=== PATIENT | female | born 1995 | race Caucasian/White ===

== ENCOUNTER 2022-06-20 19:06 | Inpatient (IN) | payer OTHER, SELFPAY ==
[2022-06-20 19:09] VITALS: BP 160/82; PULSE 91; RESP 18; TEMP 36.6; O2SAT 97; BMI 37.8
[2022-06-20 19:35] LABS: Hematocrit 39.9 % (37.0-47.0); Hemoglobin 13.8 g/dl (12.0-16.0); Mean Corpuscular HGB Conc 34.6 g/dl (31.0-35.0); Mean Corpuscular Hemoglobin 31.7 pg (27.0-33.0); Mean Corpuscular Volume 91.5 fL (80.0-98.0); Mean Platelet Volume 9.9 fL (9.4-12.3); Platelet Count 248 X10*3/uL (160-400); Red Blood Count 4.36 X10*6/uL (4.20-5.50); White Blood Count 6.2 X10*3/uL (4.8-10.8)
[2022-06-20 19:57] LABS: Anion Gap 12 (12-20); Blood Urea Nitrogen 12 mg/dL (9-16); Carbon Dioxide 26 mmol/L (22-29); Chloride 107 mmol/L (96-108); Creatinine Clr Calc Pharmacy 117.6; Estimated Glomerular Filt Rate > 60; Glucose Random 98 mg/dL (60-115); Sodium 141 mmol/L (135-145)
[2022-06-20 20:01] LABS: COVID-19 Test Negative (Negative)
[2022-06-20 20:45] LABS: Appearance Urine Turbid; Color Urine Dark Yellow; Glucose Urine UA Negative (Negative); Leukocyte Esterase Urine Moderate (2+) (Negative); Nitrite Urine Negative (Negative); PH 5.5 (5.0-9.0); Specific Gravity - Urine 1.025 (1.005-1.025); UMIC TRIGGER UA YES; Urine Blood Negative (Negative); Urine Ketones Trace mg/dL (Negative); Urine Protein Trace mg/dL (Neg-Trace)
[2022-06-20 20:55] LABS: UPreg QC Valid YES; Urine Pregnancy NEGATIVE (NEGATIVE)
[2022-06-20 20:57] LABS: Amphetamine Screen Urine Not Detected (Not Detect); Barbiturates, Urine Not Detected (Not Detect); Benzodiazepines Screen Urine Not Detected (Not Detect); Cannabinoid Screen Urine POSITIVE (Not Detect); Cocaine Screen Urine Not Detected (Not Detect); Fentanyl, urine Not Detected (Not Detect); Opiate Screen Urine Not Detected (Not Detect); Phencyclidine Screen Urine Not Detected (Not Detect)
[2022-06-20 21:18] LABS: MANUAL DIFF FLAG NO
[2022-06-20 21:19] LABS: Basophils Percent Auto 0.3 % (0-2); Eosinophils Absolute Auto 0.1 X10*3/uL (0.0-0.4); Eosinophils Percent Auto 1.7 % (0-4); Hematocrit 36.9 % (37.0-47.0); Hemoglobin 12.7 g/dl (12.0-16.0); Imm Gran Abs Auto 0.02 X10*3/uL (0.00-0.03); Imm Gran Pct Auto 0.3 % (0.0-0.4); Lymphocytes Absolute Auto 1.8 X10*3/uL (1.2-4.9); Lymphocytes Percent Auto 30.1 % (20-40); Mean Corpuscular HGB Conc 34.4 g/dl (31.0-35.0); Mean Corpuscular Hemoglobin 30.9 pg (27.0-33.0); Mean Corpuscular Volume 89.8 fL (80.0-98.0); Mean Platelet Volume 9.8 fL (9.4-12.3); Monocytes Absolute Auto 0.5 X10*3/uL (0.1-1.2); Monocytes Percent Auto 8.5 % (2-11); Neutrophils Absolute Auto 3.5 x10*3/uL (2.0-8.3); Neutrophils Percent Auto 59.1 % (45-73); Platelet Count 219 X10*3/uL (160-400); Red Blood Count 4.11 X10*6/uL (4.20-5.50); White Blood Count 5.9 X10*3/uL (4.8-10.8)
[2022-06-20 21:26] LABS: Bacteria Urine 4+ (None Seen); Hyaline Casts Urine 0-2 /LPF (0-2); RBC Urine 0-2 /HPF (0-2); Squamous Epithelial Cell Urine >20 /HPF (0-2)
[2022-06-20 21:43] LABS: Acetaminophen LAB < 17 mcg/mL (<30); Alanine Aminotransferase 8 U/L (0-31); Albumin Level 3.9 g/dL (3.5-5.0); Alkaline Phosphatase 73 U/L (39-117); Anion Gap 10 (12-20); Aspartate Amino Transferase 8 U/L (5-31); Bilirubin Total 0.3 mg/dL (0.0-1.0); Blood Urea Nitrogen 12 mg/dL (9-16); Calcium 8.5 mg/dL (8.4-10.2); Carbon Dioxide 25 mmol/L (22-29); Chloride 106 mmol/L (96-108); Creatinine Clr Calc Pharmacy 117.6; Estimated Glomerular Filt Rate > 60; Glucose Random 137 mg/dL (60-115); Potassium 3.7 mmol/L (3.3-5.1); Salicylate < 5.0 mg/dL (15-30); Sodium 137 mmol/L (135-145); Total Protein 5.7 g/dL (6.5-8.0)
--- NOTE | 2022-06-20 21:46 | ED_ITS ---
HPI - Psych General Chief Complaint: Psychiatric Symptoms Stated Complaint: Crisis Time Seen by Provider: 06/20/22 20:33 Source: patient Mode of arrival: ambulatory Limitations: no limitations History of Present Illness HPI Narrative: 26-year-old female with a history of bipolar disorder and depression presents for suicidal ideations and states she is feeling like ? is losing it ?. Patient states she has been hospitalized 5x in the past for suicidal ideations, the last time being 5 years ago. Patient states that she had a child 10 months ago and her symptoms have been getting increasingly worse since then. Patient sees a therapist once a week who told her issues most likely suffering from psychosis. Patient states that she has been hearing voices in her mind. denies tactile and visual hallucinations. Patient takes medical marijuana for fibromyalgia pain. Denies any other drug use. Denies tobacco use. Denies alcohol use. Patient is taking Abilify and Seroquel. Patient states that her is her support system at home. Patient tells me that her child is safe with its grandmother in denies any thoughts of hurting her child. Patient denies SOB, nausea, chest pain, vomiting, diarrhea. Related Data Home Medications Medication Instructions Recorded Confirmed aripiprazole 2 mg tablet 1.5 tab PO BEDTIME 06/20/22 06/20/22 carbamazepine 100 mg 1 cap PO Q12H 06/20/22 06/20/22 capsule,extended release [id number] cholecalciferol (vitamin D3) 125 1 cap PO DAILY 06/20/22 06/20/22 mcg (5,000 unit) capsule quetiapine 50 mg tablet 1 - 2 tab PO BEDTIME 06/20/22 06/20/22 Allergies Allergy/AdvReac Type Severity Reaction Status Date / Time Sulfa (Sulfonamide Allergy Intermediate DIARRHEA Verified 06/20/22 19:14 Antibiotics) [SULFA (SULFONAMIDE ANTIBIOTICS)] topiramate [From Topamax] Allergy Anaphylaxis Verified 06/20/22 19:14 trazodone [TRAZODONE] AdvReac Mild UNKNOWN Verified 06/20/22 19:14 CHICK PEAS Allergy Severe ANAPHYLAXIS Uncoded 01/15/20 19:35 Review of Systems Review of Systems: Constitutional : No Weight loss, No Fever, No Chills, No Fatigue, No Malaise ENT/Mouth : No sore throat, No Rhinorrhea Eyes: No Eye Pain, No Swelling, No Redness Cardiovascular : No Chest Pain, No SOB, No Dyspnea on Exertion, No Orthopnea, No Edema, No Palpitations Respiratory : No Cough, No Sputum, No Wheezing Gastrointestinal : No Nausea, No Vomiting, No Diarrhea, No Constipation, No abdominal Pain, No Hematochezia, No Melena Genitourinary : No Dysuria, No Urinary Frequency, No Hematuria, Musculoskeletal : No joint pain, No Myalgias, No Joint Swelling Skin : No Skin Lesions, No rash Neuro : No Weakness, No Numbness, No Dizziness, No Headache Psych : No Anxiety/Panic, + Depression, + SI, No HI All other systems reviewed and are negative Yes all other systems are reviewed and are negative [facility] Past Medical History Attestation statement: The following information was validated with the patient. Source: old records reviewed and nursing notes reviewed Social History Social History Advance Directives: No Advance Directives Information Provided: No Physical Exam Vital Signs: Vital Signs: Last Vital Signs Temp 97.9 F 06/20/22 19:09 Pulse 91 06/20/22 19:09 Resp 18 06/20/22 19:09 BP 160/82 H 06/20/22 19:09 Pulse Ox 97 06/20/22 19:09 O2 Del Method 06/20/22 19:09 BMI result Body Mass Index 37.8 vss Appearance: Alert.? Oriented X3.? No acute distress.? Head: Normocephalic, atraumatic, no step-offs or deformities Eyes: Pupils equal, round and reactive to light.? Neck: Normal inspection.? Neck supple.? CVS: Normal heart rate and rhythm.? Pulses normal.? Respiratory: No respiratory distress.? Breath sounds normal.? Abdomen: Soft and nontender.? Skin: Skin warm and dry.? Normal skin color.? Normal skin turgor.? Extremities: No lower extremity edema.? No calf ttp. 5/5 strength to bilateral upper and lower extremities Neuro: Oriented X 3.? No motor deficit.? No sensory deficit. CN 2-12 intact Course Reevaluation(s) Reevaluation #1: CBC within normal limits. No electrolyte abnormalities. Urinalysis with leukocyte esterases and bacteria however I suspected secondary to contamination, patient without UTI symptoms will not treat for UTI. Urine is positive for marijuana salicylates, acetaminophen negative. COVID negative. At this time patient will be placed in observation to allow more time to be evaluated by the behavioral health team. At time observation was started patient common cooperative no acute distress will continue to monitor. Time: 21:57 Medical Decision Making Medical Decision Making [facility] Narrative: [age]-year-old female presents with depression status post having an child 10 months ago, progressively worsening intermittent suicidal ideation no particular plan Physical exam benign patient tearful however. Likely depression or depression. Unlikely metabolic disturbances. Plan medical clearance evaluation by the behavioral health team Differential Diagnosis Differential Diagnoses: The differential diagnosis associated with the presentation includes Likely depression or depression. Unlikely metabolic disturbances. Admission/Observation Consideration of admission/observation: Escalation of care including admission/observation considered Lab Data [facility] Lab Attestation statement: I reviewed the patient's lab results. 06/20/22 21:10 06/20/22 21:10 Labs: Lab Results 06/20/22 06/20/22 06/20/22 Range/Units 19:18 19:29 19:29 WBC 6.2 (4.8-10.8) X10*3/uL RBC 4.36 (4.20-5.50) X10*6/uL Hgb 13.8 (12.0-16.0) g/dl Hct 39.9 (37.0-47.0) % MCV 91.5 (80.0-98.0) fL MCH 31.7 (27.0-33.0) pg MCHC 34.6 (31.0-35.0) g/dl RDW 12.0 (11.0-16.0) % Plt Count 248 (160-400) X10*3/uL MPV 9.9 (9.4-12.3) fL Immature Gran % (Auto) (0.0-0.4) % Neut % (Auto) (45-73) % Lymph % (Auto) (20-40) % [place] % (Auto) (2-11) % Eos % (Auto) (0-4) % Baso % (Auto) (0-2) % Lymph # (Auto) (1.2-4.9) X10*3/uL [place] # (Auto) (0.1-1.2) X10*3/uL Eos # (Auto) (0.0-0.4) X10*3/uL Baso # (Auto) (0.0-0.2) X10*3/uL Abs Immat Gran (auto) (0.00-0.03) X10*3/uL Absolute Neuts (auto) (2.0-8.3) x10*3/uL Absolute Nucleated RBC 0.000 (0.0-0.012) X10*3/uL Nucleated RBC % (auto) 0.0 (0.0-0.2) /100WBC Sodium 141 (135-145) mmol/L Potassium 4.0 (3.3-5.1) mmol/L Chloride 107 (96-108) mmol/L Carbon Dioxide 26 (22-29) mmol/L Anion Gap 12 (12-20) BUN 12 (9-16) mg/dL Creatinine 0.73 (0.5-1.4) mg/dL Estim Creat Clear Calc 117.6 Estimated GFR > 60 Random Glucose 98 (60-115) mg/dL Calcium 9.0 (8.4-10.2) mg/dL Total Bilirubin (0.0-1.0) mg/dL AST (5-31) U/L ALT (0-31) U/L Alkaline Phosphatase (39-117) U/L Total Protein (6.5-8.0) g/dL Albumin (3.5-5.0) g/dL Urine Color Urine Appearance Urine pH (5.0-9.0) Ur Specific [place] (1.005-1.025) Urine Protein (Neg-Trace) mg/dL Urine Glucose (UA) (Negative) mg/dL Urine Ketones (Negative) mg/dL Urine Blood (Negative) Urine Nitrite (Negative) Ur Leukocyte Esterase (Negative) Urine RBC (0-2) /HPF Urine WBC (0-5) /HPF Ur Squamous Epith Cells (0-2) /HPF Urine Bacteria (None Seen) Hyaline Casts (0-2) /LPF Urine Test (NEGATIVE) Salicylates (15-30) mg/dL Urine Opiates Screen (Not Detect) Urine Fentanyl Screen (Not Detect) Acetaminophen (<30) mcg/mL Ur Barbiturates Screen (Not Detect) Ur Phencyclidine Scrn (Not Detect) Ur Amphetamines Screen (Not Detect) U Benzodiazepines Scrn (Not Detect) Urine Cocaine Screen (Not Detect) U Marijuana (THC) Screen (Not Detect) COVID-19 (BARRETT) Negative (Negative) COVID-19 Clin Com See Note 06/20/22 06/20/22 06/20/22 Range/Units 20:20 20:20 20:20 WBC (4.8-10.8) X10*3/uL RBC (4.20-5.50) X10*6/uL Hgb (12.0-16.0) g/dl Hct (37.0-47.0) % MCV (80.0-98.0) fL MCH (27.0-33.0) pg MCHC (31.0-35.0) g/dl RDW (11.0-16.0) % Plt Count (160-400) X10*3/uL MPV (9.4-12.3) fL Immature Gran % (Auto) (0.0-0.4) % Neut % (Auto) (45-73) % Lymph % (Auto) (20-40) % [place] % (Auto) (2-11) % Eos % (Auto) (0-4) % Baso % (Auto) (0-2) % Lymph # (Auto) (1.2-4.9) X10*3/uL [place] # (Auto) (0.1-1.2) X10*3/uL Eos # (Auto) (0.0-0.4) X10*3/uL Baso # (Auto) (0.0-0.2) X10*3/uL Abs Immat Gran (auto) (0.00-0.03) X10*3/uL Absolute Neuts (auto) (2.0-8.3) x10*3/uL Absolute Nucleated RBC (0.0-0.012) X10*3/uL Nucleated RBC % (auto) (0.0-0.2) /100WBC Sodium (135-145) mmol/L Potassium (3.3-5.1) mmol/L Chloride (96-108) mmol/L Carbon Dioxide (22-29) mmol/L Anion Gap (12-20) BUN (9-16) mg/dL Creatinine (0.5-1.4) mg/dL Estim Creat Clear Calc Estimated GFR Random Glucose (60-115) mg/dL Calcium (8.4-10.2) mg/dL Total Bilirubin (0.0-1.0) mg/dL AST (5-31) U/L ALT (0-31) U/L Alkaline Phosphatase (39-117) U/L Total Protein (6.5-8.0) g/dL Albumin (3.5-5.0) g/dL Urine Color Dark Yellow Urine Appearance Turbid Urine pH 5.5 (5.0-9.0) Ur Specific [place] 1.025 (1.005-1.025) Urine Protein Trace (Neg-Trace) mg/dL Urine Glucose (UA) Negative (Negative) mg/dL Urine Ketones Trace (Negative) mg/dL Urine Blood Negative (Negative) Urine Nitrite Negative (Negative) Ur Leukocyte Esterase Moderate (2+) H (Negative) Urine RBC 0-2 (0-2) /HPF Urine WBC 11-20 H (0-5) /HPF Ur Squamous Epith Cells >20 (0-2) /HPF Urine Bacteria 4+ (None Seen) Hyaline Casts 0-2 (0-2) /LPF Urine Test NEGATIVE (NEGATIVE) Salicylates (15-30) mg/dL Urine Opiates Screen Not Detected (Not Detect) Urine Fentanyl Screen Not Detected (Not Detect) Acetaminophen (<30) mcg/mL Ur Barbiturates Screen Not Detected (Not Detect) Ur Phencyclidine Scrn Not Detected (Not Detect) Ur Amphetamines Screen Not Detected (Not Detect) U Benzodiazepines Scrn Not Detected (Not Detect) Urine Cocaine Screen Not Detected (Not Detect) U Marijuana (THC) Screen POSITIVE H (Not Detect) COVID-19 (BARRETT) (Negative) COVID-19 Clin Com 06/20/22 06/20/22 Range/Units 21:10 21:10 WBC 5.9 (4.8-10.8) X10*3/uL RBC 4.11 L (4.20-5.50) X10*6/uL Hgb 12.7 (12.0-16.0) g/dl Hct 36.9 L (37.0-47.0) % MCV 89.8 (80.0-98.0) fL MCH 30.9 (27.0-33.0) pg MCHC 34.4 (31.0-35.0) g/dl RDW 12.0 (11.0-16.0) % Plt Count 219 (160-400) X10*3/uL MPV 9.8 (9.4-12.3) fL Immature Gran % (Auto) 0.3 (0.0-0.4) % Neut % (Auto) 59.1 (45-73) % Lymph % (Auto) 30.1 (20-40) % [place] % (Auto) 8.5 (2-11) % Eos % (Auto) 1.7 (0-4) % Baso % (Auto) 0.3 (0-2) % Lymph # (Auto) 1.8 (1.2-4.9) X10*3/uL [place] # (Auto) 0.5 (0.1-1.2) X10*3/uL Eos # (Auto) 0.1 (0.0-0.4) X10*3/uL Baso # (Auto) 0.0 (0.0-0.2) X10*3/uL Abs Immat Gran (auto) 0.02 (0.00-0.03) X10*3/uL Absolute Neuts (auto) 3.5 (2.0-8.3) x10*3/uL Absolute Nucleated RBC 0.000 (0.0-0.012) X10*3/uL Nucleated RBC % (auto) 0.0 (0.0-0.2) /100WBC Sodium 137 (135-145) mmol/L Potassium 3.7 (3.3-5.1) mmol/L Chloride 106 (96-108) mmol/L Carbon Dioxide 25 (22-29) mmol/L Anion Gap 10 L (12-20) BUN 12 (9-16) mg/dL Creatinine 0.73 (0.5-1.4) mg/dL Estim Creat Clear Calc 117.6 Estimated GFR > 60 Random Glucose 137 H (60-115) mg/dL Calcium 8.5 (8.4-10.2) mg/dL Total Bilirubin 0.3 (0.0-1.0) mg/dL AST 8 (5-31) U/L ALT 8 (0-31) U/L Alkaline Phosphatase 73 (39-117) U/L Total Protein 5.7 L (6.5-8.0) g/dL Albumin 3.9 (3.5-5.0) g/dL Urine Color Urine Appearance Urine pH (5.0-9.0) Ur Specific [place] (1.005-1.025) Urine Protein (Neg-Trace) mg/dL Urine Glucose (UA) (Negative) mg/dL Urine Ketones (Negative) mg/dL Urine Blood (Negative) Urine Nitrite (Negative) Ur Leukocyte Esterase (Negative) Urine RBC (0-2) /HPF Urine WBC (0-5) /HPF Ur Squamous Epith Cells (0-2) /HPF Urine Bacteria (None Seen) Hyaline Casts (0-2) /LPF Urine Test (NEGATIVE) Salicylates < 5.0 L (15-30) mg/dL Urine Opiates Screen (Not Detect) Urine Fentanyl Screen (Not Detect) Acetaminophen < 17 (<30) mcg/mL Ur Barbiturates Screen (Not Detect) Ur Phencyclidine Scrn (Not Detect) Ur Amphetamines Screen (Not Detect) U Benzodiazepines Scrn (Not Detect) Urine Cocaine Screen (Not Detect) U Marijuana (THC) Screen (Not Detect) COVID-19 (BARRETT) (Negative) COVID-19 Clin Com Core Measures AMI core measures followed: Yes Measure exclusions: not indicated Critical Care Time Critical Care Time Critical Care Time: No Discharge Plan Discharge Clinical Impression: Depression, , Suicidal ideation Patient Disposition: Still a Patient Prescriptions: No Action cholecalciferol (vitamin D3) 125 mcg (5,000 unit) capsule 1 cap PO DAILY carbamazepine 100 mg capsule, ER multiphase 12 hr 1 cap PO Q12H aripiprazole 2 mg tablet 1.5 tab PO BEDTIME quetiapine 50 mg tablet 1 - 2 tab PO BEDTIME Interventions: [place]-Suicide Risk Severity Scale Last Done: 06/20/22 19:34
[2022-06-20 22:48] LABS: Ethanol < 10 mg/dL
[2022-06-20 23:20] VITALS: BP 119/78; PULSE 69; RESP 16; TEMP 36.4; O2SAT 98
--- NOTE | 2022-06-20 23:49 | PC.NURSE ---
Patient is currently in bed appears sleeping, no distress observed/reported, med rec completed/pending provider's approval, patient was assessed by care team/engaged fairly well, disposition per care team is section 12 inpatient bed search, will continue to monitor.
--- NOTE | 2022-06-21 01:49 | MHC.CARE ---
Pt was evaluated by the CARE Team and made an inpatient bedsearch at this time. CARE Team also filed a 51A with [facility] due to safety of child. Spoke to [facility] venereal disease investigator Pam who reports they may come out to the ED today and speak to pt.
[2022-06-21] MEDS: OLANZapine 5 MG TABLET PO (06:09)
[2022-06-21] MEDS: LORazepam 1 MG TABLET 2 MG PO (06:09)
[2022-06-21 08:45] VITALS: BP 138/76; PULSE 85; RESP 16; TEMP 36.8; O2SAT 99
[2022-06-21] MEDS: Cholecalciferol (Vitamin D3) 25 MCG TABLET 125 MCG PO (09:19)
[2022-06-21] MEDS: carBAMazepine ER 100 MG TAB.ER.12H PO ×2 (09:54→20:18)
--- NOTE | 2022-06-21 10:22 | PC.NURSE ---
Bedsearch continues. Pt calm and cooperative. Sleeping at this time
--- NOTE | 2022-06-21 13:02 | ECG_ITS ---
Test Reason : med clearance Blood Pressure : / mmHG Vent. Rate : 074 BPM Atrial Rate : 074 BPM P-R Int : 164 ms QRS Dur : 078 ms QT Int : 372 ms P-R-T Axes : 047 073 058 degrees QTc Int : 412 ms Normal sinus rhythm with sinus arrhythmia Normal ECG No previous ECGs available Referred By: Levy Ramirez Electronically Signed By:DEMETRIS ARROYO
--- NOTE | 2022-06-21 13:03 | PC.NURSE ---
Report to CRISTIN Zapata
--- NOTE | 2022-06-21 13:18 | PHA.MEDREC ---
Pharmacy Consult ? Medication Reconciliation Pharmacy has completed the medication reconciliation. Checked med rec done by nursing
[2022-06-21] MEDS: hydrOXYzine HCL 25 MG TABLET PO (16:59)
[2022-06-21 17:34] VITALS: BP 144/65; PULSE 95; TEMP 36.6; O2SAT 99
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
[2022-06-21] MEDS: ARIPiprazole 2 MG TABLET 3 MG PO (20:18)
[2022-06-22 07:00] VITALS: BMI 38.9
[2022-06-22] MEDS: Cholecalciferol (Vitamin D3) 25 MCG TABLET 125 MCG PO (08:05)
[2022-06-22 08:14] VITALS: BP 108/63; PULSE 82; RESP 16; TEMP 37.2; O2SAT 95
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
[2022-06-22 09:54] LABS: Estimated Average Glucose 91 mg/dL; Hemoglobin A1c % 4.8 %
[2022-06-22 10:14] LABS: Cholesterol 165 mg/dL; HDL Cholesterol 43 mg/dL; LDL Cholesterol Calculated 111 mg/dl; Triglycerides 58 mg/dL
[2022-06-22 10:45] LABS: Folate 8.2 ng/mL (> or = 4.0); Free T4 (Free Thyroxine) 0.97 ng/dL (0.71-1.85); Thyroid Stimulating Hormone 0.78 uIU/mL (0.32-4.0); Vitamin B12 253 pg/mL (200-900)
[2022-06-22] MEDS: carBAMazepine ER 100 MG TAB.ER.12H PO ×2 (10:52→22:18)
[2022-06-22] MEDS: hydrOXYzine HCL 25 MG TABLET PO (12:51)
[2022-06-22] MEDS: OLANZapine 5 MG TABLET PO ×2 (15:41→22:18)
[2022-06-22 18:00] VITALS: BP 101/64; PULSE 84; TEMP 36.6; O2SAT 97
[2022-06-22] MEDS: Acetaminophen 325 MG TABLET 650 MG PO (22:18)
[2022-06-22] MEDS: ARIPiprazole 5 MG TABLET PO (22:19)
--- NOTE | 2022-06-22 23:21 | PC.NURSE ---
At 2039, Estefania from the lab called with a critical lab value. Pt's Tegretol level was 3.0; Dr. Patton notifed, no new orders received.
[2022-06-23] MEDS: carBAMazepine ER 100 MG TAB.ER.12H PO (08:01)
[2022-06-23] MEDS: Cholecalciferol (Vitamin D3) 25 MCG TABLET 125 MCG PO (08:01)
[2022-06-23] MEDS: buPROPion HCl XL 150 MG TAB.ER.24H PO (08:01)
[2022-06-23 08:18] VITALS: BP 112/63; PULSE 75; RESP 16; TEMP 36.5; O2SAT 97
--- NOTE | 2022-06-23 12:01 | P.PNPSI_ITS ---
Subjective Subjective Date of Service: 06/23/22 Reason For Visit: Psychosis Interim History: calm, cooperative. engageable, no apparent distraction, odd pauses, unusual behaviors, or thought disorder. states she was having a somewhat difficult time this morning when she got up early and few people were about. now that more people are about, she is feeling better, better able to distract herself from the head friends. reports the thoughts of SI occurring to her but that they're not mine. they're the head friends'. discuss low tegretol and need or not for the medication. she states she started the tegretol about 2 months ago and then several weeks ago having increased the dosage. this timeline shadows her recent worsening and then severe exacerbation of symptoms. agrees to have a rapid taper and then DC of tegretol. Mental Status Exam Mental Status Exam Narrative: adequately dressed and groomed. no PMA/PMR. cooperative. speech nml rate, amount, loudness, tone, latency. thoughts linear and logical. affect full range, normo-intense, non-labile, not c/w context. mood numb. endorsing SI (but it's not her thought, it's from the head friends ) and AH. she describes AH as head friends. no HI. Diagnostics Vital Signs (24Hr): Vital Signs - 24 hr 06/22/22 18:00 06/23/22 08:18 Temperature 97.8 F 97.7 F Pulse Rate 84 75 Respiratory Rate 16 Blood Pressure 101/64 112/63 Pulse Oximetry 97 97 Oxygen Delivery Method Room Air Room Air BMI result Body Mass Index 38.9 Labs 06/20/22 21:10 06/20/22 21:10 Labs: Laboratory Results - last 48 hr 06/22/22 06/22/22 06/22/22 09:10 09:10 20:09 Estimat Average Glucose 91 Hemoglobin A1c % 4.8 Magnesium 2.0 Triglycerides 58 Cholesterol 165 LDL Cholesterol, Calc 111 HDL Cholesterol 43 Vitamin B12 253 Folate 8.2 TSH 0.78 Free T4 0.97 Carbamazepine 3.0 L* Medications Medications Current Medications Acetaminophen (Acetaminophen 325 Mg Tablet) 650 mg PO Q6H PRN PRN Reason: Headache/Pain Mild Scale (1-3) Last Admin: 06/22/22 22:18 Dose: 650 mg Al Hydroxide/Mg Hydroxide (Magnesium Hydrox/Alum Hydrox 30 Ml Oral.Susp) 30 ml PO Q6H PRN PRN Reason: Heartburn/Nausea Aripiprazole (Aripiprazole 5 Mg Tablet) 5 mg PO BEDTIME [facility] Last Admin: 06/22/22 22:19 Dose: 5 mg Bupropion HCl (Bupropion Hcl Xl 150 Mg Tab.Er.24h) 150 mg PO DAILY [facility] Last Admin: 06/23/22 08:01 Dose: 150 mg Carbamazepine (Carbamazepine 100 Mg Tab.Chew) 50 mg PO BID [facility] Stop: 06/24/22 09:01 Hydroxyzine HCl (Hydroxyzine Hcl 25 Mg Tablet) 25 mg PO Q6H PRN PRN Reason: Anxiety Last Admin: 06/22/22 12:51 Dose: 25 mg Magnesium Hydroxide (Milk Of Magnesia 30 Ml Oral.Susp) 30 ml PO DAILY PRN PRN Reason: Constipation Olanzapine (Olanzapine 5 Mg Tablet) 5 mg PO Q4H PRN PRN Reason: psychosis, agitation Last Admin: 06/22/22 22:18 Dose: 5 mg Vitamin D (Cholecalciferol (Vitamin D3) 25 Mcg Tablet) 125 mcg PO DAILY [facility] Last Admin: 06/23/22 08:01 Dose: 125 mcg Allergies Allergies Allergy/AdvReac Type Severity Reaction Status Date / Time Sulfa (Sulfonamide Allergy Intermediate DIARRHEA Verified 06/20/22 19:14 Antibiotics) [SULFA (SULFONAMIDE ANTIBIOTICS)] topiramate [From Topamax] Allergy Anaphylaxis Verified 06/20/22 19:14 trazodone [TRAZODONE] AdvReac Mild UNKNOWN Verified 06/20/22 19:14 CHICK PEAS Allergy Severe ANAPHYLAXIS Uncoded 01/15/20 19:35 Assessment & Plan Assessment & Plan (1) PTSD (post-traumatic stress disorder): Status: Acute Code(s): F43.10 - Post-traumatic stress disorder, unspecified (2) Major depressive disorder: Status: Acute Code(s): F32.9 - Major depressive disorder, single episode, unspecified Plan 06/23: DC seroquel as redundant to abilify and also likely to cause hypotension (see: POTS Dx) and weight gain. increase abilify to 5 mg as sole scheduled antipsychotic agent. continue tegretol and check level tonight. start wellbutrin for depression. zyprexa PRNs for severe anxiety. 2/25: as tegretol start and dose increase occurred at around the same times as worsening of depressive Sx and onset of psychotic Sx, trial off of tegretol. pt does not appear to have yeison ger bipolar disorder and therefore mood stabilizer is not necessary. no adverse events with wellbutrin start and abilify increase. titrate wellbutrin and abilify as clinically indicated. SI and AH continue. Patient educated on: diagnosis and medication risk/benefits Reason for contiued inpatient stay Substantial Risk for: harm to self, harm to others, inability to function and r apid decompensation Time Spent With Patient Time: Total time managing care of this patient today __35__ minutes.
[2022-06-23] MEDS: OLANZapine 5 MG TABLET PO ×2 (12:57→21:24)
[2022-06-23] MEDS: hydrOXYzine HCL 25 MG TABLET PO (19:11)
[2022-06-23] MEDS: Acetaminophen 325 MG TABLET 650 MG PO (19:15)
[2022-06-23] MEDS: ARIPiprazole 5 MG TABLET PO (19:16)
[2022-06-23] MEDS: carBAMazepine 100 MG TAB.CHEW 50 MG PO (19:17)
[2022-06-23 19:35] VITALS: BP 103/70; PULSE 88; TEMP 36.6
[2022-06-24] MEDS: carBAMazepine 100 MG TAB.CHEW 50 MG PO (08:21)
[2022-06-24] MEDS: buPROPion HCl XL 150 MG TAB.ER.24H PO (08:21)
[2022-06-24] MEDS: Cholecalciferol (Vitamin D3) 25 MCG TABLET 125 MCG PO (08:21)
[2022-06-24 08:24] VITALS: BP 134/70; PULSE 78; RESP 18; TEMP 36.4; O2SAT 96
[2022-06-24] MEDS: hydrOXYzine HCL 25 MG TABLET PO ×2 (11:48→18:11)
--- NOTE | 2022-06-24 12:50 | P.PNPSI_ITS ---
Subjective Subjective Date of Service: 06/24/22 Reason For Visit: Psychosis Interim History: Patient seen. She reports she has been doing well. Feels medications have been helpful. She is cooperative. Tolerating medications well. Had some anxiety related to increased activity and agitation of some other patients on the unit. Partners have beeen visiting. No SI. No AVH. Review of Systems Review of Systems Constitutional : No Weight loss, No Fever, No Chills, No Fatigue, No Malaise ENT/Mouth : No sore throat, No Rhinorrhea Eyes: No Eye Pain, No Swelling, No Redness Cardiovascular : No Chest Pain, No SOB, No Dyspnea on Exertion, No Orthopnea, No Edema, No Palpitations Respiratory : No Cough, No Sputum, No Wheezing Gastrointestinal : No Nausea, No Vomiting, No Diarrhea, No Constipation, No abd ominal Pain, No Hematochezia, No Melena Genitourinary : No Dysuria, No Urinary Frequency, No Hematuria, Musculoskeletal : No joint pain, No Myalgias, No Joint Swelling Skin : No Skin Lesions, No rash Neuro : No Weakness, No Numbness, No Dizziness, No Headache Psych : No Anxiety/Panic, + Depression, + SI, No HI All other systems reviewed and are negative Yes all other systems are reviewed and are negative Mental Status Exam Mental Status Exam Narrative: adequately dressed and groomed. no PMA/PMR. cooperative. speech nml rate, amount, loudness, tone, latency. thoughts linear and logical. affect full range, normo-intense, non-labile, not c/w context. mood numb. endorsing SI (but it's not her thought, it's from the head friends ) and AH. she describes AH as head friends. no HI. Diagnostics Vital Signs (24Hr): Vital Signs - 24 hr 06/24/22 08:24 06/24/22 18:00 Temperature 97.5 F 98.5 F Pulse Rate 78 69 Respiratory Rate 18 Blood Pressure 134/70 125/69 Pulse Oximetry 96 97 Oxygen Delivery Method Room Air Room Air BMI result Body Mass Index 38.9 Labs 06/20/22 21:10 06/20/22 21:10 Medications Medications Current Medications Acetaminophen (Acetaminophen 325 Mg Tablet) 650 mg PO Q6H PRN PRN Reason: Headache/Pain Mild Scale (1-3) Last Admin: 06/24/22 21:29 Dose: 650 mg Al Hydroxide/Mg Hydroxide (Magnesium Hydrox/Alum Hydrox 30 Ml Oral.Susp) 30 ml PO Q6H PRN PRN Reason: Heartburn/Nausea Aripiprazole (Aripiprazole 5 Mg Tablet) 5 mg PO BEDTIME [facility] Last Admin: 06/24/22 20:13 Dose: 5 mg Bupropion HCl (Bupropion Hcl Xl 150 Mg Tab.Er.24h) 150 mg PO DAILY [facility] Last Admin: 06/24/22 08:21 Dose: 150 mg Hydroxyzine HCl (Hydroxyzine Hcl 25 Mg Tablet) 25 mg PO Q6H PRN PRN Reason: Anxiety Last Admin: 06/24/22 18:11 Dose: 25 mg Ibuprofen (Ibuprofen 400 Mg Tablet) 400 mg PO TID PRN PRN Reason: Pain, Mild (Pain Scale 1-3) Last Admin: 06/24/22 21:30 Dose: 400 mg Magnesium Hydroxide (Milk Of Magnesia 30 Ml Oral.Susp) 30 ml PO DAILY PRN PRN Reason: Constipation Olanzapine (Olanzapine 5 Mg Tablet) 5 mg PO Q4H PRN PRN Reason: psychosis, agitation Last Admin: 06/24/22 21:29 Dose: 5 mg Vitamin D (Cholecalciferol (Vitamin D3) 25 Mcg Tablet) 125 mcg PO DAILY [facility] Last Admin: 06/24/22 08:21 Dose: 125 mcg Allergies Allergies Allergy/AdvReac Type Severity Reaction Status Date / Time Sulfa (Sulfonamide Allergy Intermediate DIARRHEA Verified 06/20/22 19:14 Antibiotics) [SULFA (SULFONAMIDE ANTIBIOTICS)] topiramate [From Topamax] Allergy Anaphylaxis Verified 06/20/22 19:14 trazodone [TRAZODONE] AdvReac Mild UNKNOWN Verified 06/20/22 19:14 CHICK PEAS Allergy Severe ANAPHYLAXIS Uncoded 01/15/20 19:35 Assessment & Plan Assessment & Plan (1) PTSD (post-traumatic stress disorder): Status: Acute Code(s): F43.10 - Post-traumatic stress disorder, unspecified (2) Major depressive disorder: Status: Acute Code(s): F32.9 - Major depressive disorder, single episode, unspecified Plan 06/22: DC seroquel as redundant to abilify and also likely to cause hypotension (see: POTS Dx) and weight gain. increase abilify to 5 mg as sole scheduled antipsychotic agent. continue tegretol and check level tonight. start wellbutrin for depression. zyprexa PRNs for severe anxiety. 06/23: as tegretol start and dose increase occurred at around the same times as wo rsening of depressive Sx and onset of psychotic Sx, trial off of tegretol. pt does not appear to have yeison ger bipolar disorder and therefore mood stabilizer is not necessary. no adverse events with wellbutrin start and abilify increase. titrate wellbutrin and abilify as clinically indicated. 06/24: Continue tx plan. Reason for contiued inpatient stay Substantial Risk for: harm to self, inability to function and rapid decompensation Time Spent With Patient Time: Total time managing care of this patient today ____ minutes.
[2022-06-24] MEDS: Acetaminophen 325 MG TABLET 650 MG PO ×2 (14:29→21:29)
[2022-06-24] MEDS: Ibuprofen 400 MG TABLET PO ×2 (17:40→21:30)
[2022-06-24 18:00] VITALS: BP 125/69; PULSE 69; TEMP 36.9; O2SAT 97
[2022-06-24] MEDS: ARIPiprazole 5 MG TABLET PO (20:13)
[2022-06-24] MEDS: OLANZapine 5 MG TABLET PO (21:29)
[2022-06-25 06:00] VITALS: BP 130/73; PULSE 81; RESP 16
[2022-06-25] MEDS: Cholecalciferol (Vitamin D3) 25 MCG TABLET 125 MCG PO (08:02)
[2022-06-25] MEDS: buPROPion HCl XL 150 MG TAB.ER.24H PO (08:03)
[2022-06-25] MEDS: Acetaminophen 325 MG TABLET 650 MG PO ×2 (08:38→21:26)
--- NOTE | 2022-06-25 12:10 | HO.PSYCHPN ---
Subjective Subjective Date of Service: 06/25/22 Reason For Visit: Psychosis Interim History: Patient seen. Having some anxiety and AH. They are improved but still present . She is overall brighter than on admission. Feels medications have been helpful. She is cooperative. Tolerating medications well. Had some anxiety related to increased activity and agitation of other patients on the unit. Partners have been visiting. No SI. Review of Systems Review of Systems Constitutional : No Weight loss, No Fever, No Chills, No Fatigue, No Malaise ENT/Mouth : No sore throat, No Rhinorrhea Eyes: No Eye Pain, No Swelling, No Redness Cardiovascular : No Chest Pain, No SOB, No Dyspnea on Exertion, No Orthopnea, No Edema, No Palpitations Respiratory : No Cough, No Sputum, No Wheezing Gastrointestinal : No Nausea, No Vomiting, No Diarrhea, No Constipation, No abdominal Pain, No Hematochezia, No Melena Genitourinary : No Dysuria, No Urinary Frequency, No Hematuria, Musculoskeletal : No joint pain, No Myalgias, No Joint Swelling Skin : No Skin Lesions, No rash Neuro : No Weakness, No Numbness, No Dizziness, No Headache Psych : No Anxiety/Panic, + Depression, + SI, No HI All other systems reviewed and are negative Yes all other systems are reviewed and are negative Mental Status Exam Mental Status Exam Narrative: adequately dressed and groomed. no PMA/PMR. cooperative. speech nml rate, amount, loudness, tone, latency. thoughts linear and logical. affect full range, normo-intense, non-labile, not c/w context. mood numb. endorsing SI (but it's not her thought, it's from the head friends ) and AH. she describes AH as head friends. no HI. Diagnostics Vital Signs (24Hr): Vital Signs - 24 hr 06/25/22 06:00 06/25/22 17:07 Temperature 98.2 F Pulse Rate 81 93 Respiratory Rate 16 Blood Pressure 130/73 115/58 L Pulse Oximetry 98 Oxygen Delivery Method Room Air BMI result Body Mass Index 38.9 Labs 06/20/22 21:10 06/20/22 21:10 Medications Medications Current Medications Acetaminophen (Acetaminophen 325 Mg Tablet) 650 mg PO Q6H PRN PRN Reason: Headache/Pain Mild Scale (1-3) Last Admin: 06/25/22 21:26 Dose: 650 mg Al Hydroxide/Mg Hydroxide (Magnesium Hydrox/Alum Hydrox 30 Ml Oral.Susp) 30 ml PO Q6H PRN PRN Reason: Heartburn/Nausea Aripiprazole (Aripiprazole 10 Mg Tablet) 10 mg PO BEDTIME [facility] Last Admin: 06/25/22 20:16 Dose: 10 mg Bupropion HCl (Bupropion Hcl Xl 150 Mg Tab.Er.24h) 150 mg PO DAILY [facility] Last Admin: 06/25/22 08:03 Dose: 150 mg Hydroxyzine HCl (Hydroxyzine Hcl 50 Mg Tablet) 50 mg PO Q6H PRN PRN Reason: Anxiety Ibuprofen (Ibuprofen 400 Mg Tablet) 400 mg PO TID PRN PRN Reason: Pain, Mild (Pain Scale 1-3) Last Admin: 06/25/22 21:27 Dose: 400 mg Magnesium Hydroxide (Milk Of Magnesia 30 Ml Oral.Susp) 30 ml PO DAILY PRN PRN Reason: Constipation Olanzapine (Olanzapine 5 Mg Tablet) 5 mg PO Q4H PRN PRN Reason: psychosis, agitation Last Admin: 06/25/22 17:04 Dose: 5 mg Vitamin D (Cholecalciferol (Vitamin D3) 25 Mcg Tablet) 125 mcg PO DAILY [facility] Last Admin: 06/25/22 08:02 Dose: 125 mcg Allergies Allergies Allergy/AdvReac Type Severity Reaction Status Date / Time Sulfa (Sulfonamide Allergy Intermediate DIARRHEA Verified 06/20/22 19:14 Antibiotics) [SULFA (SULFONAMIDE ANTIBIOTICS)] topiramate [From Topamax] Allergy Anaphylaxis Verified 06/20/22 19:14 trazodone [TRAZODONE] AdvReac Mild UNKNOWN Verified 06/20/22 19:14 CHICK PEAS Allergy Severe ANAPHYLAXIS Uncoded 01/15/20 19:35 Assessment & Plan Assessment & Plan (1) PTSD (post-traumatic stress disorder): Status: Acute Code(s): F43.10 - Post-traumatic stress disorder, unspecified (2) Major depressive disorder: Status: Acute Code(s): F32.9 - Major depressive disorder, single episode, unspecified Plan 06/22: DC seroquel as redundant to abilify and also likely to cause hypotension (see: POTS Dx) and weight gain. increase abilify to 5 mg as sole scheduled antipsychotic agent. continue tegretol and check level tonight. start wellbutrin for depression. zyprexa PRNs for severe anxiety. 06/23: as tegretol start and dose increase occurred at around the same times as worsening of depressive Sx and onset of psychotic Sx, trial off of tegretol. pt does not appear to have yeison ger bipolar disorder and therefore mood stabilizer is not necessary. no adverse events with wellbutrin start and abilify increase. titrate wellbutrin and abilify as clinically indicated. 06/24: Continue tx plan. 06/25: Increase Abilify to 10 mg. Reason for contiued inpatient stay Substantial Risk for: harm to self, inability to function and rapid decompensation Time Spent With Patient Time: Total time managing care of this patient today ____ minutes.
[2022-06-25] MEDS: OLANZapine 5 MG TABLET PO (17:04)
[2022-06-25 17:07] VITALS: BP 115/58; PULSE 93; TEMP 36.8; O2SAT 98
[2022-06-25] MEDS: ARIPiprazole 10 MG TABLET PO (20:16)
[2022-06-25] MEDS: Ibuprofen 400 MG TABLET PO (21:27)
[2022-06-26] MEDS: Acetaminophen 325 MG TABLET 650 MG PO ×3 (08:23→22:36)
[2022-06-26] MEDS: Ibuprofen 400 MG TABLET PO ×2 (08:24→20:40)
[2022-06-26] MEDS: Cholecalciferol (Vitamin D3) 25 MCG TABLET 125 MCG PO (08:25)
[2022-06-26] MEDS: buPROPion HCl XL 150 MG TAB.ER.24H PO (08:25)
[2022-06-26 08:30] VITALS: BP 122/84; PULSE 76; RESP 18; TEMP 36.6; O2SAT 99
--- NOTE | 2022-06-26 10:44 | HO.PSYCHPN ---
Subjective Subjective Date of Service: 06/26/22 Reason For Visit: Psychosis Interim History: pt seen; discussed in team; reviewed admission/weekend notes Pt reports she's feeling much better today. She explained that since getting on Abilify and w/ Zyprexa as prn, her mood has been better and AH much less. She said no AH today so far (and only once yesterday during high aquity moment on unit); denies any SI and has not been self-harming. Pt reiterates has never wanted to harm her child (and never had plans/intent); she maintains that AH to do so were always anathema to her which is why she self-presented. Pt reports she's feeling stable and would like to discharge; she shares about her extensive support and desire to get back to her child and family; pt however but agrees to remain another day to further demonstrate stability. reviewed patient hx: pt has hx of intermittent AH, mostly mood congruent, but not always. Discussed hx of manic episodes and panic endorsed going through 3 day episodes getting little sleep, talking faster, accelerated thought process, increased libido, increased spending; she remains able to work and function but endorses a pattern. Pt says her outpt provider made med changes due to provisional dx of bipolar. However, pt feels AH and depression worsened when she was taken off Zoloft and put on tegretol; thinks worse still as tegretol increased. Pt shared about her good relationship w/ outpt therapist and plans to start EMDR. Mental Status Exam Mental Status Exam Narrative: Pt is alert and oriented; behavior is cooperative, friendly and calm; patient is not in distress; dressed in casual attire adequately groomed and with good hygiene; mood is described as good and affect congruent; eye contact appropriate; Speech is normal rate, volume and prosody and not pressured; no psychomotor agitation/retardation present; thought process is organized and goal directed; Thought content is on tx, discharge; otherwise pertinent to relevant topics and without any delusional content, paranoid ideations or grandiosity; denies any SI/HI. There is no evidence of perceptual disturbance and she denies AVH. Patients insight and judgment appear intact. Diagnostics Vital Signs (24Hr): Vital Signs - 24 hr 06/25/22 17:07 06/26/22 08:30 Temperature 98.2 F 97.9 F Pulse Rate 93 76 Respiratory Rate 18 Blood Pressure 115/58 L Pulse Oximetry 98 99 Oxygen Delivery Method Room Air Room Air BMI result Body Mass Index 38.9 Labs 06/20/22 21:10 06/20/22 21:10 Medications Medications Current Medications Acetaminophen (Acetaminophen 325 Mg Tablet) 650 mg PO Q6H PRN PRN Reason: Headache/Pain Mild Scale (1-3) Last Admin: 06/26/22 08:23 Dose: 650 mg Al Hydroxide/Mg Hydroxide (Magnesium Hydrox/Alum Hydrox 30 Ml Oral.Susp) 30 ml PO Q6H PRN PRN Reason: Heartburn/Nausea Aripiprazole (Aripiprazole 10 Mg Tablet) 10 mg PO BEDTIME [facility] Last Admin: 06/25/22 20:16 Dose: 10 mg Bupropion HCl (Bupropion Hcl Xl 150 Mg Tab.Er.24h) 150 mg PO DAILY [facility] Last Admin: 06/26/22 08:25 Dose: 150 mg Hydroxyzine HCl (Hydroxyzine Hcl 50 Mg Tablet) 50 mg PO Q6H PRN PRN Reason: Anxiety Ibuprofen (Ibuprofen 400 Mg Tablet) 400 mg PO TID PRN PRN Reason: Pain, Mild (Pain Scale 1-3) Last Admin: 06/26/22 08:24 Dose: 400 mg Magnesium Hydroxide (Milk Of Magnesia 30 Ml Oral.Susp) 30 ml PO DAILY PRN PRN Reason: Constipation Olanzapine (Olanzapine 5 Mg Tablet) 5 mg PO Q4H PRN PRN Reason: psychosis, agitation Last Admin: 06/25/22 17:04 Dose: 5 mg Vitamin D (Cholecalciferol (Vitamin D3) 25 Mcg Tablet) 125 mcg PO DAILY [facility] Last Admin: 06/26/22 08:25 Dose: 125 mcg Allergies Allergies Allergy/AdvReac Type Severity Reaction Status Date / Time Sulfa (Sulfonamide Allergy Intermediate DIARRHEA Verified 06/20/22 19:14 Antibiotics) [SULFA (SULFONAMIDE ANTIBIOTICS)] topiramate [From Topamax] Allergy Anaphylaxis Verified 06/20/22 19:14 trazodone [TRAZODONE] AdvReac Mild UNKNOWN Verified 06/20/22 19:14 CHICK PEAS Allergy Severe ANAPHYLAXIS Uncoded 01/15/20 19:35 Assessment & Plan Assessment & Plan (1) PTSD (post-traumatic stress disorder): Status: Acute Code(s): F43.10 - Post-traumatic stress disorder, unspecified (2) Major depressive disorder: Status: Acute Code(s): F32.9 - Major depressive disorder, single episode, unspecified (3) Bipolar II disorder: Status: Acute Code(s): F31.81 - Bipolar II disorder Plan 06/22: DC seroquel as redundant to abilify and also likely to cause hypotension (see: POTS Dx) and weight gain. increase abilify to 5 mg as sole scheduled antipsychotic agent. continue tegretol and check level tonight. start wellbutrin for depression. zyprexa PRNs for severe anxiety. 06/23: as tegretol start and dose increase occurred at around the same times as worsening of depressive Sx and onset of psychotic Sx, trial off of tegretol. pt does not appear to have yeison ger bipolar disorder and therefore mood stabilizer is not necessary. no adverse events with wellbutrin start and abilify increase. titrate wellbutrin and abilify as clinically indicated. 06/24: Continue tx plan. 06/25: Increase Abilify to 10 mg. 06/26 pt has stabilized; AH resolved; mood improved and depression abated. Pt asks for discharge but will remain for another day to make sure AH remains gone; pt has good support from family and providers. She never had any SI or HI; pt has good insight and knows AH was a hallucination and so she sought help. Pt is not in imminent risk of harm to self or others and request for discharge honored. Reviewed hx and it seems likely that patient has a mild to moderate Bipolar II disorder Patient educated on: diagnosis, medication risk/benefits and therapeutic strategies Informed Consent: understands Reason for contiued inpatient stay Substantial Risk for: stable for discharge Time Spent With Patient Time: Total time managing care of this patient today ____ minutes.
[2022-06-26 16:00] VITALS: BP 125/63; PULSE 92; TEMP 35.8
[2022-06-26] MEDS: ARIPiprazole 10 MG TABLET PO (20:39)
--- NOTE | 2022-06-26 22:52 | PM.PSYDC ---
DS: Providers Provider Date of Service: 06/27/22 Date of admission: 06/21/22 13:31 Date of discharge: 06/27/22 Primary care physician: Mónica Valle NP Attending physician on admission: Madhav Jarrell Attending physician on discharge: Jason Recinos DS: Diagnosis Discharge Diagnosis (1) Bipolar II disorder: Status: Acute (2) PTSD (post-traumatic stress disorder): Status: Acute (3) Major depressive disorder: Status: Inactive DS: Medications Discharge Medications Home Medications: Home Medications Medication Instructions Recorded Confirmed aripiprazole 2 mg tablet 1.5 tab PO BEDTIME 06/20/22 06/20/22 carbamazepine 100 mg 1 cap PO Q12H 06/20/22 06/20/22 capsule,extended release [id number] cholecalciferol (vitamin D3) 125 1 cap PO DAILY 06/20/22 06/20/22 mcg (5,000 unit) capsule quetiapine 25 mg tablet 1 - 2 tab PO BEDTIME 06/21/22 06/21/22 Mental Status Exam Mental Status Exam Narrative: Pt is alert and oriented; behavior is cooperative, friendly and calm; patient is not in distress; dressed in casual attire adequately groomed and with good hygiene; mood is described as good and affect congruent; eye contact appropriate; Speech is normal rate, volume and prosody and not pressured; no psychomotor agitation/retardation present; thought process is organized and goal directed; Thought content is on tx, discharge; otherwise pertinent to relevant topics and without any delusional content, paranoid ideations or grandiosity; denies any SI/HI. There is no evidence of perceptual disturbance and she denies AVH. Patients insight and judgment are intact. Data Data Completed and Pending Completed studies during hospitalization [Text1]: 06/20/22 06/20/22 06/20/22 19:18 19:29 19:29 WBC 6.2 RBC 4.36 Hgb 13.8 Hct 39.9 MCV 91.5 MCH 31.7 MCHC 34.6 RDW 12.0 Plt Count 248 MPV 9.9 Immature Gran % (Auto) Neut % (Auto) Lymph % (Auto) Stearns % (Auto) Eos % (Auto) Baso % (Auto) Lymph # (Auto) Stearns # (Auto) Eos # (Auto) Baso # (Auto) Abs Immat Gran (auto) Absolute Neuts (auto) Absolute Nucleated RBC 0.000 Nucleated RBC % (auto) 0.0 Sodium 141 Potassium 4.0 Chloride 107 Carbon Dioxide 26 Anion Gap 12 BUN 12 Creatinine 0.73 Estim Creat Clear Calc 117.6 Estimated GFR > 60 Random Glucose 98 Estimat Average Glucose Hemoglobin A1c % Calcium 9.0 Magnesium Total Bilirubin AST ALT Alkaline Phosphatase Total Protein Albumin Triglycerides Cholesterol LDL Cholesterol, Calc HDL Cholesterol Vitamin B12 Folate TSH Free T4 Urine Color Urine Appearance Urine pH Ur Specific [place] Urine Protein Urine Glucose (UA) Urine Ketones Urine Blood Urine Nitrite Ur Leukocyte Esterase Urine RBC Urine WBC Ur Squamous Epith Cells Urine Bacteria Hyaline Casts Urine Test Salicylates Urine Opiates Screen Urine Fentanyl Screen Acetaminophen Ur Barbiturates Screen Carbamazepine Ur Phencyclidine Scrn Ur Amphetamines Screen U Benzodiazepines Scrn Urine Cocaine Screen U Marijuana (THC) Screen Ethyl Alcohol < 10 COVID-19 (BARRETT) Negative COVID-19 Clin Com See Note 06/20/22 06/20/22 06/20/22 20:20 20:20 20:20 WBC RBC Hgb Hct MCV MCH MCHC RDW Plt Count MPV Immature Gran % (Auto) Neut % (Auto) Lymph % (Auto) Stearns % (Auto) Eos % (Auto) Baso % (Auto) Lymph # (Auto) Stearns # (Auto) Eos # (Auto) Baso # (Auto) Abs Immat Gran (auto) Absolute Neuts (auto) Absolute Nucleated RBC Nucleated RBC % (auto) Sodium Potassium Chloride Carbon Dioxide Anion Gap BUN Creatinine Estim Creat Clear Calc Estimated GFR Random Glucose Estimat Average Glucose Hemoglobin A1c % Calcium Magnesium Total Bilirubin AST ALT Alkaline Phosphatase Total Protein Albumin Triglycerides Cholesterol LDL Cholesterol, Calc HDL Cholesterol Vitamin B12 Folate TSH Free T4 Urine Color Dark Yellow Urine Appearance Turbid Urine pH 5.5 Ur Specific [place] 1.025 Urine Protein Trace Urine Glucose (UA) Negative Urine Ketones Trace Urine Blood Negative Urine Nitrite Negative Ur Leukocyte Esterase Moderate (2+) H Urine RBC 0-2 Urine WBC 11-20 H Ur Squamous Epith Cells >20 Urine Bacteria 4+ Hyaline Casts 0-2 Urine Test NEGATIVE Salicylates Urine Opiates Screen Not Detected Urine Fentanyl Screen Not Detected Acetaminophen Ur Barbiturates Screen Not Detected Carbamazepine Ur Phencyclidine Scrn Not Detected Ur Amphetamines Screen Not Detected U Benzodiazepines Scrn Not Detected Urine Cocaine Screen Not Detected U Marijuana (THC) Screen POSITIVE H Ethyl Alcohol COVID-19 (BARRETT) COVID-19 Clin Com 06/20/22 06/20/22 06/22/22 21:10 21:10 09:10 WBC 5.9 RBC 4.11 L Hgb 12.7 Hct 36.9 L MCV 89.8 MCH 30.9 MCHC 34.4 RDW 12.0 Plt Count 219 MPV 9.8 Immature Gran % (Auto) 0.3 Neut % (Auto) 59.1 Lymph % (Auto) 30.1 Stearns % (Auto) 8.5 Eos % (Auto) 1.7 Baso % (Auto) 0.3 Lymph # (Auto) 1.8 Stearns # (Auto) 0.5 Eos # (Auto) 0.1 Baso # (Auto) 0.0 Abs Immat Gran (auto) 0.02 Absolute Neuts (auto) 3.5 Absolute Nucleated RBC 0.000 Nucleated RBC % (auto) 0.0 Sodium 137 Potassium 3.7 Chloride 106 Carbon Dioxide 25 Anion Gap 10 L BUN 12 Creatinine 0.73 Estim Creat Clear Calc 117.6 Estimated GFR > 60 Random Glucose 137 H Estimat Average Glucose 91 Hemoglobin A1c % 4.8 Calcium 8.5 Magnesium Total Bilirubin 0.3 AST 8 ALT 8 Alkaline Phosphatase 73 Total Protein 5.7 L Albumin 3.9 Triglycerides Cholesterol LDL Cholesterol, Calc HDL Cholesterol Vitamin B12 Folate TSH Free T4 Urine Color Urine Appearance Urine pH Ur Specific [place] Urine Protein Urine Glucose (UA) Urine Ketones Urine Blood Urine Nitrite Ur Leukocyte Esterase Urine RBC Urine WBC Ur Squamous Epith Cells Urine Bacteria Hyaline Casts Urine Test Salicylates < 5.0 L Urine Opiates Screen Urine Fentanyl Screen Acetaminophen < 17 Ur Barbiturates Screen Carbamazepine Ur Phencyclidine Scrn Ur Amphetamines Screen U Benzodiazepines Scrn Urine Cocaine Screen U Marijuana (THC) Screen Ethyl Alcohol COVID-19 (BARRETT) COVID-19 [employer] Com 06/22/22 06/22/22 09:10 20:09 WBC RBC Hgb Hct MCV MCH MCHC RDW Plt Count MPV Immature Gran % (Auto) Neut % (Auto) Lymph % (Auto) Stearns % (Auto) Eos % (Auto) Baso % (Auto) Lymph # (Auto) Stearns # (Auto) Eos # (Auto) Baso # (Auto) Abs Immat Gran (auto) Absolute Neuts (auto) Absolute Nucleated RBC Nucleated RBC % (auto) Sodium Potassium Chloride Carbon Dioxide Anion Gap BUN Creatinine Estim Creat Clear Calc Estimated GFR Random Glucose Estimat Average Glucose Hemoglobin A1c % Calcium Magnesium 2.0 Total Bilirubin AST ALT Alkaline Phosphatase Total Protein Albumin Triglycerides 58 Cholesterol 165 LDL Cholesterol, Calc 111 HDL Cholesterol 43 Vitamin B12 253 Folate 8.2 TSH 0.78 Free T4 0.97 Urine Color Urine Appearance Urine pH Ur Specific [place] Urine Protein Urine Glucose (UA) Urine Ketones Urine Blood Urine Nitrite Ur Leukocyte Esterase Urine RBC Urine WBC Ur Squamous Epith Cells Urine Bacteria Hyaline Casts Urine Test Salicylates Urine Opiates Screen Urine Fentanyl Screen Acetaminophen Ur Barbiturates Screen Carbamazepine 3.0 L* Ur Phencyclidine Scrn Ur Amphetamines Screen U Benzodiazepines Scrn Urine Cocaine Screen U Marijuana (THC) Screen Ethyl Alcohol COVID-19 (BARRETT) COVID-19 Clin Com DS: Summary Hospital Course Hospital Course: HPI: pt presented to [facility] ED with c/o depression, provisional diagnosis of bipolar disorder, PTSD and now CAH to kill her 10 month old son and herself.? Patient reports that she knows that these voices are only hallucinations she never wanted to actually hurt herself, her child and had no plans or intentions to do so. She knew that it was a problem so self presented.? -Reviewed hx and it seems likely that patient has a mild to moderate Bipolar II disorder (endorsed going through 3 day episodes getting little sleep, talking faster, accelerated thought process, increased libido, increased spending; during these times she remains able to work and function) Hospital course: Patient was started on Abilify and Wellbutrin which she found significantly helpful. She was initially started on Tegretol as well but this was eventually discontinued as patient felt it was worsening depressive symptoms. Patient used Zyprexa as a p.r.n. which he also found helpful. Patient's mood improved, depression abated and resolved; auditory hallucinations also diminished and eventually fully resolved. Patient was sleeping and eating well; she demonstrated appropriate behaviors and impulse control and was appropriate with peers and staff. Over the next several days patient remained with good mood, no AH and was future oriented wanting to get back to her child. Patient asked for discharge. She has good support from family and providers. She never had any actual SI or HI; pt has good insight and knows AH was a hallucination and sought help on her own. Patient plans to continue with her outpatient therapist whom she likes and says she is progressing towards EMDR. Pt is not in imminent risk of harm to self or others and request for discharge honored. Time spent discussing smoking cessation with patient: 3 to 10 minutes Status at Discharge Functional status at discharge: independent ambulation Overall status at discharge: patient is back to baseline Time Spent with Patient Time attestation: Total time managing care of this patient today ____ minutes. Time spent: Less than 30 minutes Discharge Plan Discharge Anticipated Discharge Date/Time: 06/27/22 11:30 Patient Disposition: Home, Self-Care Discharge Diagnosis: Bipolar II disorder Referrals: Jacqueline Peguero Therapist [facility]. [Other] - 07/06/22 10:30 am (Telehealth. Number above is a general number for [facility]. ) Magnus [employer] Medication Provider [Other] - 1 Week (Makayla will continue to see Magnus unless she is able to switch providers in a timely manner to Brisa Jules who is with [facility] group. ) FERMÍN Lazaro Capability Lead [Other] - 1 Week (Layne will be in touch with Jeanna and Jeanna can also follow up with Layne if she would like. ) Mónica Valle, [employer]IN [employer]TER [Primary Care Provider] - 1 Week (in office.office will reach out to pt for f/u appointment.) Discharge Medications: New aripiprazole 10 mg Tablet 10 mg PO BEDTIME 30 Days Qty: 30 0RF Rx Instructions: 30 day supply appropriate at this time as dose maybe increased or decreased olanzapine 2.5 mg Tablet 2.5 mg PO Q4H PRN (Reason: psychosis, agitation) Qty: 0 0RF bupropion HCl 150 mg Tablet Extended Release 24 Hr 150 mg PO DAILY 30 Days Qty: 30 0RF Rx Instructions: 30 day supply appropriate at this time as dose maybe increased or decreased olanzapine [Zyprexa] 2.5 mg tablet See Rx Instructions .ROUTE .COMPLEX PRN (Reason: anxiety) 30 Days Qty: 45 0RF Rx Instructions: take 1-2 tabs daily as needed for anxiety/agitation Continued cholecalciferol (vitamin D3) 125 mcg (5,000 unit) capsule 1 cap PO DAILY Discontinued carbamazepine 100 mg capsule, ER multiphase 12 hr 1 cap PO Q12H aripiprazole 2 mg tablet 1.5 tab PO BEDTIME quetiapine 25 mg tablet 1 - 2 tab PO BEDTIME Discharge Orders: Discharge Order (Routine); Ordered 06/27/22 Ordered By: Jason Recinos Diet: Regular diet Activity on Discharge: As tolerated Stand Alone Forms: Patient Portal Discharge page, Community Support Care Plan Goals: Maintain mood and safe behaviors Take medications as prescribed Practice coping skills Continue with outpatient providers and reach out to them as needed Health Concerns: Mood stability and behaviors POTS Plan of Treatment: Follow up with your PCP, psychiatric provider and other outpatient providers regarding above concerns Take medications as prescribed Assessment: Risk assessment at time of discharge:? Patient was interviewed prior to discharge and found to be fully oriented and without any SI or HI. Patient has insight and demonstrates good judgment in terms of wanting to pursue treatment. Patient is not in imminent risk of harm to self or others and has a safety plan that includes presenting to the closest ER or calling 911 if feeling unsafe.? Patient has been observed closely by nursing and unit staff throughout admission; patient has not engaged in any behaviors that suggest dangerousness to self or others and has demonstrated appropriate behaviors and impulse control Discharge Date/Time: 06/27/22 10:59
[2022-06-27] MEDS: Cholecalciferol (Vitamin D3) 25 MCG TABLET 125 MCG PO (08:32)
[2022-06-27] MEDS: buPROPion HCl XL 150 MG TAB.ER.24H PO (08:32)
[2022-06-27 08:34] VITALS: BP 134/86; PULSE 86; RESP 18; TEMP 36.3; O2SAT 98
== END 2022-06-27 10:59 | disposition home or self-care (01) | DRG 885 ==
LOC: HO.ED 21:58 → HO.PM5 06-21 13:33
PROVIDERS: Clinical Nurse Specialist Psychiatric/Mental Health, Adult; Physician Assistant; Psychiatry & Neurology Psychiatry; Admitting Provider Psychiatry & Neurology Psychiatry; Emergency Provider Internal Medicine; PCP Nurse Practitioner Adult Health; Visit Provider Psychiatry & Neurology Psychiatry
DX: F31.81 Bipolar II disorder (principal); R45.851 Suicidal ideations; F43.10 Post-traumatic stress disorder, unspecified; Z20.822 Contact with and (suspected) exposure to COVID-19; Z91.52 Personal history of nonsuicidal self-harm; Z62.810 Personal history of physical and sexual abuse in childhood; Z88.2 Allergy status to sulfonamides; Z79.899 Other long term (current) drug therapy
CPT/HCPCS: 36415; 80048; 80053; 80061; 80143; 80156; 80179; 80307; 81001; 81025; 82077; 82607; 82746; 83036; 83735; 84439; 84443; 85025; 85027; 87635; 93005; 99285; S9485

== ENCOUNTER → 2022-07-17 09:14 | Outpatient (BNVA) | payer OTHER, MEDICAID, SELFPAY | PROVIDERS: PCP Nurse Practitioner Adult Health; Visit Provider Anesthesiology | DX: Z13.89 Encounter for screening for other disorder (principal) ==

== ENCOUNTER → 2022-09-18 08:53 | Outpatient (BNVA) | payer OTHER, MEDICAID, SELFPAY | PROVIDERS: PCP Nurse Practitioner Adult Health; Visit Provider Anesthesiology ==

== ENCOUNTER 2022-09-30 09:31 | Outpatient (REF) | payer OTHER, MEDICAID, SELFPAY ==
--- NOTE | ~2022-09-30 | XR_ITS ---
EXAMINATION: Lumbar spine and pelvis. CLINICAL INDICATION: Bilateral hip pain. COMPARISON: None. TECHNIQUE: AP pelvis one view. Lumbar spine 3 views. FINDINGS: AP PELVIS: A single AP view of the pelvis reveals normal symmetry of bilateral hip joints and SI joints. No visible acute fracture, dislocation or subluxation seen. No bony erosive changes. There is an IUD in pelvis. No gross bony abnormality. LUMBAR SPINE: There is normal lumbar lordosis. The vertebral heights, alignment and disc heights are normal. No visible acute fracture, dislocation or subluxation seen. SI joints are symmetrical and normal. The paravertebral soft tissues are normal. XR/XR lumbar spine 2-3V IMPRESSION: 1. Unremarkable AP pelvis exam. 2. Unremarkable lumbar spine exam. No visible acute fracture, dislocation or subluxation seen. 3. There is an IUD in pelvis.
--- NOTE | ~2022-09-30 | XR_ITS ---
EXAMINATION: Lumbar spine and pelvis. CLINICAL INDICATION: Bilateral hip pain. COMPARISON: None. TECHNIQUE: AP pelvis one view. Lumbar spine 3 views. FINDINGS: AP PELVIS: A single AP view of the pelvis reveals normal symmetry of bilateral hip joints and SI joints. No visible acute fracture, dislocation or subluxation seen. No bony erosive changes. There is an IUD in pelvis. No gross bony abnormality. LUMBAR SPINE: There is normal lumbar lordosis. The vertebral heights, alignment and disc heights are normal. No visible acute fracture, dislocation or subluxation seen. SI joints are symmetrical and normal. The paravertebral soft tissues are normal. XR/XR pelvis 1-2V IMPRESSION: 1. Unremarkable AP pelvis exam. 2. Unremarkable lumbar spine exam. No visible acute fracture, dislocation or subluxation seen. 3. There is an IUD in pelvis.
== END 2022-09-30 09:32 | disposition home or self-care (01) ==
LOC: HO.XRAY 09:31
PROVIDERS: PCP Nurse Practitioner Adult Health; Visit Provider Nurse Practitioner Adult Health
DX: M25.552 Pain in left hip (principal); M25.551 Pain in right hip
CPT/HCPCS: 72100; 72170

== ENCOUNTER 2022-12-13 09:16 | Outpatient (AMB) | payer OTHER, SELFPAY ==
--- OUTSIDE RECORDS SUMMARY | 2022-12-13 09:19 | XMS_ITS | Continuity of Care Document ---
Author Name Unknown Organization [facility] ter Address [address] [place] [id number] Care Team Providers Care [employer]ader Name Role Phone Tori COOL, Mónica M Primary Care Physician Encounter [facility] Date(s): 12/29/20 - 12/30/[address] [address]- Encounter Diagnosis Back pain(Final) - 12/30/20 Discharge Disposition: A-D/C Home Attending Physician: Eamon Gaston MD Admitting Physician: Eamon Gaston MD Referring Physician: Not on Staff, Referring MD Allergies, Adverse Reactions, Alerts Substance Reaction Severity Status sulfonamides Active Topamax Active Other Food Allergy 1 Active traZODone Active 1allergic to chic peas Medications Abilify 10 mg oral tablet 10 mg, 1, tablet, By Mouth, Daily at bedtime, # 30 tablet, Refills 0, Tot. Refills 0, Maintenance, 08/24/17 10:18:29 EDT, Route to Pharmacy Electronically, [id number], [facility]/pharmacy #[id number] Start Date: 08/24/17 Stop Date: 09/23/17 Status: Ordered Abilify 10 mg oral tablet 10 mg, 1, tablet, By Mouth, Daily at bedtime, # 30 tablet, Refills 0, Maintenance, 08/08/17 12:19:40 EDT Start Date: 08/08/17 Status: Ordered Benadryl Ultratab 25 mg oral tablet See Instructions, PRN as needed for itching, Take 1 - 2 tablets daily as needed for hives, 0 Refills, Maintenance, 08/10/17 16:56:51 EDT Start Date: 08/10/17 Status: Ordered Cymbalta 60 mg oral enteric coated capsule 1 capsule = 60 mg, By Mouth, Daily, # 30 capsule, 0 Refills, Maintenance, 12/29/20 9:25:00 EDT, EC Capsule, Partial fill upon patient request if the prescription is for a schedule II opioid drug. Start Date: 12/29/20 Status: Ordered fludrocortisone 0.1 mg oral tablet 1 tablet = 0.1 mg, By Mouth, Daily, # 30 tablet, 0 Refills, Maintenance, 08/08/17 12:27:52 EDT, Tablet Start Date: 08/08/17 Status: Ordered Junel Fe 1.5/30 oral tablet 1 tablet, By Mouth, Daily, # 28 tablet, 0 Refills, Maintenance, 08/08/17 12:33:02 EDT, Tablet Start Date: 08/08/17 Status: Ordered Lexapro 10 mg oral tablet 1 tablet = 10 mg, By Mouth, Daily at bedtime, # 30 tablet, 0 Refills, Maintenance, 08/17/17 14:34:51 EDT, Tablet Start Date: 08/17/17 Stop Date: 09/16/17 Status: Ordered midodrine 10 mg oral tablet 1 tablet = 10 mg, By Mouth, 3 times a day, 0 Refills, Maintenance, 08/08/17 12:26:31 EDT Start Date: 08/08/17 Status: Ordered naproxen 500 mg oral tablet 1 tablet = 500 mg, By Mouth, 2 times a day, PRN Pain, 0 Refills, Maintenance, 08/10/17 16:55:13 EDT, Tablet Start Date: 08/10/17 Status: Ordered pyridostigmine 60 mg oral tablet 60 mg, 1, tablet, By Mouth, 3 times a day, # 180 tablet, Refills 0, Maintenance, 08/08/17 12:23:59 EDT Start Date: 08/08/17 Status: Ordered RisperDAL 0.5 mg oral tablet 0.5 mg, 1, tablet, By Mouth, Daily at bedtime, Take 1 tablet daily at bedtime with 1 mg tablet for total daily bedtime dosage = 1.5 mg, # 30 tablet, Refills 0, Tot. Refills 0, Maintenance, 08/24/17 10:22:13 EDT, Route to Pharmacy Electronically, [id number]... Start Date: 08/24/17 Stop Date: 09/23/17 Status: Ordered RisperDAL 0.5 mg oral tablet 1.5 mg, 3, tablet, By Mouth, Daily at bedtime, Refills 0, Maintenance, 08/08/17 12:33:50 EDT Start Date: 08/08/17 Status: Ordered RisperDAL 1 mg oral tablet 1 mg, 1, tablet, By Mouth, Daily at bedtime, Take 1 tablet daily at bedtime with 0.5 mg tablet for total daily bedtime dosage = 1.5 mg, # 30 tablet, Refills 0, Tot. Refills 0, Maintenance, 08/24/17 10:20:22 EDT, Route to Pharmacy Electronically, [id number]... Start Date: 08/24/17 Stop Date: 09/23/17 Status: Ordered Topamax 200 mg oral tablet 1 tablet = 200 mg, By Mouth, 2 times a day, # 60 tablet, 0 Refills, Maintenance, 08/08/17 12:28:28 EDT, Tablet Start Date: 08/08/17 Status: Ordered Vitamin D 84335 iu oral capsule 50,000 International_Units, 1, capsule, By Mouth, Every week, Refills 0, Maintenance, 08/08/17 12:29:27 EDT Start Date: 08/08/17 Status: Ordered ZyrTEC 10 mg oral tablet 1 tablet = 10 mg, By Mouth, Daily, # 30 tablet, 0 Refills, Maintenance, 08/08/17 12:34:49 EDT, Tablet Start Date: 08/08/17 Status: Ordered Results Radiology Reports * Exam Date Time Procedure Performing Provider Status 12/29/20 11:40 PM Lumbar Spine 2 or 3 Views Pedro Pablo Busby hyacinth; Auth (Verified) Notes: (Lumbar Spine 2 or 3 Views) Reason For Exam: Trauma RESULT: Lumbar Spine 2 or 3 Views Lumbar Spine 2 or 3 Views CLINICAL INDICATION: Hx of Present Illness: Pt reports she suffers from POTS and she thinks she passed out in the bathroom. Pt reports she has done this in the past also reports she has alot of mental health issues. Denies any SI HI.; Reason: Trauma; Clinical Question(s): Other: COMPARISONS: None TECHNIQUE: AP, lateral, and coned down LS junction views were obtained. FINDINGS: There are 5 nonrib-bearing lumbar type vertebra. Lumbar vertebral body heights are maintained. There is no gladys-or retrolisthesis. Disc space heights are maintained. No fracture. IMPRESSION: No lumbar spine fracture. WSN: [id number] Ordering Physician: Claire Locke Dictated By: Kenney Jackson MD Dictated Date/Time: 12/30/20 0:05 am Reviewed By: Kenney Jackson MD Signed By: Kenney Jackson MD Signed Date/Time: 12/30/20 0:05 am Transcribed By: DANIELA Transcribed Date/Time: 12/30/20 0:05 am * Exam Date Time Procedure Performing Provider Status 12/29/20 11:40 PM Thoracic Spine 3 Views Cortes Busby ; Deborah (Verified) Notes: (Thoracic Spine 3 Views) Reason For Exam: Trauma RESULT: Thoracic Spine 3 Views Thoracic Spine 3 Views Hx of Present Illness: Pt reports she suffers from POTS and she thinks she passed out in the bathroom. Pt reports she has done this in the past also reports she has alot of mental health issues. Denies any SI HI.; Reason: Trauma; Clinical Question(s): Other: COMPARISON: None FINDINGS: AP lateral and swimmer's lateral views. No bone lesions or fractures. Normal disc configuration. Normal soft tissues. IMPRESSION: No acute abnormality. If patient has ongoing back pain out of proportion to negative x-ray findings consider further evaluation with CT or MRI. WSN: [id number] Ordering Physician: Claire Locke Dictated By: Kenney Jackson MD Dictated Date/Time: 12/30/20 0:04 am Reviewed By: Kenney Jacskon MD Signed By: Kenney Jackson MD Signed Date/Time: 12/30/20 0:04 am Transcribed By: DANIELA Transcribed Date/Time: 12/29/20 11:56 pm Vital Signs Most recent to oldest [Reference Range]: 1 2 3 Oxygen Saturation [94-100 %] 100 % (12/29/20 8:39 PM) 100 % (12/29/20 4:26 PM) 99 % (12/29/20 9:22 AM) Pulse Rate [55-90 bpm] 66 bpm (12/29/20 8:39 PM) 75 bpm (12/29/20 4:26 PM) 76 bpm (12/29/20 9:22 AM) Blood Pressure [90-138/55-84 mm Hg] 131/83mm Hg (12/29/20 10:15 PM) 116/71mm Hg (12/29/20 8:39 PM) 133/82mm Hg (12/29/20 4:26 PM) Respiratory Rate [16-30 br/min] 18 br/min (12/29/20 8:39 PM) 20 br/min (12/29/20 4:26 PM) 20 br/min (12/29/20 9:22 AM) Temperature [96.8-100.4 DegF] 97.8 DegF (12/29/20 4:26 PM) 97.9 DegF (12/29/20 9:22 AM) Mode of Delivery (Oxygen) Room air (12/29/20 8:39 PM) Room air (12/29/20 4:26 PM) Room air (12/29/20 9:22 AM) Blood pressure sites Arm, left (12/29/20 10:15 PM) Arm, left (12/29/20 4:26 PM) Arm, left (12/29/20 9:22 AM) Temperature Route Oral (12/29/20 4:26 PM) Oral (12/29/20 9:22 AM)
--- OUTSIDE RECORDS SUMMARY | 2022-12-13 09:19 | XMS_ITS | Continuity of Care Document ---
Author Name Unknown Organization [facility] ter Address [address] [place] [address]- Care Team Providers Care Flight Paramedic Name Role Phone Tori COOL, Mónica M Primary Care Physician Encounter [facility] [place] Date(s): 08/19/21 - 08/22/[address] [id number] [[email or web address] Discharge Disposition: A-D/C Home Attending Physician: Ag Wagner MD Admitting Physician: Ag Wagner MD Referring Physician: Ag Wagner MD Allergies, Adverse Reactions, Alerts Substance Reaction Severity Status sulfonamides Active Topamax Active Other Food Allergy 1 Active traZODone Active 1allergic to chic peas Medications acetaminophen 325 mg oral tablet 650 mg, By Mouth, Every 4 hours, PRN, (1-3), may give 325mg per patient preference and re-dose [id number] within 4 hours, if needed. Patient should only receive a total of 650mg of Acetaminophen every 4 hours., # 30 tablet, Refills 0, Tot. Refills 0... Start Date: 08/22/21 Status: Ordered Acetaminophen Tablet 650 mg, Tablet, By Mouth, Every 4 hours, PRN for Pain , Mild, (1-3), may give 325mg per patient preference and re-dose with 325mg within 4 hours, if needed. Patient should only receive a total of 650mg of Acetaminophen every 4 hours., Routine, 08/20... Start Date: 08/20/21 Stop Date: 08/22/21 Status: Discontinued docusate sodium 100 mg oral capsule 1 capsule = 100 mg, By Mouth, 2 times a day, PRN Constipation, # 60 capsule, 0 Refills, Maintenance, 08/22/21 12:38:00 EDT, Capsule, [id number], Partial fill upon patient request if the prescription is for a schedule II opioid drug., 155, cm,... Start Date: 08/22/21 Status: Ordered ibuprofen 800 mg oral tablet 800 mg, 1, tablet, By Mouth, Every 8 hours, PRN, (4-6), may give 400mg per patient preference and re-dose with 400mg within 8 hours if needed. Patient should only receive a total of 800mg of Ibuprofen every 8 hours., # 50 tablet, Refills 0, Tot. Ref... Start Date: 08/22/21 Status: Ordered sertraline 100 mg oral tablet 1 tablet = 100 mg, By Mouth, Daily, # 30 tablet, 0 Refills, Maintenance, 08/19/21 20:35:00 EDT, Tablet, Partial fill upon patient request if the prescription is for a schedule II opioid drug. Start Date: 08/19/21 Status: Ordered ZyrTEC 10 mg oral tablet 1 tablet = 10 mg, By Mouth, Daily, # 30 tablet, 0 Refills, Maintenance, 08/08/17 12:34:49 EDT, Tablet Start Date: 08/08/17 Status: Ordered Problem List Condition Effective Dates Status Health Status Inform ant Fibromyalgia(Confirmed) Active Generalized hypermobility of joints(Confirmed) Active Marijuana use(Confirmed) Active Mast cell activation syndrome(Confirmed) Active Anxiety and depression(Confirmed) Active Pituitary cyst(Confirmed) Active PTSD (post-traumatic stress disorder)(Confirmed) Active (Confirmed) Active premature rupture of membranes (PPROM) with onset of labor within 24 hours of rupture in third trimester, antepartum(Confirmed) Active Raynaud's disease without gangrene(Confirmed) Active Severe obesity(Confirmed) Active Vitamin D deficiency(Confirmed) Active Procedures Procedure Date Related Diagnosis Body Site Status Appendectomy Completed Endoscopy Completed History of tonsillectomy Completed Tympanostomy tube Complet ed [place] tooth Completed Vital Signs Most recent to oldest [Reference Range]: 1 2 3 Height 155 cm (08/22/21 9:44 AM) 155 cm (08/21/21 9:30 AM) 155 cm (08/20/21 10:19 PM) Weight 104 kg (08/19/21 10:33 PM) 103.9 kg (08/19/21 8:30 PM) Oxygen Saturation [94-100 %] 100 % (08/22/21 9:44 AM) 99 % (08/21/21 8:32 PM) 100 % (08/21/21 3:31 PM) Pulse Rate [55-90 bpm] 80 bpm (08/22/21 9:44 AM) 77 bpm (08/21/21 9:30 AM) 79 bpm (08/19/21 10:33 PM) Body Mass Index [18.5-24.99] 43.29 *>HHI* (08/19/21 10:33 PM) Blood Pressure [90-138/55-84 mm Hg] 115/73mm Hg (08/22/21 9:44 AM) 125/82mm Hg (08/21/21 8:32 PM) 103/52mm Hg (08/21/21 3:31 PM) Respiratory Rate [16-30 br/min] 16 br/min (08/22/21 9:44 AM) 15 br/min *L* (08/21/21 8:32 PM) 18 br/min (08/21/21 4:31 PM) Temperature [96.8-100.4 DegF] 97.8 DegF (08/22/21 9:44 AM) 98.1 DegF (08/21/21 8:32 PM) 98 DegF (08/21/21 3:31 PM) Mode of Delivery (Oxygen) Room air (08/21/21 8:32 PM) Room air (08/19/21 8:44 PM) Blood pressure sites Arm, left (08/22/21 9:44 AM) Arm, left (08/21/21 8:32 PM) Arm, left (08/19/21 10:33 PM) Temperature Route Oral (08/22/21 9:44 AM) Oral (08/21/21 8:32 PM) Oral (08/21/21 9:30 AM) Dry Weight 104 kg (08/19/21 10:33 PM) Weight Obtained Via Standing scale (08/19/21 8:30 PM)
--- OUTSIDE RECORDS SUMMARY | 2022-12-13 09:19 | XMS_ITS | Continuity of Care Document ---
Author Name Unknown Organization [facility] ter Address [address] [place] [address]- Care Team Providers Care Dry Ice Maker Name Role Phone Tori COOL, Mónica M Primary Care Physician Encounter [facility] – [place] Date(s): 08/22/21 - 10/29/[address] [id number] Discharge Disposition: A-D/C Home Attending Physician: Ag Wagner MD Admitting Physician: Ag Wagner MD Referring Physician: Ag Wagner MD Allergies, Adverse Reactions, Alerts Substance Reaction Severity Status sulfonamides Active Topamax Active traZODone Active Other Food Allergy 1 Active 1allergic to chic peas Medications acetaminophen 325 mg oral tablet 650 mg, By Mouth, Every 4 hours, PRN, (1-3), may give 325mg per patient preference and re-dose [id number] within 4 hours, if needed. Patient should only receive a total of 650mg of Acetaminophen every 4 hours., # 30 tablet, Refills 0, Tot. Refills 0... Start Date: 08/22/21 Status: Ordered docusate sodium 100 mg oral capsule 1 capsule = 100 mg, By Mouth, 2 times a day, PRN Constipation, # 60 capsule, 0 Refills, Maintenance, 08/22/21 12:38:00 EDT, Capsule, [id number], Partial fill upon patient request if the [...]
--- NOTE | 2022-12-13 09:20 | A.OFFVIS_ITS ---
Intake Vital Signs 12/13/22 09:39 Height 5 ft 1 in Weight 201 lb BMI 38.0 BP 136/77 Blood Pressure Location Lt brachial Position Sitting Respiration 17 Pulse 83 Pulse Source Pulse Oximeter Pulse Oximetry (%) 98 Oxygen Delivery Method Room Air Intake Visit Reasons: 2 Month Follow Up Allergies Sulfa (Sulfonamide Antibiotics) [SULFA (SULFONAMIDE ANTIBIOTICS)] Allergy (Intermediate, Verified 12/13/22 09:38) DIARRHEA topiramate [From Topamax] Allergy (Verified 12/13/22 09:38) Anaphylaxis trazodone [TRAZODONE] Adverse Reaction (Mild, Verified 12/13/22 09:38) UNKNOWN CHICK PEAS Allergy (Severe, Uncoded 10/10/22 12:27) ANAPHYLAXIS topamax Adverse Reaction (Intermediate, Uncoded 10/10/22 12:27) Unknown HPI HPI Comments History of Present Illness Details Makayla is back in my office with complains on 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 I started her on gabapentin 800 mg 2 months ago however she reported that this worsened her depression. With her psychiatrist she went back to 600 mg. She wants me to renew this medication. She is trying to perform low impact aerobic exercise. Self admittedly she is not using her stationary bicycle she tries to do walking. I pointed out to her that walking is high impact exercise however is not as high as running and jumping still is not appropriate for her with increased body mass index and the Prudencio-Danlos syndrome. I recommended her still to do stationary bicycle and small weights went repetitions without holding breath exercises. She agreed with me and she will continue to follow up with me in [facility]. [facility] Medical History (Updated 10/10/22 @ 12:27 by Lexie Gasca) Allergy to sunlight Autonomic dysfunction Bipolar affective disorder Bipolar II disorder Cyst of pituitary gland Fibromyalgia CRISTIANA (generalized anxiety disorder) Hyperchloremic metabolic acidosis Hypocalcemia Idiopathic autonomic neuropathy Major depressive disorder Obesity POTS (postural orthostatic tachycardia syndrome) PTSD (post-traumatic stress disorder) Raynauds disease Suicidal ideation Syncope and collapse Vitamin D deficiency Social History (System 10/10/22 @ 12:27 by Lexie Gasca) Household Members: Family Household Members Other:: and baby Housing: Apartment Do you presently have visiting nurse or other home services: No Patient Tobacco Use Status: Never used Tobacco Substance Use Type: Marijuana service: No Sexual orientation: Bisexual Review of Systems Const All systems reviewed & are unremarkable except as noted in HPI and below ENT Reports Normal hearing present Neuro Reports Normal hearing present, Denies Abnormal speech present and Denies Sensory deficit (Neuro) Physical Exam Vital Signs: Last Vital Signs Pulse 83 12/13/22 09:39 Resp 17 12/13/22 09:39 BP 136/77 12/13/22 09:39 Pulse Ox 98 12/13/22 09:39 Oxygen Delivery Method Room Air 12/13/22 09:39 BMI result Body Mass Index 38.0 Const General: no acute distress and well developed Nutritional Appearance: obese Orientation/consciousness: patient oriented x3 Eyes General: appearance normal, both eyes and all related structures Pupils: Equal, round and reactive pupils present EOM: EOMs intact bilaterally Neck Neck: Yes full ROM Chest Chest palpation & inspection: normal inspection of the chest Resp Effort & Inspection: normal respiratory effort, able to speak in complete sentences, normal respiratory pattern, no audible wheezes and no cough Cardio Jugular venous distension: no JVD GI Inspection: Yes normal to inspection Back/Spine/Pelvis Other: Multiple joint hypermobility was detected on physical exam. She is able to flex the fingers backwards especially the thumbs. Neuro General: patient oriented x3 and gait normal Cranial nerves: Yes Equal, round and reactive pupils present and Yes Normal hearing present Speech: No Abnormal speech present Gait exam (Neuro): Normal gait present Motor exam (neuro): 5/5 motor strength present throughout Sensory Exam: No Sensory deficit (Neuro) Extrem General: No pedal edema Psych Speech and movement: Normal speech and movement present Affect: normal affect Attitude: cooperative Thought process: Normal thought process present Thought content: Normal thought content present Insight: Good insight present (Psych) Judgement: Good judgement present (Psych) Assessment & Plan Assessment & Plan (1) Fibromyalgia: Code(s): M79.7 - Fibromyalgia (2) Chronic pain syndrome: Code(s): G89.4 - Chronic pain syndrome (3) Depression: Code(s): F32.A - Depression, unspecified Plan Continue low impact aerobic exercise stationary bicycle reclined, introduce small weight I aerobic exercise no more than 3 lb. If she has to hold her breath on 3 lb I recommend her to use to lb or 1 lb weights for exercise. 800 mg of gabapentin causes depression exacerbation. I will prescribe her 600 mg gabapentin t.i.d. instead as she was before. She reports that 600 mg gabapentin helps her enough. New appointment is in 2 months. Medications: New gabapentin 600 mg PO TID 90 tabs 8RF 30 days Coding Level of Care Code Est Pt Level 3 (52224) Diagnoses Fibromyalgia M79.7 Chronic pain syndrome G89.4 Depression F32.A
[2022-12-13 09:39] VITALS: BP 136/77; PULSE 83; RESP 17; O2SAT 98; BMI 38.0
== END 2022-12-13 09:33 | disposition home or self-care (01) ==
PROVIDERS: PCP Nurse Practitioner Adult Health; Visit Provider Anesthesiology
DX: M79.7 Fibromyalgia (principal); G89.4 Chronic pain syndrome; F32.A Depression, unspecified
CPT/HCPCS: 99213

== ENCOUNTER → 2022-12-13 09:18 | Outpatient (BNVA) | payer OTHER, SELFPAY | PROVIDERS: PCP Nurse Practitioner Adult Health; Visit Provider Anesthesiology ==

== ENCOUNTER 2023-02-12 09:26 | Outpatient (AMB) | payer OTHER, SELFPAY ==
[2023-02-12 09:35] VITALS: BP 112/78; PULSE 87; RESP 18; O2SAT 97; BMI 36.7
--- NOTE | 2023-02-12 09:35 | A.OFFVIS_ITS ---
Intake Vital Signs 02/12/23 09:35 Height 5 ft 1 in Weight 194 lb BMI 36.7 BP 112/78 Blood Pressure Location Lt brachial Position Sitting Respiration 18 Pulse 87 Pulse Source Pulse Oximeter Pulse Oximetry (%) 97 Oxygen Delivery Method Room Air Intake Visit Reasons: 2 MONTH FOLLOW UP Intake Note: patient comes in for 2 month follow up. pain level today is 5/10. 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 She continues gabapentin 600 mg. She wants to try Lyrica. I will switch her to Lyrica 100 mg b.i.d.. I warned her about depression with Lyrica as well as fluid retention. I told her that fluid retention may be treated with small dose of diuretics but if not successful the Lyrica needs to be tapered down and stopped.? She continues low impact aerobic exercise she reports that she will start swimming soon. she will continue to follow up with me in 2 months. [facility] Medical History (Updated 10/10/22 @ 12:27 by Lexie Gasca) Bipolar affective disorder Hyperchloremic metabolic acidosis Vitamin D deficiency Hypocalcemia Obesity Cyst of pituitary gland Raynauds disease Allergy to sunlight PTSD (post-traumatic stress disorder) Fibromyalgia CRISTIANA (generalized anxiety disorder) POTS (postural orthostatic tachycardia syndrome) Syncope and collapse Idiopathic autonomic neuropathy Autonomic dysfunction Bipolar II disorder Major depressive disorder Suicidal ideation Social History (System 10/10/22 @ 12:27 by Lexie Gasca) Household Members: Family Household Members Other:: and baby Housing: Apartment Do you presently have visiting nurse or other home services: No Patient Tobacco Use Status: Never used Tobacco Substance Use Type: Marijuana service: No Sexual orientation: Bisexual Review of Systems Const All systems reviewed & are unremarkable except as noted in HPI and below ENT Reports Normal hearing present Neuro Reports Normal hearing present, Denies Abnormal speech present and Denies Sensory deficit (Neuro) Physical Exam Vital Signs: Last Vital Signs Pulse 87 02/12/23 09:35 Resp 18 02/12/23 09:35 BP 112/78 02/12/23 09:35 Pulse Ox 97 02/12/23 09:35 Oxygen Delivery Method Room Air 02/12/23 09:35 BMI result Body Mass Index 36.7 Const General: no acute distress and well developed Nutritional Appearance: obese Orientation/consciousness: patient oriented x3 Eyes General: appearance normal, both eyes and all related structures Pupils: Equal, round and reactive pupils present EOM: EOMs intact bilaterally Neck Neck: Yes full ROM Chest Chest palpation & inspection: normal inspection of the chest Resp Effort & Inspection: normal respiratory effort, able to speak in complete sen tences, normal respiratory pattern, no audible wheezes and no cough Cardio Jugular venous distension: no JVD GI Inspection: Yes normal to inspection Back/Spine/Pelvis Other: Multiple joint hypermobility was detected on physical exam. She is able to flex the fingers backwards especially the thumbs. Neuro General: patient oriented x3 and gait normal Cranial nerves: Yes Equal, round and reactive pupils present and Yes Normal hearing present Speech: No Abnormal speech present Gait exam (Neuro): Normal gait present Motor exam (neuro): 5/5 motor strength present throughout Sensory Exam: No Sensory deficit (Neuro) Extrem General: No pedal edema Psych Speech and movement: Normal speech and movement present Affect: normal affect Attitude: cooperative Thought process: Normal thought process present Thought content: Normal thought content present Insight: Good insight present (Psych) Judgement: Good judgement present (Psych) Assessment & Plan Assessment & Plan (1) Fibromyalgia: Code(s): M79.7 - Fibromyalgia (2) Chronic pain syndrome: Code(s): G89.4 - Chronic pain syndrome (3) Depression: Code(s): F32.A - Depression, unspecified (4) Prudencio-Danlos syndrome: Code(s): Q79.60 - Prudencio-Danlos syndrome, unspecified Plan She will continue low impact aerobic exercise in form a swimming. I will change her from gabapentin to Lyrica. Warnings were given about Lyrica increasing her depression. She is under care of psychiatrist. Fluid retention was also explained to the patient. New appointment is in 2 months. Medications: New pregabalin 100 mg PO BID 30 days 60 caps 5RF Discontinued gabapentin Discontinued Reason: Doctor's Order 600 mg PO TID 30 days 90 tabs 8RF Coding Level of Care Code Est Pt Level 4 (42125) Diagnoses Fibromyalgia M79.7 Chronic pain syndrome G89.4 Depression F32.A Prudencio-Danlos syndrome Q79.60
== END 2023-02-12 09:48 | disposition home or self-care (01) ==
LOC: HO.PMC 09:26
PROVIDERS: PCP Nurse Practitioner Adult Health; Visit Provider Anesthesiology
DX: M79.7 Fibromyalgia (principal); G89.4 Chronic pain syndrome; F32.A Depression, unspecified; Q79.60 Ehlers-Danlos syndrome, unspecified
CPT/HCPCS: 99213

== ENCOUNTER → 2023-02-12 09:26 | Outpatient (BNVA) | payer OTHER, SELFPAY | PROVIDERS: PCP Nurse Practitioner Adult Health; Visit Provider Anesthesiology ==

== ENCOUNTER 2023-04-09 12:58 | Outpatient (AMB) | payer OTHER, SELFPAY ==
--- NOTE | 2023-04-09 12:59 | MHC.OFFVIS ---
Intake Vital Signs 04/09/23 13:03 Height 5 ft 1 in Weight 195 lb 8 oz BMI 36.9 BP 120/68 Blood Pressure Location Lt brachial Position Sitting Respiration 16 Pulse 81 Pulse Source Pulse Oximeter Pulse Oximetry (%) 100 Oxygen Delivery Method Room Air Intake Visit Reasons: Two Mo Follow Up per Dr. Franco/# not in serv Allergies Sulfa (Sulfonamide Antibiotics) [SULFA (SULFONAMIDE ANTIBIOTICS)] Allergy (Intermediate, Verified 04/09/23 13:03) DIARRHEA topiramate [From Topamax] Allergy (Verified 04/09/23 13:03) Anaphylaxis trazodone [TRAZODONE] Adverse Reaction (Mild, Verified 04/09/23 13:03) UNKNOWN CHICK PEAS Allergy (Severe, Uncoded 10/10/22 12:27) ANAPHYLAXIS topamax Adverse Reaction (Intermediate, Uncoded 10/10/22 12:27) Unknown HPI HPI Comments History of Present Illness Details Makayla is back in my office with reports on effect of Lyrica on her pain conditions. She denies any side effects. She admits improvement with Lyrica better or comparable to previously taking gabapentin. This is relatively small dose of Lyrica and I offered her to increase it to 150 mg b.i.d.. I will reassess the patient in 3 months. 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 She continues gabapentin 600 mg. She wants to try Lyrica. I will switch her to Lyrica 100 mg b.i.d.. I warned her about depression with Lyrica as well as fluid retention. I told her that fluid retention may be treated with small dose of diuretics but if not successful the Lyrica needs to be tapered down and stopped.? She continues low impact aerobic exercise she reports that she will start swimming soon. [facility] Medical History (Updated 10/10/22 @ 12:27 by Lexie Gasca) Bipolar affective disorder Hyperchloremic metabolic acidosis Vitamin D deficiency Hypocalcemia Obesity Cyst of pituitary gland Raynauds disease Allergy to sunlight PTSD (post-traumatic stress disorder) Fibromyalgia CRISTIANA (generalized anxiety disorder) POTS (postural orthostatic tachycardia syndrome) Syncope and collapse Idiopathic autonomic neuropathy Autonomic dysfunction Bipolar II disorder Major depressive disorder Suicidal ideation Social History (System 10/10/22 @ 12:27 by Lexie Gasca) Household Members: Family Household Members Other:: and baby Housing: Apartment Do you presently have visiting nurse or other home services: No Patient Tobacco Use Status: Never used Tobacco Substance Use Type: Marijuana service: No Sexual orientation: Bisexual Review of Systems Const All systems reviewed & are unremarkable except as noted in HPI and below ENT Reports Normal hearing present Neuro Reports Normal hearing present, Denies Abnormal speech present and Denies Sensory deficit (Neuro) Physical Exam Const General: no acute distress and well developed Nutritional Appearance: obese Orientation/consciousness: patient oriented x3 Eyes General: appearance normal, both eyes and all related structures Pupils: Equal, round and reactive pupils present EOM: EOMs intact bilaterally Neck Neck: Yes full ROM Chest Chest palpation & inspection: normal inspection of the chest Resp Effort & Inspection: normal respiratory effort, able to speak in complete sentences, normal respiratory pattern, no audible wheezes and no cough Cardio Jugular venous distension: no JVD GI Inspection: Yes normal to inspection Back/Spine/Pelvis Other: Multiple joint hypermobility was detected on physical exam. She is able to flex the fingers backwards especially the thumbs. Neuro General: patient oriented x3 and gait normal Cranial nerves: Yes Equal, round and reactive pupils present and Yes Normal hearing present Speech: No Abnormal speech present Gait exam (Neuro): Normal gait present Motor exam (neuro): 5/5 motor strength present throughout Sensory Exam: No Sensory deficit (Neuro) Extrem General: No pedal edema Psych Speech and movement: Normal speech and movement present Affect: normal affect Attitude: cooperative Thought process: Normal thought process present Thought content: Normal thought content present Insight: Good insight present (Psych) Judgement: Good judgement present (Psych) Assessment & Plan Assessment & Plan (1) Fibromyalgia: Code(s): M79.7 - Fibromyalgia (2) Chronic pain syndrome: Code(s): G89.4 - Chronic pain syndrome (3) Depression: Code(s): F32.A - Depression, unspecified (4) Prudencio-Danlos syndrome: Code(s): Q79.60 - Prudencio-Danlos syndrome, unspecified Plan She will continue low impact aerobic exercise in form a swimming. I will increase the dose of her Lyrica to 150 mg b.i.d. she denies side effects. Warnings were again given about Lyrica increasing her depression. She is under care of psychiatrist. Fluid retention was also explained to the patient. New appointment is in 3 month. Medications: New pregabalin (Lyrica) 150 mg PO BID 60 caps 5RF 30 days Discontinued pregabalin Discontinued Reason: Doctor's Order 100 mg PO BID 60 caps 5RF 30 days Coding Level of Care Code Est Pt Level 3 (15579) Diagnoses Fibromyalgia M79.7 Chronic pain syndrome G89.4 Depression F32.A Prudencio-Danlos syndrome Q79.60
[2023-04-09 13:03] VITALS: BP 120/68; PULSE 81; RESP 16; O2SAT 100; BMI 36.9
== END 2023-04-09 13:07 | disposition home or self-care (01) ==
PROVIDERS: PCP Nurse Practitioner Adult Health; Visit Provider Anesthesiology
DX: G89.4 Chronic pain syndrome (principal); M79.7 Fibromyalgia; F32.A Depression, unspecified; Q79.60 Ehlers-Danlos syndrome, unspecified
CPT/HCPCS: 99213

== ENCOUNTER → 2023-04-09 12:58 | Outpatient (BNVA) | payer OTHER, SELFPAY | PROVIDERS: PCP Nurse Practitioner Adult Health; Visit Provider Anesthesiology ==

== ENCOUNTER 2023-07-09 12:55 | Outpatient (AMB) | payer OTHER, SELFPAY ==
--- NOTE | 2023-07-09 12:56 | A.OFFVIS_ITS ---
Intake Vital Signs 07/09/23 13:01 Height 5 ft 1 in Weight 208 lb BMI 39.3 BP 128/68 Blood Pressure Location Lt brachial Position Sitting Respiration 14 Pulse 101 H Pulse Source Pulse Oximeter Pulse Oximetry (%) 98 Oxygen Delivery Method Room Air Intake Visit Reasons: 3 month follow up per Dr. Franco/# NOT IN SERVICE Intake Note: Patient comes in for 3 months follow up. Reports pain 10/07. Allergies Sulfa (Sulfonamide Antibiotics) [SULFA (SULFONAMIDE ANTIBIOTICS)] Allergy (Intermediate, Verified 07/09/23 13:01) DIARRHEA topiramate [From Topamax] Allergy (Verified 07/09/23 13:01) Anaphylaxis trazodone [TRAZODONE] Adverse Reaction (Mild, Verified 07/09/23 13:01) UNKNOWN CHICK PEAS Allergy (Severe, Uncoded 10/10/22 12:27) ANAPHYLAXIS topamax Adverse Reaction (Intermediate, Uncoded 10/10/22 12:27) Unknown HPI HPI Comments History of Present Illness Details Makayla is back in my office with reports on effect of Lyrica on her pain conditions. She denies any side effects. She admits improvement with Lyrica better or comparable to previously taking gabapentin. She continues Lyrica 150 mg b.i.d. and she reports that her shoulder griddle pain is better however she reports intractable pain in bilateral lower extremities mostly in the hip areas. I offered her to consider spinal cord stimulator Wego[employer]. She needs to past psychological evaluation 1st. The brochures were given to the patient. I will see this patient after her psychological evaluation has passed. She has Lyrica refills for 2 more month. We agreed that when the refills will be she will give us a call to request refills. She did not start aerobic exercise but she is planning to do so. 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 She continues gabapentin 600 mg. She wants to try Lyrica. I will switch her to Lyrica 100 mg b.i.d.. I warned her about depression with Lyrica as well as fluid retention. I told her that fluid retention may be treated with small dose of diuretics but if not successful the Lyrica needs to be tapered down and stopped.? She continues low impact aerobic exercise she reports that she will start swimming soon. [facility] Medical History (Updated 07/09/23 @ 13:16 by Emerson Franco MD) Bipolar affective disorder Hyperchloremic metabolic acidosis Vitamin D deficiency Hypocalcemia Obesity Cyst of pituitary gland Raynauds disease Allergy to sunlight PTSD (post-traumatic stress disorder) Fibromyalgia CRISTIANA (generalized anxiety disorder) POTS (postural orthostatic tachycardia syndrome) Syncope and collapse Idiopathic autonomic neuropathy Autonomic dysfunction Bipolar II disorder Major depressive disorder Suicidal ideation Social History (System 10/10/22 @ 12:27 by Lexie Gasca) Household Members: Family Household Members Other:: and baby Housing: Apartment Do you presently have visiting nurse or other home services: No Patient Tobacco Use Status: Never used Tobacco Substance Use Type: Marijuana service: No Sexual orientation: Bisexual Review of Systems Const All systems reviewed & are unremarkable except as noted in HPI and below ENT Reports Normal hearing present Neuro Reports Normal hearing present, Denies Abnormal speech present and Denies Sensory deficit (Neuro) Physical Exam Vital Signs: Last Vital Signs Pulse 101 H 07/09/23 13:01 Resp 14 07/09/23 13:01 BP 128/68 07/09/23 13:01 Pulse Ox 98 07/09/23 13:01 Oxygen Delivery Method Room Air 07/09/23 13:01 BMI result Body Mass Index 39.3 Const General: no acute distress and well developed Nutritional Appearance: obese Orientation/consciousness: patient oriented x3 Eyes General: appearance normal, both eyes and all related structures Pupils: Equal, round and reactive pupils present EOM: EOMs intact bilaterally Neck Neck: Yes full ROM Chest Chest palpation & inspection: normal inspection of the chest Resp Effort & Inspection: normal respiratory effort, able to speak in complete sentences, normal respiratory pattern, no audible wheezes and no cough Cardio Jugular venous distension: no JVD GI Inspection: Yes normal to inspection Back/Spine/Pelvis Other: Multiple joint hypermobility was detected on physical exam. She is able to flex the fingers backwards especially the thumbs. Neuro General: patient oriented x3 and gait normal Cranial nerves: Yes Equal, round and reactive pupils present and Yes Normal hearing present Speech: No Abnormal speech present Gait exam (Neuro): Normal gait present Motor exam (neuro): 5/5 motor strength present throughout Sensory Exam: No Sensory deficit (Neuro) Extrem Other: Severe allodynia and hyperalgesia with palpation of the outer bilateral lateral hips. General: No pedal edema Psych Speech and movement: Normal speech and movement present Affect: normal affect Attitude: cooperative Thought process: Normal thought process present Thought content: Normal thought content present Insight: Good insight present (Psych) Judgement: Good judgement present (Psych) Assessment & Plan Assessment & Plan (1) Fibromyalgia: Code(s): M79.7 - Fibromyalgia (2) Chronic pain syndrome: Code(s): G89.4 - Chronic pain syndrome (3) Depression: Code(s): F32.A - Depression, unspecified (4) Prudencio-Danlos syndrome: Code(s): Q79.60 - Prudencio-Danlos syndrome, unspecified (5) Intractable pain: Code(s): R52 - Pain, unspecified Plan She did not start swimming yet. She reported no side effects on Lyrica. We will continue at 150. Report intrac table lower extremities in projection of the bilateral hips pain. [facility] was offered to the patient. She needs to go through psychological evaluation before the procedure. [facility] [employer] brochure is given to the patient. Next appointment after psych eval will be done. Lyrica will be renewed in 2 months she will give us a reminder that her prescription . Coding Level of Care Code Est Pt Level 3 (94238) Diagnoses Fibromyalgia M79.7 Chronic pain syndrome G89.4 Depression F32.A Prudencio-Danlos syndrome Q79.60 Intractable pain R52
[2023-07-09 13:01] VITALS: BP 128/68; PULSE 101; RESP 14; O2SAT 98; BMI 39.3
== END 2023-07-09 14:06 | disposition home or self-care (01) ==
PROVIDERS: PCP Nurse Practitioner Adult Health; Visit Provider Anesthesiology
DX: M79.7 Fibromyalgia (principal); F32.A Depression, unspecified; G89.4 Chronic pain syndrome; Q79.60 Ehlers-Danlos syndrome, unspecified; R52 Pain, unspecified
CPT/HCPCS: 99213

== ENCOUNTER → 2023-07-09 12:55 | Outpatient (BNVA) | payer OTHER, SELFPAY | PROVIDERS: PCP Nurse Practitioner Adult Health; Visit Provider Anesthesiology ==

== ENCOUNTER 2023-11-23 10:46 | Outpatient (AMB) | payer OTHER, SELFPAY ==
[2023-11-23 11:08] VITALS: BP 118/66; PULSE 65; TEMP 36.8; O2SAT 98; BMI 39.3
--- NOTE | 2023-11-23 11:08 | AM.OFFWIN_ITS ---
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 While every effort has been made to ensure accuracy, environmental services project manager errors may have been included. The patient is a 28 year old female who presents to the clinic today with concerns for possible bronchitis onset 2 days ago. She notes that she has postnasal drip and then developed a cough which seems to be worse when she lays down, no fever, no chills, no dyspnea. She has had no sick contacts, and did take a COVID test which was negative. She notes some tightness when she coughs in her chest but no dyspnea. 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 [facility] Medical History (Updated 07/09/23 @ 13:16 by Emerson Franco MD) Bipolar affective disorder Hyperchloremic metabolic acidosis Vitamin D deficiency Hypocalcemia Obesity Cyst of pituitary gland Raynauds disease Allergy to sunlight PTSD (post-traumatic stress disorder) Fibromyalgia CRISTIANA (generalized anxiety disorder) POTS (postural orthostatic tachycardia syndrome) Syncope and collapse Idiopathic autonomic neuropathy Autonomic dysfunction Bipolar II disorder Major depressive disorder Suicidal ideation Social History (System 10/10/22 @ 12:27 by Lexie Gasca) Household Members: Family Household Members Other:: and baby Housing: Apartment Do you presently have visiting nurse or other home services: No Patient Tobacco Use Status: Never used Tobacco Substance Use Type: Marijuana service: No Sexual orientation: Bisexual Review of Systems Const All systems reviewed & are unremarkable except as noted in HPI and below Physical Exam Vital Signs: Last Vital Signs Temp 98.2 F 11/23/23 11:08 Pulse 65 11/23/23 11:08 BP 118/66 11/23/23 11:08 Pulse Ox 98 11/23/23 11:08 Oxygen Delivery Method Room Air 11/23/23 11:08 BMI result Body Mass Index 39.3 Const General: cooperative, healthy appearing, comfortable and no acute distress Orientation/consciousness: patient oriented x3 Limitations: no limitations HEENT Head: Yes normal to inspection Ears: hearing grossly normal bilaterally, external ears normal and TM's normal bilaterally General nose exam: Normal external nose present, Normal nares present and No nasal discharge present Face and sinus: Yes normal facial exam and Yes sinuses nontender Mouth: Normal oral and palatal mucosa present and moist mucous membranes Throat: Yes tonsils normal, Yes uvula midline, Yes postnasal drainage and Yes cobblestoning Eyes General: appearance normal, both eyes and all related structures Neck Neck: Yes normal visual inspection Resp Effort & Inspection: normal respiratory effort, able to speak in complete sentences, Actively coughing, no respiratory distress, not tachypneic, no tripod positioning and no use of accessory muscles Auscultation: clear to auscultation bilaterally Cardio Jugular venous distension: no JVD Rate: regular rate Rhythm: regular rhythm Heart sounds: S1 normal heart sound present, S2 normal heart sound present, no click, no gallops, no murmurs and no rubs Skin General skin exam: no rashes or lesions noted, elasticity normal and turgor normal Neuro General: patient oriented x3 Extrem General: Yes normal to inspection and Yes no clubbing, cyanosis or edema Assessment & Plan Assessment & Plan (1) Allergic rhinitis: Code(s): J30.9 - Allergic rhinitis, unspecified Qualifiers: Allergic rhinitis trigger: pollen Allergic rhinitis seasonality: seasonal Qualified Code(s): J30.1 - Allergic rhinitis due to pollen Plan: Reviewed [id number] second-generation antihistamines as well as use of nasal sprays as needed as for symptomatic management. Advised follow up with worsening or failure to resolve. Repeat COVID test not obtained due to previously being negative and lack of history to support. (2) Asthma exacerbation: Code(s): J45.901 - Unspecified asthma with (acute) exacerbation Qualifiers: Asthma severity: mild Asthma persistence: intermittent Qualified Code(s): J45.21 - Mild intermittent asthma with (acute) exacerbation Plan: Advised use of albuterol inhaler as needed. Prescription sent for a short course of prednisone burst for symptomatic management. Advised follow up with PCP with worsening or failure to resolve. Advised ER with dyspnea at rest. Plan See above for full details and plan. Medications: New prednisone 40 mg (2 x 20 mg) PO DAILY 3 days 6 tabs 0RF Coding Level of Care Code Est Pt Level 3 (09358) Diagnoses Seasonal allergic rhinitis due to pollen J30.1 Allergic rhinitis trigger: pollen Allergic rhinitis seasonality: seasonal Mild intermittent asthma with exacerbation J45.21 Asthma severity: mild Asthma persistence: intermittent
== END 2023-11-23 14:32 | disposition home or self-care (01) ==
PROVIDERS: PCP Nurse Practitioner Adult Health; Visit Provider Registered Nurse
DX: J30.1 Allergic rhinitis due to pollen (principal); J45.21 Mild intermittent asthma with (acute) exacerbation
CPT/HCPCS: 99214

== ENCOUNTER 2024-01-05 11:11 | Outpatient (AMB) | payer OTHER, SELFPAY ==
[2024-01-05 12:09] VITALS: BP 110/80; PULSE 75; TEMP 36.9; O2SAT 98; BMI 37.8
--- NOTE | 2024-01-05 12:09 | MHC.OFFWIV ---
Intake Vital Signs 01/05/24 12:09 Height 5 ft 1 in Weight 200 lb BMI 37.8 BP 110/80 Blood Pressure Location Rt brachial Position Sitting Pulse 75 Pulse Source Pulse Oximeter Temp 98.4 F Temp Source Oral Pulse Oximetry (%) 98 Oxygen Delivery Method Room Air Intake Visit Reasons: EP LT wrist injury Intake Note: Pt is here today c/o Lt wrist pain due to hitting against the wall yesterday Patient Tobacco Use Status: Never used Tobacco Allergies Sulfa (Sulfonamide Antibiotics) [SULFA (SULFONAMIDE ANTIBIOTICS)] Allergy (Intermediate, Verified 01/05/24 12:43) DIARRHEA topiramate [From Topamax] Allergy (Verified 01/05/24 12:43) Anaphylaxis trazodone [TRAZODONE] Adverse Reaction (Mild, Verified 01/05/24 12:43) UNKNOWN CHICK PEAS Allergy (Severe, Uncoded 01/05/24 12:21) ANAPHYLAXIS topamax Adverse Reaction (Intermediate, Uncoded 01/05/24 12:21) Unknown Medication List - Last Reconciled 01/05/24 by PEDRO LUIS Cheng- acetaminophen (Tylenol) 650 mg PO Q6H PRN aripiprazole 15 mg PO DAILY cholecalciferol (vitamin D3) 1 cap PO DAILY duloxetine 60 mg PO DAILY ibuprofen 600 mg PO Q8H PRN midodrine 5 mg PO TID pregabalin (Lyrica) 150 mg PO BID 30 days HPI HPI Comments History of Present Illness Details 28-year-old female with Prudencio-Danlos here today with chief complaints of left wrist pain that started yesterday after intentionally striking a wall. She reports that she found out that her girlfriend cheated on her. It was at this time that she hit the wall. She experienced pain immediately in the area of the wrist. She reports bruising and some swelling. Has painful range of motion but is able to move the wrist joint. Plan Wrist immobilized during the office visit with an Joseph wrap as the other splint put pressure on the area that is burs. X-rays today reviewed by myself, no acute findings. Rad reading pending at the close of this note. Refer to orthopedics. Use [id number] NSAIDs and/or Tylenol as needed for pain along with heat alternating with ice. This note is constructed using voice recognition software. While every effort has been made to ensure accuracy in field artillery officer, still errors may have been included Sometimes, these errors may affect the content or meaning of the given sentence . Total time spent caring for the patient today was 30 minutes. This includes time spent before the visit reviewing the chart, time spent during the visit, and time spent after the visit on documentation [facility] Medical History (Updated 01/05/24 @ 12:54 [facility] Bipolar affective disorder Hyperchloremic metabolic acidosis Vitamin D deficiency Hypocalcemia Obesity Cyst of pituitary gland Raynauds disease Allergy to sunlight PTSD (post-traumatic stress disorder) Fibromyalgia CRISTIANA (generalized anxiety disorder) POTS (postural orthostatic tachycardia syndrome) Syncope and collapse Idiopathic autonomic neuropathy Autonomic dysfunction Bipolar II disorder Major depressive disorder Suicidal ideation Social History (System 10/10/22 @ 12:27 by Lexie Gasca) Household Members: Family Household Members Other:: and baby Housing: Apartment Do you presently have visiting nurse or other home services: No Patient Tobacco Use Status: Never used Tobacco Substance Use Type: Marijuana service: No Sexual orientation: Bisexual Physical Exam Vital Signs: Last Vital Signs Temp 98.4 F 01/05/24 12:09 Pulse 75 01/05/24 12:09 BP 110/80 01/05/24 12:09 Pulse Ox 98 01/05/24 12:09 Oxygen Delivery Method Room Air 01/05/24 12:09 BMI result Body Mass Index 37.8 Extrem Elbow/forearm/wrist images: 1. Pain with palpation over her hand on the left side generally speaking, her wrist and anterior lower arm proximal to the wrist. She does have some ecchymosis and localized edema to the ulnar side of the wrist. She has full but painful range of motion. She is neurovascularly intact. Assessment & Plan Assessment & Plan (1) Left forearm pain: Code(s): M79.632 - Pain in left forearm Plan: . (2) Left hand pain: Code(s): M79.642 - Pain in left hand Plan: . (3) Left wrist pain: Code(s): M25.532 - Pain in left wrist Plan: . Orders: Orders XR hand wrist LT Today M25.532 - Pain in left wrist, M79.632 - Pain in left forearm, M79.642 - Pain in left hand XR forearm LT 2V Today M25.532 - Pain in left wrist, M79.632 - Pain in left forearm, M79.642 - Pain in left hand XR hand LT 2V Today M25.532 - Pain in left wrist, M79.632 - Pain in left forearm, M79.642 - Pain in left hand Coding Level of Care Code Est Pt Level 4 (88367) Diagnoses Left forearm pain M79.632 Left hand pain M79.642 Left wrist pain M25.532
== END 2024-01-05 12:53 | disposition home or self-care (01) ==
PROVIDERS: PCP Nurse Practitioner Adult Health; Visit Provider Nurse Practitioner Family
DX: M79.632 Pain in left forearm (principal); M79.642 Pain in left hand; M25.532 Pain in left wrist
CPT/HCPCS: 99214

== ENCOUNTER 2024-01-05 13:37 | Outpatient (REF) | payer OTHER, SELFPAY ==
--- NOTE | ~2024-01-05 | XR_ITS ---
EXAMINATION: XR FOREARM, LEFT CLINICAL INFORMATION: Left wrist pain COMPARISON: None available. TECHNIQUE: AP and lateral views of the left forearm were obtained. FINDINGS: The bones and soft tissues are normal. No fracture. Imaged portions of the elbow and wrist are unremarkable. XR/XR forearm LT 2V IMPRESSION: Normal left forearm. Electronically signed by: Sharyn Mohan MD 01/05/2024 06:02 PM EDT RP
--- NOTE | ~2024-01-05 | XR_ITS ---
EXAMINATION: XR HAND/WRIST, LEFT CLINICAL INFORMATION: Pain in the left wrist COMPARISON: None available. TECHNIQUE: PA, lateral, and oblique views of the left hand and wrist. FINDINGS: The bones and soft tissues are normal. No fracture. Alignment is anatomic. Joint spaces are maintained. No erosions or soft tissue calcifications. XR/XR hand wrist LT IMPRESSION: Normal radiographs of the hand and wrist. Electronically signed by: Sharyn Mohan MD 01/05/2024 06:02 PM EDT
== END 2024-01-05 13:38 | disposition home or self-care (01) ==
LOC: HO.HMGCX 13:37
PROVIDERS: PCP Nurse Practitioner Adult Health; Visit Provider Nurse Practitioner Family
DX: M25.532 Pain in left wrist (principal); M79.642 Pain in left hand; M79.632 Pain in left forearm
CPT/HCPCS: 73090; 73110; 73130

== ENCOUNTER 2024-06-11 10:38 | Outpatient (AMB) | payer OTHER, SELFPAY ==
--- NOTE | 2024-06-11 11:00 | A.OFFVIS_ITS ---
Vital Signs 06/11/24 11:01 Height 5 ft 1 in Weight 197 lb BMI 37.2 BP 148/91 H Blood Pressure Location Lt brachial Position Sitting Pulse 100 Pulse Source Pulse Oximeter Pulse Oximetry (%) 100 Oxygen Delivery Method Room Air Intake Visit Reasons: Chronic bilat thoracic back pain Title Insurance Agent Required: No Allergies Sulfa (Sulfonamide Antibiotics) [SULFA (SULFONAMIDE ANTIBIOTICS)] Allergy (Intermediate, Verified 06/11/24 11:05) DIARRHEA topiramate [From Topamax] Allergy (Verified 06/11/24 11:05) Anaphylaxis trazodone [TRAZODONE] Adverse Reaction (Mild, Verified 06/11/24 11:05) UNKNOWN CHICK PEAS Allergy (Severe, Uncoded 06/11/24 11:05) ANAPHYLAXIS topamax Adverse Reaction (Intermediate, Uncoded 06/11/24 11:05) Unknown Medication List - Last Reconciled 06/11/24 by Caterina Carrillo, [facility] SPECIALIST acetaminophen (Tylenol) 650 mg PO Q6H PRN aripiprazole 15 mg PO DAILY cholecalciferol (vitamin D3) 1 cap PO DAILY duloxetine 60 mg PO DAILY ibuprofen 600 mg PO Q8H PRN midodrine 5 mg PO TID pregabalin (Lyrica) 150 mg PO BID 30 days HPI Comments Details: Makayla is back in my office after almost a year of absence. She reports that her pain is much worse. She somehow connects the worsening of her pain with the fact that she missed 1 pill of the Lyrica. I do not think this is the case however I will refill her Lyrica since it is medication with still is working for the patient although less effectively that it was in the past. I also will prescribe her tizanidine 2 mg t.i.d. to help her pain. She reports pulling sensation in bilateral lower extremities coming from lower back. I explained to her the way to take tizanidine. Her heart rate is elevated therefore it is go od for her to take tizanidine may even normalize her heart rate. We were planning spinal cord stimulator to treat her cervical pain and lower back pain. Unfortunately her insurance company [employer] denies spinal cord stimulator for her condition. She is suffering from chronic pain syndrome. Unfortunately this is not an indication for her insurance company to approve the spinal cord stimulator. She is working on disability. She might receive an opportunity to be covered by [employer], I recommended her to go for traditional [facility]/Medicaid and not private subsidiary. I will see her in 4 months for follow-up and medication refill. 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 She continues gabapentin 600 mg. She wants to try Lyrica. I will switch her to Lyrica 100 mg b.i.d.. I warned her about depression with Lyrica as well as fluid retention. I told her that fluid retention may be treated with small dose of diuretics but if not successful the Lyrica needs to be tapered down and stopped.? She continues low impact aerobic exercise she reports that she will start swimming soon. [facility] Medical History (Updated 01/05/24 @ 12:54 by Stella Schmitt, [facility]-) Bipolar affective disorder Hyperchloremic metabolic acidosis Vitamin D deficiency Hypocalcemia Obesity Cyst of pituitary gland Raynauds disease Allergy to sunlight PTSD (post-traumatic stress disorder) Fibromyalgia CRISTIANA (generalized anxiety disorder) POTS (postural orthostatic tachycardia syndrome) Syncope and collapse Idiopathic autonomic neuropathy Autonomic dysfunction Bipolar II disorder Major depressive disorder Suicidal ideation Social History (System 10/10/22 @ 12:27 by Lexie Gasca) Household Members: Family Household Members Other:: and baby Housing: Apartment Do you presently have visiting nurse or other home services: No Patient Tobacco Use Status: Never used Tobacco Substance Use Type: Marijuana service: No Sexual orientation: Bisexual Review of Systems Const All systems reviewed & are unremarkable except as noted in HPI and below ENT Reports Normal hearing present Neuro Reports Normal hearing present, Denies Abnormal speech present and Denies Sensory deficit (Neuro) Physical Exam Vital Signs: Last Vital Signs Pulse 100 06/11/24 11:01 BP 148/91 H 06/11/24 11:01 Pulse Ox 100 06/11/24 11:01 Oxygen Delivery Method Room Air 06/11/24 11:01 BMI result Body Mass Index 37.2 Const General: no acute distress and well developed Orientation/consciousness: patient oriented x3 Eyes General: appearance normal, both eyes and all related structures Pupils: Equal, round and reactive pupils present EOM: EOMs intact bilaterally Neck Neck: Yes full ROM Chest Chest palpation & inspection: normal inspection of the chest Resp Effort & Inspection: normal respiratory effort, able to speak in complete sentences, normal respiratory pattern, no audible wheezes and no cough Cardio Jugular venous distension: no JVD GI Inspection: Yes normal to inspection Back/Spine/Pelvis Other: Multiple joint hypermobility was detected on physical exam. She is able to flex the fingers backwards especially the thumbs. Neuro General: patient oriented x3 and gait normal Cranial nerves: Yes Equal, round and reactive pupils present and Yes Normal hearing present Speech: No Abnormal speech present Gait exam (Neuro): Normal gait present Motor exam (neuro): 5/5 motor strength present throughout Sensory Exam: No Sensory deficit (Neuro) Extrem Other: Severe allodynia and hyperalgesia with palpation of the outer bilateral lateral hips. General: No pedal edema Psych Speech and movement: Normal speech and movement present Affect: normal affect Attitude: cooperative Thought process: Normal thought process present Thought content: Normal thought content present Insight: Good insight present (Psych) Judgement: Good judgement present (Psych) Assessment & Plan Assessment & Plan (1) Fibromyalgia: Code(s): M79.7 - Fibromyalgia Category: Medical (2) Chronic pain syndrome: Code(s): G89.4 - Chronic pain syndrome Category: Medical (3) Depression: Code(s): F32.A - Depression, unspecified Category: Medical (4) Prudencio-Danlos syndrome: Code(s): Q79.60 - Prudencio-Danlos syndrome, unspecified Category: Medical (5) Intractable pain: Code(s): R52 - Pain, unspecified Category: Medical Plan She did not start I aerobic exercise yet She reported no side effects on Lyrica. We will continue at 150. She reported that Lyrica is not helping her as good as it was in the past. In the future we probably would elevate her dose of Lyrica to 200 mg b.i.d. however at this time I would like to try tizanidine on her. She is tachycardic and therefore tizanidine could be controlling her heart rate. [employer] SCS denied by her insurance [employer]. She does not have any diagnosis which her insurance consider indication for SCS however chronic pain syndrome in my understanding is indication for SCS. She is working on disability in maybe in the future will be able to obtain traditional [employer]/Medicaid. Next appointment will be scheduled in 4 months. Medications: New tizanidine 2 mg PO TID PRN 90 tabs 5RF muscle spasticity 30 days Refilled pregabalin (Lyrica) 150 mg PO BID 60 caps 5RF 30 days Coding Level of Care Code Est Pt Level 3 (60223) Diagnoses Fibromyalgia M79.7 Chronic pain syndrome G89.4 Depression F32.A Prudencio-Danlos syndrome Q79.60 Intractable pain R52
[2024-06-11 11:01] VITALS: BP 148/91; PULSE 100; O2SAT 100; BMI 37.2
--- OUTSIDE RECORDS SUMMARY | 2024-06-11 12:24 | XMS_ITS | Referral Summary ---
Author Organization [facility] Address [address] [place] [address] Care Team Providers Care Emergency Medicine Specialist Name Role Phone Mónica Valle Primary Care Provider [phone] Allergies Active Allergy Reactions Criticality Noted Date Comments Chickpea Other (see comments) 07/26/2015 Throat gets tight and scratchy Sulfa (Sulfonamide Antibiotics) Other (see comments) Gastric??Disorder Medications * This document contains information received from the source organization and may not represent a complete record from that organization. DULoxetine DR (CYMBALTA) 60 mg capsule Take 60 mg by mouth 2 times a day. Active midodrine (PROAMATINE) 5 mg tablet Take 10 mg by mouth 3 times a day. Active topiramate (TOPAMAX) 25 mg tablet Take 25 mg by mouth 2 times a day. Active traZODone (DESYREL) 100 mg tablet Take 100 mg by mouth nightly. Active naproxen (NAPROSYN) 500 mg tablet Take 500 mg by mouth 2 times a day with meals. Active fludrocortisone (FLORINEF) 0.1 mg tablet Take 0.1 mg by mouth daily. Active NORETHINDRONE AC-ETH ESTRADIOL (JUNEL 1.5, ORAL) Take by mouth. Active ergocalciferol (VITAMIN D2) 50,000 unit capsuleIndicati ons:Vitamin D deficiency Take 1 capsule (50,000 Units total) by mouth per week. As directed 13 capsule 10/01/2018 Active Active Problems Problem Noted Date Diagnosed Date PTSD (post-traumatic stress disorder) 03/20/2017 Generalized hypermobility of joints 03/20/2017 [place] stain of skin 03/20/2017 Autonomic dysfunction 03/15/2016 Obesity 03/15/2016 Postural orthostatic tachycardia syndrome 2014 Vitamin D deficiency 08/26/2014 Overview (01/17/2017): ERGO 07/2014. Pituitary cyst 08/26/2014 Overview (01/17/2017): Normal pituitary function (07/2014). Raynaud's disease 07/23/2014 Sleep disorder 07/23/2014 Asthma 07/23/2014 Anxiety 01/13/2014 Depression 03/21/2013 Resolved Problems Problem Noted Date Diagnosed Date Resolved Date Headache 03/01/2015 03/13/2017 Numbness and tingling of both legs 03/01/2015 03/13/2017 Numbness and tingling in left upper extremity 03/01/20 15 03/13/2017 Dizziness 09/15/2014 03/13/2017 Fatigue 07/23/2014 03/13/2017 Acute pharyngitis 01/13/2014 03/13/2017 Cough 03/14/2011 03/13/2017 Dysfunctional uterine bleeding 02/17/2011 03/13/2017 Social History Tobacco Use Types Packs/Day Years Used Date Smoking Tobacco: Never Smokeless Tobacco: Never Comments:: Alcohol Use Standard Drinks/Week Comments Yes 0 (1 standard drink = 0.6 oz pur e alcohol) Once a month Comments Unknown Sex and Gender Information Value Date Recorded Sex Assigned at Female 12/19/2022 7:34 AM EDT Legal Sex Female 12:04 AM EDT Gender Identity Non-binary 12/19/2022 7:34 AM EDT Sexual Orientation Bisexual 12/19/2022 7: 34 AM EDT Last Filed Vital Signs Vital Sign Reading Time Taken Comments Blood Pressure 132/84 02/02/2023 3:10 PM EDT Pulse 87 02/02/2023 3:10 PM EDT Temperature 37.1 ??C (98.8 ??F) 05/08/2017 12:[address] Respiratory Rate 20 05/08/2017 2:17 PM EST Oxygen Saturation 99% 02/02/2023 3:10 PM EDT Inhaled Oxygen Concentration - - Weight 88.5 kg (195 lb 3.2 oz) 02/02/2023 3:10 P M EDT Height 154.9 cm (5' 1 ) 02/02/2023 3:10 PM EDT Body Mass Index 36.88 02/02/2023 3:10 PM EDT Plan of Treatment Not on file Insurance [employer] PPO/EPO/IND [facility] C[employer] PPO/EPO/IND Advance Directives * Full Code (Latest Code Status on File) Date Activated Date Inactivated Comments 05/08/2017 12:56 PM 05/08/2017 4:37 PM Care Teams Emergency Medicine Specialist Relationship Specialty Start Date End Date Mónica Valle [address] [place] [address] PCP - General 01/19/22
--- OUTSIDE RECORDS SUMMARY | 2024-06-11 12:24 | XMS_ITS | Clinical Summary ---
Author Organization [facility] Address [address] [place] [address] Care Team Providers Care Clerk Cashier Name Role Phone Mónica Valle Primary Care Provider [phone] Allergies Active Allergy Reactions Criticality Noted Date [...] 03/14/2011 03/13/2017 Dysfunctional uterine bleeding 02/17/2011 03/13/2017 Family History Medical History Relation Name Comments Other Father Family history of EtOH dependence /Family History of asthma /Family History of melanoma /Family history of FH: mental illness /Family History of hypertension Other Maternal Grandmother Family History of hypertension /Family history of Raynaud disease Other Mother Family History of migraine headaches /Family history of Raynaud disease Other Mother's Sister 1 Family His tory of ovarian cancer Other Mother's Sister 2 Family His tory of polycystic ovarian syndrome Other Other 1 Grandparent Fam sophia History of asthma Other Other 2 Grandparent Fam sophia History of melanoma Other Other 3 Grandparent Fam sophia history of FH: mental illness Other Other 4 Aunt Family His tory of lung cancer Other Other 5 Aunt Family His tory of malignant neoplasm of uterus Other Other 6 Maternal Great Grandmother Family History of malignant neoplasm of breast Other Paternal Grandfather Family History of hypertension Other Paternal Grandmother Family History of thyroid disease Relation Name Status Comments Father Maternal Grandmother Mother Mother's Sister 1 Mother's Sister 2 Other 1 Other 2 Other 3 Other 4 Other 5 Other 6 Paternal Grandfather Paternal Grandmother Social History Tobacco Use Types Packs/Day Years [...] 02/02/2023 3:10 PM EDT Plan of Treatment Health Maintenance Due Date Last Done Comments Cervical Cancer Screening 1993 HIV Screening 1993 HPV and Pap Smear 1993 Hepatitis C Screening 1993 Pap Smear 1993 Pneumococcal Vaccine: Pediat genoevva (0-5 Years) and At-Risk Patients (6-64 Years) (1 of 2 - PCV) 09/10/1999 Varicella Vaccines (1 of 2 - 13+ 2-dose series) 2006 COVID-19 Vaccine (2023-2 5 season) 2023 04/10/2022, 02/17/2021, 06/13/2020, Additional history exists Influenza Vaccine (#1) 2023 2, 01/15/2021, 01/07/2020, Additional history exists Alcohol/Substance Use Screening 04/30/2024 Depression Evaluation 04/30/2024 Social Drivers of Health Joie ual Screening 04/30/2024 DTaP,Tdap,and Td Vaccines (8 - Td or Tdap) 08/04/2031 08/03/2021, 08/07/2017, 10/27/2011, Additional history exists RSV Vaccine (60+ years old a nd patients) (1 - 1-dose 75+ series) 2068 Hepatitis B Vaccines Completed 07/02/2020, 03/11/2020, 12/30/2019, Additional history exists Insurance [employer] PPO/EPO/IND [facility] [employer] PPO/EPO/IND Advance Directives * Full Code (Latest Code Status on File) Date Activated Date Inactivated Comments 05/08/2017 12:56 PM 05/08/2017 4:37 PM Care Teams Clerk Cashier Relationship Specialty Start Date End Date Mónica Valle [address] [id number] PCP - General 01/19/22
== END 2024-06-11 11:20 | disposition home or self-care (01) ==
PROVIDERS: PCP Nurse Practitioner Adult Health; Visit Provider Anesthesiology
DX: M79.7 Fibromyalgia (principal); G89.4 Chronic pain syndrome; F32.A Depression, unspecified; Q79.60 Ehlers-Danlos syndrome, unspecified; R52 Pain, unspecified
CPT/HCPCS: 99213

== ENCOUNTER → 2024-06-11 10:38 | Outpatient (BNVA) | payer OTHER, SELFPAY | PROVIDERS: PCP Nurse Practitioner Adult Health; Visit Provider Anesthesiology ==

== ENCOUNTER 2024-06-21 13:33 | Emergency (ER) | payer OTHER, SELFPAY ==
[2024-06-21 13:55] VITALS: BP 143/87; PULSE 93; RESP 18; TEMP 37; O2SAT 99; BMI 34.8
--- NOTE | 2024-06-21 13:56 | ED.GENADULT ---
HPI - General Adult General Chief complaint: Syncope Stated complaint: Fainting spells, hx of POTS, post norovirus Time Seen by Provider: 06/21/24 20:02 Source: patient and family Mode of arrival: ambulatory Limitations: no limitations History of Present Illness ED Provider: ALEXX PHAM narrative: 28 yo patient with PMH of bipolar, raynaud, fibromyalgia, depression, Prudencio Danlos syndrome, PTSD, POTS notes they have been sick with n/v/d and mild abdominal cramps for 2 days - vomiting did improve today but given their POTS they feel very weak and dehydrated. They report passing out x 2. No head trauma. One of their partners had a GI bug. No recent travel, fevers, bloody stools, abx use reported. They came due to feeling like their POTS was triggered. MD complaint: n/v/d fainting Onset (ago): day(s) (2) Location: abdomen Radiation: non-radiation Severity: mild Quality: aching Pain Consistency: intermittent Relieving factors: none Exacerbating factors: other (vomiting, diarrhea) Associated symptoms: loss of appetite, malaise, nausea/vomiting, syncope and weakness Treatments prior to arrival: other (she takes her midodrine and florinef) Related Data Home Medications ?Medication ?Instructions ?Recorded ?Confirmed cholecalciferol (vitamin D3) 125 1 cap PO DAILY 06/20/22 06/11/24 mcg (5,000 unit) capsule acetaminophen 325 mg capsule 650 mg PO Q6H PRN 07/17/22 06/11/24 (Tylenol) ibuprofen 600 mg tablet 600 mg PO Q8H PRN 07/17/22 06/11/24 aripiprazole 15 mg tablet 15 mg PO DAILY 12/13/22 06/11/24 midodrine 5 mg tablet 5 mg PO TID 12/13/22 06/11/24 duloxetine 60 mg capsule,delayed 60 mg PO DAILY 01/05/24 06/11/24 release Previous Rx's ?Medication ?Instructions ?Recorded pregabalin 150 mg capsule (Lyrica) 150 mg PO BID 30 days #60 caps 06/11/24 tizanidine 2 mg tablet 2 mg PO TID PRN muscle spasticity 06/11/24 30 days #90 tabs ondansetron 4 mg disintegrating 4 mg PO Q8H PRN nausea and 06/21/24 tablet vomiting #20 tabs Allergies Allergy/AdvReac Type Severity Reaction Status Date / Time Sulfa (Sulfonamide Allergy Intermediate DIARRHEA Verified 06/21/24 13:55 Antibiotics) [SULFA (SULFONAMIDE ANTIBIOTICS)] topiramate [From Topamax] Allergy Anaphylaxis Verified 06/21/24 13:55 trazodone [TRAZODONE] AdvReac Mild UNKNOWN Verified 06/21/24 13:55 CHICK PEAS Allergy Severe ANAPHYLAXIS Uncoded 06/11/24 11:05 topamax AdvReac Intermediate Unknown Uncoded 06/11/24 11:05 Review of Systems Review of Systems: Constitutional : No Weight loss, No Fever, No Chills ENT/Mouth : No sore throat, No Rhinorrhea Eyes: No Swelling, No Redness Cardiovascular : No Chest Pain, No SOB, NoEdema Respiratory : No Cough, No Sputum, No Wheezing Gastrointestinal : Positive Nausea, Positive Vomiting, positive Diarrhea, positive abdominal Pain, No Hematochezia, No Melena Genitourinary : No Dysuria, No Urinary Frequency, No Hematuria, No Urgency Musculoskeletal : No joint pain, No Myalgias, No Joint Swelling Skin : No Skin Lesions, No rash Neuro : No Weakness, No Numbness, pos Dizziness, No Headache Psych : No Anxiety/Panic, No Depression All other systems reviewed and are negative. [facility] Past Medical History Attestation statement: The following information was validated with the patient. Source: old records reviewed Medical History Bipolar affective disorder Hyperchloremic metabolic acidosis Vitamin D deficiency Hypocalcemia Obesity Cyst of pituitary gland Raynauds disease Allergy to sunlight PTSD (post-traumatic stress disorder) Fibromyalgia CRISTIANA (generalized anxiety disorder) POTS (postural orthostatic tachycardia syndrome) Syncope and collapse Idiopathic autonomic neuropathy Autonomic dysfunction Bipolar II disorder Major depressive disorder Suicidal ideation Social History Social History Household Members: Family Household Members Other:: and baby Housing: Apartment Do you presently have visiting nurse or other home services: No Patient Tobacco Use Status: Never used Tobacco Smoked in Last 30 Days: No Use of substances other than those prescribed or required for medical reasons: Yes Substance Use Type: Marijuana Advance Directives: No Advance Directives Information Provided: No Do you have a plan to hurt others: No Plan Patient : No service: No Sexual orientation: Bisexual Physical Exam ED Vital Signs: Vital Signs - 24 hr 06/21/24 13:55 06/21/24 20:19 Temperature 98.6 F Pulse Rate 93 Respiratory Rate 18 Blood Pressure 143/87 H Pulse Oximetry 99 98 Oxygen Delivery Method Room Air Room Air BMI result Body Mass Index 34.8 Appearance: Alert. Oriented X3. No acute distress. Eyes: Pupils equal, round and reactive to light. ENT: Pharynx dry MM Neck: Normal inspection. Neck supple. CVS: Normal heart rate and rhythm. Pulses normal. Respiratory: No respiratory distress. Breath sounds normal. Abdomen: Soft and very minimal ttp in lower abdomen no rebound or guarding Skin: Skin warm and dry. Normal skin color. Normal skin turgor. Extremities: No lower extremity edema. No calf ttp Neuro: Oriented X 3. No motor deficit. No sensory deficit. CN2-12 intact Course Course Course Narrative: RME performed by Sadaf Roth PA-C. Patient is a 28 year old assigned female at presenting to the emergency department with increased fainting. Patient states that she recently had a stomach bug and has been more dehydrated causing her POTS to flare and cause more fainting episodes. Detailed physical exam and review of systems are deferred to the shoe turner. EKG, labs, chest x-ray, and swabs ordered. Patient placed back in the waiting room pending room availability and results. Medications Administered Generic Name Dose Route Start Last Admin Trade Name Freq PRN Reason Stop Dose Admin Lactated Ringer's 1,000 mls @ 999 mls/hr 06/21/24 20:02 06/21/24 20:16 Lr IV 06/21/24 21:02 999 mls/hr .Q1H1M ONE Administration Lactated Ringer's 1,000 mls @ 999 mls/hr 06/21/24 20:02 06/21/24 20:17 Lr IV 06/21/24 21:02 999 mls/hr .Q1H1M ONE Administration Medical Decision Making Medical Decision Making [facility] Narrative: 28 yo patient with PMH of bipolar, raynaud, fibromyalgia, depression, Prudencio Danlos syndrome, PTSD, POTS now here with c/o feeling weak with syncope x 2 no trauma due to their POTS and being dehydrated after n/v/d illness. Benign exam and they are tolerating PO. No localized ttp no red flags such as blood stools, severe pain, fevers. Their partner had similar symptoms. AT this time suspect they need volume repletion ordered 2L of fluids, basic labs and EKG. If feeling better will dc home. Differential Diagnosis Differential Diagnoses: The differential diagnosis associated with the presentation includes dehydration, viral syndrome, POTS Admission/Observation Consideration of admission/observation: Escalation of care including admission/observation considered feeling much better after IVF x 2L she can be safely DC to home she is tolerating PO Lab Data [facility] Lab Attestation statement: I reviewed the patient's lab results. 06/21/24 14:08 06/21/24 14:08 Labs: Lab Results 06/21/24 Range/Units 14:08 WBC 6.0 (4.8-10.8) X10*3/uL RBC 4.50 (4.20-5.50) X10*6/uL Hgb 13.9 (12.0-16.0) g/dl Hct 38.7 (37.0-47.0) % MCV 86.0 (80.0-98.0) fL MCH 30.9 (27.0-33.0) pg MCHC 35.9 H (31.0-35.0) g/dl RDW 12.5 (11.0-16.0) % Plt Count 242 (160-400) X10*3/uL MPV 9.8 (9.4-12.3) fL Immature Gran % (Auto) 0.3 (0.0-0.4) % Neut % (Auto) 62.4 (45-73) % Lymph % (Auto) 25.7 (20-40) % [place] % (Auto) 9.1 (2-11) % Eos % (Auto) 2.2 (0-4) % Baso % (Auto) 0.3 (0-2) % Lymph # (Auto) 1.5 (1.2-4.9) X10*3/uL [place] # (Auto) 0.5 (0.1-1.2) X10*3/uL Eos # (Auto) 0.1 (0.0-0.4) X10*3/uL Baso # (Auto) 0.0 (0.0-0.2) X10*3/uL Abs Immat Gran (auto) 0.02 (0.00-0.03) X10*3/uL Absolute Neuts (auto) 3.7 (2.0-8.3) x10*3/uL Absolute Nucleated RBC 0.000 (0.0-0.012) X10*3/uL Nucleated RBC % (auto) 0.0 (0.0-0.2) /100WBC Sodium 141 (135-145) mmol/L Potassium 3.5 (3.3-5.1) mmol/L Chloride 109 H (96-108) mmol/L Carbon Dioxide 25 (22-29) mmol/L Anion Gap 11 L (12-20) BUN 6 L (9-16) mg/dL Creatinine 0.68 (0.5-1.4) mg/dL Estim Creat Clear Calc 123.3 Estimated GFR > 60 Random Glucose 90 (60-115) mg/dL Calcium 8.6 (8.4-10.2) mg/dL Magnesium 2.3 (1.6-2.6) mg/dL Total Bilirubin 0.5 (0.0-1.0) mg/dL AST 18 (5-31) U/L ALT 24 (0-31) U/L Alkaline Phosphatase 83 (39-117) U/L Troponin I High Sens < 2.7 (<3.5-17.0) ng/L Total Protein 6.7 (6.5-8.0) g/dL Albumin 4.1 (3.5-5.0) g/dL Beta HCG, Quant < 2 mIU/mL Influenza Type A (PCR) NEGATIVE (Negative) Influenza Type B (PCR) NEGATIVE (Negative) RSV RNA Qual (PCR) NEGATIVE (Negative) SARS-CoV-2 RNA (RT-PCR) NEGATIVE (Negative) Independent Interpretation I performed an independent interpretation of an: EKG Interpretation: Rate: 79 Rhythm: NSR [place]: normal Normal P waves. Normal ADIN. Normal QRS complex. ST T wave : normal no SYDNI qTC: 415 prior studies: normal The study has been interpreted contemporaneously by me. . Independent Historian Clinical information obtained from an independent historian. History obtained from or confirmed by: Friend External Record Review External record reviewed: Outpatient record Prescription Management I considered prescription management with: Other Discharge Plan Discharge Clinical Impression: Syncope due to orthostatic hypotension, Nausea vomiting and diarrhea Patient Disposition: Home, Self-Care Instructions: Syncope (ED), Acute Nausea and Vomiting (ED), Acute Diarrhea (ED) Additional Instructions: labs reassuring, rest and stay hydrated push fluids over the next 48 hours advance very slowly over 48 hours including eating things like bananas apple sauce rice and toast avoid dairy, greasy food, spicy foods for the next few days can take immodium for diarrhea as long as you do not have bloody stools, severe pain, fevers. Prescriptions: New ondansetron 4 mg tablet,disintegrating 4 mg PO Q8H PRN (Reason: nausea and vomiting) Qty: 20 0RF No Action cholecalciferol (vitamin D3) 125 mcg (5,000 unit) capsule 1 cap PO DAILY duloxetine 60 mg capsule,delayed release(DR/EC) 60 mg PO DAILY ibuprofen 600 mg tablet 600 mg PO Q8H PRN acetaminophen [Tylenol] 325 mg capsule 650 mg PO Q6H PRN aripiprazole 15 mg tablet 15 mg PO DAILY midodrine 5 mg tablet 5 mg PO TID pregabalin [Lyrica] 150 mg capsule 150 mg PO BID 30 Days Qty: 60 5RF tizanidine 2 mg tablet 2 mg PO TID PRN (Reason: muscle spasticity) 30 Days Qty: 90 5RF Print Language: Uzbek
--- NOTE | 2024-06-21 13:57 | ECG_ITS ---
Test Reason : SYNCOPE Blood Pressure : */* mmHG Vent. Rate : 79 BPM Atrial Rate : 79 BPM P-R Int : 150 ms QRS Dur : 76 ms QT Int : 362 ms P-R-T Axes : 42 60 52 degrees QTcB Int : 415 ms Normal sinus rhythm with sinus arrhythmia Normal ECG When compared with ECG of 21-Jun-2022 13:15, No significant change was found Referred By: Sadaf Roth Electronically Signed By: DEMETRIS ARROYO
[2024-06-21 14:12] LABS: MANUAL DIFF FLAG NO
--- OUTSIDE RECORDS SUMMARY | 2024-06-21 14:12 | XMS_ITS | Referral Summary ---
Author Organization [facility] Address [address] [place] [address] Care Team Providers Care Pourer Name Role Phone Mónica Valle Primary Care Provider [phone] Allergies Active Allergy Reactions Criticality Noted Date [...] Treatment Not on file Insurance CIGNA PPO/EPO/IND [facility] CIGNA PPO/EPO/IND Advance Directives * Full Code (Latest Code Status on File) Date Activated Date Inactivated Comments 05/08/2017 12:56 PM 05/08/2017 4:37 PM Care Teams Pourer Relationship Specialty Start Date End Date Mónica Valle [address] [place] [address] PCP - General 01/19/22
[2024-06-21 14:23] LABS: Basophils Percent Auto 0.3 % (0-2); Eosinophils Absolute Auto 0.1 X10*3/uL (0.0-0.4); Eosinophils Percent Auto 2.2 % (0-4); Hematocrit 38.7 % (37.0-47.0); Hemoglobin 13.9 g/dl (12.0-16.0); Imm Gran Abs Auto 0.02 X10*3/uL (0.00-0.03); Imm Gran Pct Auto 0.3 % (0.0-0.4); Lymphocytes Absolute Auto 1.5 X10*3/uL (1.2-4.9); Lymphocytes Percent Auto 25.7 % (20-40); Mean Corpuscular HGB Conc 35.9 g/dl (31.0-35.0); Mean Corpuscular Hemoglobin 30.9 pg (27.0-33.0); Mean Platelet Volume 9.8 fL (9.4-12.3); Monocytes Absolute Auto 0.5 X10*3/uL (0.1-1.2); Monocytes Percent Auto 9.1 % (2-11); Neutrophils Absolute Auto 3.7 x10*3/uL (2.0-8.3); Neutrophils Percent Auto 62.4 % (45-73); Platelet Count 242 X10*3/uL (160-400); Red Cell Distribution Width 12.5 % (11.0-16.0)
[2024-06-21 14:38] LABS: Alanine Aminotransferase 24 U/L (0-31); Albumin Level 4.1 g/dL (3.5-5.0); Alkaline Phosphatase 83 U/L (39-117); Anion Gap 11 (12-20); Aspartate Amino Transferase 18 U/L (5-31); Bilirubin Total 0.5 mg/dL (0.0-1.0); Blood Urea Nitrogen 6 mg/dL (9-16); Calcium 8.6 mg/dL (8.4-10.2); Carbon Dioxide 25 mmol/L (22-29); Chloride 109 mmol/L (96-108); Creatinine Clr Calc Pharmacy 123.3; Estimated Glomerular Filt Rate > 60; Glucose Random 90 mg/dL (60-115); HCG Quantitative < 2 mIU/mL; Magnesium 2.3 mg/dL (1.6-2.6); Potassium 3.5 mmol/L (3.3-5.1); Sodium 141 mmol/L (135-145); Total Protein 6.7 g/dL (6.5-8.0); Troponin-I High Sensitivity < 2.7 ng/L (<3.5-17.0)
[2024-06-21 14:58] LABS: Influenza A PCR NEGATIVE (Negative); Influenza B PCR NEGATIVE (Negative); Resp Syncy Virus RNA Qual PCR NEGATIVE (Negative); SARS COV2 PCR INHOUSE NEGATIVE (Negative)
[2024-06-21] MEDS: Lactated Ringers 1,000 ML 999 ML IV ×2 (20:16→20:17)
[2024-06-21 20:19] VITALS: O2SAT 98
[2024-06-21 21:51] VITALS: BP 126/78; PULSE 69; RESP 16; TEMP 36.7; O2SAT 99
[2024-06-21 22:39] VITALS: BP 131/77; PULSE 70; RESP 17; TEMP 36.7; O2SAT 100
[2024-06-21 22:50] VITALS: BP 131/77; PULSE 70; RESP 17; TEMP 36.7; O2SAT 100
== END 2024-06-21 22:52 | disposition home or self-care (01) ==
PROVIDERS: Physician Assistant Medical; Emergency Provider Emergency Medicine; PCP Nurse Practitioner Adult Health
DX: I95.1 Orthostatic hypotension (principal); R11.2 Nausea with vomiting, unspecified; Z03.818 Encounter for observation for suspected exposure to other biological agents ruled out; G90.A Postural orthostatic tachycardia syndrome [POTS]; Z79.899 Other long term (current) drug therapy
CPT/HCPCS: 0241U; 36415; 80053; 83735; 84484; 84702; 85025; 93005; 96360; 96361; 99284; 99285; J7120

== ENCOUNTER → 2024-06-21 13:57 | Outpatient (BNV) | payer OTHER, SELFPAY | PROVIDERS: Emergency Provider Emergency Medicine; PCP Nurse Practitioner Adult Health; Visit Provider Internal Medicine | DX: R55 Syncope and collapse (principal) | CPT/HCPCS: 93010 ==

== ENCOUNTER 2024-07-18 12:34 | Outpatient (AMB) | payer OTHER, SELFPAY ==
--- NOTE | 2024-07-18 13:04 | AM.OFFWIN_ITS ---
Intake Vital Signs 07/18/24 13:05 Weight 197 lb BP 108/72 Blood Pressure Location Rt brachial Position Sitting Pulse 58 Pulse Source Pulse Oximeter Pulse Oximetry (%) 97 Oxygen Delivery Method Room Air Intake Visit Reasons: EP-rt ankle pain & swollen from a fall Intake Note: Patient here for right ankle pain and swelling that started today. Patient Tobacco Use Status: Never used Tobacco Allergies Sulfa (Sulfonamide Antibiotics) [SULFA (SULFONAMIDE ANTIBIOTICS)] Allergy (Intermediate, Verified 07/18/24 13:08) DIARRHEA topiramate [From Topamax] Allergy (Verified 07/18/24 13:08) Anaphylaxis trazodone [TRAZODONE] Adverse Reaction (Mild, Verified 07/18/24 13:08) UNKNOWN CHICK PEAS Allergy (Severe, Uncoded 07/18/24 13:08) ANAPHYLAXIS topamax Adverse Reaction (Intermediate, Uncoded 07/18/24 13:08) Unknown Do you need a note to return to daycare/school/sports/work: No HPI HPI Comments History of Present Illness Details This is a 28-year-old female who presented to the walk-in clinic complaining of right foot/ankle pain and swelling x1 hour. Patient states that she inverted and twisted her ankle just about 30 minutes prior to arrival. She is reporting lateral ankle pain and some foot pain as well as mild swelling and ecchymosis. She denies numbness/weakness/paresthesias of her right foot. FORMERLY [facility], [facility] Medical History Bipolar affective disorder Hyperchloremic metabolic acidosis Vitamin D deficiency Hypocalcemia Obesity Cyst of pituitary gland Raynauds disease Allergy to sunlight PTSD (post-traumatic stress disorder) Fibromyalgia CRISTIANA (generalized anxiety disorder) POTS (postural orthostatic tachycardia syndrome) Syncope and collapse Idiopathic autonomic neuropathy Autonomic dysfunction Bipolar II disorder Major depressive disorder Suicidal ideation Social History Household Members: Family Household Members Other:: and baby Housing: Apartment Do you presently have visiting nurse or other home services: No Patient Tobacco Use Status: Never used Tobacco Substance Use Type: Marijuana service: No Sexual orientation: Bisexual Review of Systems Const All systems reviewed & are unremarkable except as noted in HPI and below Reports no additional complaints Eyes Reports no additional complaints ENT Reports no additional complaints Card Reports no additional complaints Resp Reports no additional complaints GI Reports no additional complaints Reports no additional complaints Musc Reports no additional complaints Skin/Breast Reports system reviewed and no additional complaints, except as documented Neuro Reports no additional complaints Psych Reports no additional complaints Endo Reports no additional complaints Renzo/Lymph Reports no additional complaints Aller/Immun Reports no additional complaints Physical Exam Const Other: Vital signs reviewed. Constitutional: Non-toxic appearing. No acute distress. Well-developed and well-nourished. HEENT: Normocephalic and atraumatic. Skin: Warm and dry. No rashes or lesions noted. Neck: Full and painless range of motion. No cervical lymphadenopathy. Cardio: Regular rate. No lower extremity edema. No JVD. Pulmonary: No respiratory distress. No accessory muscle usage. Musculoskeletal: There is mild swelling and ecchymosis to the right lateral ankle. There is tenderness to palpation of the right lateral malleolus as well as the right 5th metatarsal. There is minimal tenderness to palpation to the medial malleolus. There is increased pain to the lateral ankle with inversion of the right ankle. Neuro: Alert and oriented x4. Cranial nerves 2-12 grossly intact. No focal deficits appreciated. Psych: Normal mood and affect. Assessment & Plan Assessment & Plan (1) Sprain of right ankle: Code(s): S93.401A - Sprain of unspecified ligament of right ankle, initial encounter Qualifiers: Encounter type: initial encounter Involved ligament of ankle: unspecified ligament Qualified Code(s): S93.401A - Sprain of unspecified ligament of right ankle, initial encounter Plan: This is a 28-year-old who presented to the walk-in clinic complaining of right foot/ankle pain and swelling x1 hour following inversion injury. On physical examination, there is tenderness to palpation of the right lateral malleolus and right 5th metatarsal with increased pain with inversion. Differential diagnoses includes lateral ankle sprain/strain versus avulsion fracture versus fracture/dislocation. An x-ray of the right foot and ankle was obtained, which was negative for acute fracture or dislocation. Recommended rest/activity modification, ice to the area, compression/elevation of the extremity, and acetaminophen/ibuprofen for pain management as long as patient has no medical contraindications. Patient provided with an ankle brace for additional stability as well as crutches to aid in ambulation. Patient advised to follow-up here or proceed to the emergency room if they were to develop persistent or worsening symptoms. Patient verbalized understanding and is agreeable with the plan. Orders: Orders XR ankle RT 2V Today M25.571 - Pain in right ankle and joints of right foot Coding Level of Care Code Est Pt Level 3 (38281) Diagnoses Sprain of right ankle, unspecified ligament, initial encounter S93.401A Encounter type: initial encounter Involved ligament of ankle: unspecified ligament
[2024-07-18 13:05] VITALS: BP 108/72; PULSE 58; O2SAT 97
--- OUTSIDE RECORDS SUMMARY | 2024-07-18 14:58 | XMS_ITS | Clinical Summary ---
Author Organization [facility] Address [address] [place] [address] Care Team Providers Care Catheter Finisher And Inspector Name Role Phone Mónica Valle Primary Care Provider [phone] Allergies Active Allergy Reactions Criticality Noted Date [...] Hepatitis C Screening 1993 Pap Smear 1993 Varicella Vaccines (1 of 2 - 13+ 2-dose series) 2006 Pneumococcal Vaccine: Pediat genoveva (0-5 Years) and At-Risk Patients (6-50 Years) (1 of 2 - PCV) 2012 COVID-19 Vaccine (2023-2 5 season) 2023 04/10/2022, 02/17/2021, 06/13/2020, Additional history exists Influenza Vaccine (#1) 2023 2, 01/15/2021, 01/07/2020, Additional history exists Alcohol/Substance Use Screening 04/30/2024 Depression Screening and Follow-Up 04/30/2024 Social Drivers of Health Joie ual Screening 04/30/2024 DTaP,Tdap,and Td Vaccines (8 - Td or Tdap) 08/04/2031 08/03/2021, 08/07/2017, 10/27/2011, Additional history exists RSV Vaccine (60+ years old a nd patients) (1 - 1-dose 75+ series) 2068 Hepatitis B Vaccines Completed 07/02/2020, 03/11/2020, 12/30/2019, Additional history exists Insurance CIGNA PPO/EPO/IND [facility] CIGNA PPO/EPO/IND Advance Directives * Full Code (Latest Code Status on File) Date Activated Date Inactivated Comments 05/08/2017 12:56 PM 05/08/2017 4:37 PM Care Teams Catheter Finisher And Inspector Relationship Specialty Start Date End Date Mónica Valle [address] [place] [address] PCP - General 01/19/22
--- OUTSIDE RECORDS SUMMARY | 2024-07-18 14:58 | XMS_ITS | Referral Summary ---
Author Organization [facility] Address [address] [place] [address] Care Team Providers Care Label Drier Name Role Phone Mónica Valle Primary Care Provider [phone] Allergies Active Allergy Reactions Criticality Noted Date [...] Treatment Not on file Insurance CIGNA PPO/EPO/IND [facility] CIGNA PPO/EPO/IND Advance Directives * Full Code (Latest Code Status on File) Date Activated Date Inactivated Comments 05/08/2017 12:56 PM 05/08/2017 4:37 PM Care Teams Label Drier Relationship Specialty Start Date End Date Mónica Valle [address] [place] [id number] PCP - General 01/19/22
== END 2024-07-18 14:04 | disposition home or self-care (01) ==
PROVIDERS: PCP Nurse Practitioner Adult Health; Visit Provider Physician Assistant Medical
DX: S93.401A Sprain of unspecified ligament of right ankle, initial encounter (principal)

== ENCOUNTER 2024-07-18 12:34 | Outpatient (REF) | payer OTHER, SELFPAY ==
--- NOTE | ~2024-07-18 | XR_ITS ---
EXAMINATION: XR FOOT, RIGHT CLINICAL INFORMATION: M79.671 - Pain in right foot COMPARISON: Correlated to the right ankle x-ray TECHNIQUE: AP, lateral, and oblique views of the right foot. FINDINGS: No acute cortical disruption or malalignment. No lytic or blastic lesions. No subcutaneous emphysema. No metallic or radiopaque foreign body. XR/XR foot RT min 3V IMPRESSION: Normal right foot. Electronically signed by: Ant Thornton MD 07/18/2024 01:57 PM EDT
--- NOTE | ~2024-07-18 | XR_ITS ---
EXAMINATION: XR ANKLE 2 VIEWS RIGHT HISTORY: M25.571 - Pain in right ankle and joints of right foot COMPARISON: There are no prior studies available for comparison. FINDINGS: Two views of the right ankle are submitted. Osseous mineralization is normal. There is no fracture or dislocation. The joint spaces are preserved. The soft tissues are unremarkable. XR/XR ankle RT 2V IMPRESSION: Unremarkable examination of the right ankle. Electronically signed by: Sony Cheng MD 07/18/2024 02:00 PM EDT
== END 2024-07-18 12:35 | disposition home or self-care (01) ==
LOC: HO.HMGCX 12:34
PROVIDERS: PCP Nurse Practitioner Adult Health; Visit Provider Physician Assistant Medical
DX: S93.401A Sprain of unspecified ligament of right ankle, initial encounter (principal)
CPT/HCPCS: 73600; 73630

== ENCOUNTER → 2024-07-18 13:28 | Outpatient (BNV) | payer OTHER, SELFPAY | PROVIDERS: PCP Nurse Practitioner Adult Health; Visit Provider Radiology Diagnostic Radiology | DX: M25.571 Pain in right ankle and joints of right foot (principal) | CPT/HCPCS: 73600; 73630 ==

== ENCOUNTER 2024-08-04 15:29 | Emergency (ER) | payer OTHER, SELFPAY ==
--- NOTE | ~2024-08-04 | CT_ITS ---
CLINICAL HISTORY: neck pain CT cervical spine without contrast. COMPARISON: None FINDINGS: Straightening with reversal of normal cervical lordosis. Vertebral body heights are maintained. Skull base and intracranial structures appear normal. The visualized paravertebral soft tissues appear unremarkable. C5-6: Anterior marginal osteophytes. Uncovertebral joint hypertrophy. No significant neural foraminal narrowing. Remaining cervical levels are without significant degenerative changes. IMPRESSION: 1. Reversal of normal cervical lordosis, likely positional. This document has been electronically signed by: Lawrence Lema MD on 08/04/2024 17:27:25
--- NOTE | ~2024-08-04 | CT_ITS ---
CLINICAL HISTORY: headache CT head without contrast. COMPARISON: None FINDINGS: The visualized paranasal sinuses are clear. The mastoid air cells are clear. No calvarial fracture. No evidence for mass or mass effect. No intracranial hemorrhage or abnormal extra-axial fluid collection. No evidence of hydrocephalus. The basilar cisterns are patent. Posterior fossa appears unremarkable. IMPRESSION: 1. No acute intracranial findings. This document has been electronically signed by: Lawrence Lema MD on 08/04/2024 17:27:02
[2024-08-04 15:53] VITALS: BP 158/96; PULSE 95; RESP 16; TEMP 36.9; O2SAT 100; BMI 35.7
--- NOTE | 2024-08-04 16:00 | ECG_ITS ---
Test Reason : SYNCOPE Blood Pressure : */* mmHG Vent. Rate : 92 BPM Atrial Rate : 92 BPM P-R Int : 142 ms QRS Dur : 76 ms QT Int : 336 ms P-R-T Axes : 49 56 46 degrees QTcB Int : 415 ms Normal sinus rhythm Normal ECG When compared with ECG of 21-Jun-2024 14:04, No significant change was found Referred By: Lamin Dugan Electronically Signed By: Froylan Jung
--- NOTE | 2024-08-04 16:00 | ED.GENADULT ---
HPI - General Adult General Chief complaint: Headache Stated complaint: ? jaqueline santos Time Seen by Provider: 08/04/24 19:43 Source: patient and other ( Significant other) Mode of arrival: ambulatory Limitations: no limitations History of Present Illness ED Provider: Dr. Gregory Brown HPI narrative: 34-year-old female with a history of fibromyalgia, Raynaud's, POTS, Prudencio Danlos syndrome, bipolar disorder, PTSD who presents emergency department for evaluation of headache and severe neck pain. The patient states that she by her POTS syndrome on , 07/31/2024 ( 4 days prior). The patient was in a polyamorous relationships and her female significant other is here in the emergency department with her. The patient did have prodromal symptoms prior to her syncope and her male significant other noted that the patient was about to pass out. He was able to grab her head and hold her while she fell to the floor. The patient did not hit her head but did have a loss of consciousness consistent with her syncopal episodes. The patient describes a whiplash like injury to her neck due to the fact that her male significant other had grabbed her head to stop her fall. Patient states that she has been having 9/10 pain to her neck which is worse with movement. She was also having 9/10 pain around her left eye which has been similar to an ocular migraine that she was had in the past. Patient states she was had intermittent tingling in her hands and feet. Patient was seen at an urgent care clinic yesterday and was started on Celebrex and methocarbamol. She was advised to continue to take her pre-gabapentin but tole to stop her other muscle relaxant tizanidine. She states she was advised to go to the emergency department if her symptoms did not get better or for symptoms got worse. Patient continued to have significant pain therefore she came to ED emergency department for evaluation. She denied fever, chills, cough, vomiting. She does have nausea associated with her symptoms Related Data Home Medications ?Medication ?Instructions ?Recorded ?Confirmed cholecalciferol (vitamin D3) 125 1 cap PO DAILY 06/20/22 06/11/24 mcg (5,000 unit) capsule acetaminophen 325 mg capsule 650 mg PO Q6H PRN 07/17/22 06/11/24 (Tylenol) ibuprofen 600 mg tablet 600 mg PO Q8H PRN 07/17/22 06/11/24 aripiprazole 15 mg tablet 15 mg PO DAILY 12/13/22 06/11/24 midodrine 5 mg tablet 5 mg PO TID 12/13/22 06/11/24 duloxetine 60 mg capsule,delayed 60 mg PO DAILY 01/05/24 06/11/24 release Previous Rx's ?Medication ?Instructions ?Recorded pregabalin 150 mg capsule (Lyrica) 150 mg PO BID 30 days #60 caps 06/11/24 ondansetron 4 mg disintegrating 4 mg PO Q8H PRN nausea and 06/21/24 tablet vomiting #20 tabs tizanidine 4 mg capsule 4 mg PO TID PRN muscle spasticity 07/01/24 30 days #90 caps morphine 15 mg immediate release 15 mg PO Q6H PRN pain #15 tabs 08/04/24 tablet Allergies Allergy/AdvReac Type Severity Reaction Status Date / Time Sulfa (Sulfonamide Allergy Intermediate DIARRHEA Verified 08/04/24 15:56 Antibiotics) [SULFA (SULFONAMIDE ANTIBIOTICS)] topiramate [From Topamax] Allergy Anaphylaxis Verified 08/04/24 15:56 trazodone [TRAZODONE] AdvReac Mild UNKNOWN Verified 08/04/24 15:56 CHICK PEAS Allergy Severe ANAPHYLAXIS Uncoded 07/18/24 13:08 topamax AdvReac Intermediate Unknown Uncoded 07/18/24 13:08 Review of Systems Review of Systems: Yes all other systems are reviewed and are negative PMFSH Past Medical History Medical History Bipolar affective disorder Hyperchloremic metabolic acidosis Vitamin D deficiency Hypocalcemia Obesity Cyst of pituitary gland Raynauds disease Allergy to sunlight PTSD (post-traumatic stress disorder) Fibromyalgia CRISTIANA (generalized anxiety disorder) POTS (postural orthostatic tachycardia syndrome) Syncope and collapse Idiopathic autonomic neuropathy Autonomic dysfunction Bipolar II disorder Major depressive disorder Suicidal ideation Social History Social History Household Members: Family Household Members Other:: and baby Housing: Apartment Do you presently have visiting nurse or other home services: No Patient Tobacco Use Status: Never used Tobacco Smoked in Last 30 Days: No Use of substances other than those prescribed or required for medical reasons: No Substance Use Type: Marijuana Advance Directives: No Advance Directives Information Provided: No Do you have a plan to hurt others: No Plan Patient : No service: No Sexual orientation: Bisexual Physical Exam ED Vital Signs: Vital Signs - 24 hr 08/04/24 15:53 08/04/24 18:12 08/04/24 18:16 Temperature 98.5 F 98.5 F 98.5 F Pulse Rate 95 82 84 Respiratory Rate 16 17 17 Blood Pressure 158/96 H 148/93 H 148/93 H Pulse Oximetry 100 99 98 Oxygen Delivery Method Room Air Room Air Room Air 08/04/24 20:48 08/04/24 21:22 Temperature 0 F L Pulse Rate 83 83 Respiratory Rate 16 16 Blood Pressure 133/83 133/83 Pulse Oximetry 98 98 Oxygen Delivery Method BMI result Body Mass Index 35.7 he was did reveal an elevated blood pressure but I suspect that this is secondary to her neck pain and headache Exam: General: Awake,alert in no distress Head: Normocephalic, atraumatic EENT: PERRL, Lids normal, sclera normal, conjunctiva normal, nose normal , ears normal, throat without erythema or exudates Neck: patient was have tenderness palpation of her cervical vertebrae with no localizing point tenderness, she has tenderness palpation of her trapezius muscles bilaterally and there is spasm of these muscles Lung: breath sounds symmetric, no wheezing, rales or rhonchi Chest: symmetric movement, nontender Heart: regular rate and rhythm, normal S1, S2 no murmurs or rubs Abdomen: soft, non-tender, nondistended, normal bowel sounds Back: no vertebral tenderness, no CVAT Extremities: no deformities, moves all extremities symmetrically Neuro: Awake, alert, oriented, normal speech, cranial nerves intact, moves all extremities symmetrically Psych: Pleasant, cooperative Course Course Course Narrative: RmE: 28 yold female presents to the ED for posterior headache posterior neck pain since having syncopal episode last week where her friend's car her patient thinks she might of had her neck move awkwardly during this syncopal episode. Patient states he syncopized strictly due to POTS syndrome. Patient also has hypermoblitys syndrome. Positive for cervical spine tenderness on palpation. Labs EKG head CT cervical spine CT ordered Medications Administered Discontinued Medications Generic Name Dose Route Start Last Admin Trade Name Freq PRN Reason Stop Dose Admin Morphine Sulfate 15 mg 04/07/25 20:28 08/04/24 21:16 Morphine Sulfate Immed Release 15 Mg Tablet PO 08/04/24 20:29 15 mg ONCE ONE Administration Medical Decision Making Medical Decision Making MDM Narrative: 34-year-old female with a history of fibromyalgia, Raynaud's, POTS, Prudencio Danlos syndrome, bipolar disorder, PTSD who presents emergency department for evaluation of headache and severe neck pain secondary to his syncopal episode and fall that occurred 4 days prior. The patient was male recognize that the patient was going to pass out, grabbed her head and lowered her to the floor. The patient had no head strike. patient describes a whiplash like injury to her neck. Patient was having 9/10 neck and pain behind her left eye. She was seen in urgent care yesterday and started on Celebrex and methocarbamol and advised to stop taking her other anti spasm medication. Despite this treatment she was had persistent pain therefore she came to the emergency department for evaluation. Reveal an elevated blood pressure but I suspect this is related to her pain not due to essential hypertension. Patient did have tenderness palpation of her cervical vertebrae with no he was seeing point tenderness and she did have tenderness with palpation of her trapezius muscles bilaterally with spasm of these muscles. Differential diagnosis: Includes but is not limited to skull fracture, intracranial bleed, cervical fracture, cervical disc disease, cervical muscle spasm /sprain, anemia, electrolyte abnormalities Course: My independent interpretation patient's laboratory evaluation is as follows: CBC was normal. CMP was normal except for slight elevation in her glucose of 125. High sensitive troponin I was below detectable limits. Urinalysis was negative. Quantitative beta-hCG was below detectable limits. CT scan of the head revealed no acute findings. CT scan of the cervical spine did not reveal any acute fractures or significant disc disease to explain her symptoms. The patient did have several incidental findings that I did review with her and her female significant other. I do not think that any these incidental findings explain her pain and that her symptoms are most consistent with soft tissue injury to the structures such as muscles, tendons and ligaments. Patient was advised to continue taking the Celebrex in the methocarbamol as well as her other medications that she takes for her chronic pain syndrome. The patient was also given a prescription for morphine 15 mg every 6 hours to take for pain not relieved by her other medications. He was also given a morphine 15 mg orally here in the emergency department prior to being discharged. The patient and her significant other did express considerable frustration regarding the fact that Has seen multiple providers and she is continuing to have severe pain . I did try to reassure them, especially regarding the fact that the CT scan did not reveal any acute fractures. She was given printed and verbal instructions and discharged home Admission/Observation Consideration of admission/observation: Escalation of care including admission/observation considered ( yes) Lab Data MDM Lab Attestation statement: I reviewed the patient's lab results. 08/04/24 16:14 08/04/24 16:14 Labs: Lab Results 08/04/24 08/04/24 Range/Units 16:14 16:53 WBC 8.5 (4.8-10.8) X10*3/uL RBC 4.37 (4.20-5.50) X10*6/uL Hgb 13.6 (12.0-16.0) g/dl Hct 38.3 (37.0-47.0) % MCV 87.6 (80.0-98.0) fL MCH 31.1 (27.0-33.0) pg MCHC 35.5 H (31.0-35.0) g/dl RDW 12.4 (11.0-16.0) % Plt Count 252 (160-400) X10*3/uL MPV 9.4 (9.4-12.3) fL Immature Gran % (Auto) 0.5 H (0.0-0.4) % Neut % (Auto) 73.0 (45-73) % Lymph % (Auto) 20.1 (20-40) % Nuckolls % (Auto) 5.2 (2-11) % Eos % (Auto) 0.7 (0-4) % Baso % (Auto) 0.5 (0-2) % Lymph # (Auto) 1.7 (1.2-4.9) X10*3/uL [place] # (Auto) 0.4 (0.1-1.2) X10*3/uL Eos # (Auto) 0.1 (0.0-0.4) X10*3/uL Baso # (Auto) 0.0 (0.0-0.2) X10*3/uL Abs Immat Gran (auto) 0.04 H (0.00-0.03) X10*3/uL Absolute Neuts (auto) 6.2 (2.0-8.3) x10*3/uL Absolute Nucleated RBC 0.000 (0.0-0.012) X10*3/uL Nucleated RBC % (auto) 0.0 (0.0-0.2) /100WBC PT 11.2 (10.9-12.4) SEC INR 1.0 (0.9-1.1) APTT 33.7 (26.0-36.8) SEC Sodium 140 (135-145) mmol/L Potassium 3.7 (3.3-5.1) mmol/L Chloride 107 (96-108) mmol/L Carbon Dioxide 26 (22-29) mmol/L Anion Gap 11 L (12-20) BUN 7 L (9-16) mg/dL Creatinine 0.65 (0.5-1.4) mg/dL Estim Creat Clear Calc 130.7 Estimated GFR > 60 Random Glucose 125 H (60-115) mg/dL Calcium 9.1 (8.4-10.2) mg/dL Total Bilirubin 0.5 (0.0-1.0) mg/dL AST 16 (5-31) U/L ALT 14 (0-31) U/L Alkaline Phosphatase 101 (39-117) U/L Troponin I High Sens < 2.7 (<3.5-17.0) ng/L Total Protein 7.0 (6.5-8.0) g/dL Albumin 4.5 (3.5-5.0) g/dL Beta HCG, Quant < 2 mIU/mL Urine Color Yellow Urine Appearance Clear Urine pH 7.5 (5.0-9.0) Ur Specific [place] <= 1.005 (1.005-1.025) Urine Protein Negative (Neg-Trace) mg/dL Urine Glucose (UA) Negative (Negative) mg/dL Urine Ketones Negative (Negative) mg/dL Urine Blood Negative (Negative) Urine Nitrite Negative (Negative) Ur Leukocyte Esterase Negative (Negative) Urine Test NEGATIVE (NEGATIVE) Independent Interpretation I performed an independent interpretation of an: EKG Interpretation: my independent interpretation of the the patient's 12 EKG done on 08/04/2024 at 16:08 hours is as follows: Normal sinus rhythm with a rate of 92, normal ID interval, QRS duration QTC interval, no ST segment elevation, no ST segment depression. Compared to EKG dated 06/21/2024 at 14:04 hours there is no significant change Radiology Impression Discussion of test interpretation with radiology: I have reviewed the radiologist's reading. Radiologist Impression: CT head without contrast. COMPARISON: None FINDINGS: The visualized paranasal sinuses are clear. The mastoid air cells are clear. No calvarial fracture. No evidence for mass or mass effect. No intracranial hemorrhage or abnormal extra-axial fluid collection. No evidence of hydrocephalus. The basilar cisterns are patent. Posterior fossa appears unremarkable. IMPRESSION: 1. No acute intracranial findings. This document has been electronically signed by: Lawrence Lema MD on 08/04/2024 17:27:02 CT cervical spine without contrast. COMPARISON: None FINDINGS: Straightening with reversal of normal cervical lordosis. Vertebral body heights are maintained. Skull base and intracranial structures appear normal. The visualized paravertebral soft tissues appear unremarkable. C5-6: Anterior marginal osteophytes. Uncovertebral joint hypertrophy. No significant neural foraminal narrowing. Remaining cervical levels are without significant degenerative changes. IMPRESSION: 1. Reversal of normal cervical lordosis, likely positional. This document has been electronically signed by: Lawrence Lema MD on 08/04/2024 17:27:25 Independent Historian Clinical information obtained from an independent historian. History obtained from or confirmed by: Other ( female significant other) Prescription Management I considered prescription management with: Pain Medication ( morphine) Chronic Conditions Patient?s care impacted by: Other ( POTS syndrome, fibromyalgia) Discharge Plan Discharge Clinical Impression: POTS (postural orthostatic tachycardia syndrome), Syncope, Acute neck sprain Patient Disposition: Home, Self-Care Instructions: Cervical Sprain (ED) Additional Instructions: Your blood work was unremarkable Your EKG was normal. The CT scan of your brain revealed no skull fracture and no bleeding in your brain The CT of your neck/cervical spine did not reveal any broken bones which is reassuring. You did have several incidental findings that I did review with you. Based on your symptoms and your exam, I believe that you hurt the soft tissue structures of your neck ( muscles, tendons, ligaments). These soft tissue structures of your neck are inflamed and the inflammation is causing the pain and spasm that you are experiencing. Continue taking the medications as prescribed by the urgent care ( Celebrex and methocarbamol) For pain not relieved by these medications, take morphine 15 mg pills, 1 pill every 6 hours as needed for pain. This medication will make you sleepy, do not drive or work while taking this medication. Morphine is a narcotic medication and can be addicting. If you are concerned about addiction you can ask the pharmacist for less pills or do not get this prescription filled. Apply heat for 15 minutes 4 to 6 times a day to the muscles of your neck to try to help reduce the pain. Follow-up with your pain management Follow-up with your doctor in 2 days. Please return to the emergency department if your symptoms get worse or if you develop any symptoms that are concerning to you. Prescriptions: New morphine 15 mg tablet 15 mg PO Q6H PRN (Reason: pain) Qty: 15 0RF Rx Instructions: Partial Fill upon patient request. No Action tizanidine 4 mg capsule 4 mg PO TID PRN (Reason: muscle spasticity) 30 Days Qty: 90 8RF cholecalciferol (vitamin D3) 125 mcg (5,000 unit) capsule 1 cap PO DAILY ondansetron 4 mg tablet,disintegrating 4 mg PO Q8H PRN (Reason: nausea and vomiting) Qty: 20 0RF duloxetine 60 mg capsule,delayed release(DR/EC) 60 mg PO DAILY ibuprofen 600 mg tablet 600 mg PO Q8H PRN acetaminophen [Tylenol] 325 mg capsule 650 mg PO Q6H PRN aripiprazole 15 mg tablet 15 mg PO DAILY midodrine 5 mg tablet 5 mg PO TID pregabalin [Lyrica] 150 mg capsule 150 mg PO BID 30 Days Qty: 60 5RF Interventions: ED Discharge Assessment Last Done: 08/04/24 21:22 Discharge Date/Time: 08/04/24 21:22 Print Language: Polish
[2024-08-04 16:18] LABS: MANUAL DIFF FLAG NO
[2024-08-04 16:21] LABS: Basophils Percent Auto 0.5 % (0-2); Eosinophils Absolute Auto 0.1 X10*3/uL (0.0-0.4); Eosinophils Percent Auto 0.7 % (0-4); Hematocrit 38.3 % (37.0-47.0); Hemoglobin 13.6 g/dl (12.0-16.0); Imm Gran Abs Auto 0.04 X10*3/uL (0.00-0.03); Imm Gran Pct Auto 0.5 % (0.0-0.4); Lymphocytes Absolute Auto 1.7 X10*3/uL (1.2-4.9); Lymphocytes Percent Auto 20.1 % (20-40); Mean Corpuscular HGB Conc 35.5 g/dl (31.0-35.0); Mean Corpuscular Hemoglobin 31.1 pg (27.0-33.0); Mean Corpuscular Volume 87.6 fL (80.0-98.0); Mean Platelet Volume 9.4 fL (9.4-12.3); Monocytes Absolute Auto 0.4 X10*3/uL (0.1-1.2); Monocytes Percent Auto 5.2 % (2-11); Neutrophils Absolute Auto 6.2 x10*3/uL (2.0-8.3); Platelet Count 252 X10*3/uL (160-400); Red Blood Count 4.37 X10*6/uL (4.20-5.50); Red Cell Distribution Width 12.4 % (11.0-16.0); White Blood Count 8.5 X10*3/uL (4.8-10.8)
[2024-08-04 16:28] LABS: Prothrombin Time 11.2 SEC (10.9-12.4)
[2024-08-04 16:31] LABS: Partial Thromboplastin Time 33.7 SEC (26.0-36.8)
[2024-08-04 16:42] LABS: Anion Gap 11 (12-20)
[2024-08-04 16:45] LABS: Alanine Aminotransferase 14 U/L (0-31); Albumin Level 4.5 g/dL (3.5-5.0); Aspartate Amino Transferase 16 U/L (5-31); Bilirubin Total 0.5 mg/dL (0.0-1.0); Blood Urea Nitrogen 7 mg/dL (9-16); Calcium 9.1 mg/dL (8.4-10.2); Carbon Dioxide 26 mmol/L (22-29); Chloride 107 mmol/L (96-108); Creatinine Clr Calc Pharmacy 130.7; Estimated Glomerular Filt Rate > 60; Glucose Random 125 mg/dL (60-115); Potassium 3.7 mmol/L (3.3-5.1); Sodium 140 mmol/L (135-145)
[2024-08-04 16:57] LABS: HCG Quantitative < 2 mIU/mL; Troponin-I High Sensitivity < 2.7 ng/L (<3.5-17.0)
[2024-08-04 17:02] LABS: Alkaline Phosphatase 101 U/L (39-117)
[2024-08-04 17:04] LABS: Appearance Urine Clear; Color Urine Yellow; Glucose Urine UA Negative (Negative); Leukocyte Esterase Urine Negative (Negative); Nitrite Urine Negative (Negative); PH 7.5 (5.0-9.0); Specific Gravity - Urine <= 1.005 (1.005-1.025); Urine Blood Negative (Negative); Urine Ketones Negative (Negative); Urine Protein Negative (Neg-Trace)
[2024-08-04 17:06] LABS: UPreg QC Valid YES; Urine Pregnancy NEGATIVE (NEGATIVE)
[2024-08-04 18:12] VITALS: BP 148/93; PULSE 82; RESP 17; TEMP 36.9; O2SAT 99
[2024-08-04 18:16] VITALS: BP 148/93; PULSE 84; RESP 17; TEMP 36.9; O2SAT 98
--- OUTSIDE RECORDS SUMMARY | 2024-08-04 18:58 | XMS_ITS | Referral Summary ---
Author Organization [facility] Address [address] [place] [address] Care Team Providers Care Websphere Developer Name Role Phone Mónica Valle Primary Care Provider [phone] Allergies Active Allergy Reactions Criticality Noted Date [...] Treatment Not on file Insurance [employer] PPO/EPO/IND [facility] CIGNA PPO/EPO/IND Advance Directives * Full Code (Latest Code Status on File) Date Activated Date Inactivated Comments 05/08/2017 12:56 PM 05/08/2017 4:37 PM Care Teams Websphere Developer Relationship Specialty Start Date End Date Mónica Valle [address] [id number] PCP - General 01/19/22
--- OUTSIDE RECORDS SUMMARY | 2024-08-04 18:58 | XMS_ITS | Clinical Summary ---
Author Organization [facility] Address [address] [place] [address] Care Team Providers Care Instrument And Electrical Technician Name Role Phone Mónica Valle Primary Care Provider [phone] Allergies Active Allergy Reactions Criticality Noted Date [...] 2023 04/10/2022, 02/17/2021, 06/13/2020, Additional history exists Alcohol/Substance Use Screening 04/30/2024 Depression Screening and Follow-Up 04/30/2024 Social Drivers of Health Joie ual Screening 04/30/2024 Influenza Vaccine (Season Ended) 2024 04/10/2022, 01/15/2021, 01/07/2020, Additional history exists DTaP,Tdap,and Td Vaccines (8 - Td or Tdap) 08/04/2031 08/03/2021, 08/07/2017, 10/27/2011, Additional history exists RSV Vaccine (60+ years old a nd patients) (1 - 1-dose 75+ series) 2068 Hepatitis B Vaccines Completed 07/02/2020, 03/11/2020, 12/30/2019, Additional history exists Insurance CIGNA PPO/EPO/IND [facility] CIGNA PPO/EPO/IND Advance Directives * Full Code (Latest Code Status on File) Date Activated Date Inactivated Comments 05/08/2017 12:56 PM 05/08/2017 4:37 PM Care Teams Instrument And Electrical Technician Relationship Specialty Start Date End Date Mónica Valle [address] [place] [address] PCP - General 01/19/22
[2024-08-04 20:48] VITALS: BP 133/83; PULSE 83; RESP 16; O2SAT 98
[2024-08-04] MEDS: Morphine Sulfate Immed Release 15 MG TABLET PO (21:16)
[2024-08-04 21:22] VITALS: BP 133/83; PULSE 83; RESP 16; TEMP -17.7; TEMP 0; O2SAT 98
== END 2024-08-04 21:22 | disposition home or self-care (01) ==
PROVIDERS: Physician Assistant; Emergency Provider Emergency Medicine Emergency Medical Services; PCP Nurse Practitioner Adult Health
DX: G90.A Postural orthostatic tachycardia syndrome [POTS] (principal); R55 Syncope and collapse; R51.9 Headache, unspecified; M54.2 Cervicalgia; R10.2 Pelvic and perineal pain; R11.0 Nausea; Z79.899 Other long term (current) drug therapy
CPT/HCPCS: 36415; 70450; 72125; 80053; 81003; 81025; 84484; 84702; 85025; 85610; 85730; 93005; 99283; 99284; 99285

== ENCOUNTER → 2024-08-04 16:00 | Outpatient (BNV) | payer OTHER, SELFPAY | PROVIDERS: PCP Nurse Practitioner Adult Health; Visit Provider Radiology Diagnostic Radiology | DX: M54.2 Cervicalgia (principal); R51.9 Headache, unspecified | CPT/HCPCS: 70450; 72125 ==

== ENCOUNTER → 2024-08-04 16:00 | Outpatient (BNV) | payer OTHER, SELFPAY | PROVIDERS: Emergency Provider Emergency Medicine Emergency Medical Services; PCP Nurse Practitioner Adult Health; Visit Provider Internal Medicine Cardiovascular Disease | DX: R55 Syncope and collapse (principal) | CPT/HCPCS: 93010 ==

== ENCOUNTER 2024-10-02 14:54 | Emergency (ER) | payer OTHER, SELFPAY ==
[2024-10-02] VITALS (9 sets, daily range): BP systolic 91–119; BP diastolic 59–83; PULSE 60–100; RESP 12–18; TEMP 36.6–36.7; O2SAT 95–100; BMI 35.8
--- NOTE | 2024-10-02 14:57 | ED_ITS ---
HPI - Dizziness General Chief Complaint: General Medical Stated Complaint: Dizziness, lethargic, syncopal episodes Time Seen by Provider: 10/02/24 16:08 Source: patient Mode of arrival: ambulatory Limitations: no limitations History of Present Illness ED Provider: HPI Narrative: Patient's history of POTS bipolar disorder I do not tenderness syndrome chronic pain fibromyalgia comes here as for last few weeks not feeling good feeling lightheaded and weak has a happened before and was given fluids and pain medication patient's said she drinking enough fluids and has diffuse back pain Related Data Home Medications ?Medication ?Instructions ?Recorded ?Confirmed cholecalciferol (vitamin D3) 125 1 cap PO DAILY 06/20/22 06/11/24 mcg (5,000 unit) capsule acetaminophen 325 mg capsule 650 mg PO Q6H PRN 07/17/22 06/11/24 (Tylenol) ibuprofen 600 mg tablet 600 mg PO Q8H PRN 07/17/22 06/11/24 aripiprazole 15 mg tablet 15 mg PO DAILY 12/13/22 06/11/24 midodrine 5 mg tablet 5 mg PO TID 12/13/22 06/11/24 duloxetine 60 mg capsule,delayed 60 mg PO DAILY 01/05/24 06/11/24 release Previous Rx's ?Medication ?Instructions ?Recorded pregabalin 150 mg capsule (Lyrica) 150 mg PO BID 30 days #60 caps 06/11/24 ondansetron 4 mg disintegrating 4 mg PO Q8H PRN nausea and 06/21/24 tablet vomiting #20 tabs tizanidine 4 mg capsule 4 mg PO TID PRN muscle spasticity 07/01/24 30 days #90 caps morphine 15 mg immediate release 15 mg PO Q6H PRN pain #15 tabs 08/04/24 tablet Allergies Allergy/AdvReac Type Severity Reaction Status Date / Time Sulfa (Sulfonamide Allergy Intermediate DIARRHEA Verified 10/02/24 14:59 Antibiotics) [SULFA (SULFONAMIDE ANTIBIOTICS)] topiramate [From Topamax] Allergy Anaphylaxis Verified 10/02/24 14:59 trazodone [TRAZODONE] AdvReac Mild UNKNOWN Verified 10/02/24 14:59 CHICK PEAS Allergy Severe ANAPHYLAXIS Uncoded 10/02/24 14:59 topamax AdvReac Intermediate Unknown Uncoded 06/05/25 14:59 Review of Systems 2 Review of Systems: Yes all other systems are reviewed and are negative [facility] Past Medical History Medical History Bipolar affective disorder Hyperchloremic metabolic acidosis Vitamin D deficiency Hypocalcemia Obesity Cyst of pituitary gland Raynauds disease Allergy to sunlight PTSD (post-traumatic stress disorder) Fibromyalgia CRISTIANA (generalized anxiety disorder) POTS (postural orthostatic tachycardia syndrome) Syncope and collapse Idiopathic autonomic neuropathy Autonomic dysfunction Bipolar II disorder Major depressive disorder Suicidal ideation Social History Social History Household Members: Family Household Members Other:: and baby Housing: Apartment Do you presently have visiting nurse or other home services: No Patient Tobacco Use Status: Never used Tobacco Smoked in Last 30 Days: No Use of substances other than those prescribed or required for medical reasons: No Substance Use Type: Marijuana Advance Directives: No Advance Directives Information Provided: No Patient : No service: No Sexual orientation: Bisexual Physical Exam 2 Vital Signs: Vital Signs: Last Vital Signs Temp 98.1 F 10/02/24 22:50 Pulse 65 10/02/24 22:50 Resp 18 10/02/24 22:50 BP 106/64 10/02/24 22:50 Pulse Ox 95 10/02/24 22:50 O2 Del Method Room Air 10/02/24 22:50 BMI result Body Mass Index 35.8 Appearance: Alert. Oriented X3. No acute distress. Eyes: No pallor or icterus ENT: Pharynx normal. Oral Mucosa moist Neck: Normal inspection. Neck supple. CVS: Normal heart rate and rhythm. Pulses normal. Respiratory: No respiratory distress. Equal air entry bilateral, no wheezing/rales/rhonchi Abdomen: Soft and nontender. Bowel sounds are present, no mass palpable, no CVA tenderness Skin: Skin warm and dry. Normal skin color. Normal skin turgor. Extremities: No lower extremity edema. No calf tenderness Neuro: Oriented X 3. No motor deficit. No sensory deficit.No cerebellar signs , cranial nerves II-XII intact Course Course Course Narrative: This is a Rapid Medical Exam performed in triage by Estefania Ocsar PA-C. Full HPI, ROS and PE to be performed by primary ED provider. 29 yo F w/PMHx CRISTIANA, POTS, Mast Cell Activation syndrome, Fibromyalgia, Bipolar, MDD, idiopathic autonomic dysfunction presenting to the ED c/o increasing lethargy/dizziness & more frequent syncopal episodes (about 6x in a day the past week - usually is 6x in a week when feeling well) x1 week. Reports diffuse body pain. Last syncopal episode yesterday without head trauma. States has been catching her, denies any head trauma, fever, cough, illness PE: ambulating w/steady gait, no focal deficits, nontoxic appearing Plan: EKG, labs, UA, CXR, orthos Medications Administered Discontinued Medications Generic Name Dose Route Start Last Admin Trade Name Freq PRN Reason Stop Dose Admin Dexamethasone Sodium Phosphate 10 mg 10/02/24 17:26 10/02/24 17:38 Dexamethasone Sod Phosphate 10 Mg/Ml Vial IVPUSH 10/02/24 17:27 10 mg ONCE ONE Administration Sodium Chloride 1,000 mls @ 999 mls/hr 10/02/24 16:30 10/02/24 18:15 Ns IV 10/02/24 17:30 Infused .Q1H1M ONE Infusion Morphine Sulfate 4 mg 10/02/24 16:30 10/02/24 17:09 Morphine Sulfate 4 Mg/Ml Cartridge IVPUSH 10/02/24 16:31 4 mg ONCE ONE Administration Protocol Morphine Sulfate 2 mg 10/02/24 18:55 10/02/24 19:06 Morphine Sulfate 2 Mg/Ml Cartridge IVPUSH 10/02/24 18:56 2 mg ONCE ONE Administration Protocol Ondansetron HCl 4 mg 10/02/24 16:30 10/02/24 17:08 Ondansetron Hcl 4 Mg/2 Ml Vial IVPUSH 10/02/24 16:31 4 mg ONCE ONE Administration Medical Decision Making Medical Decision Making MDM Narrative: Patient has chronic pain syndrome with Prudencio-Danlos syndrome with stress felt better after pain management Lab Data MDM Lab Attestation statement: I reviewed the patient's lab results. 10/02/24 15:15 10/02/24 15:15 Labs: Lab Results 10/02/24 10/02/24 Range/Units 15:15 15:41 WBC 7.6 (4.8-10.8) X10*3/uL RBC 4.29 (4.20-5.50) X10*6/uL Hgb 13.4 (12.0-16.0) g/dl Hct 38.2 (37.0-47.0) % MCV 89.0 (80.0-98.0) fL MCH 31.2 (27.0-33.0) pg MCHC 35.1 H (31.0-35.0) g/dl RDW 12.4 (11.0-16.0) % Plt Count 244 (160-400) X10*3/uL MPV 10.0 (9.4-12.3) fL Immature Gran % (Auto) 0.4 (0.0-0.4) % Neut % (Auto) 63.6 (45-73) % Lymph % (Auto) 26.1 (20-40) % [place] % (Auto) 7.0 (2-11) % Eos % (Auto) 2.4 (0-4) % Baso % (Auto) 0.5 (0-2) % Lymph # (Auto) 2.0 (1.2-4.9) X10*3/uL [place] # (Auto) 0.5 (0.1-1.2) X10*3/uL Eos # (Auto) 0.2 (0.0-0.4) X10*3/uL Baso # (Auto) 0.0 (0.0-0.2) X10*3/uL Abs Immat Gran (auto) 0.03 (0.00-0.03) X10*3/uL Absolute Neuts (auto) 4.8 (2.0-8.3) x10*3/uL Absolute Nucleated RBC 0.000 (0.0-0.012) X10*3/uL Nucleated RBC % (auto) 0.0 (0.0-0.2) /100WBC PT 10.8 L (10.9-12.4) SEC INR 0.9 (0.9-1.1) Sodium 144 (135-145) mmol/L Potassium 4.4 (3.3-5.1) mmol/L Chloride 106 (96-108) mmol/L Carbon Dioxide 30 H (22-29) mmol/L Anion Gap 12 (12-20) BUN 10 (9-16) mg/dL Creatinine 0.71 (0.5-1.4) mg/dL Estim Creat Clear Calc 118.9 Estimated GFR > 60 Random Glucose 84 (60-115) mg/dL Calcium 9.1 (8.4-10.2) mg/dL Magnesium 2.3 (1.6-2.6) mg/dL Total Bilirubin 0.5 (0.0-1.0) mg/dL Direct Bilirubin 0.2 (0.0-0.5) mg/dL AST 18 (5-31) U/L ALT 16 (0-31) U/L Alkaline Phosphatase 94 (39-117) U/L Troponin I High Sens < 2.7 (<3.5-17.0) ng/L Total Protein 6.4 L (6.5-8.0) g/dL Albumin 4.3 (3.5-5.0) g/dL Beta HCG, Quant < 2 mIU/mL Urine Color Yellow Urine Appearance Turbid Urine pH 8.0 (5.0-9.0) Ur Specific [place] 1.020 (1.005-1.025) Urine Protein Negative (Neg-Trace) mg/dL Urine Glucose (UA) Negative (Negative) mg/dL Urine Ketones Trace (Negative) mg/dL Urine Blood Negative (Negative) Urine Nitrite Negative (Negative) Ur Leukocyte Esterase Trace H (Negative) Urine RBC 0-2 (0-2) /HPF Urine WBC 0-5 (0-5) /HPF Ur Squamous Epith Cells 0-2 (0-2) /HPF Urine Bacteria None Seen (None Seen) Hyaline Casts 0-2 (0-2) /LPF Influenza Type A (PCR) NEGATIVE (Negative) Influenza Type B (PCR) NEGATIVE (Negative) RSV RNA Qual (PCR) NEGATIVE (Negative) SARS-CoV-2 RNA (RT-PCR) NEGATIVE (Negative) Discharge Plan Discharge Clinical Impression: Chronic pain syndrome Patient Disposition: Home, Self-Care Instructions: Chronic Pain (ED) Additional Instructions: Continue your medications and follow up with your PCP Prescriptions: No Action tizanidine 4 mg capsule 4 mg PO TID PRN (Reason: muscle spasticity) 30 Days Qty: 90 8RF cholecalciferol (vitamin D3) 125 mcg (5,000 unit) capsule 1 cap PO DAILY ondansetron 4 mg tablet,disintegrating 4 mg PO Q8H PRN (Reason: nausea and vomiting) Qty: 20 0RF morphine 15 mg tablet 15 mg PO Q6H PRN (Reason: pain) Qty: 15 0RF Rx Instructions: Partial Fill upon patient request. duloxetine 60 mg capsule,delayed release(DR/EC) 60 mg PO DAILY ibuprofen 600 mg tablet 600 mg PO Q8H PRN acetaminophen [Tylenol] 325 mg capsule 650 mg PO Q6H PRN aripiprazole 15 mg tablet 15 mg PO DAILY midodrine 5 mg tablet 5 mg PO TID pregabalin [Lyrica] 150 mg capsule 150 mg PO BID 30 Days Qty: 60 5RF Interventions: ED Discharge Assessment Last Done: 10/02/24 22:50 Discharge Date/Time: 10/02/24 22:55 Print Language: Turkish
--- NOTE | 2024-10-02 15:02 | ECG_ITS ---
Test Reason : SYNCOPY Blood Pressure : */* mmHG Vent. Rate : 83 BPM Atrial Rate : 83 BPM P-R Int : 148 ms QRS Dur : 74 ms QT Int : 348 ms P-R-T Axes : 55 64 55 degrees QTcB Int : 408 ms Normal sinus rhythm with sinus arrhythmia Normal ECG When compared with ECG of 04-Aug-2024 16:08, No significant change was found Referred By: Estefania Oscar Electronically Signed By: DEMETRIS ARROYO
[2024-10-02 15:22] LABS: MANUAL DIFF FLAG NO
[2024-10-02 15:24] LABS: Basophils Percent Auto 0.5 % (0-2); Eosinophils Absolute Auto 0.2 X10*3/uL (0.0-0.4); Eosinophils Percent Auto 2.4 % (0-4); Hematocrit 38.2 % (37.0-47.0); Hemoglobin 13.4 g/dl (12.0-16.0); Imm Gran Abs Auto 0.03 X10*3/uL (0.00-0.03); Imm Gran Pct Auto 0.4 % (0.0-0.4); Lymphocytes Percent Auto 26.1 % (20-40); Mean Corpuscular HGB Conc 35.1 g/dl (31.0-35.0); Mean Corpuscular Hemoglobin 31.2 pg (27.0-33.0); Monocytes Absolute Auto 0.5 X10*3/uL (0.1-1.2); Neutrophils Absolute Auto 4.8 x10*3/uL (2.0-8.3); Neutrophils Percent Auto 63.6 % (45-73); Platelet Count 244 X10*3/uL (160-400); Red Blood Count 4.29 X10*6/uL (4.20-5.50); Red Cell Distribution Width 12.4 % (11.0-16.0); White Blood Count 7.6 X10*3/uL (4.8-10.8)
[2024-10-02 15:29] LABS: INTERNATIONAL NORM RATIO 0.9 (0.9-1.1); Prothrombin Time 10.8 SEC (10.9-12.4)
[2024-10-02 15:47] LABS: Alanine Aminotransferase 16 U/L (0-31); Albumin Level 4.3 g/dL (3.5-5.0); Alkaline Phosphatase 94 U/L (39-117); Anion Gap 12 (12-20); Aspartate Amino Transferase 18 U/L (5-31); Bilirubin Direct 0.2 mg/dL (0.0-0.5); Bilirubin Total 0.5 mg/dL (0.0-1.0); Blood Urea Nitrogen 10 mg/dL (9-16); Calcium 9.1 mg/dL (8.4-10.2); Carbon Dioxide 30 mmol/L (22-29); Chloride 106 mmol/L (96-108); Creatinine Clr Calc Pharmacy 118.9; Estimated Glomerular Filt Rate > 60; Glucose Random 84 mg/dL (60-115); HCG Quantitative < 2 mIU/mL; Magnesium 2.3 mg/dL (1.6-2.6); Potassium 4.4 mmol/L (3.3-5.1); Sodium 144 mmol/L (135-145); Total Protein 6.4 g/dL (6.5-8.0); Troponin-I High Sensitivity < 2.7 ng/L (<3.5-17.0)
[2024-10-02 15:51] LABS: Appearance Urine Turbid; Color Urine Yellow; Glucose Urine UA Negative (Negative); Leukocyte Esterase Urine Trace (Negative); Nitrite Urine Negative (Negative); UMIC TRIGGER UACC YES; Urine Blood Negative (Negative); Urine Ketones Trace mg/dL (Negative); Urine Protein Negative (Neg-Trace)
[2024-10-02 15:56] LABS: Bacteria Urine None Seen (None Seen); Hyaline Casts Urine 0-2 /LPF (0-2); RBC Urine 0-2 /HPF (0-2); Squamous Epithelial Cell Urine 0-2 /HPF (0-2); WBC Urine 0-5 /HPF (0-5)
[2024-10-02 16:02] LABS: Influenza A PCR NEGATIVE (Negative); Influenza B PCR NEGATIVE (Negative); Resp Syncy Virus RNA Qual PCR NEGATIVE (Negative); SARS COV2 PCR INHOUSE NEGATIVE (Negative)
--- NOTE | 2024-10-02 16:17 | PC.NURSE ---
29 F presents to ED with lower back and rib pain, chronic but has gotten worse 1.5 weeks ago. Pt has fibromyalgia. Pt also complains of some dizziness. Sts 8/10 pain at this time. RR even and unlabored, denies SOB. A+OX4 and ambulatory. Pt states pain is uncontrolled at home.
[2024-10-02] MEDS: ondansetron HCL 4 MG/2 ML VIAL IVPUSH (17:08)
[2024-10-02] MEDS: Morphine Sulfate 4 MG/ML CARTRIDGE IVPUSH (17:09)
[2024-10-02] MEDS: 0.9 % Sodium Chloride 1,000 ML 999 ML IV (17:10)
[2024-10-02] MEDS: dexAMETHasone sod phosphate 10 MG/ML VIAL IVPUSH (17:38)
[2024-10-02] MEDS: Morphine Sulfate 2 MG/ML CARTRIDGE IVPUSH (19:06)
== END 2024-10-02 22:55 | disposition home or self-care (01) ==
PROVIDERS: Physician Assistant; Emergency Provider Internal Medicine; PCP Nurse Practitioner Adult Health
DX: G89.4 Chronic pain syndrome (principal); R42 Dizziness and giddiness; I49.8 Other specified cardiac arrhythmias; R55 Syncope and collapse; Q79.60 Ehlers-Danlos syndrome, unspecified; R53.83 Other fatigue; R10.2 Pelvic and perineal pain; R11.0 Nausea; Z79.899 Other long term (current) drug therapy; Z03.818 Encounter for observation for suspected exposure to other biological agents ruled out
CPT/HCPCS: 0241U; 80048; 80076; 81001; 83735; 84484; 84702; 85025; 85610; 93005; 96361; 96374; 96375; 96376; 99284; 99285; J1100; J2270; J2405

== ENCOUNTER → 2024-10-02 15:02 | Outpatient (BNV) | payer OTHER, SELFPAY | PROVIDERS: Emergency Provider Internal Medicine; PCP Nurse Practitioner Adult Health; Visit Provider Internal Medicine | DX: R55 Syncope and collapse (principal) | CPT/HCPCS: 93010 ==

== ENCOUNTER 2024-10-06 13:51 | Emergency (ER) | payer OTHER, SELFPAY ==
--- NOTE | ~2024-10-06 | XR_ITS ---
EXAMINATION: XR CHEST CLINICAL INFORMATION: pain COMPARISON: None available. TECHNIQUE: 2 views of the chest were obtained. FINDINGS: No significant abnormality is noted involving the heart, lungs, mediastinum, bony thorax or soft tissues. XR/XR chest 2V IMPRESSION: No acute disease Electronically signed by: Marcin Steward MD 10/06/2024 04:46 PM EDT
[2024-10-06 14:04] VITALS: BP 127/92; PULSE 79; RESP 18; TEMP 36.6; O2SAT 98; BMI 35.7
--- NOTE | 2024-10-06 14:05 | ED_ITS ---
HPI - General Adult General Chief complaint: General Medical Stated complaint: Abd/ Back Pain, Dizzy Time Seen by Provider: 10/06/24 15:58 History of Present Illness ED Provider: Abbe Mcdaniel MD HPI narrative: 29-year-old female with self-reported fibromyalgia, chronic pain from Prudencio- Danlos syndrome on tizanidine and Lyrica follow up by pain management. They were not in the office today and she felt hopeless due to severe intractable pain mostly in the back and consistent in character nature and severity to her normal typical pain. She denies incontinence fever IV drug use weakness or sensory complaints Related Data Home Medications ?Medication ?Instructions ?Recorded ?Confirmed cholecalciferol (vitamin D3) 125 1 cap PO DAILY 06/20/22 06/11/24 mcg (5,000 unit) capsule acetaminophen 325 mg capsule 650 mg PO Q6H PRN 07/17/22 06/11/24 (Tylenol) ibuprofen 600 mg tablet 600 mg PO Q8H PRN 07/17/22 06/11/24 aripiprazole 15 mg tablet 15 mg PO DAILY 12/13/22 06/11/24 midodrine 5 mg tablet 5 mg PO TID 12/13/22 06/11/24 duloxetine 60 mg capsule,delayed 60 mg PO DAILY 01/05/24 06/11/24 release Previous Rx's ?Medication ?Instructions ?Recorded pregabalin 150 mg capsule (Lyrica) 150 mg PO BID 30 days #60 caps 06/11/24 ondansetron 4 mg disintegrating 4 mg PO Q8H PRN nausea and 06/21/24 tablet vomiting #20 tabs tizanidine 4 mg capsule 4 mg PO TID PRN muscle spasticity 07/01/24 30 days #90 caps morphine 15 mg immediate release 15 mg PO Q6H PRN pain #15 tabs 08/04/24 tablet Allergies Allergy/AdvReac Type Severity Reaction Status Date / Time Sulfa (Sulfonamide Allergy Intermediate DIARRHEA Verified 10/06/24 14:06 Antibiotics) [SULFA (SULFONAMIDE ANTIBIOTICS)] topiramate [From Topamax] Allergy Anaphylaxis Verified 10/06/24 14:06 venlafaxine [From Effexor] Allergy Unknown Verified 10/06/24 14:06 trazodone [TRAZODONE] AdvReac Mild UNKNOWN Verified 10/06/24 14:06 CHICK PEAS Allergy Severe ANAPHYLAXIS Uncoded 10/06/24 14:06 topamax AdvReac Intermediate Unknown Uncoded 10/06/24 14:06 [facility] Past Medical History Medical History Bipolar affective disorder Hyperchloremic metabolic acidosis Vitamin D deficiency Hypocalcemia Obesity Cyst of pituitary gland Raynauds disease Allergy to sunlight PTSD (post-traumatic stress disorder) Fibromyalgia CRISTIANA (generalized anxiety disorder) POTS (postural orthostatic tachycardia syndrome) Syncope and collapse Idiopathic autonomic neuropathy Autonomic dysfunction Bipolar II disorder Major depressive disorder Suicidal ideation Social History Social History Household Members: Family Household Members Other:: and baby Housing: Apartment Do you presently have visiting nurse or other home services: No Patient Tobacco Use Status: Never used Tobacco Substance Use Type: Marijuana Advance Directives: No Advance Directives Information Provided: No Do you have a plan to hurt others: No Plan service: No Sexual orientation: Bisexual Physical Exam ED Vital Signs: Vital Signs - 24 hr 10/06/24 14:04 10/06/24 14:40 Temperature 98 F 97.2 F Pulse Rate 79 114 H Respiratory Rate 18 20 Blood Pressure 127/92 H 154/78 H Pulse Oximetry 98 100 Oxygen Delivery Method Room Air Room Air BMI result Body Mass Index 35.7 Const Other: EXAM: Gen: Alert, awake, well appearing, well hydrated. Head: Atraumatic Eyes: Anicteric, Normal conjunctiva. ENT: Moist mucosa, no pallor. ? Neck: Supple. Skin: ?No observable rash or bruising on exposed or examined skin Respiratory: Breathing comfortably, No distress.Clear to auscultation bilaterally, symmetric chest expansion, No wheeze, rales, ronchi. Cardiovascular: Regular rate and rhythm. No murmurs or rub. Well perfused periphery, warm extremities. No edema. ? Abdominal: No FOCAL TENDERNESS. Soft, no objective distension. No palpable masses or obvious organomegaly. ?No guarding, no rebound tenderness or other peritoneal findings. : No flank tenderness. Neuro: Alert. Gross movement of all extremities intact. ? Psych: Calm. Cooperative. MSK: No grossly visible deformity. Vital signs: See flowsheet Course Course Course Narrative: BRE, this is a rapid medical exam performed by Philip Calix please refer to primary provider for complete H&P- 29 year old female presents for evaluation of chest and back pain. She also reports depression with suicidal ideation due to her level of chronic pain. Plan for medical clearance Medications Administered Discontinued Medications Generic Name Dose Route Start Last Admin Trade Name Andrei PRN Reason Stop Dose Admin Acetaminophen 975 mg 10/06/24 17:23 10/06/24 17:37 Acetaminophen 325 Mg Tablet PO 10/06/24 17:24 975 mg ONCE ONE Administration Ibuprofen 800 mg 10/06/24 17:23 10/06/24 17:36 Ibuprofen 800 Mg Tablet PO 10/06/24 17:24 800 mg ONCE ONE Administration Lidocaine 2 patch 10/06/24 17:23 10/06/24 17:37 Lidocaine 4 % Patch Adh..Patch TRANSDERMA 10/06/24 17:24 2 patch ONCE ONE Administration Protocol Methocarbamol 750 mg 10/06/24 17:23 10/06/24 17:37 Methocarbamol 750 Mg Tablet PO 10/06/24 17:24 750 mg ONCE ONE Administration Medical Decision Making Medical Decision Making MDM Narrative: 29-year-old female with chronic pain. [place] transiently suicidal hopeless secondary to severe intractable chronic pain .Denies suicidal thoughts at this time but she is feeling hopeless sad. Patient has chronic intractable back pain she did have some relief however with methocarbamol Tylenol lidocaine patches I will prescribe her methocarbamol and told her touch base with her pain management doctor again Differential Diagnosis Differential Diagnoses: The differential diagnosis associated with the presentation includes Adjustment disorder, depression, bipolar, acute on chronic pain related to connective tissue disorder, fibromyalgia, functional back pain Lab Data 10/06/24 16:59 10/06/24 16:59 Labs: Lab Results 10/06/24 10/06/24 Range/Units 14:22 16:59 WBC 8.4 (4.8-10.8) X10*3/uL RBC 4.49 (4.20-5.50) X10*6/uL Hgb 13.9 (12.0-16.0) g/dl Hct 38.6 (37.0-47.0) % MCV 86.0 (80.0-98.0) fL MCH 31.0 (27.0-33.0) pg MCHC 36.0 H (31.0-35.0) g/dl RDW 11.9 (11.0-16.0) % Plt Count 202 (160-400) X10*3/uL MPV 10.0 (9.4-12.3) fL Immature Gran % (Auto) 0.5 H (0.0-0.4) % Neut % (Auto) 80.6 H (45-73) % Lymph % (Auto) 12.0 L (20-40) % [place] % (Auto) 6.2 (2-11) % Eos % (Auto) 0.5 (0-4) % Baso % (Auto) 0.2 (0-2) % Lymph # (Auto) 1.0 L (1.2-4.9) X10*3/uL [place] # (Auto) 0.5 (0.1-1.2) X10*3/uL Eos # (Auto) 0.0 (0.0-0.4) X10*3/uL Baso # (Auto) 0.0 (0.0-0.2) X10*3/uL Abs Immat Gran (auto) 0.04 H (0.00-0.03) X10*3/uL Absolute Neuts (auto) 6.8 (2.0-8.3) x10*3/uL Absolute Nucleated RBC 0.000 (0.0-0.012) X10*3/uL Nucleated RBC % (auto) 0.0 (0.0-0.2) /100WBC Sodium 141 (135-145) mmol/L Potassium 3.3 D (3.3-5.1) mmol/L Chloride 109 H (96-108) mmol/L Carbon Dioxide 23 (22-29) mmol/L Anion Gap 12 (12-20) BUN 5 L (9-16) mg/dL Creatinine 0.54 (0.5-1.4) mg/dL Estim Creat Clear Calc 155.9 Estimated GFR > 60 Random Glucose 92 (60-115) mg/dL Calcium 9.0 (8.4-10.2) mg/dL Magnesium 2.0 (1.6-2.6) mg/dL Total Bilirubin 1.0 (0.0-1.0) mg/dL AST 16 (5-31) U/L ALT 10 (0-31) U/L Alkaline Phosphatase 89 (39-117) U/L Total Creatine Kinase 165 H (26-140) U/L Troponin I High Sens < 2.7 (<3.5-17.0) ng/L Total Protein 6.5 (6.5-8.0) g/dL Albumin 4.5 (3.5-5.0) g/dL Lipase 13 (8-78) U/L Beta HCG, Quant < 2 mIU/mL Urine Color Yellow Urine Appearance Clear Urine pH 7.5 (5.0-9.0) Ur Specific [place] 1.010 (1.005-1.025) Urine Protein Negative (Neg-Trace) mg/dL Urine Glucose (UA) Negative (Negative) mg/dL Urine Ketones 40 (Negative) mg/dL Urine Blood Negative (Negative) Urine Nitrite Negative (Negative) Ur Leukocyte Esterase Negative (Negative) Urine RBC 0-2 (0-2) /HPF Urine WBC 0-5 (0-5) /HPF Ur Squamous Epith Cells 0-2 (0-2) /HPF Urine Bacteria None Seen (None Seen) Hyaline Casts 0-2 (0-2) /LPF Salicylates < 5.0 L (15-30) mg/dL Urine Opiates Screen Not Detected (Not Detect) Ur Buprenorphine Scrn Not Detected (Not Detect) ng/mL Ur Oxycodone Screen Not Detected (Not Detect) ng/mL Urine Methadone Screen Not Detected (Not Detect) ng/mL Urine Fentanyl Screen Not Detected (Not Detect) Acetaminophen < 3 (<30) mcg/mL Ur Barbiturates Screen Not Detected (Not Detect) Ur Phencyclidine Scrn Not Detected (Not Detect) Ur Amphetamines Screen Not Detected (Not Detect) U Benzodiazepines Scrn Not Detected (Not Detect) Urine Cocaine Screen Not Detected (Not Detect) U Marijuana (THC) Screen POSITIVE H (Not Detect) Ethyl Alcohol < 10 mg/dL Discharge Plan Discharge Clinical Impression: Prudencio-Danlos syndrome, Depression Patient Disposition: Home, Self-Care Instructions: Depression (ED), Fibromyalgia (ED) Additional Instructions: _ DISCHARGE DIAGNOSES: Chronic low back pain Depression HISTORY OF PRESENTATION: ?Pain and feelings of hopelessness and suicidal thoughts EMERGENCY DEPARTMENT COURSE,TESTS, TREATMENTS: While in the ED today you were evaluated by the care team and myself emergency medicine physician. We do not feel you had an acute or emergent cause of your back pain we tried multiple medications including: Tylenol, lidocaine patches, methocarbamol muscle relaxant, which provided some relief DISCHARGE MEDICATIONS: ?[We have made no changes to your regular medication regimen] we will prescribe some methocarbamol if that helps you can take as needed along with your other medications do not mix with tizanidine as they have similar mechanism FOLLOW-UP: ?Call your primary or general physician soon as possible to discuss your symptoms, your ED visit and to discuss follow up plans Call your pain medicine doctor and your outpatient providers as suggested by the care team INSTRUCTIONS ?& RETURN PRECAUTIONS: If any symptoms change first call your primary physician, if it is after-hours your primary doctors office should have a provider conference manager you can speak with. If the symptoms are severe or very concerning to you then call 911 or return to the ED. [07] Abbe Mcdaniel MD Emergency Physician [facility] Prescriptions: No Action tizanidine 4 mg capsule 4 mg PO TID PRN (Reason: muscle spasticity) 30 Days Qty: 90 8RF cholecalciferol (vitamin D3) 125 mcg (5,000 unit) capsule 1 cap PO DAILY ondansetron 4 mg tablet,disintegrating 4 mg PO Q8H PRN (Reason: nausea and vomiting) Qty: 20 0RF morphine 15 mg tablet 15 mg PO Q6H PRN (Reason: pain) Qty: 15 0RF Rx Instructions: Partial Fill upon patient request. duloxetine 60 mg capsule,delayed release(DR/EC) 60 mg PO DAILY ibuprofen 600 mg tablet 600 mg PO Q8H PRN acetaminophen [Tylenol] 325 mg capsule 650 mg PO Q6H PRN aripiprazole 15 mg tablet 15 mg PO DAILY midodrine 5 mg tablet 5 mg PO TID pregabalin [Lyrica] 150 mg capsule 150 mg PO BID 30 Days Qty: 60 5RF Print Language: Macedonian
--- NOTE | 2024-10-06 14:06 | ECG_ITS ---
Test Reason : pain Blood Pressure : */* mmHG Vent. Rate : 64 BPM Atrial Rate : 64 BPM P-R Int : 142 ms QRS Dur : 80 ms QT Int : 396 ms P-R-T Axes : 49 60 48 degrees QTcB Int : 408 ms Normal sinus rhythm Normal ECG When compared with ECG of 02-Oct-2024 15:04, No significant change was found Referred By: Manoj Calix Electronically Signed By: JAYJAY GARCIA MD
[2024-10-06 14:31] LABS: Appearance Urine Clear; Color Urine Yellow; Glucose Urine UA Negative (Negative); Leukocyte Esterase Urine Negative (Negative); Nitrite Urine Negative (Negative); PH 7.5 (5.0-9.0); Urine Blood Negative (Negative); Urine Ketones 40 mg/dL (Negative); Urine Protein Negative (Neg-Trace)
[2024-10-06 14:33] LABS: Bacteria Urine None Seen (None Seen); Hyaline Casts Urine 0-2 /LPF (0-2); RBC Urine 0-2 /HPF (0-2); Squamous Epithelial Cell Urine 0-2 /HPF (0-2); WBC Urine 0-5 /HPF (0-5)
[2024-10-06 14:40] VITALS: BP 154/78; PULSE 114; RESP 20; TEMP 36.2; O2SAT 100
[2024-10-06 14:41] LABS: Amphetamine Screen Urine Not Detected (Not Detect); Barbiturates, Urine Not Detected (Not Detect); Benzodiazepines Screen Urine Not Detected (Not Detect); Buprenorphine Scr Not Detected (Not Detect); Cannabinoid Screen Urine POSITIVE (Not Detect); Cocaine Screen Urine Not Detected (Not Detect); Fentanyl, urine Not Detected (Not Detect); Methadone Screen, Urine Not Detected (Not Detect); Opiate Screen Urine Not Detected (Not Detect); Oxycodone Screen Urine Not Detected (Not Detect); Phencyclidine Screen Urine Not Detected (Not Detect)
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
--- OUTSIDE RECORDS SUMMARY | 2024-10-06 16:31 | XMS_ITS | Clinical Summary ---
Author Organization [facility] Address [address] [place] [address] Care Team Providers Care Strapper Name Role Phone Mónica Valle Primary Care Provider [phone] Allergies Active Allergy Reactions Criticality Noted Date [...] by mouth daily. Active NORETHINDRONE AC-ETH ESTRADIOL (JUNE 1., ORAL) Take by mouth. Active ergocalciferol (VITAMIN [...] 12/30/2019, Additional history exists Insurance [employer] PPO/EPO/IND [facility] CIGNA PPO/EPO/IND Advance Directives * Full Code (Latest Code Status on File) Date Activated Date Inactivated Comments 05/08/2017 12:56 PM 05/08/2017 4:37 PM Care Teams Strapper Relationship Specialty Start Date End Date Mónica Valle [address] [place] [address] PCP - General 01/19/22
[2024-10-06 17:04] LABS: Basophils Percent Auto 0.2 % (0-2); Eosinophils Percent Auto 0.5 % (0-4); Hematocrit 38.6 % (37.0-47.0); Hemoglobin 13.9 g/dl (12.0-16.0); Imm Gran Abs Auto 0.04 X10*3/uL (0.00-0.03); Imm Gran Pct Auto 0.5 % (0.0-0.4); MANUAL DIFF FLAG NO; Monocytes Absolute Auto 0.5 X10*3/uL (0.1-1.2); Monocytes Percent Auto 6.2 % (2-11); Neutrophils Absolute Auto 6.8 x10*3/uL (2.0-8.3); Neutrophils Percent Auto 80.6 % (45-73); Platelet Count 202 X10*3/uL (160-400); Red Blood Count 4.49 X10*6/uL (4.20-5.50); Red Cell Distribution Width 11.9 % (11.0-16.0); White Blood Count 8.4 X10*3/uL (4.8-10.8)
[2024-10-06 17:25] LABS: Acetaminophen LAB < 3 mcg/mL (<30); Salicylate < 5.0 mg/dL (15-30); Troponin-I High Sensitivity < 2.7 ng/L (<3.5-17.0)
[2024-10-06 17:26] LABS: Alanine Aminotransferase 10 U/L (0-31); Albumin Level 4.5 g/dL (3.5-5.0); Alkaline Phosphatase 89 U/L (39-117); Anion Gap 12 (12-20); Aspartate Amino Transferase 16 U/L (5-31); Blood Urea Nitrogen 5 mg/dL (9-16); Carbon Dioxide 23 mmol/L (22-29); Chloride 109 mmol/L (96-108); Creatinine Clr Calc Pharmacy 155.9; Estimated Glomerular Filt Rate > 60; Ethanol < 10 mg/dL; Glucose Random 92 mg/dL (60-115); HCG Quantitative < 2 mIU/mL; Lipase 13 U/L (8-78); Potassium 3.3 mmol/L (3.3-5.1); Sodium 141 mmol/L (135-145); Total Protein 6.5 g/dL (6.5-8.0)
[2024-10-06] MEDS: Ibuprofen 800 MG TABLET PO (17:36)
[2024-10-06] MEDS: methocarbamoL 750 MG TABLET PO (17:37)
[2024-10-06] MEDS: Lidocaine 4 % Patch ADH..PATCH 2 PATCH TRANSDERMA (17:37)
[2024-10-06] MEDS: Acetaminophen 325 MG TABLET 975 MG PO (17:37)
[2024-10-06 19:58] VITALS: BP 119/81; PULSE 104; RESP 18; TEMP 36.2; O2SAT 100
--- NOTE | 2024-10-07 08:07 | MHC.CARE ---
Referral to [facility] complete
== END 2024-10-06 20:13 | disposition home or self-care (01) ==
PROVIDERS: Physician Assistant; Emergency Provider Emergency Medicine; PCP Nurse Practitioner Adult Health
DX: Q79.60 Ehlers-Danlos syndrome, unspecified (principal); F33.1 Major depressive disorder, recurrent, moderate; R45.851 Suicidal ideations; R10.2 Pelvic and perineal pain; M54.50 Low back pain, unspecified; R07.89 Other chest pain; G89.29 Other chronic pain; R42 Dizziness and giddiness; Z79.899 Other long term (current) drug therapy; Z51.81 Encounter for therapeutic drug level monitoring
CPT/HCPCS: 36415; 71046; 80053; 80143; 80179; 80307; 81001; 82550; 83690; 83735; 84484; 84702; 85025; 93005; 99284; 99285; S9485

== ENCOUNTER → 2024-10-06 14:06 | Outpatient (BNV) | payer OTHER, SELFPAY | PROVIDERS: Emergency Provider Emergency Medicine; PCP Nurse Practitioner Adult Health; Visit Provider Internal Medicine Cardiovascular Disease | DX: R07.9 Chest pain, unspecified (principal) | CPT/HCPCS: 93010 ==

== ENCOUNTER → 2024-10-06 14:08 | Outpatient (BNV) | payer OTHER, SELFPAY | PROVIDERS: Emergency Provider Emergency Medicine; PCP Nurse Practitioner Adult Health; Visit Provider Radiology Diagnostic Radiology | DX: G89.4 Chronic pain syndrome (principal) | CPT/HCPCS: 71046 ==

== ENCOUNTER 2024-10-15 09:19 | Outpatient (AMB) | payer OTHER, SELFPAY ==
[2024-10-15 09:22] VITALS: BP 119/82; PULSE 97; RESP 18; O2SAT 100
--- NOTE | 2024-10-15 09:22 | A.OFFVIS_ITS ---
Vital Signs 10/15/24 09:22 Weight 195 lb BP 119/82 Blood Pressure Location Lt brachial Position Sitting Respiration 18 Pulse 97 Pulse Source Pulse Oximeter Pulse Oximetry (%) 100 Oxygen Delivery Method Room Air Intake Visit Reasons: 4 Month Follow Up Ream Cutter Required: No Allergies Sulfa (Sulfonamide Antibiotics) (SULFA (SULFONAMIDE ANTIBIOTICS)) Allergy (Intermediate, Verified 10/15/24 09:25) DIARRHEA topiramate (From Topamax) Allergy (Verified 10/15/24 09:25) Anaphylaxis venlafaxine (From Effexor) Allergy (Verified 10/15/24 09:25) Unknown trazodone (TRAZODONE) Adverse Reaction (Mild, Verified 10/15/24 09:25) UNKNOWN CHICK PEAS Allergy (Severe, Uncoded 10/06/24 14:06) ANAPHYLAXIS topamax Adverse Reaction (Intermediate, Uncoded 10/06/24 14:06) Unknown HPI Comments Details: Makayla came today in my office very agitated. 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 They report severe widespread pain in multiple locations of the body including pain in the neck, the pain in the shoulders, pain in the back, pain in the arms pain in the legs and pain in the hands and feet. Rheumatologic consult revealed no rheumatological condition and as diagnosis of exclusion fibromyalgia diagnosis was established. She was my office offered spinal cord stimulator for treatment of her upper and lower back pain and pain in the neck. Unfortunately her insurance does not cover this procedure. I recommended in the past this patient to get engaged in low-impact aerobic exercise most appropriate for this patient would be swimming. However unfortunately the patient did not follow my recommendations. The explanations were given to the patient that the aerobic exercises the only modality which is scientifically proven to help pain from fibromyalgia. The patient reported today that their pain is very severe 9.5/10. The smell of recently smoked cannabis was clearly detected when I entered the room. They reported that visited emergency room in multiple locations, 1 of these emergency room locations prescribes her morphine. In the past I was prescribing Lyrica for this patient. Patient stated today that Lyrica does not help the pain. The patient has complex psychiatric history, the patient used to be on aripiprazole and extended-release duloxetine. The patient stated today that aripiprazole was stopped because auditory hallucinations are no longer bothering the patient. I suggested today that 1 of the medications which could possibly be tried to treat this patient is milnacipran/Savella. Unfortunately because of her complex psychiatric history I can not take over the prescription of this medication for the patient. I recommended the patient to go to her psychiatrist and discussed milnacipran escalating doses to treat severe pain of this patient. Patient accused me today on absolutely doing nothing, I disagreed I stated that medical advice is not ?doing nothing ?. After that the patient refused to continue the conversation and stormed out in their wheelchair outside of the operating room. [facility] Medical History Bipolar affective disorder Hyperchloremic metabolic acidosis Vitamin D deficiency Hypocalcemia Obesity Cyst of pituitary gland Raynauds disease Allergy to sunlight PTSD (post-traumatic stress disorder) Fibromyalgia CRISTIANA (generalized anxiety disorder) POTS (postural orthostatic tachycardia syndrome) Syncope and collapse Idiopathic autonomic neuropathy Autonomic dysfunction Bipolar II disorder Major depressive disorder Suicidal ideation Social History Household Members: Family Household Members Other:: and baby Housing: Apartment Do you presently have visiting nurse or other home services: No Patient Tobacco Use Status: Never used Tobacco Substance Use Type: Marijuana service: No Sexual orientation: Bisexual Review of Systems Const All systems reviewed & are unremarkable except as noted in HPI and below ENT Reports Normal hearing present Neuro Reports Normal hearing present, Denies Abnormal speech present and Denies Sensory deficit (Neuro) Physical Exam Vital Signs: Last Vital Signs Pulse 97 10/15/24 09:22 Resp 18 10/15/24 09:22 BP 119/82 10/15/24 09:22 Pulse Ox 100 10/15/24 09:22 Oxygen Delivery Method Room Air 10/15/24 09:22 Const General: no acute distress and well developed Orientation/consciousness: patient oriented x3 Eyes General: appearance normal, both eyes and all related structures Pupils: Equal, round and reactive pupils present EOM: EOMs intact bilaterally Neck Neck: Yes full ROM Chest Chest palpation & inspection: normal inspection of the chest Resp Effort & Inspection: normal respiratory effort, able to speak in complete sentences, normal respiratory pattern, no audible wheezes and no cough Cardio Jugular venous distension: no JVD GI Inspection: Yes normal to inspection Back/Spine/Pelvis Other: Multiple joint hypermobility was detected on physical exam. She is able to flex the fingers backwards especially the thumbs. Neuro General: patient oriented x3 and gait normal Cranial nerves: Yes Equal, round and reactive pupils present and Yes Normal hearing present Speech: No Abnormal speech present Gait exam (Neuro): Normal gait present Motor exam (neuro): 5/5 motor strength present throughout Sensory Exam: No Sensory deficit (Neuro) Extrem Other: Severe allodynia and hyperalgesia with palpation of the outer bilateral lateral hips. General: No pedal edema Psych Speech and movement: Normal speech and movement present Affect: normal affect Attitude: cooperative Thought process: Normal thought process present Thought content: Normal thought content present Insight: Good insight present (Psych) Judgement: Good judgement present (Psych) Assessment & Plan Assessment & Plan (1) Prudencio-Danlos syndrome: Code(s): Q79.60 - Prudencio-Danlos syndrome, unspecified Category: Medical (2) Intractable pain: Code(s): R52 - Pain, unspecified Category: Medical Plan [employer] SCS denied by her insurance [employer]. The patient does not have any diagnosis which her insurance consider indication for SCS however chronic pain syndrome in my understanding is indication for SCS. The patient is working on disability in maybe in the future will be able to obtain traditional [employer]/Medicaid. Multiple other measures were offered to the patient in the past including low- impact aerobic exercise in her case it would be best if she would engage in swimming because of her Prudencio-Danlos syndrome. Unfortunately patient ignored that advice. Milnacipran Savella could be started for this patient however with her complex psychiatric history I prefer the decision to start milnacipran be made by their psychiatrist. I clearly suggested this to the patient and the patient accused me of doing nothing. I pointed out to the patient that medical advice is not ?doing nothing ?. The patient stormed out of the examination room and left. Coding Level of Care Code Est Pt Level 3 (94635) Diagnoses Prudencio-Danlos syndrome Q79.60 Intractable pain R52
== END 2024-10-15 09:36 | disposition home or self-care (01) ==
LOC: HO.PMC 09:20
PROVIDERS: PCP Nurse Practitioner Adult Health; Visit Provider Anesthesiology
DX: Q79.60 Ehlers-Danlos syndrome, unspecified (principal); R52 Pain, unspecified
CPT/HCPCS: 99213

== ENCOUNTER → 2024-10-15 09:19 | Outpatient (BNVA) | payer OTHER, SELFPAY | PROVIDERS: PCP Nurse Practitioner Adult Health; Visit Provider Anesthesiology ==

== ENCOUNTER 2024-12-25 11:09 | Emergency (ER) | payer OTHER, SELFPAY ==
--- NOTE | ~2024-12-25 | CT_ITS ---
EXAMINATION: CT CERVICAL SPINE WITHOUT IV CONTRAST HISTORY: syncope, +head strike w/ LOC. TECHNIQUE: Helical CT of the cervical spine was performed per standard departmental protocol. Coronal and sagittal reformatted images were also evaluated. One or more of the following techniques was used for dose reduction: Automated exposure control, adjustment of the mA and/or kV according to patient size, use of iterative reconstruction technique. DLP: 390 mGy-cm COMPARISON: Comparison is made with the prior examination dated 08/04/2024. FINDINGS: CERVICAL SPINE: The vertebral bodies maintain normal height without evidence of fracture or subluxation. There is reversal of the normal cervical lordosis without change. The intervertebral disc spaces are preserved. Evaluation for disc pathology is limited by lack of intrathecal contrast material. BRAIN: The visualized portion of the brain is unremarkable. SINUSES: The visualized paranasal sinuses, mastoid air cells and middle ear cavities are unremarkable. LUNG APICES: The visualized lung apices are clear. SOFT TISSUES: The visualized paraspinal soft tissues are unremarkable. CT/CT cervical spine wo IV con IMPRESSION: Reversal of the normal cervical lordosis. Otherwise unremarkable CT of the cervical spine. Electronically signed by: Sony Cheng MD 12/25/2024 12:31 PM EDT
--- NOTE | ~2024-12-25 | XR_ITS ---
EXAMINATION: XR LUMBOSACRAL SPINE CLINICAL INFORMATION: pain COMPARISON: September 30, 2022 TECHNIQUE: AP and lateral views FINDINGS: Rudimentary ribs at T12. No acute cortical disruption or malalignment. No lytic or blastic lesions. Radiopaque T-shaped contraceptive device overlapping the mid sacrum. XR/XR lumbar spine 2-3V IMPRESSION: No acute fracture or listhesis in the lumbar spine. Sacrococcyx fracture cannot be excluded. Electronically signed by: Ant Thornton MD 12/25/2024 12:04 PM EDT
--- NOTE | ~2024-12-25 | XR_ITS ---
EXAMINATION: XR SHOULDER, LEFT CLINICAL INFORMATION: pain COMPARISON: Correlated to chest x-ray dated October 06, 2024. TECHNIQUE: AP external rotation, Grashey, scapular Y, and axillary views of the left shoulder. FINDINGS: No acute cortical disruption or malalignment. No lytic or blastic lesions. No soft tissue calcifications. XR/XR shoulder LT min 2V IMPRESSION: Normal x-ray left shoulder. Electronically signed by: Ant Thornton MD 12/25/2024 12:05 PM EDT
--- NOTE | ~2024-12-25 | CT_ITS ---
EXAMINATION: CT HEAD WITHOUT IV CONTRAST HISTORY: syncope, +head strike w/ LOC. TECHNIQUE: Unenhanced helical CT of the head was performed per standard departmental protocol. Coronal and sagittal reformats of the head were also evaluated. One or more of the following techniques was used for dose reduction: Automated exposure control, adjustment of the mA and/or kV according to patient size, use of iterative reconstruction technique. DLP: 687 mGy-cm COMPARISON: Comparison is made with the prior examination dated 08/04/2024. FINDINGS: BRAIN: The brain parenchyma is unremarkable. There is normal valencia/white differentiation. The ventricular system is normal in size and configuration. There is no mass effect or midline shift. No intra- or extra-axial fluid collections are identified. SINUSES: The visualized paranasal sinuses are clear. The mastoid air cells and middle ear cavities are well pneumatized. ORBITS: The visualized orbits are unremarkable. BONES/SOFT TISSUES: The extracranial soft tissues are unremarkable. The calvarium is intact. No suspicious lytic or sclerotic lesions. CT/CT head/brain wo IV con IMPRESSION: No acute intracranial abnormality. Electronically signed by: Sony Cheng MD 12/25/2024 12:28 PM EDT
--- NOTE | 2024-12-25 11:14 | ED.HEATRA ---
HPI - Head Injury General Chief complaint: Head Injury Stated complaint: Head injury, passed out Time Seen by Provider: 12/25/24 16:02 Source: patient Mode of arrival: wheelchair Limitations: no limitations History of Present Illness ED Provider: Dr. Bear HPI Narrative: 29-year-old female history of POTS and Prudencio-Danlos syndrome presented hospital today for evaluation of a syncopal episode. Patient was in the bathroom trying take a shower when she passed out. Patient states she struck the sink. She is complaining of some neck pain and lower back pain. She is also complaining of left shoulder pain as well. Denies any chest pain denies any abdominal pain. Patient had does have syncopal episode in the past from POTS Related Data Home Medications ?Medication ?Instructions ?Recorded ?Confirmed cholecalciferol (vitamin D3) 125 1 cap PO DAILY 06/20/22 06/11/24 mcg (5,000 unit) capsule acetaminophen 325 mg capsule 650 mg PO Q6H PRN 07/17/22 06/11/24 (Tylenol) ibuprofen 600 mg tablet 600 mg PO Q8H PRN 07/17/22 06/11/24 aripiprazole 15 mg tablet 15 mg PO DAILY 12/13/22 06/11/24 midodrine 5 mg tablet 5 mg PO TID 12/13/22 06/11/24 duloxetine 60 mg capsule,delayed 60 mg PO DAILY 01/05/24 06/11/24 release Previous Rx's ?Medication ?Instructions ?Recorded pregabalin 150 mg capsule (Lyrica) 150 mg PO BID 30 days #60 caps 06/11/24 ondansetron 4 mg disintegrating 4 mg PO Q8H PRN nausea and 06/21/24 tablet vomiting #20 tabs tizanidine 4 mg capsule 4 mg PO TID PRN muscle spasticity 07/01/24 30 days #90 caps morphine 15 mg immediate release 15 mg PO Q6H PRN pain #15 tabs 08/04/24 tablet methocarbamol 750 mg tablet 750 mg PO Q8H 10 days #30 tabs 10/06/24 cyclobenzaprine 5 mg tablet 5 mg PO TID PRN muscle spasm #20 12/25/24 tabs Allergies Allergy/AdvReac Type Severity Reaction Status Date / Time Sulfa (Sulfonamide Allergy Intermediate DIARRHEA Verified 12/25/24 11:18 Antibiotics) (SULFA (SULFONAMIDE ANTIBIOTICS)) topiramate (From Topamax) Allergy Anaphylaxis Verified 12/25/24 11:18 venlafaxine (From Effexor) Allergy Unknown Verified 12/25/24 11:18 trazodone (TRAZODONE) AdvReac Mild UNKNOWN Verified 12/25/24 11:18 topamax AdvReac Intermediate Unknown Uncoded 10/06/24 14:06 Review of Systems Review of Systems: Pertinent review of systems as mentioned in HPI. All other system otherwise negative. [facility] Past Medical History [facility] Narrative: Medical history as mentioned in HPI Medical History Bipolar affective disorder Hyperchloremic metabolic acidosis Vitamin D deficiency Hypocalcemia Obesity Cyst of pituitary gland Raynauds disease Allergy to sunlight PTSD (post-traumatic stress disorder) Fibromyalgia CRISTIANA (generalized anxiety disorder) POTS (postural orthostatic tachycardia syndrome) Syncope and collapse Idiopathic autonomic neuropathy Autonomic dysfunction Bipolar II disorder Major depressive disorder Suicidal ideation Social History Social History Household Members: Family Household Members Other:: and baby Housing: Apartment Do you presently have visiting nurse or other home services: No Patient Tobacco Use Status: Never used Tobacco Substance Use Type: Marijuana Advance Directives: No Advance Directives Information Provided: Yes service: No Sexual orientation: Bisexual Physical Exam Exam: Exam: General: Pleasant, no distress, interacting appropriately Head: Normacephalic, atraumatic ENT: oral mucosa moist, neck supple, no tracheal deviation Cardiovascular: regular rate, regular rhythm, no murmurs, rubbing, gallops Respiratory: CTAB, no wheeze, rales, rhonchi Gastrointestinal: Soft, non distended, non tender, non guarding Extremities: Left shoulder tenderness however full range of motion intact neurovascularly intact in the left upper extremities, patient does have lower lumbar spine tenderness on the paraspinal area. Full range of motion. Neurological: Awake and alert, no facial droop noted Skin: Warm and dry Psychiatric: Appropriate mood and thoughts Vital Signs: Vital Signs: Last Vital Signs Temp 98.1 F 12/25/24 16:11 Pulse 74 12/25/24 16:11 Resp 12 12/25/24 16:11 BP 107/70 12/25/24 16:11 Pulse Ox 100 12/25/24 16:11 O2 Del Method Room Air 12/25/24 16:11 BMI result Body Mass Index 35.3 Course Course Course Narrative: This is an RME: Additional HPI, ROS, PE not included below will be deferred to primary provider. RME assessment and note performed by: Kimmy Sharpe PA-C This is a [id number]-female, with a hx of CRISTIANA, PTSD, bipolar, fibromyalgia, who presents to the ER with complaints of headache, dizziness, neck pain, back pain, and left shoulder pain s/p fall. Reports that she was in the shower, got out, and had a syncopal episode. accompanied with patient states that they did lose consciousness. Pt reports that they have syncopal episodes with Cam regularly. Patient states that they also have dizziness. She is neurologically intact, no focal deficits on examination, head is normocephalic atraumatic. Plan: Labs, EKG, CT head/neck, x-ray left shoulder, x-ray back Medical Decision Making Medical Decision Making [facility] Narrative: 29-year-old female presented hospital today after a syncopal episode. We will plan to give patient a dose of Tylenol here. Patient had lab work EKG and CT imaging performed of her head and C-spine. Patient's EKG is unremarkable no sign of cardiac arrhythmia, no sign of significant abnormality that could cause for syncopal episode. Patient's CT head was negative for any signs of intracranial bleed. CT C-spine was negative. Lumbar spine and left shoulder x-ray were negative for any signs of fracture. At this time I suspect patient likely has a cervical strain and lumbar strain. We will plan to discharge patient home with some muscle relaxer to take. Encouraged her to take [id number] NSAIDs for her symptoms as well. Encouraged stretching. She does have lidocaine patch at home to use for further analgesia. Patient is agreement with this plan at this time. Patient will be discharged. Differential Diagnosis Differential Diagnoses: The differential diagnosis associated with the presentation includes Intracranial bleed, C-spine fracture, Cervical strain, lumbar strain Lab Data [facility] Lab Attestation statement: I reviewed the patient's lab results. 12/25/24 11:36 12/25/24 11:36 Labs: Lab Results 08/28/25 Range/Units 11:36 WBC 8.3 (4.8-10.8) X10*3/uL RBC 4.43 (4.20-5.50) X10*6/uL Hgb 14.1 (12.0-16.0) g/dl Hct 39.9 (37.0-47.0) % MCV 90.1 (80.0-98.0) fL MCH 31.8 (27.0-33.0) pg MCHC 35.3 H (31.0-35.0) g/dl RDW 12.7 (11.0-16.0) % Plt Count 281 D (160-400) X10*3/uL MPV 9.7 (9.4-12.3) fL Immature Gran % (Auto) 0.4 (0.0-0.4) % Neut % (Auto) 60.2 (45-73) % Lymph % (Auto) 28.1 (20-40) % [place] % (Auto) 6.6 (2-11) % Eos % (Auto) 4.2 H (0-4) % Baso % (Auto) 0.5 (0-2) % Lymph # (Auto) 2.3 (1.2-4.9) X10*3/uL [place] # (Auto) 0.6 (0.1-1.2) X10*3/uL Eos # (Auto) 0.4 (0.0-0.4) X10*3/uL Baso # (Auto) 0.0 (0.0-0.2) X10*3/uL Abs Immat Gran (auto) 0.03 (0.00-0.03) X10*3/uL Absolute Neuts (auto) 5.0 (2.0-8.3) x10*3/uL Absolute Nucleated RBC 0.000 (0.0-0.012) X10*3/uL Nucleated RBC % (auto) 0.0 (0.0-0.2) /100WBC Sodium 140 (135-145) mmol/L Potassium 3.8 (3.3-5.1) mmol/L Chloride 107 (96-108) mmol/L Carbon Dioxide 30 H (22-29) mmol/L Anion Gap 7 L (12-20) BUN 8 L (9-16) mg/dL Creatinine 0.65 (0.5-1.4) mg/dL Estim Creat Clear Calc 128.9 Estimated GFR > 60 Random Glucose 64 (60-115) mg/dL Calcium 8.9 (8.4-10.2) mg/dL Magnesium 2.3 (1.6-2.6) mg/dL Total Bilirubin 0.5 (0.0-1.0) mg/dL Direct Bilirubin 0.2 (0.0-0.5) mg/dL AST 19 (5-31) U/L ALT 10 (0-31) U/L Alkaline Phosphatase 100 (39-117) U/L Troponin I High Sens < 2.7 (<3.5-17.0) ng/L Total Protein 6.8 (6.5-8.0) g/dL Albumin 4.5 (3.5-5.0) g/dL Independent Interpretation I performed an independent interpretation of an: EKG and CT Scan Radiology Impression Discussion of test interpretation with radiology: I have reviewed the radiologist's reading. Discharge Plan Discharge Clinical Impression: Cervical strain, acute, Syncope Patient Disposition: Home, Self-Care Instructions: Cervical Sprain (ED) Prescriptions: New cyclobenzaprine 5 mg tablet 5 mg PO TID PRN (Reason: muscle spasm) Qty: 20 0RF No Action tizanidine 4 mg capsule 4 mg PO TID PRN (Reason: muscle spasticity) 30 Days Qty: 90 8RF cholecalciferol (vitamin D3) 125 mcg (5,000 unit) capsule 1 cap PO DAILY methocarbamol 750 mg tablet 750 mg PO Q8H 10 Days Qty: 30 0RF ondansetron 4 mg tablet,disintegrating 4 mg PO Q8H PRN (Reason: nausea and vomiting) Qty: 20 0RF morphine 15 mg tablet 15 mg PO Q6H PRN (Reason: pain) Qty: 15 0RF Rx Instructions: Partial Fill upon patient request. duloxetine 60 mg capsule,delayed release(DR/EC) 60 mg PO DAILY ibuprofen 600 mg tablet 600 mg PO Q8H PRN acetaminophen [Tylenol] 325 mg capsule 650 mg PO Q6H PRN aripiprazole 15 mg tablet 15 mg PO DAILY midodrine 5 mg tablet 5 mg PO TID pregabalin [Lyrica] 150 mg capsule 150 mg PO BID 30 Days Qty: 60 5RF Print Language: French
[2024-12-25 11:15] VITALS: BP 130/75; PULSE 77; RESP 18; TEMP 36.3; O2SAT 99; BMI 35.3
--- NOTE | 2024-12-25 11:20 | ECG_ITS ---
Test Reason : SYNCOPE Blood Pressure : */* mmHG Vent. Rate : 69 BPM Atrial Rate : 69 BPM P-R Int : 150 ms QRS Dur : 76 ms QT Int : 378 ms P-R-T Axes : 41 63 50 degrees QTcB Int : 405 ms Normal sinus rhythm Normal ECG When compared with ECG of 06-Oct-2024 14:15, No significant change was found Referred By: Kimmy Sharpe Electronically Signed By: DEMETRIS ARROYO
[2024-12-25 11:41] LABS: MANUAL DIFF FLAG NO
[2024-12-25 11:51] LABS: Hematocrit 39.9 % (37.0-47.0); Hemoglobin 14.1 g/dl (12.0-16.0); Imm Gran Abs Auto 0.03 X10*3/uL (0.00-0.03); Imm Gran Pct Auto 0.4 % (0.0-0.4); Lymphocytes Absolute Auto 2.3 X10*3/uL (1.2-4.9); Mean Corpuscular HGB Conc 35.3 g/dl (31.0-35.0); Mean Corpuscular Hemoglobin 31.8 pg (27.0-33.0); Mean Corpuscular Volume 90.1 fL (80.0-98.0); NRBC Abs Auto 0.000 X10*3/uL (0.0-0.012); NRBC Pct Auto 0.0 /100WBC (0.0-0.2); Platelet Count 281 X10*3/uL (160-400); Red Blood Count 4.43 X10*6/uL (4.20-5.50); White Blood Count 8.3 X10*3/uL (4.8-10.8)
[2024-12-25 12:05] LABS: Alanine Aminotransferase 10 U/L (0-31); Albumin Level 4.5 g/dL (3.5-5.0); Alkaline Phosphatase 100 U/L (39-117); Anion Gap 7 (12-20); Aspartate Amino Transferase 19 U/L (5-31); Blood Urea Nitrogen 8 mg/dL (9-16); Calcium 8.9 mg/dL (8.4-10.2); Carbon Dioxide 30 mmol/L (22-29); Chloride 107 mmol/L (96-108); Creatinine Clr Calc Pharmacy 128.9; Estimated Glomerular Filt Rate > 60; Magnesium 2.3 mg/dL (1.6-2.6); Potassium 3.8 mmol/L (3.3-5.1); Sodium 140 mmol/L (135-145); Total Protein 6.8 g/dL (6.5-8.0); Troponin-I High Sensitivity < 2.7 ng/L (<3.5-17.0)
[2024-12-25 16:11] VITALS: BP 107/70; PULSE 74; RESP 12; TEMP 36.7; O2SAT 100
--- OUTSIDE RECORDS SUMMARY | 2024-12-25 16:19 | XMS_ITS | Clinical Summary ---
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 Name Role Phone Mónica Valle Primary Care Provider [phone] Allergies Active Allergy Reactions Criticality Noted Date Comments Chickpea Other (see comments) 07/26/2015 Throat gets tight and scratchy Sulfa (Sulfonamide Antibiotics) Other (see comments) Gastric Disorder Medications * This document contains information received [...] 87 02/02/2023 3:10 PM EDT Temperature 37.1 C (98.8 F) 05/08/2017 12:52 PM EST Respiratory Rate 20 05/08/2017 2:17 PM EST [...] [facility] ual Screening 04/30/2024 Influenza Vaccine (#1) 2024 2, 01/15/2021, 01/07/2020, Additional history exists DTaP,Tdap,and Td Vaccines (8 - Td or Tdap) 08/04/2031 08/03/2021, 08/07/2017, 10/27/2011, Additional history exists RSV Vaccine (60+ years old a nd patients) (1 - 1-dose 75+ series) 2068 Hepatitis B Vaccines Completed 07/02/2020, 03/11/2020, 12/30/2019, Additional history exists Insurance [employer] PPO/EPO/[facility] CIGNA PPO/EPO/[place] Advance Directives * Full Code (Latest Code Status on File) Date Activated Date Inactivated Comments 05/08/2017 12:56 PM 05/08/2017 4:37 PM Care Teams Envelope Folding Machine Operator Relationship Specialty Start Date End Date Mónica Valle [address] [address] PCP - General 01/19/22
--- NOTE | 2024-12-25 16:59 | PC.NURSE ---
Addendum entered by Yissel Laird RN 12/25/24 17:01: 29-year-old female history of POTS and Prudencio-Danlos syndrome presented hospital today for evaluation of a syncopal episode. Patient was in the bathroom trying take a shower when she passed out. Patient states she struck the sink. She is complaining of some neck pain and lower back pain. She is also complaining of left shoulder pain as well. Alert and oriented Respirations even and non-labored. Abdomen soft, non-tender with positive bowel sounds positive pedal pulses with no edema. Original Note: Medical History Bipolar affective disorder Hyperchloremic metabolic acidosis Vitamin D deficiency Hypocalcemia Obesity Cyst of pituitary gland Raynauds disease Allergy to sunlight PTSD (post-traumatic stress disorder) Fibromyalgia CRITSIANA (generalized anxiety disorder) POTS (postural orthostatic tachycardia syndrome) Syncope and collapse Idiopathic autonomic neuropathy Autonomic dysfunction Bipolar II disorder Major depressive disorder Suicidal ideation
[2024-12-25 17:01] VITALS: BP 107/70; PULSE 74; RESP 12; TEMP 36.7; O2SAT 100
== END 2024-12-25 17:02 | disposition home or self-care (01) ==
PROVIDERS: Physician Assistant Medical; Emergency Provider Student in an Organized Health Care Education/Training Program; PCP Nurse Practitioner Adult Health
DX: S09.90XA Unspecified injury of head, initial encounter (principal); S16.1XXA Strain of muscle, fascia and tendon at neck level, initial encounter; M54.2 Cervicalgia; R55 Syncope and collapse; R51.9 Headache, unspecified; M54.50 Low back pain, unspecified; M25.512 Pain in left shoulder; X58.XXXA Exposure to other specified factors, initial encounter; W18.2XXA Fall in (into) shower or empty bathtub, initial encounter; Y93.E1 Activity, personal bathing and showering; Y92.002 Bathroom of unspecified non-institutional (private) residence as the place of occurrence of the external cause; Y99.8 Other external cause status; Z91.81 History of falling; Z79.899 Other long term (current) drug therapy
CPT/HCPCS: 36415; 70450; 72100; 72125; 73030; 80048; 80076; 83735; 84484; 85025; 93005; 99284

== ENCOUNTER → 2024-12-25 11:19 | Outpatient (BNV) | payer OTHER, SELFPAY | PROVIDERS: PCP Nurse Practitioner Adult Health; Visit Provider Radiology Diagnostic Radiology | DX: M40.03 Postural kyphosis, cervicothoracic region (principal); S09.90XA Unspecified injury of head, initial encounter; M54.50 Low back pain, unspecified; M25.512 Pain in left shoulder | CPT/HCPCS: 70450; 72100; 72125; 73030 ==

== ENCOUNTER → 2024-12-25 11:20 | Outpatient (BNV) | payer OTHER, SELFPAY | PROVIDERS: Emergency Provider Student in an Organized Health Care Education/Training Program; PCP Nurse Practitioner Adult Health; Visit Provider Internal Medicine | DX: R55 Syncope and collapse (principal) | CPT/HCPCS: 93010 ==

== ENCOUNTER 2025-01-09 10:24 | Emergency (ER) | payer OTHER, SELFPAY ==
[2025-01-09 10:28] VITALS: BP 133/78; PULSE 90; RESP 18; TEMP 36.6; O2SAT 99; BMI 35.7
--- NOTE | 2025-01-09 10:28 | ED_ITS ---
HPI - General Adult General Chief complaint: Allergic Reaction Stated complaint: allergic reaction Time Seen by Provider: 01/09/25 10:55 Source: patient Mode of arrival: ambulatory Limitations: no limitations History of Present Illness HPI narrative: This is a 29 years old female presented to the emergency department complaining of an allergic reaction for about an hour. 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, she also has a history of fibromyalgia Prudencio-Danlos syndrome she states that she is losing her voice and symptoms started about an hour ago Onset (ago): hour(s) (1) Radiation: non-radiation Severity: moderate Quality: burning Pain Consistency: constant Relieving factors: none Exacerbating factors: none Related Data Home Medications ?Medication ?Instructions ?Recorded ?Confirmed cholecalciferol (vitamin D3) 125 1 cap PO DAILY 06/11/24 mcg (5,000 unit) capsule acetaminophen 325 mg capsule 650 mg PO Q6H PRN 3 06/11/24 (Tylenol) ibuprofen 600 mg tablet 600 mg PO Q8H PRN 07/17/22 0 06/11/24 aripiprazole 15 mg tablet 15 mg PO DAILY 12/13/2205/31 midodrine 5 mg tablet 5 mg PO TID 12/13/22 5 duloxetine 60 mg capsule,delayed 60 mg PO DAILY 06/11/24 release Previous Rx's ?Medication ?Instructions ?Recorded pregabalin 150 mg capsule (Lyrica) 150 mg PO BID 30 da ys #60 caps 06/11/24 ondansetron 4 mg disintegrating 4 mg PO Q8H PRN nausea and 06/21/24 tablet vomiting #20 tabs tizanidine 4 mg capsule 4 mg PO TID PRN muscle spast icity 07/01/24 30 days #90 caps morphine 15 mg immediate release 15 mg PO Q6H PRN pain #15 tabs 08/04/24 tablet methocarbamol 750 mg tablet 750 mg PO Q8H 10 days #30 tabs 10/06/24 cyclobenzaprine 5 mg tablet 5 mg PO TID PRN muscle spa sm #20 12/25/24 tabs Allergies Allergy/AdvReac Type Severity Reaction Status Date / Time Sulfa (Sulfonamide Allergy Intermediate DIARRHEA Verified 01/09/25 10:30 Antibiotics) (SULFA (SULFONAMIDE ANTIBIOTICS)) topiramate (From Topamax) Allergy Anaphylaxis Verified 01/09/25 10:30 venlafaxine (From Effexor) Allergy Unknown Verified 01/09/25 10:30 trazodone (TRAZODONE) AdvReac Mild UNKNOWN Verified 01/09/25 10:30 topamax AdvReac Intermediate Unknown Uncoded 10/06/24 14:06 Review of Systems 2 Eyes: Eyes: Reports no additional eye complaints ENT: Reports system reviewed and no additional complaints, except as documented Gastrointestinal: Gastrointestinal: Reports no additional gastrointestinal complaints [facility] Past Medical History Attestation statement: The following information was validated with the patient. Medical History Bipolar affective disorder Hyperchloremic metabolic acidosis Vitamin D deficiency Hypocalcemia Obesity Cyst of pituitary gland Raynauds disease Allergy to sunlight PTSD (post-traumatic stress disorder) Fibromyalgia CRISTIANA (generalized anxiety disorder) POTS (postural orthostatic tachycardia syndrome) Syncope and collapse Idiopathic autonomic neuropathy Autonomic dysfunction Bipolar II disorder Major depressive disorder Suicidal ideation Social History Social History Household Members: Family Household Members Other:: and baby Housing: Apartment Do you presently have visiting nurse or other home services: No Patient Tobacco Use Status: Never used Tobacco Substance Use Type: Marijuana Advance Directives: No Advance Directives Information Provided: No service: No Sexual orientation: Bisexual Physical Exam ED Exam Exam: No acute distress looks well Vital Signs: Vital Signs - 24 hr 01/09/25 10:28 01/09/25 12:00 Temperature 97.8 F 98.5 F Pulse Rate 90 83 Respiratory Rate 18 16 Blood Pressure 133/78 120/78 Pulse Oximetry 99 100 Oxygen Delivery Method Room Air Room Air BMI result Body Mass Index 35.7 Const General: cooperative Nutritional Appearance: average body habitus Orientation/consciousness: patient oriented x3 Limitations: no limitations HENMT Head: Yes normal to inspection Face and sinus: Yes normal facial exam Mouth: Normal oral and palatal mucosa present Teeth and gingiva: dentition normal Throat: Yes posterior oropharynx normal Neck Neck: Yes normal visual inspection Chest Chest palpation & inspection: normal inspection of the chest Resp Effort & Inspection: normal respiratory effort Auscultation: clear to auscultation bilaterally Cardio Rate: regular rate Rhythm: regular rhythm GI Inspection: Yes normal to inspection Palpation (GI): Soft to palpation, not firm and nontender Auscultation: normal bowel sounds Skin General skin exam: no rashes or lesions noted Lesions: no lesions Rashes: no rashes Neuro General: patient oriented x3 Course Course Course Narrative: Rapid medical examination performed in triage by Sadaf Roth PA-C. Patient is a 29 year old assigned female at presenting to the emergency department with an allergic reaction. Patient states that she had a hummus and tomato sandwich but given her MCAS - random things cause reactions. Detailed physical exam and review of systems are deferred to the ground equipment mechanic. Labs ordered. gas derrick operator aware. Reevaluation(s) Reevaluation #1: On re-examination the patient is feeling better voices back anticipate discharge Time: 12:19 Reevaluation #2: Feels much better completely asymptomatic anticipate discharge Time: 12:51 Medications Administered Discontinued Medications Generic Name Dose Route Start Last Admin Trade Name Freq PRN Reason Stop Dose Admin Diphenhydramine HCl 50 mg 01/09/25 10:30 01/09/25 10:58 Diphenhydramine Hcl 50 Mg/Ml Vial IVPUSH 01/09/25 10:31 50 mg ONCE ONE Administration Famotidine 20 mg 01/09/25 10:30 01/09/25 10:58 Famotidine/Pf 20 Mg/2 Ml Vial IVPUSH 01/09/25 10:31 20 mg ONCE ONE Administration Sodium Chloride 1,000 mls @ 999 mls/hr 01/09/25 11:15 01/09/25 12:48 Ns IVCONT 01/09/25 12:15 Infused .Q1H1M DELLA Infusion Methylprednisolone Sodium Succinate 60 mg 01/09/25 10:30 01/09/25 10:58 Methylprednisolone Sod Succ 125 Mg/2 Ml Vial IVPUSH 01/09/25 10:31 60 mg ONCE ONE Administration Medical Decision Making Medical Decision Making [facility] Narrative: Patient is here with a an allergic reaction we will administer steroid Benadryl and reassess I do not think she needs an epinephrine right now Differential Diagnosis Differential Diagnoses: The differential diagnosis associated with the presentation includes Allergic reaction/anaphylaxis Admission/Observation Consideration of admission/observation: Escalation of care including admission/observation considered Lab Data [facility] Lab Attestation statement: I reviewed the patient's lab results. 01/09/25 10:38 01/09/25 10:38 Labs: Lab Results 01/09/25 01/09/25 Range/Units 10:37 10:38 WBC 7.8 (4.8-10.8) X10*3/uL RBC 4.51 (4.20-5.50) X10*6/uL Hgb 14.0 (12.0-16.0) g/dl Hct 40.7 (37.0-47.0) % MCV 90.2 (80.0-98.0) fL MCH 31.0 (27.0-33.0) pg MCHC 34.4 (31.0-35.0) g/dl RDW 13.1 (11.0-16.0) % Plt Count 252 (160-400) X10*3/uL MPV 9.7 (9.4-12.3) fL Immature Gran % (Auto) 0.4 (0.0-0.4) % Neut % (Auto) 63.4 (45-73) % Lymph % (Auto) 26.6 (20-40) % [place] % (Auto) 7.2 (2-11) % Eos % (Auto) 2.0 (0-4) % Baso % (Auto) 0.4 (0-2) % Lymph # (Auto) 2.1 (1.2-4.9) X10*3/uL [place] # (Auto) 0.6 (0.1-1.2) X10*3/uL Eos # (Auto) 0.2 (0.0-0.4) X10*3/uL Baso # (Auto) 0.0 (0.0-0.2) X10*3/uL Abs Immat Gran (auto) 0.03 (0.00-0.03) X10*3/uL Absolute Neuts (auto) 5.0 (2.0-8.3) x10*3/uL Absolute Nucleated RBC 0.000 (0.0-0.012) X10*3/uL Nucleated RBC % (auto) 0.0 (0.0-0.2) /100WBC Sodium 143 (135-145) mmol/L Potassium 3.5 (3.3-5.1) mmol/L Chloride 110 H (96-108) mmol/L Carbon Dioxide 27 (22-29) mmol/L Anion Gap 10 L (12-20) BUN 10 (9-16) mg/dL Creatinine 0.58 (0.5-1.4) mg/dL Estim Creat Clear Calc 145.2 Estimated GFR > 60 Random Glucose 89 (60-115) mg/dL Calcium 9.0 (8.4-10.2) mg/dL Total Bilirubin 0.7 (0.0-1.0) mg/dL AST 17 (5-31) U/L ALT 14 (0-31) U/L Alkaline Phosphatase 94 (39-117) U/L Total Protein 7.0 (6.5-8.0) g/dL Albumin 4.7 (3.5-5.0) g/dL COVID-19 (BARRETT) Negative (Negative) COVID-19 Clin Com See Note Influenza Type A (ALEYDA) Negative (Negative) Influenza Type B (ALEYDA) Negative (Negative) Influenza A & B Note See Note S. pyogenes GrpA ALEYDA Negative (Negative) Independent Historian Clinical information obtained from an independent historian. History obtained from or confirmed by: Other (girlfriend) Critical Care Time Critical Care Time Critical Care Time: Yes Total Critical Care Time: 60 Attestation: Take care of the patient IV Solu-Medrol IV Benadryl IV Pepcid Discharge Plan Discharge Clinical Impression: Allergic reaction Qualifiers: Encounter type: initial encounter Qualified Code(s): T78.40XA - Allergy, unspecified, initial encounter Patient Disposition: Home, Self-Care Instructions: General Allergic Reaction (ED) Additional Instructions: Follow-up with your primary care physician return to emergency room if worse Prescriptions: No Action tizanidine 4 mg capsule 4 mg PO TID PRN (Reason: muscle spasticity) 30 Days Qty: 90 8RF cholecalciferol (vitamin D3) 125 mcg (5,000 unit) capsule 1 cap PO DAILY methocarbamol 750 mg tablet 750 mg PO Q8H 10 Days Qty: 30 0RF ondansetron 4 mg tablet,disintegrating 4 mg PO Q8H PRN (Reason: nausea and vomiting) Qty: 20 0RF morphine 15 mg tablet 15 mg PO Q6H PRN (Reason: pain) Qty: 15 0RF Rx Instructions: Partial Fill upon patient request. cyclobenzaprine 5 mg tablet 5 mg PO TID PRN (Reason: muscle spasm) Qty: 20 0RF duloxetine 60 mg capsule,delayed release(DR/EC) 60 mg PO DAILY ibuprofen 600 mg tablet 600 mg PO Q8H PRN acetaminophen [Tylenol] 325 mg capsule 650 mg PO Q6H PRN aripiprazole 15 mg tablet 15 mg PO DAILY midodrine 5 mg tablet 5 mg PO TID pregabalin [Lyrica] 150 mg capsule 150 mg PO BID 30 Days Qty: 60 5RF Print Language: [place] Leonean
[2025-01-09 10:48] LABS: MANUAL DIFF FLAG NO
[2025-01-09 10:49] LABS: Hematocrit 40.7 % (37.0-47.0); Hemoglobin 14.0 g/dl (12.0-16.0); Imm Gran Abs Auto 0.03 X10*3/uL (0.00-0.03); Imm Gran Pct Auto 0.4 % (0.0-0.4); Lymphocytes Absolute Auto 2.1 X10*3/uL (1.2-4.9); Mean Corpuscular HGB Conc 34.4 g/dl (31.0-35.0); Mean Corpuscular Hemoglobin 31.0 pg (27.0-33.0); Mean Corpuscular Volume 90.2 fL (80.0-98.0); NRBC Abs Auto 0.000 X10*3/uL (0.0-0.012); NRBC Pct Auto 0.0 /100WBC (0.0-0.2); Platelet Count 252 X10*3/uL (160-400); Red Blood Count 4.51 X10*6/uL (4.20-5.50); White Blood Count 7.8 X10*3/uL (4.8-10.8)
[2025-01-09 11:03] LABS: IDNOW Serial# 55D5AD1C; Strep A Nucleic Acid Negative (Negative)
[2025-01-09 11:06] LABS: COVID-19 Test Negative (Negative); IDNOW Serial# 58CA691E
[2025-01-09 11:07] LABS: Alanine Aminotransferase 14 U/L (0-31); Albumin Level 4.7 g/dL (3.5-5.0); Alkaline Phosphatase 94 U/L (39-117); Anion Gap 10 (12-20); Aspartate Amino Transferase 17 U/L (5-31); Blood Urea Nitrogen 10 mg/dL (9-16); Calcium 9.0 mg/dL (8.4-10.2); Carbon Dioxide 27 mmol/L (22-29); Chloride 110 mmol/L (96-108); Creatinine Clr Calc Pharmacy 145.2; Estimated Glomerular Filt Rate > 60; Potassium 3.5 mmol/L (3.3-5.1); Sodium 143 mmol/L (135-145); Total Protein 7.0 g/dL (6.5-8.0)
[2025-01-09 11:10] LABS: IDNOW Serial# 08D9AD1C; Influenza B2 Negative (Negative)
[2025-01-09 12:00] VITALS: BP 120/78; PULSE 83; RESP 16; TEMP 36.9; O2SAT 100
--- OUTSIDE RECORDS SUMMARY | 2025-01-09 12:25 | XMS_ITS | Clinical Summary ---
Author Organization [facility] Address [address] [place] [address] Care Team Providers Care Transport Medic Name Role Phone Mónica Valle Primary Care Provider [phone] Allergies Active Allergy Reactions Criticality Noted Date [...] daily. Active NORETHINDRONE AC-ETH ESTRADIOL (JUNEL 1.5, , ORAL) Take by mouth. Active ergocalciferol (VITAMIN [...] Years) (1 of 2 - PCV) 2012 Alcohol/Substance Use Screening 04/30/2024 Depression Screening and Follow-Up 04/30/2024 Social Drivers of Health Joie ual Screening 04/30/2024 COVID-19 Vaccine (5 - 2024-2 6 season) 2024 04/10/2022, 02/17/2021, 06/13/2020, Additional history exists Influenza Vaccine (#1) 2024 2, 01/15/2021, 01/07/2020, Additional history exists DTaP,Tdap,and Td Vaccines (8 - Td or Tdap) 08/04/2031 08/03/2021, 08/07/2017, 10/27/2011, Additional history exists RSV Vaccine (60+ years old a nd patients) (1 - 1-dose 75+ series) 2068 Hepatitis B Vaccines Completed 07/02/2020, 03/11/2020, 12/30/2019, Additional history exists Insurance CIGNA PPO/EPO/IND [facility] CIGNA PPO/EPO/IND Advance Directives * Full Code (Latest Code Status on File) Date Activated Date Inactivated Comments 05/08/2017 12:56 PM 05/08/2017 4:37 PM Care Teams Transport Medic Relationship Specialty Start Date End Date Mónica Valle [address] [address] PCP - General 01/19/22
[2025-01-09 12:59] VITALS: BP 119/71; PULSE 84; RESP 15; TEMP 36.9; O2SAT 100
[2025-01-09 13:03] VITALS: BP 119/71; PULSE 84; RESP 15; TEMP 36.9; O2SAT 100
== END 2025-01-09 13:04 | disposition home or self-care (01) ==
PROVIDERS: Physician Assistant Medical; Emergency Provider Emergency Medicine; PCP Nurse Practitioner Adult Health
DX: T78.40XA Allergy, unspecified, initial encounter (principal); D89.40 Mast cell activation, unspecified; M79.7 Fibromyalgia; Q79.60 Ehlers-Danlos syndrome, unspecified; Z79.899 Other long term (current) drug therapy
CPT/HCPCS: 80053; 85025; 87502; 87635; 87651; 96361; 96374; 96375; 99283; 99284; J1200; J1308; J2919

== ENCOUNTER 2025-01-11 21:00 | Emergency (ER) | payer OTHER, SELFPAY ==
[2025-01-11 21:06] VITALS: BP 121/73; PULSE 84; RESP 18; TEMP 36.7; O2SAT 100; BMI 35.1
--- OUTSIDE RECORDS SUMMARY | 2025-01-11 21:26 | XMS_ITS | Clinical Summary ---
Author Organization [facility] Address [address] [place] [address] Care Team Providers Care Electrical Manager Name Role Phone Mónica Valle Primary Care Provider [phone] Allergies Active Allergy Reactions Criticality Noted Date [...] 12/30/2019, Additional history exists Insurance CIGNA PPO/EPO/IND [facility] CIGNA PPO/EPO/IND Advance Directives * Full Code (Latest Code Status on File) Date Activated Date Inactivated Comments 05/08/2017 12:56 PM 05/08/2017 4:37 PM Care Teams Electrical Manager Relationship Specialty Start Date End Date Mónica Valle [address] [address] PCP - General 01/19/22
--- NOTE | 2025-01-11 22:46 | ED.ALLEREA ---
HPI - Allergic Reaction General Chief complaint: Allergic Reaction Stated complaint: allergic reaction Time Seen by Provider: 01/11/25 22:19 History of Present Illness HPI narrative: Patient is 29 years old with a history of mast cell activation syndrome presented today with having eating a [place]apple in [place] then subsequently reports itching to her throat feeling weak. Patient took Benadryl prior to arrival. From home. No fever no chills no symptoms prior. Patient denies any dizziness nausea vomiting Related Data Home Medications ?Medication ?Instructions ?Recorded ?Confirmed cholecalciferol (vitamin D3) 125 1 cap PO DAILY 06/20/22 06/11/24 mcg (5,000 unit) capsule acetaminophen 325 mg capsule 650 mg PO Q6H PRN 07/17/22 06/11/24 (Tylenol) ibuprofen 600 mg tablet 600 mg PO Q8H PRN 07/17/22 06/11/24 aripiprazole 15 mg tablet 15 mg PO DAILY 12/13/22 06/11/24 midodrine 5 mg tablet 5 mg PO TID 12/13/22 06/11/24 duloxetine 60 mg capsule,delayed 60 mg PO DAILY 01/05/24 06/11/24 release Previous Rx's ?Medication ?Instructions ?Recorded pregabalin 150 mg capsule (Lyrica) 150 mg PO BID 30 days #60 caps 06/11/24 ondansetron 4 mg disintegrating 4 mg PO Q8H PRN nausea and 06/21/24 tablet vomiting #20 tabs tizanidine 4 mg capsule 4 mg PO TID PRN muscle spasticity 07/01/24 30 days #90 caps morphine 15 mg immediate release 15 mg PO Q6H PRN pain #15 tabs 08/04/24 tablet methocarbamol 750 mg tablet 750 mg PO Q8H 10 days #30 tabs 10/06/24 cyclobenzaprine 5 mg tablet 5 mg PO TID PRN muscle spasm #20 12/25/24 tabs diphenhydramine HCl 25 mg capsule 25 mg PO Q8H 5 days #15 caps 01/11/25 (Benadryl) epinephrine 0.3 mg/0.3 mL 0.3 mg (0.3 mL) IM ONCE PRN 01/11/25 injection, auto-injector (EpiPen) extreme reaction #1 ea famotidine 20 mg tablet (Pepcid) 20 mg PO BID 5 days #10 tabs 01/11/25 prednisone 20 mg tablet 40 mg (2 x 20 mg) PO DAILY #10 tabs 01/11/25 Allergies Allergy/AdvReac Type Severity Reaction Status Date / Time Sulfa (Sulfonamide Allergy Intermediate DIARRHEA Verified 01/11/25 21:07 Antibiotics) (SULFA (SULFONAMIDE ANTIBIOTICS)) topiramate (From Topamax) Allergy Anaphylaxis Verified 01/11/25 21:07 venlafaxine (From Effexor) Allergy Unknown Verified 01/11/25 21:07 trazodone (TRAZODONE) AdvReac Mild UNKNOWN Verified 01/11/25 21:07 topamax AdvReac Intermediate Unknown Uncoded 01/11/25 21:07 Review of Systems Review of Systems: Positive itchy throat, positive rash PMFSH Past Medical History Attestation statement: The following information was validated with the patient. Medical History Bipolar affective disorder Hyperchloremic metabolic acidosis Vitamin D deficiency Hypocalcemia Obesity Cyst of pituitary gland Raynauds disease Allergy to sunlight PTSD (post-traumatic stress disorder) Fibromyalgia CRISTIANA (generalized anxiety disorder) POTS (postural orthostatic tachycardia syndrome) Syncope and collapse Idiopathic autonomic neuropathy Autonomic dysfunction Bipolar II disorder Major depressive disorder Suicidal ideation Social History Social History Household Members: Family Household Members Other:: and baby Housing: Apartment Do you presently have visiting nurse or other home services: No Patient Tobacco Use Status: Never used Tobacco Substance Use Type: Marijuana Advance Directives: No Advance Directives Information Provided: Yes service: No Sexual orientation: Bisexual Physical Exam ED Exam Exam: Appearance: Alert. Oriented X3. No acute distress. Eyes: Pupils equal, round and reactive to light. ENT: Pharynx normal. Neck: Normal inspection. Neck supple. No lymph nodes noted. No crepitus CVS: Normal heart rate and rhythm. Pulses normal. Normal S1 and S2 Respiratory: No respiratory distress. Breath sounds normal. No Wheezing. No rales Abdomen: Soft and nontender. No rigidity. No distention. good BS x4 Skin: Skin warm and dry. Normal skin color. Normal skin turgor. Extremities: No lower extremity edema. Neurovascular intact to all extremities. No Lacerations. No Rash Neuro: Oriented X 3. No motor deficit. No sensory deficit. Moving all extermities. No slurred speech Vital Signs: Vital Signs - 24 hr 01/11/25 21:06 Temperature 98.0 F Pulse Rate 84 Respiratory Rate 18 Blood Pressure 121/73 Pulse Oximetry 100 Oxygen Delivery Method Room Air BMI result Body Mass Index 35.1 Medications Administered Discontinued Medications Generic Name Dose Route Start Last Admin Trade Name Freq PRN Reason Stop Dose Admin Famotidine 20 mg 01/11/25 21:13 01/11/25 21:36 Famotidine/Pf 20 Mg/2 Ml Vial IVPUSH 01/11/25 21:14 20 mg ONCE ONE Administration Methylprednisolone Sodium Succinate 60 mg 01/11/25 21:13 01/11/25 21:36 Methylprednisolone Sod Succ 125 Mg/2 Ml Vial IVPUSH 01/11/25 21:14 60 mg ONCE ONE Administration Medical Decision Making Medical Decision Making MDM Narrative: Patient was given steroid and Pepcid in triage she already took Benadryl prior to arrival patient is well-appearing. Lungs are clear. Posterior pharynx is normal voice is normal no distress. Been monitored in the ED for 2 hours. Will discharge patient home close follow-up advised. Avoid offending agent. Differential Diagnosis Differential Diagnoses: The differential diagnosis associated with the presentation includes Allergic reaction anaphylaxis Chronic Conditions MCAS Social Determinants Patient?s care significantly limited by Social Determinants of Health including: Problems related to primary support group Discharge Plan Discharge Clinical Impression: Allergic reaction Patient Disposition: Home, Self-Care Instructions: General Allergic Reaction (ED) Prescriptions: New prednisone 20 mg tablet 40 mg PO DAILY Qty: 10 0RF famotidine [Pepcid] 20 mg tablet 20 mg PO BID 5 Days Qty: 10 0RF diphenhydramine HCl [Benadryl] 25 mg capsule 25 mg PO Q8H 5 Days Qty: 15 0RF epinephrine [EpiPen] 0.3 mg/0.3 mL auto-injector 0.3 mg IM ONCE PRN (Reason: extreme reaction) Qty: 1 0RF Rx Instructions: for 2 doses No Action tizanidine 4 mg capsule 4 mg PO TID PRN (Reason: muscle spasticity) 30 Days Qty: 90 8RF cholecalciferol (vitamin D3) 125 mcg (5,000 unit) capsule 1 cap PO DAILY methocarbamol 750 mg tablet 750 mg PO Q8H 10 Days Qty: 30 0RF ondansetron 4 mg tablet,disintegrating 4 mg PO Q8H PRN (Reason: nausea and vomiting) Qty: 20 0RF morphine 15 mg tablet 15 mg PO Q6H PRN (Reason: pain) Qty: 15 0RF Rx Instructions: Partial Fill upon patient request. cyclobenzaprine 5 mg tablet 5 mg PO TID PRN (Reason: muscle spasm) Qty: 20 0RF duloxetine 60 mg capsule,delayed release(DR/EC) 60 mg PO DAILY ibuprofen 600 mg tablet 600 mg PO Q8H PRN acetaminophen [Tylenol] 325 mg capsule 650 mg PO Q6H PRN aripiprazole 15 mg tablet 15 mg PO DAILY midodrine 5 mg tablet 5 mg PO TID pregabalin [Lyrica] 150 mg capsule 150 mg PO BID 30 Days Qty: 60 5RF Referrals: Mónica Valle, [facility] [employer]ENER [Primary Care Provider, Internal Medicine] - 2 days Print Language: Italian
--- NOTE | 2025-01-11 22:49 | ED.ALLEREA ---
HPI - Allergic Reaction General Chief complaint: Allergic Reaction Stated complaint: allergic reaction Time Seen by Provider: 01/11/25 22:19 Related Data Home Medications ?Medication ?Instructions ?Recorded ?Confirmed cholecalciferol (vitamin D3) 125 1 cap PO DAILY 06/20/22 06/11/24 mcg (5,000 unit) capsule acetaminophen 325 mg capsule 650 mg PO Q6H PRN 07/17/22 06/11/24 (Tylenol) ibuprofen 600 mg tablet 600 mg PO Q8H PRN 07/17/22 06/11/24 aripiprazole 15 mg tablet 15 mg PO DAILY 12/13/22 06/11/24 midodrine 5 mg tablet 5 mg PO TID 12/13/22 06/11/24 duloxetine 60 mg capsule,delayed 60 mg PO DAILY 01/05/24 06/11/24 release Previous Rx's ?Medication ?Instructions ?Recorded pregabalin 150 mg capsule (Lyrica) 150 mg PO BID 30 days #60 caps 06/11/24 ondansetron 4 mg disintegrating 4 mg PO Q8H PRN nausea and 06/21/24 tablet vomiting #20 tabs tizanidine 4 mg capsule 4 mg PO TID PRN muscle spasticity 07/01/24 30 days #90 caps morphine 15 mg immediate release 15 mg PO Q6H PRN pain #15 tabs 08/04/24 tablet methocarbamol 750 mg tablet 750 mg PO Q8H 10 days #30 tabs 10/06/24 cyclobenzaprine 5 mg tablet 5 mg PO TID PRN muscle spasm #20 12/25/24 tabs diphenhydramine HCl 25 mg capsule 25 mg PO Q8H 5 days #15 caps 01/11/25 (Benadryl) epinephrine 0.3 mg/0.3 mL 0.3 mg (0.3 mL) IM ONCE PRN 01/11/25 injection, auto-injector (EpiPen) extreme reaction #1 ea famotidine 20 mg tablet (Pepcid) 20 mg PO BID 5 days #10 tabs 01/11/25 prednisone 20 mg tablet 40 mg (2 x 20 mg) PO DAILY #10 tabs 01/11/25 Allergies Allergy/AdvReac Type Severity Reaction Status Date / Time Sulfa (Sulfonamide Allergy Intermediate DIARRHEA Verified 01/11/25 21:07 Antibiotics) (SULFA (SULFONAMIDE ANTIBIOTICS)) topiramate (From Topamax) Allergy Anaphylaxis Verified 01/11/25 21:07 venlafaxine (From Effexor) Allergy Unknown Verified 01/11/25 21:07 trazodone (TRAZODONE) AdvReac Mild UNKNOWN Verified 01/11/25 21:07 topamax AdvReac Intermediate Unknown Uncoded 01/11/25 21:07 [facility] Past Medical History Medical History Bipolar affective disorder Hyperchloremic metabolic acidosis Vitamin D deficiency Hypocalcemia Obesity Cyst of pituitary gland Raynauds disease Allergy to sunlight PTSD (post-traumatic stress disorder) Fibromyalgia CRISTIANA (generalized anxiety disorder) POTS (postural orthostatic tachycardia syndrome) Syncope and collapse Idiopathic autonomic neuropathy Autonomic dysfunction Bipolar II disorder Major depressive disorder Suicidal ideation Social History Social History Household Members: Family Household Members Other:: and baby Housing: Apartment Do you presently have visiting nurse or other home services: No Patient Tobacco Use Status: Never used Tobacco Substance Use Type: Marijuana Advance Directives: No Advance Directives Information Provided: Yes service: No Sexual orientation: Bisexual Physical Exam ED Vital Signs: Vital Signs - 24 hr 01/11/25 21:06 Temperature 98.0 F Pulse Rate 84 Respiratory Rate 18 Blood Pressure 121/73 Pulse Oximetry 100 Oxygen Delivery Method Room Air BMI result Body Mass Index 35.1 Medications Administered Discontinued Medications Generic Name Dose Route Start Last Admin Trade Name Freq PRN Reason Stop Dose Admin Famotidine 20 mg 01/11/25 21:13 01/11/25 21:36 Famotidine/Pf 20 Mg/2 Ml Vial IVPUSH 01/11/25 21:14 20 mg ONCE ONE Administration Methylprednisolone Sodium Succinate 60 mg 01/11/25 21:13 01/11/25 21:36 Methylprednisolone Sod Succ 125 Mg/2 Ml Vial IVPUSH 01/11/25 21:14 60 mg ONCE ONE Administration Discharge Plan Discharge Clinical Impression: Allergic reaction Patient Disposition: Home, Self-Care Instructions: General Allergic Reaction (ED) Prescriptions: New prednisone 20 mg tablet 40 mg PO DAILY Qty: 10 0RF famotidine [Pepcid] 20 mg tablet 20 mg PO BID 5 Days Qty: 10 0RF diphenhydramine HCl [Benadryl] 25 mg capsule 25 mg PO Q8H 5 Days Qty: 15 0RF epinephrine [EpiPen] 0.3 mg/0.3 mL auto-injector 0.3 mg IM ONCE PRN (Reason: extreme reaction) Qty: 1 0RF Rx Instructions: for 2 doses No Action tizanidine 4 mg capsule 4 mg PO TID PRN (Reason: muscle spasticity) 30 Days Qty: 90 8RF cholecalciferol (vitamin D3) 125 mcg (5,000 unit) capsule 1 cap PO DAILY methocarbamol 750 mg tablet 750 mg PO Q8H 10 Days Qty: 30 0RF ondansetron 4 mg tablet,disintegrating 4 mg PO Q8H PRN (Reason: nausea and vomiting) Qty: 20 0RF morphine 15 mg tablet 15 mg PO Q6H PRN (Reason: pain) Qty: 15 0RF Rx Instructions: Partial Fill upon patient request. cyclobenzaprine 5 mg tablet 5 mg PO TID PRN (Reason: muscle spasm) Qty: 20 0RF duloxetine 60 mg capsule,delayed release(DR/EC) 60 mg PO DAILY ibuprofen 600 mg tablet 600 mg PO Q8H PRN acetaminophen [Tylenol] 325 mg capsule 650 mg PO Q6H PRN aripiprazole 15 mg tablet 15 mg PO DAILY midodrine 5 mg tablet 5 mg PO TID pregabalin [Lyrica] 150 mg capsule 150 mg PO BID 30 Days Qty: 60 5RF Referrals: Mónica Valle, TRAVON [Primary Care Provider, Internal Medicine] - 2 days Print Language: Italian
[2025-01-11 23:58] VITALS: BP 101/60; PULSE 77; RESP 16; TEMP 36.9; O2SAT 98
[2025-01-12 00:44] VITALS: BP 101/60; PULSE 77; RESP 16; TEMP 36.9; O2SAT 98
== END 2025-01-12 00:44 | disposition home or self-care (01) ==
PROVIDERS: Emergency Provider Emergency Medicine Emergency Medical Services; PCP Nurse Practitioner Adult Health
DX: L50.0 Allergic urticaria (principal); Z79.899 Other long term (current) drug therapy
CPT/HCPCS: 96374; 96375; 99284; J1308; J2919

== ENCOUNTER 2025-01-15 13:01 | Emergency (ER) | payer OTHER, SELFPAY ==
[2025-01-15 13:03] VITALS: BP 105/63; PULSE 103; RESP 18; TEMP 36.9; O2SAT 98; BMI 34.7
--- NOTE | 2025-01-15 13:04 | ED.ALLEREA ---
HPI - Allergic Reaction General Chief complaint: Allergic Reaction Stated complaint: allergic reaction ? Time Seen by Provider: 01/15/25 13:13 Source: patient, RN notes reviewed and old records reviewed History of Present Illness ED Provider: GABBY Nowak HPI narrative: 29-year-old female with medical history of MCAS, fibromyalgia, Raynaud's disease, bipolar affective disorder, Prudencio-Danlos syndrome, PTSD, depression, presents to the ED due to allergic reaction that began after eating pancakes, guzmán and artificial maple syrup. Patient states symptoms started 1 hour after eating and began to experience throat itching, chest tightness, and high pitched vocal changes. Patient reports taking pepcid, benadryl, and prednisone prior to arrival without effect. Patient states over the last 2 weeks she has had an increase in food items that have been causing a reaction. She states she is in the process of getting reestablished with her land surveyor assistant at the moment. Denies chest pain, SOB, difficulty breathing, nausea, vomiting or abdominal pain Related Data Home Medications ?Medication ?Instructions ?Recorded ?Confirmed cholecalciferol (vitamin D3) 125 1 cap PO DAILY 06/20/22 06/11/24 mcg (5,000 unit) capsule acetaminophen 325 mg capsule 650 mg PO Q6H PRN 07/17/22 06/11/24 (Tylenol) ibuprofen 600 mg tablet 600 mg PO Q8H PRN 07/17/22 06/11/24 aripiprazole 15 mg tablet 15 mg PO DAILY 12/13/22 06/11/24 midodrine 5 mg tablet 5 mg PO TID 12/13/22 06/11/24 duloxetine 60 mg capsule,delayed 60 mg PO DAILY 01/05/24 06/11/24 release Previous Rx's ?Medication ?Instructions ?Recorded pregabalin 150 mg capsule (Lyrica) 150 mg PO BID 30 days #60 caps 06/11/24 ondansetron 4 mg disintegrating 4 mg PO Q8H PRN nausea and 06/21/24 tablet vomiting #20 tabs tizanidine 4 mg capsule 4 mg PO TID PRN muscle spasticity 07/01/24 30 days #90 caps morphine 15 mg immediate release 15 mg PO Q6H PRN pain #15 tabs 08/04/24 tablet methocarbamol 750 mg tablet 750 mg PO Q8H 10 days #30 tabs 10/06/24 cyclobenzaprine 5 mg tablet 5 mg PO TID PRN muscle spasm #20 12/25/24 tabs diphenhydramine HCl 25 mg capsule 25 mg PO Q8H 5 days #15 caps 01/11/25 (Benadryl) epinephrine 0.3 mg/0.3 mL 0.3 mg (0.3 mL) IM ONCE PRN 01/11/25 injection, auto-injector (EpiPen) extreme reaction #1 ea famotidine 20 mg tablet (Pepcid) 20 mg PO BID 5 days #10 tabs 01/11/25 prednisone 20 mg tablet 40 mg (2 x 20 mg) PO DAILY #10 tabs 01/11/25 Allergies Allergy/AdvReac Type Severity Reaction Status Date / Time Sulfa (Sulfonamide Allergy Intermediate DIARRHEA Verified 01/15/25 13:05 Antibiotics) (SULFA (SULFONAMIDE ANTIBIOTICS)) topiramate (From Topamax) Allergy Anaphylaxis Verified 01/15/25 13:05 venlafaxine (From Effexor) Allergy Unknown Verified 01/15/25 13:05 trazodone (TRAZODONE) AdvReac Mild UNKNOWN Verified 01/15/25 13:05 topamax AdvReac Intermediate Unknown Uncoded 01/11/25 21:07 Review of Systems Review of Systems: CONST: Negative for fever, body aches and chills. HENT: Negative for neck pain/stiffness, headache, congestion, sore throat, swelling. POS throat itching, high pitched vocal changes EYES: Negative for discharge/pain or vision changes. RESP: Negative for cough/hemoptysis and shortness of breath. POS chest tightness CV: Negative chest pain, difficulty breathing, palpitations. ABD: Negative pain, nausea, vomiting. : Negative increase frequency, dysuria, blood in urine or stool. MUSC: Negative for muscle aches, edema. SKIN: Negative rash, lesions/sores. NEURO: Negative headache, dizziness, weakness. Yes all other systems are reviewed and are negative [facility] Past Medical History Attestation statement: The following information was validated with the patient. Source: old records reviewed and nursing notes reviewed Medical History Bipolar affective disorder Hyperchloremic metabolic acidosis Vitamin D deficiency Hypocalcemia Obesity Cyst of pituitary gland Raynauds disease Allergy to sunlight PTSD (post-traumatic stress disorder) Fibromyalgia CRISTIANA (generalized anxiety disorder) POTS (postural orthostatic tachycardia syndrome) Syncope and collapse Idiopathic autonomic neuropathy Autonomic dysfunction Bipolar II disorder Major depressive disorder Suicidal ideation Social History Social History Household Members: Family Household Members Other:: and baby Housing: Apartment Do you presently have visiting nurse or other home services: No Alcohol intake: current Alcohol intake frequency: holidays/special occasions only Alcohol type: beer, wine and hard liquor Patient Tobacco Use Status: Never used Tobacco Smoked in Last 30 Days: No Use of substances other than those prescribed or required for medical reasons: Yes Substance Use Type: Marijuana Advance Directives: No Advance Directives Information Provided: No Patient : No service: No Sexual orientation: Bisexual Physical Exam ED Vital Signs: Vital Signs - 24 hr 01/15/25 13:03 01/15/25 13:41 01/15/25 13:49 Temperature 98.4 F 98.4 F Pulse Rate 103 H 83 83 Respiratory Rate 18 16 13 Blood Pressure 105/63 112/74 Pulse Oximetry 98 96 Oxygen Delivery Method Room Air Room Air BMI result Body Mass Index 34.7 GENERAL APPEARANCE: ?AxOx4, generally well-appearing, no acute distress. HEENT: ?NC, AT. MMM. EOMI, clear conjunctiva, oropharynx clear without edema, uvula midline no edema, erythema, no tonsilar edema. Airway patent, no sublingual or submandibular swelling, patient talking in clear full sentences and managing oral secretions. NECK: ?Supple without lymphadenopathy.? No stiffness or restricted ROM. HEART:? Normal rate and regular rhythm, normal S1/S2, no m/r/g LUNGS:? CTAB, moving air well. No crackles or wheezes are heard. ABDOMEN: ?Soft, nontender, nondistended with good bowel sounds heard. BACK: No CVAT, no obvious deformity. EXTREMITIES: ?Without cyanosis, clubbing or edema. NEUROLOGICAL: ?Grossly nonfocal. Alert and oriented, moving all 4 extremities. Observed to ambulate with normal gait. Skin: ?Warm and dry without any rash. Course Course Course Narrative: This is an RME: Additional HPI, ROS, PE not included below will be deferred to primary provider. RME assessment and note performed by: Kimmy Sharpe PA-C This is a [id number]-female assigned at who presents to the ER with concerns of ?allergic rxn. Reports that she has had symptoms on and off since last sunday. Voice high pitched. No pharyngeal edema noted, lungs CTAB. Currently on prednisone, took dose this am. Patient was seen here on January 09 and January 11 for similar. plastic frame inserter notified. Plan: Further ER evaluation needed. Medications Administered Discontinued Medications Generic Name Dose Route Start Last Admin Trade Name Andrei PRN Reason Stop Dose Admin Epinephrine 0.5 ml 01/15/25 13:31 01/15/25 13:45 Racepinephrine Hcl 0.5 Ml Vial.Neb INHALE 01/15/25 13:32 0.5 ml ONCE ONE Administration Methylprednisolone Sodium Succinate 60 mg 01/15/25 15:53 01/15/25 16:09 Methylprednisolone Sod Succ 125 Mg/2 Ml Vial IVPUSH 01/15/25 15:54 60 mg ONCE ONE Administration Medical Decision Making Medical Decision Making MDM Narrative: 29-year-old female with medical history of MCAS, fibromyalgia, Raynaud's disease, bipolar affective disorder, Prudencio-Danlos syndrome, PTSD, depression, presents to the ED due to allergic reaction that began after eating pancakes, guzmán and artificial maple syrup. Patient took 2 oral Pepcid tablets, 25 milligrams of Benadryl, 40 mg of prednisone prior to arrival. Has had increase reaction to food items over last 2 weeks. Has been seen in the department 3x for same symptoms. Patient is currently getting reestablished with land surveyor assistant for management. VS on an observation- BP 112/74, pulse rate of 83, respiratory rate of 13, afebrile with oral temperature of 98.4, O2 saturation 96 percent on room air. On physical exam patient is very well-appearing, in no acute distress, nontoxic appearing, speaking in full clear sentences, managing oral secretions adequately. Patient does have a very high pitched speaking voice at this time, posterior oropharynx is clear without erythema or edema, uvula midline without edema, no tonsillar edema, no sublingual or submental swelling, lungs are clear to auscultation bilaterally, no wheezing rhonchi or coarse lung sounds heard, no increased work of breathing, no pursed lip breathing, no accessory muscle use noted. Cardiac exam reveals a normal rate and rhythm without murmurs/rubs/gallops, abdomen is soft, nontender. Plan: racemic epi, 60mg solumedrol, and 2 hr observation in department Course 16:05- patient's chest tightness, itchy throat, vocal changes have improved significantly after being medicated with racemic epinephrine, 10 mg decadron. I repeated my physical exam, lungs are still clear to auscultation bilaterally without wheezing, cardiac exam reveals normal rate and rhythm without murmurs/rubs/gallops. High pitched squeaky quality of the voice has resolved at this time. I counseled patient to follow up with her primary care doctor and to get reestablished with her land surveyor assistant for further management of MCAS. I counseled patient on strict return precautions. Stanley feels comfortable to go home for self care. She is in agreement of the plan Differential Diagnosis Differential Diagnoses: The differential diagnosis associated with the presentation includes Anaphylaxis Allergic reaction urticaria Admission/Observation Consideration of admission/observation: Escalation of care including admission/observation considered I considered admission however patient with patent airway, speaking in full clear sentences, managing oral secretions. Patient's symptoms have improved significantly after being medicated in the department. No indication for admission at this time. Independent Historian Clinical information obtained from an independent historian. History obtained from or confirmed by: Friend (Friend at bedside corroborating history) External Record Review External record reviewed: Inpatient record, Office record and Outpatient record Chronic Conditions Patient?s care impacted by: Other (MCAS, fibromyalgia, Raynaud's disease, bipolar affective disorder, Prudencio-Danlos syndrome) Discharge Plan Discharge Clinical Impression: Allergic reaction Patient Disposition: Home, Self-Care Additional Instructions: You were evaluated in the emergency department after experiencing allergic reaction after eating pancakes, guzmán and maple syrup. You were medicated in the department with racemic epinephrine, and decadron with good effect on your symptoms. I recommend you follow up with your primary care doctor in your land surveyor assistant as you stated you were being reestablished with. Please return to the emergency department if you experience tingling of the lips/tongue/throat, difficulty breathing, tightness in the chest, abdominal pain, nausea, vomiting, fevers over 100.4?, chest pain, shortness of breath or any new/worsening/concerning symptoms. Prescriptions: No Action tizanidine 4 mg capsule 4 mg PO TID PRN (Reason: muscle spasticity) 30 Days Qty: 90 8RF cholecalciferol (vitamin D3) 125 mcg (5,000 unit) capsule 1 cap PO DAILY methocarbamol 750 mg tablet 750 mg PO Q8H 10 Days Qty: 30 0RF prednisone 20 mg tablet 40 mg PO DAILY Qty: 10 0RF famotidine [Pepcid] 20 mg tablet 20 mg PO BID 5 Days Qty: 10 0RF diphenhydramine HCl [Benadryl] 25 mg capsule 25 mg PO Q8H 5 Days Qty: 15 0RF epinephrine [EpiPen] 0.3 mg/0.3 mL auto-injector 0.3 mg IM ONCE PRN (Reason: extreme reaction) Qty: 1 0RF Rx Instructions: for 2 doses ondansetron 4 mg tablet,disintegrating 4 mg PO Q8H PRN (Reason: nausea and vomiting) Qty: 20 0RF morphine 15 mg tablet 15 mg PO Q6H PRN (Reason: pain) Qty: 15 0RF Rx Instructions: Partial Fill upon patient request. cyclobenzaprine 5 mg tablet 5 mg PO TID PRN (Reason: muscle spasm) Qty: 20 0RF duloxetine 60 mg capsule,delayed release(DR/EC) 60 mg PO DAILY ibuprofen 600 mg tablet 600 mg PO Q8H PRN acetaminophen [Tylenol] 325 mg capsule 650 mg PO Q6H PRN aripiprazole 15 mg tablet 15 mg PO DAILY midodrine 5 mg tablet 5 mg PO TID pregabalin [Lyrica] 150 mg capsule 150 mg PO BID 30 Days Qty: 60 5RF Print Language: Luxembourger
[2025-01-15 13:41] VITALS: BP 112/74; PULSE 83; RESP 16; TEMP 36.9; O2SAT 96
--- NOTE | 2025-01-15 13:46 | PC.NURSE ---
Patient presents to ED after having an allergic reaction. Patient has mast cell activation. Patient was eating pancakes with mapple syrup when she began to experience chest tightness and swelling of throat O2 98% RA denies SOB. Patient c/o ABD pain rated 8/10 non radiating Patient took Benadryl and prednisolone before coming to the ED. Provider in to see patient plan of care on going
[2025-01-15 13:49] VITALS: PULSE 83; RESP 13; O2SAT 97
--- OUTSIDE RECORDS SUMMARY | 2025-01-15 15:37 | XMS_ITS | Clinical Summary ---
Author Organization [facility] Address [address] [place] [address] Care Team Providers Care Business Development Coordinator Name Role Phone Mónica Valle Primary Care Provider [phone] Allergies Active Allergy Reactions Criticality Noted Date [...] 12/30/2019, Additional history exists Insurance [employer] PPO/EPO/IND [facility] CIGNA PPO/EPO/[place] Advance Directives * Full Code (Latest Code Status on File) Date Activated Date Inactivated Comments 05/08/2017 12:56 PM 05/08/2017 4:37 PM Care Teams Business Development Coordinator Relationship Specialty Start Date End Date Mónica Valle [address] [address] PCP - General 01/19/22
[2025-01-15 16:37] VITALS: BP 136/68; PULSE 83; RESP 13; TEMP 37.1; O2SAT 95
== END 2025-01-15 16:38 | disposition home or self-care (01) ==
PROVIDERS: Emergency Provider Emergency Medicine; PCP Nurse Practitioner Adult Health
DX: L50.0 Allergic urticaria (principal); R07.9 Chest pain, unspecified; T78.1XXA Other adverse food reactions, not elsewhere classified, initial encounter; L29.89 Other pruritus; X58.XXXA Exposure to other specified factors, initial encounter; Z79.899 Other long term (current) drug therapy
CPT/HCPCS: 94640; 96374; 99284; 99285; J2919; J8540

== ENCOUNTER 2025-01-28 10:01 | Emergency (ER) | payer OTHER, SELFPAY ==
[2025-01-28 10:06] VITALS: BP 121/84; PULSE 87; RESP 16; TEMP 36.2; O2SAT 99; BMI 34.8
--- NOTE | 2025-01-28 10:06 | ED_ITS ---
HPI - Allergic Reaction General Chief complaint: Allergic Reaction Stated complaint: allergic reaction Time Seen by Provider: 01/28/25 10:18 Source: patient, RN notes reviewed and old records reviewed Mode of arrival: ambulatory Limitations: no limitations History of Present Illness ED Provider: Jessica PHAM narrative: Patient is a 29-year-old female with history of MCAS, fibromyalgia, Raynaud's disease, bipolar affective disorder, Prudencio-Danlos syndrome, PTSD, depression presenting with complaint of rash to back of tongue, diffuse pruritis, and high pitched voice after drinking pumpkin spice coffee creamer this morning. Also complains of mild nausea but denies vomiting or diarrhea. States she has had the same creamer in the past without reaction. Took Zyrtec and Pepcid prior to arrival. MD complaint: allergic reaction Related Data Home Medications ?Medication ?Instructions ?Recorded ?Confirmed cholecalciferol (vitamin D3) 125 1 cap PO DAILY 06/11/24 mcg (5,000 unit) capsule acetaminophen 325 mg capsule 650 mg PO Q6H PRN 3 06/11/24 (Tylenol) ibuprofen 600 mg tablet 600 mg PO Q8H PRN 07/17/22 0 06/11/24 aripiprazole 15 mg tablet 15 mg PO DAILY 12/13/2205/31 midodrine 5 mg tablet 5 mg PO TID 12/13/22 5 duloxetine 60 mg capsule,delayed 60 mg PO DAILY 06/11/24 release Previous Rx's ?Medication ?Instructions ?Recorded pregabalin 150 mg capsule (Lyrica) 150 mg PO BID 30 da ys #60 caps 06/11/24 ondansetron 4 mg disintegrating 4 mg PO Q8H PRN nausea and 06/21/24 tablet vomiting #20 tabs tizanidine 4 mg capsule 4 mg PO TID PRN muscle spast icity 07/01/24 30 days #90 caps morphine 15 mg immediate release 15 mg PO Q6H PRN pain #15 tabs 08/04/24 tablet methocarbamol 750 mg tablet 750 mg PO Q8H 10 days #30 tabs 10/06/24 cyclobenzaprine 5 mg tablet 5 mg PO TID PRN muscle spa sm #20 12/25/24 tabs diphenhydramine HCl 25 mg capsule 25 mg PO Q8H 5 days #15 caps 01/11/25 (Benadryl) epinephrine 0.3 mg/0.3 mL 0.3 mg (0.3 mL) IM ONCE PRN 01/11/25 injection, auto-injector (EpiPen) extreme reaction #1 ea famotidine 20 mg tablet (Pepcid) 20 mg PO BID 5 days # 10 tabs 01/11/25 prednisone 20 mg tablet 40 mg (2 x 20 mg) PO DAILY # 10 tabs 01/11/25 Allergies Allergy/AdvReac Type Severity Reaction Status Date / Time Sulfa (Sulfonamide Allergy Intermediate DIARRHEA Verified 01/28/25 10:08 Antibiotics) (SULFA (SULFONAMIDE ANTIBIOTICS)) topiramate (From Topamax) Allergy Anaphylaxis Verified 01/28/25 10:08 venlafaxine (From Effexor) Allergy Unknown Verified 01/28/25 10:08 trazodone (TRAZODONE) AdvReac Mild UNKNOWN Verified 01/28/25 10:08 topamax AdvReac Intermediate Unknown Uncoded 01/11/25 21:07 Review of Systems Review of Systems: As per HPI Yes all other systems are reviewed and are negative Constitutional: Constitutional: Reports as per HPI PMFSH Past Medical History Medical History Bipolar affective disorder Hyperchloremic metabolic acidosis Vitamin D deficiency Hypocalcemia Obesity Cyst of pituitary gland Raynauds disease Allergy to sunlight PTSD (post-traumatic stress disorder) Fibromyalgia CRISTIANA (generalized anxiety disorder) POTS (postural orthostatic tachycardia syndrome) Syncope and collapse Idiopathic autonomic neuropathy Autonomic dysfunction Bipolar II disorder Major depressive disorder Suicidal ideation Social History Social History Household Members: Family Household Members Other:: and baby Housing: Apartment Do you presently have visiting nurse or other home services: No Alcohol intake: current Alcohol intake frequency: holidays/special occasions only Alcohol type: beer, wine and hard liquor Patient Tobacco Use Status: Never used Tobacco Substance Use Type: Marijuana Advance Directives: No Advance Directives Information Provided: No Do you have a plan to hurt others: No Plan service: No Sexual orientation: Bisexual Physical Exam ED Vital Signs: Vital Signs - 24 hr 01/28/25 10:06 Temperature 97.2 F Pulse Rate 87 Respiratory Rate 16 Blood Pressure 121/84 Pulse Oximetry 99 Oxygen Delivery Method Room Air BMI result Body Mass Index 34.8 Vital signs have been reviewed and appear to be correct. Blood pressure normal. Heart rate normal. Respiratory rate normal. Temperature normal. Oxygen saturation normal. Const General: cooperative and no acute distress Orientation/consciousness: oriented to person, oriented to place, oriented to time and patient oriented x3 Limitations: no limitations [facility] Head: Yes normocephalic and Yes atraumatic Ears: hearing grossly normal bilaterally and external ears normal General nose exam: Normal external nose present and Normal nasal mucous membranes and turbinates present Face and sinus: Yes face symmetric Mouth: Normal oral and palatal mucosa present, lip normal, tongue normal (no rash noted), oropharynx normal, moist mucous membranes, audible dysphonia (patient speaking in high-pitched tone), no drooling, no muffled voice, no trismus and other (no angioedema) Throat: Yes posterior oropharynx normal, Yes uvula midline and No uvular edema Eyes Pupils: Equal, round and reactive pupils present Neck Neck: Yes normal visual inspection, Yes trachea midline and Yes supple Resp Effort & Inspection: normal respiratory effort, able to speak in complete sentences and no cough Auscultation: clear to auscultation bilaterally, no wheezes and other (no stridor on auscultation) Cardio Rate: regular rate Rhythm: regular rhythm Heart sounds: S1 normal heart sound present and S2 normal heart sound present GI Palpation (GI): Soft to palpation and nontender Auscultation: normoactive bowel sounds General: Yes no CVA tenderness Back/Spine/Pelvis Back: no CVA tenderness Skin General skin exam: no rashes or lesions noted, elasticity normal and turgor normal Neuro General: oriented to person, oriented to place, oriented to time, patient orien sam x3, moves all extremities, no focal motor deficits and CN's II-XI intact bilaterally Cranial nerves: Yes Equal, round and reactive pupils present Cognition (Neuro): normal cognition Extrem General: Yes full ROM, Yes no pedal edema and Yes no calf tenderness Psych Mental Status: mental status grossly normal Affect: normal affect Thought process: Normal thought process present Course Course Course Narrative: This is an RME: Additional HPI, ROS, PE not included below will be deferred to primary provider. RME assessment and note performed by: Kimmy Sharpe PA-C 29-year-old female with medical history of MCAS, fibromyalgia, Raynaud's disease, bipolar affective disorder, Prudencio-Danlos syndrome, PTSD, depression, who presents to the ER accompanied by girlfriend with concerns of ?allergic rxn. Reporting hives on tongue Used different creamer this morning, symptoms started 1 hour ago. High pitch sounding voice noted. Plan: pt brought back to main for further ER eval Medications Administered Discontinued Medications Generic Name Dose Route Start Last Admin Trade Name Freq PRN Reason Stop Dose Admin Sodium Chloride 1,000 mls @ 999 mls/hr 01/28/25 10:45 01/28/25 10:55 Ns IV 01/28/25 11:45 999 mls/hr .Q1H1M DELLA Administration Methylprednisolone Sodium Succinate 60 mg 01/28/25 10:42 01/28/25 10:55 Methylprednisolone Sod Succ 125 Mg/2 Ml Vial IVPUSH 01/28/25 10:43 60 mg ONCE ONE Administration Ondansetron HCl 4 mg 01/28/25 10:42 01/28/25 10:55 Ondansetron Hcl 4 Mg/2 Ml Vial IVPUSH 01/28/25 10:43 4 mg ONCE ONE Administration Medical Decision Making Medical Decision Making MDM Narrative: Patient is a 29-year-old female with history of MCAS, fibromyalgia, Raynaud's disease, bipolar affective disorder, Prudencio-Danlos syndrome, PTSD, depression presenting with complaint of rash to back of tongue, diffuse pruritis, and high pitched voice after drinking pumpkin spice coffee creamer this morning. On exam patient is awake, A+Ox3, VS WNL, afebrile, normal neurological exam without focal deficits, physical exam findings as above. Given reported symptoms and physical exam findings, initial differential includes but is not limited to allergic reaction, adverse reaction to creamer, oral allergy syndrome, urticaria. No physical exam findings to suspect anaphylaxis. Will medicate patient with solu-medrol, zofran, and fluids as she already took Zyrtec and Pepcid at home and observe in the ED. Patient medicated and observed for 2 hours with improvement in subjective symptoms and voice has returned to normal pitch. Patient states she feels ready for discharge home, I am in agreement with this. Advised she can continue to use Zyrtec and Pepcid as needed. Follow up with PCP. Return precautions discussed. Patient verbalized understanding of and agreement with plan. Differential Diagnosis Differential Diagnoses: The differential diagnosis associated with the presentation includes as per [facility] Admission/Observation Consideration of admission/observation: Escalation of care including admission/observation considered Patient would have been admitted to the hospital and transferred to appropriate facility had their clinical presentation warranted hospital admission. External Record Review External record reviewed: Inpatient record, Office record and Outpatient record Discharge Plan Discharge Clinical Impression: Allergic reaction Patient Disposition: Home, Self-Care Instructions: General Allergic Reaction (ED) Additional Instructions: You were evaluated in the emergency department today for an allergic reaction. You have been given medications to control your symptoms. You have been observed for several hours in the emergency department and you are stable for discharge at this time. You can take Zyrtec and Pepcid, which are available [id number], to help control your symptoms at home. Please schedule an appointment with your primary care physician for follow-up. Return to the emergency department if you experience rashes, difficulty breathing or swallowing, lip/mouth/tongue swelling, vomiting, or for any other concerning symptoms. Prescriptions: No Action tizanidine 4 mg capsule 4 mg PO TID PRN (Reason: muscle spasticity) 30 Days Qty: 90 8RF cholecalciferol (vitamin D3) 125 mcg (5,000 unit) capsule 1 cap PO DAILY methocarbamol 750 mg tablet 750 mg PO Q8H 10 Days Qty: 30 0RF prednisone 20 mg tablet 40 mg PO DAILY Qty: 10 0RF famotidine [Pepcid] 20 mg tablet 20 mg PO BID 5 Days Qty: 10 0RF diphenhydramine HCl [Benadryl] 25 mg capsule 25 mg PO Q8H 5 Days Qty: 15 0RF epinephrine [EpiPen] 0.3 mg/0.3 mL auto-injector 0.3 mg IM ONCE PRN (Reason: extreme reaction) Qty: 1 0RF Rx Instructions: for 2 doses ondansetron 4 mg tablet,disintegrating 4 mg PO Q8H PRN (Reason: nausea and vomiting) Qty: 20 0RF morphine 15 mg tablet 15 mg PO Q6H PRN (Reason: pain) Qty: 15 0RF Rx Instructions: Partial Fill upon patient request. cyclobenzaprine 5 mg tablet 5 mg PO TID PRN (Reason: muscle spasm) Qty: 20 0RF duloxetine 60 mg capsule,delayed release(DR/EC) 60 mg PO DAILY ibuprofen 600 mg tablet 600 mg PO Q8H PRN acetaminophen [Tylenol] 325 mg capsule 650 mg PO Q6H PRN aripiprazole 15 mg tablet 15 mg PO DAILY midodrine 5 mg tablet 5 mg PO TID pregabalin [Lyrica] 150 mg capsule 150 mg PO BID 30 Days Qty: 60 5RF Print Language: Ecuadorean
--- OUTSIDE RECORDS SUMMARY | 2025-01-28 11:49 | XMS_ITS | Clinical Summary ---
Author Organization [facility] Address [address] [place] [address] Care Team Providers Care Monomer Purification Operator Name Role Phone Mónica Valle Primary Care Provider [phone] Allergies Active Allergy Reactions Criticality Noted Date [...] 12/30/2019, Additional history exists Insurance CIGNA PPO/EPO/IND [facility] CIGNA PPO/EPO/IND Advance Directives * Full Code (Latest Code Status on File) Date Activated Date Inactivated Comments 05/08/2017 12:56 PM 05/08/2017 4:37 PM Care Teams Monomer Purification Operator Relationship Specialty Start Date End Date Mónica Valle [address] [address] PCP - General 01/19/22
[2025-01-28 12:20] VITALS: BP 133/80; PULSE 82; RESP 16; TEMP 36.8; O2SAT 99
== END 2025-01-28 12:21 | disposition home or self-care (01) ==
PROVIDERS: Emergency Provider Emergency Medicine; PCP Nurse Practitioner Adult Health
DX: R21 Rash and other nonspecific skin eruption (principal); T78.19XA Other adverse food reactions, not elsewhere classified, initial encounter; X58.XXXA Exposure to other specified factors, initial encounter; Y93.9 Activity, unspecified; Y92.9 Unspecified place or not applicable; Y99.9 Unspecified external cause status
CPT/HCPCS: 96361; 96374; 96375; 99283; 99284; J2405; J2919

== ENCOUNTER 2025-02-12 19:36 | Emergency (ER) | payer OTHER, SELFPAY ==
[2025-02-12 19:46] VITALS: BP 124/65; PULSE 83; RESP 16; TEMP 36.3; O2SAT 99; BMI 36.2
--- NOTE | 2025-02-12 19:48 | ED.GENADULT ---
HPI - General Adult General Chief complaint: Allergic Reaction Stated complaint: allergic reaction Related Data Home Medications ?Medication ?Instructions ?Recorded ?Confirmed cholecalciferol (vitamin D3) 125 1 cap PO DAILY 06/20/22 06/11/24 mcg (5,000 unit) capsule acetaminophen 325 mg capsule 650 mg PO Q6H PRN 07/17/22 06/11/24 (Tylenol) ibuprofen 600 mg tablet 600 mg PO Q8H PRN 07/17/22 06/11/24 aripiprazole 15 mg tablet 15 mg PO DAILY 12/13/22 06/11/24 midodrine 5 mg tablet 5 mg PO TID 12/13/22 06/11/24 duloxetine 60 mg capsule,delayed 60 mg PO DAILY 01/05/24 06/11/24 release Previous Rx's ?Medication ?Instructions ?Recorded pregabalin 150 mg capsule (Lyrica) 150 mg PO BID 30 days #60 caps 06/11/24 ondansetron 4 mg disintegrating 4 mg PO Q8H PRN nausea and 06/21/24 tablet vomiting #20 tabs tizanidine 4 mg capsule 4 mg PO TID PRN muscle spasticity 07/01/24 30 days #90 caps morphine 15 mg immediate release 15 mg PO Q6H PRN pain #15 tabs 08/04/24 tablet methocarbamol 750 mg tablet 750 mg PO Q8H 10 days #30 tabs 10/06/24 cyclobenzaprine 5 mg tablet 5 mg PO TID PRN muscle spasm #20 12/25/24 tabs diphenhydramine HCl 25 mg capsule 25 mg PO Q8H 5 days #15 caps 01/11/25 (Benadryl) epinephrine 0.3 mg/0.3 mL 0.3 mg (0.3 mL) IM ONCE PRN 01/11/25 injection, auto-injector (EpiPen) extreme reaction #1 ea famotidine 20 mg tablet (Pepcid) 20 mg PO BID 5 days #10 tabs 01/11/25 prednisone 20 mg tablet 40 mg (2 x 20 mg) PO DAILY #10 tabs 01/11/25 Allergies Allergy/AdvReac Type Severity Reaction Status Date / Time Sulfa (Sulfonamide Allergy Intermediate DIARRHEA Verified 02/12/25 19:46 Antibiotics) (SULFA (SULFONAMIDE ANTIBIOTICS)) topiramate (From Topamax) Allergy Anaphylaxis Verified 02/12/25 19:46 venlafaxine (From Effexor) Allergy Unknown Verified 02/12/25 19:46 trazodone (TRAZODONE) AdvReac Mild UNKNOWN Verified 02/12/25 19:46 topamax AdvReac Intermediate Unknown Uncoded 02/12/25 19:46 [facility] Past Medical History Medical History Bipolar affective disorder Hyperchloremic metabolic acidosis Vitamin D deficiency Hypocalcemia Obesity Cyst of pituitary gland Raynauds disease Allergy to sunlight PTSD (post-traumatic stress disorder) Fibromyalgia CRISTIANA (generalized anxiety disorder) POTS (postural orthostatic tachycardia syndrome) Syncope and collapse Idiopathic autonomic neuropathy Autonomic dysfunction Bipolar II disorder Major depressive disorder Suicidal ideation Social History Social History Household Members: Family Household Members Other:: and baby Housing: Apartment Do you presently have visiting nurse or other home services: No Alcohol intake: current Alcohol intake frequency: holidays/special occasions only Alcohol type: beer, wine and hard liquor Patient Tobacco Use Status: Never used Tobacco Substance Use Type: Marijuana service: No Sexual orientation: Bisexual Physical Exam ED Vital Signs: Vital Signs - 24 hr 02/12/25 19:46 Temperature 97.4 F Pulse Rate 83 Respiratory Rate 16 Blood Pressure 124/65 Pulse Oximetry 99 Oxygen Delivery Method Room Air BMI result Body Mass Index 36.2 Course Course Course Narrative: RME: 29 yold female presents to the ED allergic reaction mastoid exacerbation. Patient takes cetirizine twice a day due to mass on vaccination today as extremity started having hives and her voice change to where she can barely speak in his soft. Oral exam negative for any uvula swelling. Patient is brought to the ED immediately Discharge Plan Discharge Prescriptions: No Action tizanidine 4 mg capsule 4 mg PO TID PRN (Reason: muscle spasticity) 30 Days Qty: 90 8RF cholecalciferol (vitamin D3) 125 mcg (5,000 unit) capsule 1 cap PO DAILY methocarbamol 750 mg tablet 750 mg PO Q8H 10 Days Qty: 30 0RF prednisone 20 mg tablet 40 mg PO DAILY Qty: 10 0RF famotidine [Pepcid] 20 mg tablet 20 mg PO BID 5 Days Qty: 10 0RF diphenhydramine HCl [Benadryl] 25 mg capsule 25 mg PO Q8H 5 Days Qty: 15 0RF epinephrine [EpiPen] 0.3 mg/0.3 mL auto-injector 0.3 mg IM ONCE PRN (Reason: extreme reaction) Qty: 1 0RF Rx Instructions: for 2 doses ondansetron 4 mg tablet,disintegrating 4 mg PO Q8H PRN (Reason: nausea and vomiting) Qty: 20 0RF morphine 15 mg tablet 15 mg PO Q6H PRN (Reason: pain) Qty: 15 0RF Rx Instructions: Partial Fill upon patient request. cyclobenzaprine 5 mg tablet 5 mg PO TID PRN (Reason: muscle spasm) Qty: 20 0RF duloxetine 60 mg capsule,delayed release(DR/EC) 60 mg PO DAILY ibuprofen 600 mg tablet 600 mg PO Q8H PRN acetaminophen [Tylenol] 325 mg capsule 650 mg PO Q6H PRN aripiprazole 15 mg tablet 15 mg PO DAILY midodrine 5 mg tablet 5 mg PO TID pregabalin [Lyrica] 150 mg capsule 150 mg PO BID 30 Days Qty: 60 5RF Print Language: Macedonian
--- OUTSIDE RECORDS SUMMARY | 2025-02-12 20:44 | XMS_ITS | Clinical Summary ---
Author Organization [facility] Address [address] [place] [address] Care Team Providers Care Director Of Program Management Name Role Phone Mónica Valle Primary Care Provider [phone] Allergies Active Allergy Reactions Criticality Noted Date [...] 12/30/2019, Additional history exists Insurance CIGNA PPO/EPO/IND [facility] CIGNA PPO/EPO/IND Advance Directives * Full Code (Latest Code Status on File) Date Activated Date Inactivated Comments 05/08/2017 12:56 PM 05/08/2017 4:37 PM Care Teams Director Of Program Management Relationship Specialty Start Date End Date Mónica Valle [address] [address] PCP - General 01/19/22
--- NOTE | 2025-02-12 21:56 | ED_ITS ---
HPI - General Adult General Chief complaint: Allergic Reaction Stated complaint: allergic reaction Time Seen by Provider: 02/12/25 21:55 Source: patient Mode of arrival: ambulatory Limitations: no limitations History of Present Illness ED Provider: Dr. Bear HPI narrative: 29-year-old female with history of fibromyalgia, mast cells disease, Prudencio- Danlos, bipolar disease, Raynaud's disease presented hospital today for evaluation of change in her voice. Patient states she normally takes Pepcid and Benadryl which does help it. She is unsure what may have trigger these reaction. Patient stated that her chest did feel little bit tight in her voice she is having some itchiness around her chest in her lips area. Related Data Home Medications ?Medication ?Instructions ?Recorded ?Confirmed cholecalciferol (vitamin D3) 125 1 cap PO DAILY 06/11/24 mcg (5,000 unit) capsule acetaminophen 325 mg capsule 650 mg PO Q6H PRN 3 06/11/24 (Tylenol) ibuprofen 600 mg tablet 600 mg PO Q8H PRN 07/17/22 0 06/11/24 aripiprazole 15 mg tablet 15 mg PO DAILY 12/13/2205/31 midodrine 5 mg tablet 5 mg PO TID 12/13/22 5 duloxetine 60 mg capsule,delayed 60 mg PO DAILY 06/11/24 release Previous Rx's ?Medication ?Instructions ?Recorded pregabalin 150 mg capsule (Lyrica) 150 mg PO BID 30 da ys #60 caps 06/11/24 ondansetron 4 mg disintegrating 4 mg PO Q8H PRN nausea and 06/21/24 tablet vomiting #20 tabs tizanidine 4 mg capsule 4 mg PO TID PRN muscle spast icity 07/01/24 30 days #90 caps morphine 15 mg immediate release 15 mg PO Q6H PRN pain #15 tabs 08/04/24 tablet methocarbamol 750 mg tablet 750 mg PO Q8H 10 days #30 tabs 10/06/24 cyclobenzaprine 5 mg tablet 5 mg PO TID PRN muscle spa sm #20 12/25/24 tabs diphenhydramine HCl 25 mg capsule 25 mg PO Q8H 5 days #15 caps 09/14/25 (Benadryl) epinephrine 0.3 mg/0.3 mL 0.3 mg (0.3 mL) IM ONCE PRN 01/11/25 injection, auto-injector (EpiPen) extreme reaction #1 ea famotidine 20 mg tablet (Pepcid) 20 mg PO BID 5 days # 10 tabs 01/11/25 prednisone 20 mg tablet 40 mg (2 x 20 mg) PO DAILY # 10 tabs 01/11/25 prednisone 20 mg tablet 20 mg PO DAILY 5 days #5 tab s 02/12/25 Allergies Allergy/AdvReac Type Severity Reaction Status Date / Time Sulfa (Sulfonamide Allergy Intermediate DIARRHEA Verified 02/12/25 19:46 Antibiotics) (SULFA (SULFONAMIDE ANTIBIOTICS)) topiramate (From Topamax) Allergy Anaphylaxis Verified 02/12/25 19:46 venlafaxine (From Effexor) Allergy Unknown Verified 02/12/25 19:46 trazodone (TRAZODONE) AdvReac Mild UNKNOWN Verified 02/12/25 19:46 topamax AdvReac Intermediate Unknown Uncoded 02/12/25 19:46 Review of Systems Review of Systems: Pertinent review of systems as mentioned in HPI. All other system otherwise negative. [facility] Past Medical History [facility] Narrative: As mentioned in HPI Medical History Bipolar affective disorder Hyperchloremic metabolic acidosis Vitamin D deficiency Hypocalcemia Obesity Cyst of pituitary gland Raynauds disease Allergy to sunlight PTSD (post-traumatic stress disorder) Fibromyalgia CRISTIANA (generalized anxiety disorder) POTS (postural orthostatic tachycardia syndrome) Syncope and collapse Idiopathic autonomic neuropathy Autonomic dysfunction Bipolar II disorder Major depressive disorder Suicidal ideation Social History Social History Household Members: Family Household Members Other:: and baby Housing: Apartment Do you presently have visiting nurse or other home services: No Alcohol intake: current Alcohol intake frequency: holidays/special occasions only Alcohol type: beer, wine and hard liquor Patient Tobacco Use Status: Never used Tobacco Smoked in Last 30 Days: No Use of substances other than those prescribed or required for medical reasons: Yes Substance Use Type: Marijuana Substance Use Frequency: Daily Any prior treatment program specific to substance use: No Advance Directives: No Advance Directives Information Provided: No Do you have a plan to hurt others: No Plan service: No Sexual orientation: Bisexual Physical Exam ED Exam Exam: General: Pleasant, no distress, interacting appropriately Head: Normacephalic, atraumatic ENT: oral mucosa moist, neck supple, no tracheal deviation, no swelling in the oropharynx no angioedema appreciated Cardiovascular: regular rate, regular rhythm, no murmurs, rubbing, gallops Respiratory: CTAB, no wheeze, rales, rhonchi Gastrointestinal: Soft, non distended, non tender, non guarding Neurological: Awake and alert, no facial droop noted Skin: Warm and dry, no urticaria appreciated Psychiatric: Appropriate mood and thoughts Vital Signs: Vital Signs - 24 hr 02/12/25 19:46 02/12/25 22:09 02/12/25 22:25 Temperature 97.4 F 97.4 F Pulse Rate 83 78 78 Respiratory Rate 16 16 16 Blood Pressure 124/65 108/73 108/73 Pulse Oximetry 99 99 99 Oxygen Delivery Method Room Air Room Air BMI result Body Mass Index 36.2 Medications Administered Discontinued Medications Generic Name Dose Route Start Last Admin Trade Name Freq PRN Reason Stop Dose Admin Diphenhydramine HCl 25 mg 02/12/25 20:56 02/12/25 21:23 Diphenhydramine Hcl 50 Mg/Ml Vial IVPUSH 02/12/25 20:57 25 mg ONCE ONE Administration Famotidine 20 mg 02/12/25 20:56 02/12/25 21:24 Famotidine/Pf 20 Mg/2 Ml Vial IVPUSH 02/12/25 20:57 20 mg ONCE ONE Administration Methylprednisolone Sodium Succinate 60 mg 02/12/25 20:56 02/12/25 21:23 Methylprednisolone Sod Succ 125 Mg/2 Ml Vial IVPUSH 02/12/25 20:57 60 mg ONCE ONE Administration Medical Decision Making Medical Decision Making MDM Narrative: 29-year-old female presented hospital today for evaluation of possible mast cell activation. Patient has no sign of angioedema in the oropharynx, patient has no wheezing no urticaria. The patient does not have anaphylaxis. Patient stated her voice is improving. She did receive some IV Solu-Medrol, IV Pepcid and IV Benadryl prior to my evaluation. We will plan to prescribe a course of prednisone for the patient to take for this week. Encouraged her to follow up with primary care doctor. Return precautions provided. Patient will be discharged. She is stable. Differential Diagnosis Differential Diagnoses: The differential diagnosis associated with the presentation includes Allergic reaction, anaphylaxis, mast cell activation Discharge Plan Discharge Clinical Impression: Allergic reaction Qualifiers: Encounter type: initial encounter Qualified Code(s): T78.40XA - Allergy, unspecified, initial encounter Patient Disposition: Home, Self-Care Prescriptions: New prednisone 20 mg tablet 20 mg PO DAILY 5 Days Qty: 5 0RF No Action tizanidine 4 mg capsule 4 mg PO TID PRN (Reason: muscle spasticity) 30 Days Qty: 90 8RF cholecalciferol (vitamin D3) 125 mcg (5,000 unit) capsule 1 cap PO DAILY methocarbamol 750 mg tablet 750 mg PO Q8H 10 Days Qty: 30 0RF prednisone 20 mg tablet 40 mg PO DAILY Qty: 10 0RF famotidine [Pepcid] 20 mg tablet 20 mg PO BID 5 Days Qty: 10 0RF diphenhydramine HCl [Benadryl] 25 mg capsule 25 mg PO Q8H 5 Days Qty: 15 0RF epinephrine [EpiPen] 0.3 mg/0.3 mL auto-injector 0.3 mg IM ONCE PRN (Reason: extreme reaction) Qty: 1 0RF Rx Instructions: for 2 doses ondansetron 4 mg tablet,disintegrating 4 mg PO Q8H PRN (Reason: nausea and vomiting) Qty: 20 0RF morphine 15 mg tablet 15 mg PO Q6H PRN (Reason: pain) Qty: 15 0RF Rx Instructions: Partial Fill upon patient request. cyclobenzaprine 5 mg tablet 5 mg PO TID PRN (Reason: muscle spasm) Qty: 20 0RF duloxetine 60 mg capsule,delayed release(DR/EC) 60 mg PO DAILY ibuprofen 600 mg tablet 600 mg PO Q8H PRN acetaminophen [Tylenol] 325 mg capsule 650 mg PO Q6H PRN aripiprazole 15 mg tablet 15 mg PO DAILY midodrine 5 mg tablet 5 mg PO TID pregabalin [Lyrica] 150 mg capsule 150 mg PO BID 30 Days Qty: 60 5RF Interventions: ED Discharge Assessment Last Done: 02/12/25 22:25 Discharge Date/Time: 02/12/25 22:27 Print Language: Kazakh
[2025-02-12 22:09] VITALS: BP 108/73; PULSE 78; RESP 16; O2SAT 99
[2025-02-12 22:25] VITALS: BP 108/73; PULSE 78; RESP 16; TEMP 36.3; O2SAT 99
== END 2025-02-12 22:27 | disposition home or self-care (01) ==
PROVIDERS: Emergency Provider Student in an Organized Health Care Education/Training Program; PCP Nurse Practitioner Adult Health
DX: T78.40XA Allergy, unspecified, initial encounter (principal); R49.9 Unspecified voice and resonance disorder; X58.XXXA Exposure to other specified factors, initial encounter; F31.81 Bipolar II disorder; Q79.60 Ehlers-Danlos syndrome, unspecified; I73.00 Raynaud's syndrome without gangrene; Z79.899 Other long term (current) drug therapy
CPT/HCPCS: 96374; 96375; 99284; J1200; J1308; J2919

== ENCOUNTER 2025-02-13 11:13 | Emergency (ER) | payer OTHER, SELFPAY ==
[2025-02-13 11:18] VITALS: BP 155/80; PULSE 66; RESP 18; TEMP 36.7; O2SAT 99; BMI 35.6
--- NOTE | 2025-02-13 11:24 | ED.GENADULT ---
HPI - General Adult General Chief complaint: Allergic Reaction Stated complaint: Allergic Reaction- Horse Voice, Rash on chest/face Time Seen by Provider: 02/13/25 11:51 History of Present Illness ED Provider: Abbe Mcdaniel MD HPI narrative: 29-year-old female with self-reported MCA with subjective throat itching today no oropharyngeal edema difficulty breathing or GI symptoms. She was in the ED last night prescribed 20 mg prednisone for 5 days she has been taking famotidine Benadryl. She had some mild upper chest hives see picture below that resolved prior to arrival here. No lightheadedness syncope chest pain Related Data Home Medications ?Medication ?Instructions ?Recorded ?Confirmed cholecalciferol (vitamin D3) 125 1 cap PO DAILY 06/20/22 06/11/24 mcg (5,000 unit) capsule acetaminophen 325 mg capsule 650 mg PO Q6H PRN 07/17/22 06/11/24 (Tylenol) ibuprofen 600 mg tablet 600 mg PO Q8H PRN 07/17/22 06/11/24 aripiprazole 15 mg tablet 15 mg PO DAILY 12/13/22 06/11/24 midodrine 5 mg tablet 5 mg PO TID 12/13/22 06/11/24 duloxetine 60 mg capsule,delayed 60 mg PO DAILY 01/05/24 06/11/24 release Previous Rx's ?Medication ?Instructions ?Recorded pregabalin 150 mg capsule (Lyrica) 150 mg PO BID 30 days #60 caps 06/11/24 ondansetron 4 mg disintegrating 4 mg PO Q8H PRN nausea and 06/21/24 tablet vomiting #20 tabs tizanidine 4 mg capsule 4 mg PO TID PRN muscle spasticity 07/01/24 30 days #90 caps morphine 15 mg immediate release 15 mg PO Q6H PRN pain #15 tabs 08/04/24 tablet methocarbamol 750 mg tablet 750 mg PO Q8H 10 days #30 tabs 10/06/24 cyclobenzaprine 5 mg tablet 5 mg PO TID PRN muscle spasm #20 12/25/24 tabs diphenhydramine HCl 25 mg capsule 25 mg PO Q8H 5 days #15 caps 01/11/25 (Benadryl) epinephrine 0.3 mg/0.3 mL 0.3 mg (0.3 mL) IM ONCE PRN 01/11/25 injection, auto-injector (EpiPen) extreme reaction #1 ea famotidine 20 mg tablet (Pepcid) 20 mg PO BID 5 days #10 tabs 01/11/25 prednisone 20 mg tablet 40 mg (2 x 20 mg) PO DAILY #10 tabs 01/11/25 prednisone 20 mg tablet 20 mg PO DAILY 5 days #5 tabs 02/12/25 famotidine 20 mg tablet (Pepcid) 20 mg PO BID 5 days #10 tabs 02/15/25 prednisone 10 mg tablet 10 mg PO DIRECTED #42 tabs 02/15/25 Allergies Allergy/AdvReac Type Severity Reaction Status Date / Time Sulfa (Sulfonamide Allergy Intermediate DIARRHEA Verified 02/15/25 15:10 Antibiotics) (SULFA (SULFONAMIDE ANTIBIOTICS)) topiramate (From Topamax) Allergy Anaphylaxis Verified 02/15/25 15:10 venlafaxine (From Effexor) Allergy Unknown Verified 02/15/25 15:10 trazodone (TRAZODONE) AdvReac Mild UNKNOWN Verified 02/15/25 15:10 topamax AdvReac Intermediate Unknown Uncoded 02/15/25 15:10 REPLACED BY [facility] Past Medical History Medical History Bipolar affective disorder Hyperchloremic metabolic acidosis Vitamin D deficiency Hypocalcemia Obesity Cyst of pituitary gland Raynauds disease Allergy to sunlight PTSD (post-traumatic stress disorder) Fibromyalgia CRISTIANA (generalized anxiety disorder) POTS (postural orthostatic tachycardia syndrome) Syncope and collapse Idiopathic autonomic neuropathy Autonomic dysfunction Bipolar II disorder Major depressive disorder Suicidal ideation Social History Social History Household Members: Family Household Members Other:: and baby Housing: Apartment Do you presently have visiting nurse or other home services: No Alcohol intake: current Alcohol intake frequency: holidays/special occasions only Alcohol type: beer, wine and hard liquor Patient Tobacco Use Status: Never used Tobacco Substance Use Type: Marijuana Advance Directives: No Advance Directives Information Provided: No service: No Sexual orientation: Bisexual Physical Exam ED Exam Exam: EXAM: Gen: Alert, awake, well appearing, well hydrated. Head: Atraumatic Eyes: Anicteric, Normal conjunctiva. ENT: Moist mucosa, no pallor. ?No objective oropharyngeal edema. No stridor or hoarse voice Neck: Supple. Skin: ?No observable rash or bruising on exposed or examined skin Picture below is prior to arrival in her vehicle self taken photo of the chest that rash is not present in the ED Respiratory: Breathing comfortably, No distress.Clear to auscultation bilaterally, symmetric chest expansion, No wheeze, rales, ronchi. Cardiovascular: Regular rate and rhythm. No murmurs or rub. Well perfused periphery, warm extremities. No edema. ? Abdominal: No focal tenderness. Soft, no objective distension. No palpable masses or obvious organomegaly. ?No guarding, no rebound tenderness or other peritoneal findings. : No flank tenderness. Neuro: Alert. Gross movement of all extremities intact. ? Psych: Calm. Cooperative. MSK: No grossly visible deformity. Vital signs: See flowsheet Vital Signs: Vital Signs - 24 hr 02/13/25 11:18 Temperature 98.0 F Pulse Rate 66 Respiratory Rate 18 Blood Pressure 155/80 H Pulse Oximetry 99 Oxygen Delivery Method Room Air BMI result Body Mass Index 35.6 Course Course Course Narrative: RME: 29-year-old female presents to ED for allergic reaction still having rash and thought feeling itchy of the taking Benadryl and Pepcid. Patient has history of mast cell activation was seen here last night for similar symptoms. Patient is presently not in distress. Patient has rash on arms and chest. Patient to be brought back to the ED Medical Decision Making Medical Decision Making MDM Narrative: Medical Decision Makin-year-old female with self-reported MCAS exacerbation. Resolved rash. No objective oropharyngeal edema, no GI symptoms. No anaphylaxis clinically. The patient was reassured I asked her to continue TID antihistamines and continue the prednisone as prescribed. Strict return precautions provided she understood and was agreeable with plan. Preliminary Favored Differential Diagnosis: Allergic reaction, MCA S, hives among additional considered etiologies Testing Interpreted Independently: ?See below for details Radiology or Lab testing Results Reviewed: ?See below for details Consults: ?See below for details Independent Historians/External Chart Reviews: ?See below for details Social Determinants of Health Impacting MDM/Planning: ?See below for details Discharge Plan Discharge Clinical Impression: Hives Patient Disposition: Home, Self-Care Instructions: Acute Rash (ED) Additional Instructions: Today we evaluated you for a subjective feeling that your mast cell activation syndrome was activated. You showed me a picture of rash which had resolved for your got here. We see no objective signs of severe histamine reaction and advise you to continue the medications he has been on including the continued steroid dosing as well as every 8 hour famotidine and Benadryl for the next 2 days. Prescriptions: No Action tizanidine 4 mg capsule 4 mg PO TID PRN (Reason: muscle spasticity) 30 Days Qty: 90 8RF cholecalciferol (vitamin D3) 125 mcg (5,000 unit) capsule 1 cap PO DAILY methocarbamol 750 mg tablet 750 mg PO Q8H 10 Days Qty: 30 0RF prednisone 20 mg tablet 40 mg PO DAILY Qty: 10 0RF famotidine [Pepcid] 20 mg tablet 20 mg PO BID 5 Days Qty: 10 0RF diphenhydramine HCl [Benadryl] 25 mg capsule 25 mg PO Q8H 5 Days Qty: 15 0RF epinephrine [EpiPen] 0.3 mg/0.3 mL auto-injector 0.3 mg IM ONCE PRN (Reason: extreme reaction) Qty: 1 0RF Rx Instructions: for 2 doses prednisone 20 mg tablet 20 mg PO DAILY 5 Days Qty: 5 0RF ondansetron 4 mg tablet,disintegrating 4 mg PO Q8H PRN (Reason: nausea and vomiting) Qty: 20 0RF morphine 15 mg tablet 15 mg PO Q6H PRN (Reason: pain) Qty: 15 0RF Rx Instructions: Partial Fill upon patient request. cyclobenzaprine 5 mg tablet 5 mg PO TID PRN (Reason: muscle spasm) Qty: 20 0RF prednisone 10 mg tablet 10 mg PO DIRECTED Qty: 42 0RF Rx Instructions: Take 60 mg (6 tabs) daily for 2 days. Then take 50 mg (5 tabs) daily for 2 days. Then take 40 mg (4 tabs) daily for 2 days. Then take 30 mg (3 tabs) daily for 2 days. Then take 20 mg (2 tabs) daily for 2 days. Then take 10 mg (1 tab) daily for 2 days. Then stop. famotidine [Pepcid] 20 mg tablet 20 mg PO BID 5 Days Qty: 10 0RF duloxetine 60 mg capsule,delayed release(DR/EC) 60 mg PO DAILY ibuprofen 600 mg tablet 600 mg PO Q8H PRN acetaminophen [Tylenol] 325 mg capsule 650 mg PO Q6H PRN aripiprazole 15 mg tablet 15 mg PO DAILY midodrine 5 mg tablet 5 mg PO TID pregabalin [Lyrica] 150 mg capsule 150 mg PO BID 30 Days Qty: 60 5RF Interventions: ED Discharge Assessment Last Done: 02/13/25 12:46 Discharge Date/Time: 02/13/25 12:47 Print Language: Upper Sorbian
[2025-02-13 12:46] VITALS: BP 136/86; PULSE 66; RESP 16; TEMP 36.9; O2SAT 98
--- OUTSIDE RECORDS SUMMARY | 2025-02-13 14:43 | XMS_ITS | Clinical Summary ---
Author Organization [facility] Address [address] [place] [address] Care Team Providers Care Real Estate Sales Supervisor Name Role Phone Mónica Valle Primary Care Provider [phone] Allergies Active Allergy Reactions Criticality Noted Date [...] 12/30/2019, Additional history exists Insurance [employer] PPO/EPO/IND [facility] CIG[employer] PPO/EPO/IND Advance Directives * Full Code (Latest Code Status on File) Date Activated Date Inactivated Comments 05/08/2017 12:56 PM 05/08/2017 4:37 PM Care Teams Real Estate Sales Supervisor Relationship Specialty Start Date End Date Mónica Valle [address] [address] PCP - General 01/19/22
== END 2025-02-13 12:47 | disposition home or self-care (01) ==
PROVIDERS: Emergency Provider Emergency Medicine; PCP Nurse Practitioner Adult Health
DX: L50.0 Allergic urticaria (principal); Z79.899 Other long term (current) drug therapy
CPT/HCPCS: 99282

== ENCOUNTER 2025-02-14 19:20 | Emergency (ER) | payer OTHER, SELFPAY ==
[2025-02-14 19:42] VITALS: BP 135/69; BP 136/88; PULSE 78; PULSE 86; RESP 16; TEMP 36.9; O2SAT 98; O2SAT 99; BMI 36.8
--- OUTSIDE RECORDS SUMMARY | 2025-02-14 20:02 | XMS_ITS | Clinical Summary ---
Author Organization [facility] Address [address] [place] [address] Care Team Providers Care Hand Funnel Coater Name Role Phone Mónica Valle Primary Care Provider [phone] Allergies Active Allergy Reactions Criticality Noted Date [...] 12/30/2019, Additional history exists Insurance [employer] PPO/EPO/IND [facility] CIGNA PPO/EPO/IND Advance Directives * Full Code (Latest Code Status on File) Date Activated Date Inactivated Comments 05/08/2017 12:56 PM 05/08/2017 4:37 PM Care Teams Hand Funnel Coater Relationship Specialty Start Date End Date Mónica Valle [address] [address] PCP - General 01/19/22
--- NOTE | 2025-02-14 20:54 | ED.ALLEREA ---
HPI - Allergic Reaction General Chief complaint: Allergic Reaction Stated complaint: ALLERGIC RXN,RASH,PFEIFFER, X'S SEVERAL WEEKS Time Seen by Provider: 02/14/25 20:53 Source: patient and EMS Mode of arrival: EMS Limitations: no limitations History of Present Illness ED Provider: Ronnie CRUZ HPI narrative: The patient is a 29-year-old female presenting to the ED via EMS reports a history of for evaluation of possible mast cell activation syndrome versus anaphylaxis. The patient has a history of masses activation syndrome, fibromyalgia, intractable pain, Raynaud's disease, bipolar disorder, Prudencio-Danlos syndrome, depression, and PTSD. The patient reports her mast cell activation syndrome was diagnosed approximately 8 years ago in 2017. Patient reports over the past few months she has been experiencing multiple recurrent episodes of symptoms consistent with her masses activation syndrome. The patient reports at the beginning of this week she was started on 20 mg daily prednisone for 5 days by her PCP. The patient reports yesterday she was seen at [facility] for worsening symptoms despite taking prednisone and Pepcid. The patient reports she was prescribed a course of 60 mg of prednisone, however reports there was an error with the prescription and she was unable to fill it. The patient reports today she took 20 mg of prednisone in the morning, this afternoon after attending a wedding she began experiencing symptoms with scratchy throat, diffuse pruritus with a poorly defined macular versus urticarial rash, and nausea. The patient denies any shortness of breath, wheeze, stridor, lip swelling, tongue swelling, or other airway involvement. The patient reports she took 40 mg of Pepcid, 50 mg of p.o. Benadryl, and when symptoms did not improve she contacted her PCP. Patient reports her PCP advised her to administer her epinephrine pen, patient administered epi and activated EMS. Patient reports she has not experienced any relief of her symptoms despite taking all the above medications, including epinephrine. Related Data Home Medications ?Medication ?Instructions ?Recorded ?Confirmed cholecalciferol (vitamin D3) 125 1 cap PO DAILY 06/20/22 06/11/24 mcg (5,000 unit) capsule acetaminophen 325 mg capsule 650 mg PO Q6H PRN 07/17/22 06/11/24 (Tylenol) ibuprofen 600 mg tablet 600 mg PO Q8H PRN 07/17/22 06/11/24 aripiprazole 15 mg tablet 15 mg PO DAILY 12/13/22 06/11/24 midodrine 5 mg tablet 5 mg PO TID 12/13/22 06/11/24 duloxetine 60 mg capsule,delayed 60 mg PO DAILY 01/05/24 06/11/24 release Previous Rx's ?Medication ?Instructions ?Recorded pregabalin 150 mg capsule (Lyrica) 150 mg PO BID 30 days #60 caps 06/11/24 ondansetron 4 mg disintegrating 4 mg PO Q8H PRN nausea and 06/21/24 tablet vomiting #20 tabs tizanidine 4 mg capsule 4 mg PO TID PRN muscle spasticity 07/01/24 30 days #90 caps morphine 15 mg immediate release 15 mg PO Q6H PRN pain #15 tabs 08/04/24 tablet methocarbamol 750 mg tablet 750 mg PO Q8H 10 days #30 tabs 10/06/24 cyclobenzaprine 5 mg tablet 5 mg PO TID PRN muscle spasm #20 12/25/24 tabs diphenhydramine HCl 25 mg capsule 25 mg PO Q8H 5 days #15 caps 01/11/25 (Benadryl) epinephrine 0.3 mg/0.3 mL 0.3 mg (0.3 mL) IM ONCE PRN 01/11/25 injection, auto-injector (EpiPen) extreme reaction #1 ea famotidine 20 mg tablet (Pepcid) 20 mg PO BID 5 days #10 tabs 01/11/25 prednisone 20 mg tablet 40 mg (2 x 20 mg) PO DAILY #10 tabs 01/11/25 prednisone 20 mg tablet 20 mg PO DAILY 5 days #5 tabs 02/12/25 famotidine 20 mg tablet (Pepcid) 20 mg PO BID 5 days #10 tabs 02/15/25 prednisone 10 mg tablet 10 mg PO DIRECTED #42 tabs 02/15/25 Allergies Allergy/AdvReac Type Severity Reaction Status Date / Time Sulfa (Sulfonamide Allergy Intermediate DIARRHEA Verified 02/14/25 19:54 Antibiotics) (SULFA (SULFONAMIDE ANTIBIOTICS)) topiramate (From Topamax) Allergy Anaphylaxis Verified 02/14/25 19:54 venlafaxine (From Effexor) Allergy Unknown Verified 02/14/25 19:54 trazodone (TRAZODONE) AdvReac Mild UNKNOWN Verified 02/14/25 19:54 topamax AdvReac Intermediate Unknown Uncoded 02/14/25 19:54 Review of Systems Review of Systems: Yes all other systems are reviewed and are negative PMFSH Past Medical History Medical History Bipolar affective disorder Hyperchloremic metabolic acidosis Vitamin D deficiency Hypocalcemia Obesity Cyst of pituitary gland Raynauds disease Allergy to sunlight PTSD (post-traumatic stress disorder) Fibromyalgia CRISTIANA (generalized anxiety disorder) POTS (postural orthostatic tachycardia syndrome) Syncope and collapse Idiopathic autonomic neuropathy Autonomic dysfunction Bipolar II disorder Major depressive disorder Suicidal ideation Social History Social History Household Members: Family Household Members Other:: and baby Housing: Apartment Do you presently have visiting nurse or other home services: No Alcohol intake: current Alcohol intake frequency: holidays/special occasions only Alcohol type: beer, wine and hard liquor Patient Tobacco Use Status: Never used Tobacco Substance Use Type: Marijuana Advance Directives: No Advance Directives Information Provided: No Do you have a plan to hurt others: No Plan service: No Sexual orientation: Bisexual Physical Exam ED Vital Signs: Vital Signs - 24 hr 02/14/25 19:42 Temperature 98.4 F Pulse Rate 78 Respiratory Rate 16 Blood Pressure 135/69 Pulse Oximetry 99 Oxygen Delivery Method Room Air BMI result Body Mass Index 36.8 CONSTITUTIONAL: The patient appears non-toxic, well nourished and in no acute distress. Vital signs as documented. HEAD: Atraumatic, normocephalic. EYES: EOMs grossly intact, pupils equal, conjunctiva clear, no exudate. ENT: Nares patent, no discharge. Airway patent, no audible stridor, visible mucosa is pink and moist without noted lesions. Posterior pharynx demonstrates midline nonedematous uvula, no peritonsillar or tonsillar swelling, no tonsillar exudate. No edema of the lips or tongue. NECK: Trachea is midline, no obvious masses or gross abnormalities. CHEST: Symmetric movement, normal appearance. LUNGS: LS present and CTAB, no w/r/r, no stridor. Non-labored work of breathing. CARDIAC: Regular Rhythm, S1/S2 appreciated, no murmurs, rubs or gallops. ABDOMEN: Abdomen soft and non-tender x4 quadrants, no palpable masses or organomegaly. : Deferred. EXTREMITIES: Normal tone, moves all extremities spontaneously without reported pain. No obvious acute injury or deformity noted. NEURO: Alert and oriented x3, CN II-XII appear grossly intact. Cerebellar Functioning grossly intact. No obvious sensory or motor deficits. Speech clear and appropriate. PSYCH: normal affect, appropriate eye contact, fluid speech, with appropriate response to questioning. No reported suicidality or homicidality. SKIN: Warm, dry, color appropriate, normal turgor. Poorly demarcated, blanching, macular rash noted to the chest and upper extremities without significant excoriation, described as pruritic, no vesicles, ulcerations, or papules no other rashes noted. Medications Administered Discontinued Medications Generic Name Dose Route Start Last Admin Trade Name Freq PRN Reason Stop Dose Admin Diphenhydramine HCl 50 mg 02/14/25 22:06 02/14/25 22:34 Diphenhydramine Hcl 50 Mg/Ml Vial IVPUSH 02/14/25 22:07 50 mg ONCE ONE Administration Prednisone 60 mg 02/14/25 22:06 02/14/25 22:34 Prednisone 20 Mg Tablet PO 02/14/25 22:07 60 mg ONCE ONE Administration Medical Decision Making Medical Decision Making MDM Narrative: 10:12 PM 02/14/2025 (Alivia CRUZ): The patient is a 29-year-old female presenting to the ED via EMS reports a history of for evaluation of possible mast cell activation syndrome versus anaphylaxis. The patient has a history of masses activation syndrome, fibromyalgia, intractable pain, Raynaud's disease, bipolar disorder, Prudencio-Danlos syndrome, depression, and PTSD. The patient reports her mast cell activation syndrome was diagnosed approximately 8 years ago in 2017. Patient reports over the past few months she has been experiencing multiple recurrent episodes of symptoms consistent with her masses activation syndrome. The patient reports at the beginning of this week she was started on 20 mg daily prednisone for 5 days by her PCP. The patient reports yesterday she was seen at [facility] for worsening symptoms despite taking prednisone and Pepcid. The patient reports she was prescribed a course of 60 mg of prednisone, however reports there was an error with the prescription and she was unable to fill it. The patient reports today she took 20 mg of prednisone in the morning, this afternoon after attending a wedding she began experiencing symptoms with scratchy throat, diffuse pruritus with a poorly defined macular versus urticarial rash, and nausea. The patient denies any shortness of breath, wheeze, stridor, lip swelling, tongue swelling, or other airway involvement. The patient reports she took 40 mg of Pepcid, 50 mg of p.o. Benadryl, and when symptoms did not improve she contacted her PCP. Patient reports her PCP advised her to administer her epinephrine pen, patient administered epi and activated EMS. Patient reports she has not experienced any relief of her symptoms despite taking all the above medications, including epinephrine. The patient's exam demonstrates no wheezing, stridor, pharyngeal swelling, lip swelling, tongue swelling, or vomiting. The patient's skin exam demonstrates poorly demarcated macular rash versus urticaria, no significant excoriation, patient not actively itching. The exact cause of the patient's reaction is not entirely clear, patient is in no acute distress, after extensive discussion with the patient, we will administer additional prednisone and IV Benadryl for symptomatic control, additionally we will obtain basic laboratory workup and trypsin level to establish a post exacerbation trypsin level for her PCP to use in comparison against baseline levels, to further clarify if patient's current symptoms are secondary to mast cell activation syndrome. Upon discharge we will treat with a 2 week prednisone taper, and 5 days of BID Pepcid. Patient was educated on this care plan and both patient and girlfriend are comfortable with this plan. 12:35 AM 02/15/2025 (Alivia CRUZ): The patient's symptoms have improved slightly, patient continues to be hemodynamically stable with no evidence of airway involvement. Repeat exam of lungs demonstrates no wheezing or stridor. Basic laboratory workup is reassuring. Trypsin we will not result tonight. The patient will be discharged with the above stated care plan. Admission/Observation Consideration of admission/observation: Escalation of care including admission/observation considered Lab Data MDM Lab Attestation statement: I reviewed the patient's lab results. 02/14/25 22:16 02/14/25 22:16 Labs: Lab Results 02/14/25 Range/Units 22:16 WBC 14.0 H (4.8-10.8) X10*3/uL RBC 4.49 (4.20-5.50) X10*6/uL Hgb 13.8 (12.0-16.0) g/dl Hct 39.2 (37.0-47.0) % MCV 87.3 (80.0-98.0) fL MCH 30.7 (27.0-33.0) pg MCHC 35.2 H (31.0-35.0) g/dl RDW 12.4 (11.0-16.0) % Plt Count 290 (160-400) X10*3/uL MPV 9.2 L (9.4-12.3) fL Immature Gran % (Auto) 0.7 H (0.0-0.4) % Neut % (Auto) 72.6 (45-73) % Lymph % (Auto) 19.6 L (20-40) % Ritchie % (Auto) 6.8 (2-11) % Eos % (Auto) 0.1 (0-4) % Baso % (Auto) 0.2 (0-2) % Lymph # (Auto) 2.8 (1.2-4.9) X10*3/uL Ritchie # (Auto) 1.0 (0.1-1.2) X10*3/uL Eos # (Auto) 0.0 (0.0-0.4) X10*3/uL Baso # (Auto) 0.0 (0.0-0.2) X10*3/uL Abs Immat Gran (auto) 0.10 H (0.00-0.03) X10*3/uL Absolute Neuts (auto) 10.2 H (2.0-8.3) x10*3/uL Absolute Nucleated RBC 0.000 (0.0-0.012) X10*3/uL Nucleated RBC % (auto) 0.0 (0.0-0.2) /100WBC Sodium 143 (135-145) mmol/L Potassium 3.1 L (3.3-5.1) mmol/L Chloride 108 (96-108) mmol/L Carbon Dioxide 22 (22-29) mmol/L Anion Gap 16 (12-20) BUN 9 (9-16) mg/dL Creatinine 0.65 (0.5-1.4) mg/dL Estim Creat Clear Calc 131.7 Estimated GFR > 60 Random Glucose 109 (60-115) mg/dL Calcium 8.8 (8.4-10.2) mg/dL Total Bilirubin 0.7 (0.0-1.0) mg/dL AST 14 (5-31) U/L ALT 11 (0-31) U/L Alkaline Phosphatase 81 (39-117) U/L Total Protein 6.6 (6.5-8.0) g/dL Albumin 4.6 (3.5-5.0) g/dL External Record Review External record reviewed: Outpatient record and Prior outpatient labs Discharge Plan Discharge Clinical Impression: Allergic symptoms Patient Disposition: Home, Self-Care Instructions: General Allergic Reaction (ED) Additional Instructions: Thank you for choosing [facility] Emergency Department for your care today. Thankfully your laboratory evaluation and exam today are reassuring. At this time there is no evidence of airway compromise/anaphylaxis, and thus there is no indication for admission to the hospital or continued ED observation, and it is safe to discharge you home. The exact cause of your symptoms is not entirely clear. This may have been a recurrence of your previously diagnosed mast cell activation syndrome or an allergic reaction. We are treating you with prednisone and Pepcid. Please take these both as prescribed until they are finished. You may also take Benadryl as directed as needed for additional symptoms. We sent a blood test for trypsin levels. Please follow up with your primary care provider and cookie padder/immigration judge to discuss obtaining a baseline trypsin level for comparison to identify if these symptoms are mast cell mediated. We also prescribed you a new epinephrine pen. Please administer epinephrine only if you are experiencing symptoms of lip swelling, tongue swelling, high-pitched respirations (stridor), difficulty swallowing, or severe wheezing/shortness of breath. Please follow up with your primary care physician and cookie padder for re-evaluation, additional management of your symptoms, and continued preventative care. If you do not have a primary care physician, please call the [facility] at [phone] to establish a new primary care physician. While waiting to establish your new primary care physician, you can call our [facility] at [phone] for non-emergency needs. Please return to the emergency department if you develop a severe or sudden change in your symptoms, a fever over 100.4 that does not improve with Tylenol or Ibuprofen, recurrent vomiting, or any other new or worsening symptoms or concerns. Prescriptions: New prednisone 10 mg tablet 10 mg PO DIRECTED Qty: 42 0RF Rx Instructions: Take 60 mg (6 tabs) daily for 2 days. Then take 50 mg (5 tabs) daily for 2 days. Then take 40 mg (4 tabs) daily for 2 days. Then take 30 mg (3 tabs) daily for 2 days. Then take 20 mg (2 tabs) daily for 2 days. Then take 10 mg (1 tab) daily for 2 days. Then stop. famotidine [Pepcid] 20 mg tablet 20 mg PO BID 5 Days Qty: 10 0RF No Action tizanidine 4 mg capsule 4 mg PO TID PRN (Reason: muscle spasticity) 30 Days Qty: 90 8RF cholecalciferol (vitamin D3) 125 mcg (5,000 unit) capsule 1 cap PO DAILY methocarbamol 750 mg tablet 750 mg PO Q8H 10 Days Qty: 30 0RF prednisone 20 mg tablet 40 mg PO DAILY Qty: 10 0RF famotidine [Pepcid] 20 mg tablet 20 mg PO BID 5 Days Qty: 10 0RF diphenhydramine HCl [Benadryl] 25 mg capsule 25 mg PO Q8H 5 Days Qty: 15 0RF epinephrine [EpiPen] 0.3 mg/0.3 mL auto-injector 0.3 mg IM ONCE PRN (Reason: extreme reaction) Qty: 1 0RF Rx Instructions: for 2 doses prednisone 20 mg tablet 20 mg PO DAILY 5 Days Qty: 5 0RF ondansetron 4 mg tablet,disintegrating 4 mg PO Q8H PRN (Reason: nausea and vomiting) Qty: 20 0RF morphine 15 mg tablet 15 mg PO Q6H PRN (Reason: pain) Qty: 15 0RF Rx Instructions: Partial Fill upon patient request. cyclobenzaprine 5 mg tablet 5 mg PO TID PRN (Reason: muscle spasm) Qty: 20 0RF duloxetine 60 mg capsule,delayed release(DR/EC) 60 mg PO DAILY ibuprofen 600 mg tablet 600 mg PO Q8H PRN acetaminophen [Tylenol] 325 mg capsule 650 mg PO Q6H PRN aripiprazole 15 mg tablet 15 mg PO DAILY midodrine 5 mg tablet 5 mg PO TID pregabalin [Lyrica] 150 mg capsule 150 mg PO BID 30 Days Qty: 60 5RF Referrals: Mónica Valle NP [Primary Care Provider, Internal Medicine] Clinical Impression: Allergic symptoms Print Language: Dutch
[2025-02-14 22:20] LABS: MANUAL DIFF FLAG NO
[2025-02-14 22:23] LABS: Hematocrit 39.2 % (37.0-47.0); Hemoglobin 13.8 g/dl (12.0-16.0); Imm Gran Abs Auto 0.10 X10*3/uL (0.00-0.03); Imm Gran Pct Auto 0.7 % (0.0-0.4); Lymphocytes Absolute Auto 2.8 X10*3/uL (1.2-4.9); Mean Corpuscular HGB Conc 35.2 g/dl (31.0-35.0); Mean Corpuscular Hemoglobin 30.7 pg (27.0-33.0); Mean Corpuscular Volume 87.3 fL (80.0-98.0); NRBC Abs Auto 0.000 X10*3/uL (0.0-0.012); NRBC Pct Auto 0.0 /100WBC (0.0-0.2); Platelet Count 290 X10*3/uL (160-400); Red Blood Count 4.49 X10*6/uL (4.20-5.50); White Blood Count 14.0 X10*3/uL (4.8-10.8)
[2025-02-14 22:36] LABS: Alanine Aminotransferase 11 U/L (0-31); Albumin Level 4.6 g/dL (3.5-5.0); Alkaline Phosphatase 81 U/L (39-117); Anion Gap 16 (12-20); Aspartate Amino Transferase 14 U/L (5-31); Blood Urea Nitrogen 9 mg/dL (9-16); Calcium 8.8 mg/dL (8.4-10.2); Carbon Dioxide 22 mmol/L (22-29); Chloride 108 mmol/L (96-108); Creatinine Clr Calc Pharmacy 131.7; Estimated Glomerular Filt Rate > 60; Potassium 3.1 mmol/L (3.3-5.1); Sodium 143 mmol/L (135-145); Total Protein 6.6 g/dL (6.5-8.0)
[2025-02-15 01:00] VITALS: BP 125/78; PULSE 81; RESP 18; TEMP 36.9; O2SAT 99
== END 2025-02-15 01:05 | disposition home or self-care (01) ==
PROVIDERS: Physician Assistant; Emergency Provider Student in an Organized Health Care Education/Training Program; PCP Nurse Practitioner Adult Health
DX: R21 Rash and other nonspecific skin eruption (principal); R51.9 Headache, unspecified; D89.40 Mast cell activation, unspecified; M79.7 Fibromyalgia
CPT/HCPCS: 36415; 80053; 83520; 85025; 96374; 99283; 99284; J1200

== ENCOUNTER 2025-02-15 14:49 | Emergency (ER) | payer OTHER, SELFPAY ==
--- NOTE | 2025-02-15 15:08 | ED.GENADULT ---
HPI - General Adult General Chief complaint: Allergic Reaction Stated complaint: itchy sob, sweating Related Data Home Medications ?Medication ?Instructions ?Recorded ?Confirmed cholecalciferol (vitamin D3) 125 1 cap PO DAILY 06/20/22 06/11/24 mcg (5,000 unit) capsule acetaminophen 325 mg capsule 650 mg PO Q6H PRN 07/17/22 06/11/24 (Tylenol) ibuprofen 600 mg tablet 600 mg PO Q8H PRN 07/17/22 06/11/24 aripiprazole 15 mg tablet 15 mg PO DAILY 12/13/22 06/11/24 midodrine 5 mg tablet 5 mg PO TID 12/13/22 06/11/24 duloxetine 60 mg capsule,delayed 60 mg PO DAILY 01/05/24 06/11/24 release Previous Rx's ?Medication ?Instructions ?Recorded pregabalin 150 mg capsule (Lyrica) 150 mg PO BID 30 days #60 caps 06/11/24 ondansetron 4 mg disintegrating 4 mg PO Q8H PRN nausea and 06/21/24 tablet vomiting #20 tabs tizanidine 4 mg capsule 4 mg PO TID PRN muscle spasticity 07/01/24 30 days #90 caps morphine 15 mg immediate release 15 mg PO Q6H PRN pain #15 tabs 08/04/24 tablet methocarbamol 750 mg tablet 750 mg PO Q8H 10 days #30 tabs 10/06/24 cyclobenzaprine 5 mg tablet 5 mg PO TID PRN muscle spasm #20 12/25/24 tabs diphenhydramine HCl 25 mg capsule 25 mg PO Q8H 5 days #15 caps 01/11/25 (Benadryl) epinephrine 0.3 mg/0.3 mL 0.3 mg (0.3 mL) IM ONCE PRN 01/11/25 injection, auto-injector (EpiPen) extreme reaction #1 ea famotidine 20 mg tablet (Pepcid) 20 mg PO BID 5 days #10 tabs 01/11/25 prednisone 20 mg tablet 40 mg (2 x 20 mg) PO DAILY #10 tabs 01/11/25 prednisone 20 mg tablet 20 mg PO DAILY 5 days #5 tabs 02/12/25 famotidine 20 mg tablet (Pepcid) 20 mg PO BID 5 days #10 tabs 02/15/25 prednisone 10 mg tablet 10 mg PO DIRECTED #42 tabs 02/15/25 Allergies Allergy/AdvReac Type Severity Reaction Status Date / Time Sulfa (Sulfonamide Allergy Intermediate DIARRHEA Verified 02/15/25 15:10 Antibiotics) (SULFA (SULFONAMIDE ANTIBIOTICS)) topiramate (From Topamax) Allergy Anaphylaxis Verified 02/15/25 15:10 venlafaxine (From Effexor) Allergy Unknown Verified 02/15/25 15:10 trazodone (TRAZODONE) AdvReac Mild UNKNOWN Verified 02/15/25 15:10 bupropion (From Wellbutrin) AdvReac Anxiety Verified 02/18/25 00:59 topamax AdvReac Intermediate Unknown Uncoded 02/15/25 15:10 PMFSH Past Medical History Medical History Bipolar affective disorder Hyperchloremic metabolic acidosis Vitamin D deficiency Hypocalcemia Obesity Cyst of pituitary gland Raynauds disease Allergy to sunlight PTSD (post-traumatic stress disorder) Fibromyalgia CRISTIANA (generalized anxiety disorder) POTS (postural orthostatic tachycardia syndrome) Syncope and collapse Idiopathic autonomic neuropathy Autonomic dysfunction Bipolar II disorder Major depressive disorder Suicidal ideation Social History Social History Household Members: Family Household Members Other:: and baby Housing: Apartment Do you presently have visiting nurse or other home services: No Alcohol intake: current Alcohol intake frequency: holidays/special occasions only Alcohol type: beer, wine and hard liquor Patient Tobacco Use Status: Never used Tobacco Smoked in Last 30 Days: No Substance Use Type: Marijuana Advance Directives: No Advance Directives Information Provided: Yes service: No Sexual orientation: Bisexual Physical Exam ED Vital Signs: BMI result Body Mass Index 35.7 Course Course Course Narrative: This is a rapid medical exam performed by Antoine Lopez NP: Additional HPI, ROS, PE not included below will be deferred to primary provider. Patient is a 29y/o F with reported history of mast cell activation syndrome, Prudencio-Danlos, fibromyalgia, Bipolar disorder, PTSD presenting with complaint of rash to left arm and feeling short of breath. Lungs clear in triage, no angioedema, tongue swelling, or uvula edema. Seen in this ED multiple times recently for similar symptoms. No acute distress in triage. Patient left the emergency department before myself or any of the other clinicians could review or explain physical exam findings, test results, need or lack there of for additional testing, treatment options, or a treatment plan. Discharge Plan Discharge Clinical Impression: Rash Patient Disposition: Left W/O Completing Treatment Prescriptions: No Action tizanidine 4 mg capsule 4 mg PO TID PRN (Reason: muscle spasticity) 30 Days Qty: 90 8RF cholecalciferol (vitamin D3) 125 mcg (5,000 unit) capsule 1 cap PO DAILY methocarbamol 750 mg tablet 750 mg PO Q8H 10 Days Qty: 30 0RF prednisone 20 mg tablet 40 mg PO DAILY Qty: 10 0RF famotidine [Pepcid] 20 mg tablet 20 mg PO BID 5 Days Qty: 10 0RF diphenhydramine HCl [Benadryl] 25 mg capsule 25 mg PO Q8H 5 Days Qty: 15 0RF epinephrine [EpiPen] 0.3 mg/0.3 mL auto-injector 0.3 mg IM ONCE PRN (Reason: extreme reaction) Qty: 1 0RF Rx Instructions: for 2 doses prednisone 20 mg tablet 20 mg PO DAILY 5 Days Qty: 5 0RF ondansetron 4 mg tablet,disintegrating 4 mg PO Q8H PRN (Reason: nausea and vomiting) Qty: 20 0RF morphine 15 mg tablet 15 mg PO Q6H PRN (Reason: pain) Qty: 15 0RF Rx Instructions: Partial Fill upon patient request. cyclobenzaprine 5 mg tablet 5 mg PO TID PRN (Reason: muscle spasm) Qty: 20 0RF prednisone 10 mg tablet 10 mg PO DIRECTED Qty: 42 0RF Rx Instructions: Take 60 mg (6 tabs) daily for 2 days. Then take 50 mg (5 tabs) daily for 2 days. Then take 40 mg (4 tabs) daily for 2 days. Then take 30 mg (3 tabs) daily for 2 days. Then take 20 mg (2 tabs) daily for 2 days. Then take 10 mg (1 tab) daily for 2 days. Then stop. famotidine [Pepcid] 20 mg tablet 20 mg PO BID 5 Days Qty: 10 0RF duloxetine 60 mg capsule,delayed release(DR/EC) 60 mg PO DAILY ibuprofen 600 mg tablet 600 mg PO Q8H PRN acetaminophen [Tylenol] 325 mg capsule 650 mg PO Q6H PRN aripiprazole 15 mg tablet 15 mg PO DAILY midodrine 5 mg tablet 5 mg PO TID pregabalin [Lyrica] 150 mg capsule 150 mg PO BID 30 Days Qty: 60 5RF Discharge Date/Time: 02/15/25 17:37
[2025-02-15 15:09] VITALS: BP 182/84; PULSE 72; RESP 16; TEMP 36.3; O2SAT 97; BMI 35.7
--- OUTSIDE RECORDS SUMMARY | 2025-02-15 17:35 | XMS_ITS | Clinical Summary ---
Author Organization [facility] Address [address] [place] [address] Care Team Providers Care Servicer Coin Machines Name Role Phone Mónica Valle Primary Care Provider [phone] Allergies Active Allergy Reactions Criticality Noted Date [...] 12/30/2019, Additional history exists Insurance CIG[employer] PPO/EPO/IND [facility] CIGNA PPO/EPO/IND Advance Directives * Full Code (Latest Code Status on File) Date Activated Date Inactivated Comments 05/08/2017 12:56 PM 05/08/2017 4:37 PM Care Teams Servicer Coin Machines Relationship Specialty Start Date End Date Mónica Valle [address] [address] PCP - General 01/19/22
== END 2025-02-15 17:37 | disposition left against medical advice (07) ==
LOC: HO.ED 17:32
PROVIDERS: Emergency Provider Emergency Medicine
DX: R21 Rash and other nonspecific skin eruption (principal); Z53.21 Procedure and treatment not carried out due to patient leaving prior to being seen by health care provider
CPT/HCPCS: 99281

== ENCOUNTER 2025-02-18 00:40 | Emergency (ER) | payer OTHER, SELFPAY ==
[2025-02-18 00:41] VITALS: BP 114/65; BP 126/70; PULSE 68; PULSE 80; RESP 16; TEMP 36.9; O2SAT 100; O2SAT 99; BMI 37.1
--- OUTSIDE RECORDS SUMMARY | 2025-02-18 01:23 | XMS_ITS | Clinical Summary ---
Author Organization [facility] Address [address] [place] [address] Care Team Providers Care Methods Specialist Name Role Phone Mónica Valle Primary Care Provider [phone] Allergies Active Allergy Reactions Criticality Noted Date [...] 12/30/2019, Additional history exists Insurance CIG[employer] PPO/EPO/IND [facility] CIGNA PPO/EPO/IND Advance Directives * Full Code (Latest Code Status on File) Date Activated Date Inactivated Comments 05/08/2017 12:56 PM 05/08/2017 4:37 PM Care Teams Methods Specialist Relationship Specialty Start Date End Date Mónica Valle [address] [address] PCP - General 01/19/22
[2025-02-18 03:32] VITALS: BP 135/84; PULSE 68; RESP 12; O2SAT 98
--- NOTE | 2025-02-18 04:23 | ED_ITS ---
HPI - Allergic Reaction General Chief complaint: Allergic Reaction Stated complaint: allergic reaction/sob Time Seen by Provider: 02/18/25 01:39 Source: patient, family, EMS, RN notes reviewed and old records reviewed Mode of arrival: EMS Limitations: no limitations History of Present Illness ED Provider: Dr. Rebecca Jack HPI narrative: 29-year-old female with extensive autoimmune disease history including mass cell activation syndrome, fibromyalgia, Prudencio-Danlos syndrome, Raynaud's disease, bipolar disorder, PTSD, POTS, presenting with apparent allergic reaction that occurred tonight. Patient was at [facility] earlier today for the same. She was administered an EpiPen and evaluated there. Unfortunately, she was discharged home and had another activation of her allergies. She administered her EpiPen again at home. Describes throat fullness and itchiness. Also having a headache now. She had hives on her face and chest which have resolved since using the EpiPen. She is on multiple medications for antihistamines including Pepcid, cetirizine and Benadryl. Reports no relief with any of these drugs. She is extremely frustrated as she is trying to get in to see a specialist for her mast cell activation syndrome. Denies chest pain, syncope, tongue or throat swelling, vomiting, diarrhea, shortness of breath. She does not know what is triggering her symptoms. Related Data Home Medications ?Medication ?Instructions ?Recorded ?Confirmed cholecalciferol (vitamin D3) 125 1 cap PO DAILY 06/11/24 mcg (5,000 unit) capsule acetaminophen 325 mg capsule 650 mg PO Q6H PRN 3 06/11/24 (Tylenol) ibuprofen 600 mg tablet 600 mg PO Q8H PRN 07/17/22 0 06/11/24 aripiprazole 15 mg tablet 15 mg PO DAILY 12/13/2205/31 midodrine 5 mg tablet 5 mg PO TID 12/13/22 5 duloxetine 60 mg capsule,delayed 60 mg PO DAILY 06/11/24 release Previous Rx's ?Medication ?Instructions ?Recorded pregabalin 150 mg capsule (Lyrica) 150 mg PO BID 30 da ys #60 caps 06/11/24 ondansetron 4 mg disintegrating 4 mg PO Q8H PRN nausea and 06/21/24 tablet vomiting #20 tabs tizanidine 4 mg capsule 4 mg PO TID PRN muscle spast icity 07/01/24 30 days #90 caps morphine 15 mg immediate release 15 mg PO Q6H PRN pain #15 tabs 08/04/24 tablet methocarbamol 750 mg tablet 750 mg PO Q8H 10 days #30 tabs 10/06/24 cyclobenzaprine 5 mg tablet 5 mg PO TID PRN muscle spa sm #20 12/25/24 tabs diphenhydramine HCl 25 mg capsule 25 mg PO Q8H 5 days #15 caps 01/11/25 (Benadryl) epinephrine 0.3 mg/0.3 mL 0.3 mg (0.3 mL) IM ONCE PRN 01/11/25 injection, auto-injector (EpiPen) extreme reaction #1 ea famotidine 20 mg tablet (Pepcid) 20 mg PO BID 5 days # 10 tabs 01/11/25 prednisone 20 mg tablet 40 mg (2 x 20 mg) PO DAILY # 10 tabs 01/11/25 prednisone 20 mg tablet 20 mg PO DAILY 5 days #5 tab s 02/12/25 famotidine 20 mg tablet (Pepcid) 20 mg PO BID 5 days # 10 tabs 02/15/25 prednisone 10 mg tablet 10 mg PO DIRECTED #42 tab s 02/15/25 Allergies Allergy/AdvReac Type Severity Reaction Status Date / Time Sulfa (Sulfonamide Allergy Intermediate DIARRHEA Verified 02/15/25 15:10 Antibiotics) (SULFA (SULFONAMIDE ANTIBIOTICS)) topiramate (From Topamax) Allergy Anaphylaxis Verified 02/15/25 15:10 venlafaxine (From Effexor) Allergy Unknown Verified 02/15/25 15:10 trazodone (TRAZODONE) AdvReac Mild UNKNOWN Verified 02/15/25 15:10 bupropion (From Wellbutrin) AdvReac Anxiety Verified 02/18/25 00:59 topamax AdvReac Intermediate Unknown Uncoded 02/15/25 15:10 Review of Systems Review of Systems: As per HPI, full review of systems performed and negative but for the above mentioned pertinent positives and negatives. [facility] Past Medical History Medical History Bipolar affective disorder Hyperchloremic metabolic acidosis Vitamin D deficiency Hypocalcemia Obesity Cyst of pituitary gland Raynauds disease Allergy to sunlight PTSD (post-traumatic stress disorder) Fibromyalgia CRISTIANA (generalized anxiety disorder) POTS (postural orthostatic tachycardia syndrome) Syncope and collapse Idiopathic autonomic neuropathy Autonomic dysfunction Bipolar II disorder Major depressive disorder Suicidal ideation Social History Social History Household Members: Family Household Members Other:: and baby Housing: Apartment Do you presently have visiting nurse or other home services: No Alcohol intake: current Alcohol intake frequency: holidays/special occasions only Alcohol type: beer, wine and hard liquor Patient Tobacco Use Status: Never used Tobacco Smoked in Last 30 Days: No Substance Use Type: Marijuana Advance Directives: No Advance Directives Information Provided: Yes service: No Sexual orientation: Bisexual Physical Exam ED Exam Exam: GENERAL: Anxious, tearful. SKIN: Normal skin color for ethnicity, warm, dry, intact, no rashes noted. HEENT: Normocephalic, atraumatic, no stridor, posterior oropharynx n onerythematous, dentition intact, EOMI. NECK: Soft, supple, full ROM, midline structures nontender, no step-offs, no deformities, no lymphadenopathy. CHEST: Heart regular tachycardia, no murmurs, symmetric chest rise and fall, no crepitus. PULMONARY: Clear to auscultation bilaterally, no labored breathing, no wheezes/rhales/ rhonchi. ABDOMINAL: Soft, nondistended, nontender, positive bowel sounds in all quadrants. : Deferred. MUSCULOSKELETAL: Normal tone, full range of motion, no deformities, no peripheral edema. NEURO: Alert and oriented x3, CN II through XII intact, equal strength and sensation bilateral upper and lower extremities, no focal neurologic deficits. PSYCHIATRIC: Anxious affect, tearful, fluid speech, good eye contact and appropriate demeanor. Vital Signs: Vital Signs - 24 hr 02/18/25 00:41 02/18/25 03:32 02/18/25 06:00 Temperature 98.5 F Pulse Rate 68 68 73 Respiratory Rate 16 12 18 Blood Pressure 114/65 135/84 152/98 H Pulse Oximetry 99 98 99 Oxygen Delivery Method Room Air Room Air Room Air BMI result Body Mass Index 37.1 Medications Administered Discontinued Medications Generic Name Dose Route Start Last Admin Trade Name Freq PRN Reason Stop Dose Admin Diphenhydramine HCl 50 mg 02/18/25 04:22 02/18/25 05:09 Diphenhydramine Hcl 50 Mg/Ml Vial IVPUSH 02/18/25 04:23 50 mg ONCE ONE Administration Medical Decision Making Medical Decision Making [facility] Narrative: Patient presented today for signs and symptoms of possible allergic reaction. Differential diagnosis did include angioedema, anaphylaxis, drug reaction, infe ction, mast cell activation syndrome, among others. Physical examination does not show any signs of multiple system involvement such as anaphylaxis, though this was considered. Patient is not having any wheezing, nausea or vomiting, abdominal pain, or concerning swelling of the tongue or oropharynx. Airway is unobstructed and blood pressures are within normal limits. Anaphylaxis precautions have been given to the patient in a note to return immediately for signs and symptoms of this. Patient was offered a prescription for an Epi-Pen. We had an extensive discussion regarding use of antihistamines more intermittent throughout the day to help keep a steady state in her system to avoid symptoms of mast cell activation syndrome. Patient has been urged to follow up with hospital manager as outpatient. All questions have been answered and patient is stable for discharge. They are welcome back at any time for re- evaluation as we are always happy to do so. Differential Diagnosis Differential Diagnoses: The differential diagnosis associated with the presentation includes (As above) Admission/Observation Consideration of admission/observation: Escalation of care including admission/observation considered Independent Historian Clinical information obtained from an independent historian. History obtained from or confirmed by: Spouse and EMS External Record Review External record reviewed: Inpatient record and Outpatient record Social Determinants Patient?s care significantly limited by Social Determinants of Health including: Other Social Determinant of Health Discharge Plan Discharge Clinical Impression: Mast cell activation syndrome Patient Disposition: Home, Self-Care Instructions: Autoimmune Disease (ED) Additional Instructions: Please follow-up with your claim auditor/hospital manager as soon as possible. Keep your appointment today with your doctor. Return to the hospital if necessary. Continue to use your EpiPen if you need to. Otherwise, try alternating your antihistamines throughout the day to see if you can achieve a more steady state in your body. Prescriptions: No Action tizanidine 4 mg capsule 4 mg PO TID PRN (Reason: muscle spasticity) 30 Days Qty: 90 8RF cholecalciferol (vitamin D3) 125 mcg (5,000 unit) capsule 1 cap PO DAILY methocarbamol 750 mg tablet 750 mg PO Q8H 10 Days Qty: 30 0RF prednisone 20 mg tablet 40 mg PO DAILY Qty: 10 0RF famotidine [Pepcid] 20 mg tablet 20 mg PO BID 5 Days Qty: 10 0RF diphenhydramine HCl [Benadryl] 25 mg capsule 25 mg PO Q8H 5 Days Qty: 15 0RF epinephrine [EpiPen] 0.3 mg/0.3 mL auto-injector 0.3 mg IM ONCE PRN (Reason: extreme reaction) Qty: 1 0RF Rx Instructions: for 2 doses prednisone 20 mg tablet 20 mg PO DAILY 5 Days Qty: 5 0RF ondansetron 4 mg tablet,disintegrating 4 mg PO Q8H PRN (Reason: nausea and vomiting) Qty: 20 0RF morphine 15 mg tablet 15 mg PO Q6H PRN (Reason: pain) Qty: 15 0RF Rx Instructions: Partial Fill upon patient request. cyclobenzaprine 5 mg tablet 5 mg PO TID PRN (Reason: muscle spasm) Qty: 20 0RF prednisone 10 mg tablet 10 mg PO DIRECTED Qty: 42 0RF Rx Instructions: Take 60 mg (6 tabs) daily for 2 days. Then take 50 mg (5 tabs) daily for 2 days. Then take 40 mg (4 tabs) daily for 2 days. Then take 30 mg (3 tabs) daily for 2 days. Then take 20 mg (2 tabs) daily for 2 days. Then take 10 mg (1 tab) daily for 2 days. Then stop. famotidine [Pepcid] 20 mg tablet 20 mg PO BID 5 Days Qty: 10 0RF duloxetine 60 mg capsule,delayed release(DR/EC) 60 mg PO DAILY ibuprofen 600 mg tablet 600 mg PO Q8H PRN acetaminophen [Tylenol] 325 mg capsule 650 mg PO Q6H PRN aripiprazole 15 mg tablet 15 mg PO DAILY midodrine 5 mg tablet 5 mg PO TID pregabalin [Lyrica] 150 mg capsule 150 mg PO BID 30 Days Qty: 60 5RF Interventions: ED Discharge Assessment Last Done: 02/18/25 06:57 Discharge Date/Time: 02/18/25 07:00 Print Language: Tamazight
[2025-02-18 06:00] VITALS: BP 152/98; PULSE 73; RESP 18; O2SAT 99
--- NOTE | 2025-02-18 06:08 | PC.NURSE ---
Pt ambulated independently to BR with steady gait.
[2025-02-18 06:57] VITALS: BP 140/89; PULSE 66; RESP 13; TEMP 36.9; O2SAT 98
== END 2025-02-18 07:00 | disposition home or self-care (01) ==
PROVIDERS: Emergency Provider Emergency Medicine; PCP Nurse Practitioner Adult Health
DX: D89.40 Mast cell activation, unspecified (principal); Q79.60 Ehlers-Danlos syndrome, unspecified; I73.00 Raynaud's syndrome without gangrene; F43.10 Post-traumatic stress disorder, unspecified; Z79.899 Other long term (current) drug therapy
CPT/HCPCS: 99284; J1200

== ENCOUNTER 2025-04-19 22:44 | Emergency (ER) | payer OTHER, MEDICAID, SELFPAY ==
--- NOTE | ~2025-04-19 | XR_ITS ---
CLINICAL HISTORY: sob, cough 2 view chest x-ray Comparison: CR/SR - XR CHEST 2 VIEWS - 10/06/24 16:30 EDT Findings: No consolidation or pleural effusion. Normal size heart. No acute fracture. IMPRESSION: 1. No acute findings. This document has been electronically signed by: Glory Warner MD on 04/19/2025 23:39:35
[2025-04-19 22:50] VITALS: BP 135/74; PULSE 90; RESP 20; TEMP 36.7; O2SAT 99; BMI 34.7
--- NOTE | 2025-04-19 23:16 | ED.GENADULT ---
HPI - General Adult General Chief complaint: Upper Respiratory Symptoms Stated complaint: general medicine Time Seen by Provider: 04/19/25 23:11 Source: patient Mode of arrival: ambulatory Limitations: no limitations History of Present Illness ED Provider: Dr. Bear HPI narrative: 29-year-old female history of mast cells activation syndrome presented hospital today for evaluation of shortness of breath coughing. Patient stated [place] when she had the sudden episode. She gave herself an EpiPen and presented here to the ER. Patient has been started on new medication with her photo lab technician. There I have titrate her dose currently. She is hopeful that this will help prevent her exacerbations. No wheezing no urticaria. No abdominal pain. Related Data Home Medications ?Medication ?Instructions ?Recorded ?Confirmed cholecalciferol (vitamin D3) 125 1 cap PO DAILY 06/20/22 06/11/24 mcg (5,000 unit) capsule acetaminophen 325 mg capsule 650 mg PO Q6H PRN 07/17/22 06/11/24 (Tylenol) ibuprofen 600 mg tablet 600 mg PO Q8H PRN 07/17/22 06/11/24 aripiprazole 15 mg tablet 15 mg PO DAILY 12/13/22 06/11/24 midodrine 5 mg tablet 5 mg PO TID 12/13/22 06/11/24 duloxetine 60 mg capsule,delayed 60 mg PO DAILY 01/05/24 06/11/24 release Previous Rx's ?Medication ?Instructions ?Recorded pregabalin 150 mg capsule (Lyrica) 150 mg PO BID 30 days #60 caps 06/11/24 ondansetron 4 mg disintegrating 4 mg PO Q8H PRN nausea and 06/21/24 tablet vomiting #20 tabs tizanidine 4 mg capsule 4 mg PO TID PRN muscle spasticity 07/01/24 30 days #90 caps morphine 15 mg immediate release 15 mg PO Q6H PRN pain #15 tabs 08/04/24 tablet methocarbamol 750 mg tablet 750 mg PO Q8H 10 days #30 tabs 10/06/24 cyclobenzaprine 5 mg tablet 5 mg PO TID PRN muscle spasm #20 12/25/24 tabs diphenhydramine HCl 25 mg capsule 25 mg PO Q8H 5 days #15 caps 01/11/25 (Benadryl) epinephrine 0.3 mg/0.3 mL 0.3 mg (0.3 mL) IM ONCE PRN 01/11/25 injection, auto-injector (EpiPen) extreme reaction #1 ea famotidine 20 mg tablet (Pepcid) 20 mg PO BID 5 days #10 tabs 01/11/25 prednisone 20 mg tablet 40 mg (2 x 20 mg) PO DAILY #10 tabs 01/11/25 prednisone 20 mg tablet 20 mg PO DAILY 5 days #5 tabs 02/12/25 famotidine 20 mg tablet (Pepcid) 20 mg PO BID 5 days #10 tabs 02/15/25 prednisone 10 mg tablet 10 mg PO DIRECTED #42 tabs 02/15/25 epinephrine 0.3 mg/0.3 mL 0.3 mg (0.3 mL) IM Q10M PRN 04/20/25 injection, auto-injector (EpiPen anaphylaxis #2 ea 2-Elan) Allergies Allergy/AdvReac Type Severity Reaction Status Date / Time Sulfa (Sulfonamide Allergy Intermediate DIARRHEA Verified 04/19/25 22:52 Antibiotics) (SULFA (SULFONAMIDE ANTIBIOTICS)) topiramate (From Topamax) Allergy Anaphylaxis Verified 04/19/25 22:52 venlafaxine (From Effexor) Allergy Unknown Verified 04/19/25 22:52 trazodone (TRAZODONE) AdvReac Mild UNKNOWN Verified 04/19/25 22:52 bupropion (From Wellbutrin) AdvReac Anxiety Verified 04/19/25 22:52 topamax AdvReac Intermediate Unknown Uncoded 02/15/25 15:10 Review of Systems Review of Systems: Pertinent review of systems as mentioned in HPI. All other system otherwise negative. [facility] Past Medical History [facility] Narrative: Medical history as mentioned in HPI Medical History Bipolar affective disorder Hyperchloremic metabolic acidosis Vitamin D deficiency Hypocalcemia Obesity Cyst of pituitary gland Raynauds disease Allergy to sunlight PTSD (post-traumatic stress disorder) Fibromyalgia CRISTIANA (generalized anxiety disorder) POTS (postural orthostatic tachycardia syndrome) Syncope and collapse Idiopathic autonomic neuropathy Autonomic dysfunction Bipolar II disorder Major depressive disorder Suicidal ideation Social History Social History Household Members: Family Household Members Other:: and baby Housing: Apartment Do you presently have visiting nurse or other home services: No Alcohol intake: current Alcohol intake frequency: holidays/special occasions only Alcohol type: beer, wine and hard liquor Patient Tobacco Use Status: Never used Tobacco Substance Use Type: Marijuana Advance Directives: No Advance Directives Information Provided: No Do you have a plan to hurt others: No Plan service: No Sexual orientation: Bisexual Physical Exam ED Exam Exam: General: Pleasant, no distress, interacting appropriately Head: Normacephalic, atraumatic ENT: oral mucosa moist, neck supple, no tracheal deviation, no stridor Cardiovascular: regular rate, regular rhythm, no murmurs, rubbing, gallops Respiratory: CTAB, no wheeze, rales, rhonchi Gastrointestinal: Soft, non distended, non tender, non guarding Extremities: No limb pain or swelling, no calf tenderness Neurological: Awake and alert, no facial droop noted Skin: Warm and dry, no sign of urticaria Psychiatric: Appropriate mood and thoughts Vital Signs: Vital Signs - 24 hr 04/19/25 22:50 04/19/25 23:50 Temperature 98.0 F Pulse Rate 90 Respiratory Rate 20 Blood Pressure 135/74 Pulse Oximetry 99 97 Oxygen Delivery Method Room Air Room Air BMI result Body Mass Index 34.7 Medical Decision Making Medical Decision Making [facility] Narrative: 29-year-old female presented hospital today for evaluation of shortness of breath after drinking alcohol earlier today I had the case enough. Patient does not meet anaphylaxis criteria at this time. She did give herself the EpiPen. We will plan to discharge patient his time no sign of hypoxia no sign of tachypnea. No sign of wheezing. She appears to be stable from respiratory standpoint. She does have allergies she follow up with. She will plan to follow up with her photo lab technician Differential Diagnosis Differential Diagnoses: The differential diagnosis associated with the presentation includes Allergic reaction, anaphylaxis Lab Data [facility] Lab Attestation statement: I reviewed the patient's lab results. Labs: Lab Results 04/19/25 Range/Units 22:58 Influenza Type A (PCR) NEGATIVE (Negative) Influenza Type B (PCR) NEGATIVE (Negative) RSV RNA Qual (PCR) NEGATIVE (Negative) SARS-CoV-2 RNA (RT-PCR) NEGATIVE (Negative) S. pyogenes GrpA ALEYDA Negative (Negative) Independent Interpretation I performed an independent interpretation of an: Plain X-Ray Radiology Impression Discussion of test interpretation with radiology: I have reviewed the radiologist's reading. Discharge Plan Discharge Clinical Impression: Shortness of breath Patient Disposition: Home, Self-Care Prescriptions: New epinephrine [EpiPen 2-Elan] 0.3 mg/0.3 mL auto-injector 0.3 mg IM Q10M PRN (Reason: anaphylaxis) Qty: 2 0RF Rx Instructions: for 2 doses No Action tizanidine 4 mg capsule 4 mg PO TID PRN (Reason: muscle spasticity) 30 Days Qty: 90 8RF cholecalciferol (vitamin D3) 125 mcg (5,000 unit) capsule 1 cap PO DAILY methocarbamol 750 mg tablet 750 mg PO Q8H 10 Days Qty: 30 0RF prednisone 20 mg tablet 40 mg PO DAILY Qty: 10 0RF famotidine [Pepcid] 20 mg tablet 20 mg PO BID 5 Days Qty: 10 0RF diphenhydramine HCl [Benadryl] 25 mg capsule 25 mg PO Q8H 5 Days Qty: 15 0RF epinephrine [EpiPen] 0.3 mg/0.3 mL auto-injector 0.3 mg IM ONCE PRN (Reason: extreme reaction) Qty: 1 0RF Rx Instructions: for 2 doses prednisone 20 mg tablet 20 mg PO DAILY 5 Days Qty: 5 0RF ondansetron 4 mg tablet,disintegrating 4 mg PO Q8H PRN (Reason: nausea and vomiting) Qty: 20 0RF morphine 15 mg tablet 15 mg PO Q6H PRN (Reason: pain) Qty: 15 0RF Rx Instructions: Partial Fill upon patient request. cyclobenzaprine 5 mg tablet 5 mg PO TID PRN (Reason: muscle spasm) Qty: 20 0RF prednisone 10 mg tablet 10 mg PO DIRECTED Qty: 42 0RF Rx Instructions: Take 60 mg (6 tabs) daily for 2 days. Then take 50 mg (5 tabs) daily for 2 days. Then take 40 mg (4 tabs) daily for 2 days. Then take 30 mg (3 tabs) daily for 2 days. Then take 20 mg (2 tabs) daily for 2 days. Then take 10 mg (1 tab) daily for 2 days. Then stop. famotidine [Pepcid] 20 mg tablet 20 mg PO BID 5 Days Qty: 10 0RF duloxetine 60 mg capsule,delayed release(DR/EC) 60 mg PO DAILY ibuprofen 600 mg tablet 600 mg PO Q8H PRN acetaminophen [Tylenol] 325 mg capsule 650 mg PO Q6H PRN aripiprazole 15 mg tablet 15 mg PO DAILY midodrine 5 mg tablet 5 mg PO TID pregabalin [Lyrica] 150 mg capsule 150 mg PO BID 30 Days Qty: 60 5RF Print Language: Taiwanese
[2025-04-19 23:17] LABS: IDNOW Serial# 6674DD1D
[2025-04-19 23:18] LABS: Strep A Nucleic Acid Negative (Negative)
[2025-04-19 23:43] LABS: Resp Syncy Virus RNA Qual PCR NEGATIVE (Negative); SARS COV2 PCR INHOUSE NEGATIVE (Negative)
[2025-04-19 23:50] VITALS: O2SAT 97
--- OUTSIDE RECORDS SUMMARY | 2025-04-19 23:51 | XMS_ITS | Clinical Summary ---
Author Organization [employer] Address [address] [facility] [address] [place] [address] Care Team Providers Care Tax Appraiser Name Role Phone Unavailable Primary Care Provider Unavailabl e Social History Tobacco Use Types Packs/Day Years Used Date Smoking Tobacco: Never Assessed Comments Unknown Sex and Gender Information Value Date Recorded Sex Assigned at Female 03/17/2025 11:37 AM EST Legal Sex Female 11:30 AM EST Gender Identity Non-Binary 03/17/2025 11:37 AM EST Sexual Orientation Bisexual 03/17/2025 11 :37 AM EST Plan of Treatment Upcoming Encounters Date Type Department Care Team (Late st Contact Info) Description 05/20/2025 10:20 AM EST Office Visit [facility] [address] [place] [address] [place], [place], [facility] [address] [place] [address] Health Maintenance Due Date Last Done Comments Depression Screening 1993 HIV Screening 1993 SDOH Screening 1993 Disability Screening 1993 Alcohol/Substance Use Screening 2005 Tobacco Screening 2005 Family Planning (PISQ) 2008 HPV Vaccines (1 - 3-dose series) 2008 Hepatitis C Screening 09/10/2011 DTaP/Tdap/Td Vaccines (1 - Tdap) 2012 Hepatitis B Vaccines (1 of 3 - 19+ 3-dose series) 2012 Pap Smear 2014 Cervical Cancer Screening 09/10/2023 HPV/Cotest 09/10/2023 COVID-19 Vaccine (2024-2 6 season) 2024 Influenza Vaccine (#1) 2024 Zoster Vaccines (1 of 2) 09/10/2043 RSV Patients and Pa tients Aged 60 years or older (1 - 1-dose 75+ series) 2068 HIB Vaccines Aged Out No longer eligi ble based on patient's age to complete this topic Hepatitis A Vaccines Aged Out No long er eligible based on patient's age to complete this topic IPV Vaccines Aged Out No longer eligi ble based on patient's age to complete this topic Meningococcal B Vaccine Aged Out No l onger eligible based on patient's age to complete this topic Meningococcal Vaccine Aged Out No gurmeet [place] eligible based on patient's age to complete this topic Pneumococcal Vaccine: Pediat rics (0 to 5 Years) and At-Risk Patients (6 to 49) Years Aged Out No longer eligible b ased on patient's age to complete this topic RSV under 20 months Aged Out No longe r eligible based on patient's age to complete this topic Rotavirus Vaccines Aged Out No longer eligible based on patient's age to complete this topic [place] [address] [place] [address] OPEN ACCESS
--- OUTSIDE RECORDS SUMMARY | 2025-04-19 23:51 | XMS_ITS | Clinical Summary ---
Author Organization [facility] Address [address] [place] [address] Care Team Providers Care Certified Ski Patroller Name Role Phone Mónica Valle Primary Care Provider [phone] Allergies Active Allergy Reactions Criticality Noted Date [...] ual Screening 04/30/2024 Influenza Vaccine (#1) 2024 , 01/15/2021, 01/07/2020, Additional history exists COVID-19 Vaccine (2024-2 6 season) 2024 04/10/2022, 02/17/2021, 06/13/2020, Additional history exists DTaP,Tdap,and Td Vaccines (8 - Td or Tdap) 08/04/2031 08/03/2021, 08/07/2017, 10/27/2011, Additional history exists Hepatitis B Vaccines Completed 07/02/2020, 03/11/2020, 12/30/2019, Additional history exists Insurance CIG[employer] PPO/EPO/IND [facility] CIGNA PPO/EPO/IND Advance Directives * Full Code (Latest Code Status on File) Date Activated Date Inactivated Comments 05/08/2017 12:56 PM 05/08/2017 4:37 PM Care Teams Certified Ski Patroller Relationship Specialty Start Date End Date Mónica Valle [address] [address] PCP - General 01/19/22
[2025-04-20 00:24] VITALS: BP 132/66; PULSE 75; RESP 16; TEMP 36.7; O2SAT 100
[2025-04-20 00:40] VITALS: BP 132/66; PULSE 75; RESP 16; TEMP 36.7; O2SAT 100
== END 2025-04-20 00:42 | disposition home or self-care (01) ==
PROVIDERS: Emergency Provider Student in an Organized Health Care Education/Training Program; PCP Nurse Practitioner Adult Health
DX: R06.02 Shortness of breath (principal); R05.9 Cough, unspecified; Z03.818 Encounter for observation for suspected exposure to other biological agents ruled out; I73.00 Raynaud's syndrome without gangrene; Q79.60 Ehlers-Danlos syndrome, unspecified; Z79.899 Other long term (current) drug therapy
CPT/HCPCS: 71046; 87637; 87651; 99283; 99284

== ENCOUNTER → 2025-04-19 23:07 | Outpatient (BNV) | payer OTHER, MEDICAID, SELFPAY | PROVIDERS: Emergency Provider Student in an Organized Health Care Education/Training Program; PCP Nurse Practitioner Adult Health; Visit Provider Student in an Organized Health Care Education/Training Program | DX: R07.9 Chest pain, unspecified (principal); R06.02 Shortness of breath | CPT/HCPCS: 71046 ==